=== PATIENT | female | born 1965 | race Caucasian/White ===

== ENCOUNTER → 2020-03-18 10:30 | Outpatient (BNVA) | payer OTHER, SELFPAY | PROVIDERS: PCP Internal Medicine; Visit Provider Anesthesiology | DX: M51.36 Other intervertebral disc degeneration, lumbar region (principal); M51.37 Other intervertebral disc degeneration, lumbosacral region; M47.816 Spondylosis without myelopathy or radiculopathy, lumbar region | CPT/HCPCS: 99204 ==

== ENCOUNTER 2020-05-28 13:00 | Outpatient (RCR) | payer OTHER, SELFPAY ==
--- NOTE | 2020-04-02 14:21 | MHC.PT.EP ---
[facility] [place] Office [place] Office [place] Office [address] Jh Rosenberg [address] [phone] F: [phone] F: [phone] F: [phone] F: [phone] Physical Therapy Plan of Care Date of Evaluation: 04/02/20 Date of Surgery: NA Diagnosis: other intervertebral disc degeneration, lumbaoscaral region, spondylosis without myelopathy or radiculopathy, lumbar region Assessment: 54 y/o female referred to PT with other intervertebral disc deneneration lumbosacral region, spondylosis without myeloathy or radiculopathy. 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 States she had back pain prior to this injury but this specific incident made her back pain worse. Her pain feels the same or getting a little bit worse since her injury and it is across her low back with intermittent tingling L lateral thigh. She has a lot of fear/anxiety regarding her back pain as she has a bulging disc (?sequestration) that led to R foot drop and eventually a laminectomy in 1999. She is scared this will happen again. Of note, she had PT at [place] but did not attend many visits as it increased pain, although the TENS and tape were helpful. She is able to do her ADL's but with pain, sometimes she is unable to shave her legs and don/doffing shoes can be painful. Pain and difficulty with walking, prolonged standing, washing dishes, and lifting. She is currently OOW with workmans comp. Examination shows significantly decreased lumbar AROM, decreased core strength, impaired gait pattern, muscle spasm, and decreased postural awareness. REcommend PT 2x/week for 5 weeks to address impairments, implement HEP, and optimize functional mobility. Frequency and Duration: The patient will be seen 2x/week for 5 weeks Short Term Goals: 3 weeks: 1. Initiate HEP 2. Improve lumbar flexion to 75% with pain < 3/10 Longterm Goals: 5 weeks: 1. I with HEP and self management of sx 2. Pt will be able to ambulate > 45 min with pain < 2/10 3. Pt will be able to don/doff shoes with pain > 2/10 4. Will demonstrate proper lifting mechanics 15# from knees to waist with pain < 3/10 Treatment Plan: Modalities to reduce pain, spasms and effusion. Manual therapy to restore motion and function. Therapeutic exercise to improve strength and flexibility. Neuromuscular re-education for posture and balance. Therapeutic activities to return to functional activities of daily living. Please sign and return to therapist. Thank you for your referral.
== END 2020-06-25 09:54 | disposition other institution (70) ==
LOC: HO.PTWFD 13:00
PROVIDERS: Visit Provider Anesthesiology
DX: M51.37 Other intervertebral disc degeneration, lumbosacral region (principal); M47.816 Spondylosis without myelopathy or radiculopathy, lumbar region
CPT/HCPCS: 97014; 97110; 97140; 97162; 97164; 97530; 97535

== ENCOUNTER 2020-09-07 10:00 | Outpatient (REF) | payer BC, SELFPAY ==
[2020-09-07 13:27] LABS: MANUAL DIFF FLAG NO
[2020-09-07 13:29] LABS: Basophils Absolute Auto 0.1 X10*3/uL (0.0-0.2); Basophils Percent Auto 1.2 % (0-2); Eosinophils Absolute Auto 0.5 X10*3/uL (0.0-0.4); Hematocrit 42.8 % (37-47); Imm Gran Abs Auto 0.04 X10*3/uL (0.00-0.03); Imm Gran Pct Auto 0.6 % (0.0-0.4); Lymphocytes Absolute Auto 2.2 X10*3/uL (1.2-4.9); Lymphocytes Percent Auto 33.5 % (20-40); Mean Corpuscular HGB Conc 32.7 g/dl (31.0-35.0); Mean Corpuscular Volume 94.7 fL (80-98); Mean Platelet Volume 10.1 fL (9.4-12.3); Monocytes Absolute Auto 0.5 X10*3/uL (0.1-1.2); Monocytes Percent Auto 7.3 % (2-11); Neutrophils Absolute Auto 3.2 X10*3/uL (2.0-8.3); Neutrophils Percent Auto 50.4 % (45-73); Platelet Count 247 X10*3/uL (160-400); Red Blood Count 4.52 X10*6/uL (4.20-5.50); Red Cell Distribution Width 12.8 % (11.0-16.0); White Blood Count 6.4 X10*3/uL (4.8-10.8)
[2020-09-07 13:56] LABS: Alanine Aminotransferase 20 U/L (0-31); Alkaline Phosphatase 109 U/L (39-117); Anion Gap 11 (12-20); Aspartate Amino Transferase 16 U/L (5-31); Bilirubin Total 0.5 mg/dL (0.0-1.0); Blood Urea Nitrogen 17 mg/dL (9-16); Calcium 9.1 mg/dL (8.4-10.2); Carbon Dioxide 28 mmol/L (22-29); Chloride 108 mmol/L (96-108); Cholesterol 222 mg/dL; Estimated Glomerular Filt Rate > 60; Glucose Fasting 84 mg/dL (60-99); HDL Cholesterol 60 mg/dL; LDL Cholesterol Calculated 122 mg/dl; Sodium 142 mmol/L (135-145); Total Protein 6.6 g/dL (6.5-8.0); Triglycerides 202 mg/dL
[2020-09-07 14:21] LABS: TSH reflex Free T4 0.96 uIU/mL (0.32-4.0)
[2020-09-08 08:47] LABS: Thyroid Peroxidase Antibodies 51 IU/mL (<9)
== END 2020-09-07 10:01 | disposition home or self-care (01) ==
LOC: HO.WFDLDS 10:00
PROVIDERS: Visit Provider Family Medicine
DX: Z00.00 Encounter for general adult medical examination without abnormal findings (principal); R94.6 Abnormal results of thyroid function studies
CPT/HCPCS: 36415; 80053; 80061; 84443; 85025; 86376

== ENCOUNTER 2020-10-08 11:20 | Outpatient (REF) | payer BC, SELFPAY ==
[2020-10-08 14:03] LABS: MANUAL DIFF FLAG NO
[2020-10-08 14:09] LABS: Basophils Absolute Auto 0.1 X10*3/uL (0.0-0.2); Basophils Percent Auto 0.7 % (0-2); Eosinophils Absolute Auto 0.5 X10*3/uL (0.0-0.4); Eosinophils Percent Auto 6.9 % (0-4); Hematocrit 41.6 % (37-47); Hemoglobin 13.5 g/dl (12.0-16.0); Imm Gran Abs Auto 0.04 X10*3/uL (0.00-0.03); Imm Gran Pct Auto 0.6 % (0.0-0.4); Lymphocytes Absolute Auto 2.4 X10*3/uL (1.2-4.9); Lymphocytes Percent Auto 34.6 % (20-40); Mean Corpuscular HGB Conc 32.5 g/dl (31.0-35.0); Mean Corpuscular Hemoglobin 30.3 pg (27.0-33.0); Mean Corpuscular Volume 93.5 fL (80-98); Mean Platelet Volume 9.9 fL (9.4-12.3); Monocytes Absolute Auto 0.5 X10*3/uL (0.1-1.2); Monocytes Percent Auto 7.4 % (2-11); Neutrophils Absolute Auto 3.4 X10*3/uL (2.0-8.3); Neutrophils Percent Auto 49.8 % (45-73); Platelet Count 245 X10*3/uL (160-400); Red Blood Count 4.45 X10*6/uL (4.20-5.50); Red Cell Distribution Width 13.1 % (11.0-16.0); White Blood Count 6.8 X10*3/uL (4.8-10.8)
[2020-10-08 14:41] LABS: Anion Gap 10 (12-20); Blood Urea Nitrogen 16 mg/dL (9-16); Calcium 9.3 mg/dL (8.4-10.2); Carbon Dioxide 28 mmol/L (22-29); Chloride 106 mmol/L (96-108); Estimated Glomerular Filt Rate > 60; Glucose Random 78 mg/dL (60-115); Potassium 4.3 mmol/L (3.3-5.1); Sodium 140 mmol/L (135-145)
== END 2020-10-08 11:21 | disposition home or self-care (01) ==
LOC: HO.WFDLDS 11:20
PROVIDERS: Visit Provider Family Medicine
DX: Z00.00 Encounter for general adult medical examination without abnormal findings (principal); R53.83 Other fatigue
CPT/HCPCS: 36415; 80048; 85025

== ENCOUNTER 2020-12-09 13:19 | Outpatient (REF) | payer OTHER, SELFPAY ==
[2020-12-09 15:45] LABS: Free T4 (Free Thyroxine) 0.86 ng/dL (0.71-1.85); Thyroid Stimulating Hormone 0.93 uIU/mL (0.32-4.0)
== END 2020-12-09 13:20 | disposition home or self-care (01) ==
LOC: HO.LAB 13:19
PROVIDERS: PCP Family Medicine; Visit Provider Nurse Practitioner Gerontology
DX: E03.8 Other specified hypothyroidism (principal); E06.3 Autoimmune thyroiditis; E66.01 Morbid (severe) obesity due to excess calories; Z68.41 Body mass index [BMI] 40.0-44.9, adult
CPT/HCPCS: 36415; 84439; 84443; 99212

== ENCOUNTER 2021-03-09 09:45 | Outpatient (REF) | payer OTHER, SELFPAY ==
[2021-03-09 11:49] LABS: Alanine Aminotransferase 16 U/L (0-31); Alkaline Phosphatase 107 U/L (39-117); Anion Gap 13 (12-20); Aspartate Amino Transferase 16 U/L (5-31); Bilirubin Total 0.5 mg/dL (0.0-1.0); Blood Urea Nitrogen 18 mg/dL (9-16); Calcium 9.3 mg/dL (8.4-10.2); Carbon Dioxide 24 mmol/L (22-29); Chloride 107 mmol/L (96-108); Cholesterol 246 mg/dL; Estimated Glomerular Filt Rate > 60; Glucose Fasting 93 mg/dL (60-99); HDL Cholesterol 51 mg/dL; LDL Cholesterol Calculated 142 mg/dl; Sodium 140 mmol/L (135-145); Total Protein 6.7 g/dL (6.5-8.0); Triglycerides 269 mg/dL
[2021-03-09 12:05] LABS: TSH reflex Free T4 1.04 uIU/mL (0.32-4.0)
== END 2021-03-09 09:46 | disposition home or self-care (01) ==
LOC: HO.WFDLDS 09:45
PROVIDERS: Visit Provider Family Medicine
DX: Z00.00 Encounter for general adult medical examination without abnormal findings (principal)
CPT/HCPCS: 36415; 80053; 80061; 84443

== ENCOUNTER → 2021-04-14 10:45 | Outpatient (BNVA) | payer OTHER, SELFPAY | PROVIDERS: PCP Family Medicine; Visit Provider Nurse Practitioner Gerontology | DX: E03.8 Other specified hypothyroidism (principal); E06.3 Autoimmune thyroiditis; E66.01 Morbid (severe) obesity due to excess calories; Z68.41 Body mass index [BMI] 40.0-44.9, adult | CPT/HCPCS: 99212 ==

== ENCOUNTER → 2021-05-04 10:56 | Outpatient (BNVA) | payer OTHER, SELFPAY | PROVIDERS: PCP Family Medicine; Referring Provider Family Medicine; Visit Provider Physician Assistant Surgical ==

== ENCOUNTER → 2021-05-10 11:56 | Outpatient (BNVA) | payer OTHER, SELFPAY | PROVIDERS: PCP Family Medicine; Referring Provider Family Medicine; Visit Provider Nurse Practitioner Family | DX: Z12.11 Encounter for screening for malignant neoplasm of colon (principal); K21.9 Gastro-esophageal reflux disease without esophagitis | CPT/HCPCS: 99202 ==

== ENCOUNTER → 2021-05-14 08:20 | Outpatient (BNVA) | payer OTHER, SELFPAY | PROVIDERS: PCP Family Medicine; Visit Provider Surgery ==

== ENCOUNTER 2021-05-18 09:44 | Outpatient (REF) | payer OTHER, SELFPAY ==
--- NOTE | ~2021-05-18 | XR_ITS ---
EXAMINATION: XR CHEST CLINICAL INFORMATION: Morbid obesity due to excess calories. COMPARISON: None TECHNIQUE: 2 views of the chest were obtained. FINDINGS: Normal symmetric lung volumes. No parenchymal consolidation. No pleural effusion. No pneumothorax. Cardiomediastinal silhouette and pulmonary vascularity are within normal limits. No acute osseous abnormalities. XR/XR chest 2V IMPRESSION: Unremarkable examination.
--- NOTE | 2021-05-18 09:48 | ECG_ITS ---
Test Reason : obesity Blood Pressure : / mmHG Vent. Rate : 066 BPM Atrial Rate : 066 BPM P-R Int : 172 ms QRS Dur : 100 ms QT Int : 392 ms P-R-T Axes : 051 029 022 degrees QTc Int : 410 ms Normal sinus rhythm Normal ECG When compared with ECG of 26-APR-2011 08:48, No significant change was found Referred By: Demond Meyer Electronically Signed By:ROSI MALONEY
[2021-05-18 10:03] LABS: MANUAL DIFF FLAG NO
[2021-05-18 10:14] LABS: Basophils Absolute Auto 0.1 X10*3/uL (0.0-0.2); Eosinophils Absolute Auto 0.4 X10*3/uL (0.0-0.4); Hematocrit 42.4 % (37.0-47.0); Imm Gran Abs Auto 0.02 X10*3/uL (0.00-0.03); Imm Gran Pct Auto 0.4 % (0.0-0.4); Lymphocytes Absolute Auto 1.3 X10*3/uL (1.2-4.9); Lymphocytes Percent Auto 27.2 % (20-40); Mean Corpuscular Hemoglobin 30.4 pg (27.0-33.0); Mean Platelet Volume 9.8 fL (9.4-12.3); Monocytes Absolute Auto 0.4 X10*3/uL (0.1-1.2); Monocytes Percent Auto 8.2 % (2-11); Neutrophils Absolute Auto 2.7 x10*3/uL (2.0-8.3); Neutrophils Percent Auto 55.2 % (45-73); Platelet Count 223 X10*3/uL (160-400); Red Blood Count 4.61 X10*6/uL (4.20-5.50); Red Cell Distribution Width 12.9 % (11.0-16.0); White Blood Count 4.9 X10*3/uL (4.8-10.8)
[2021-05-18 11:02] LABS: Alanine Aminotransferase 17 U/L (0-31); Alkaline Phosphatase 87 U/L (39-117); Anion Gap 10 (12-20); Aspartate Amino Transferase 18 U/L (5-31); Bilirubin Total 0.5 mg/dL (0.0-1.0); Blood Urea Nitrogen 20 mg/dL (9-16); C Reactive Protein 0.26 mg/dL (< or = 0.50); Calcium 9.8 mg/dL (8.4-10.2); Carbon Dioxide 28 mmol/L (22-29); Chloride 109 mmol/L (96-108); Cholesterol 179 mg/dL; Estimated Glomerular Filt Rate > 60; Glucose Random 90 mg/dL (60-115); HDL Cholesterol 50 mg/dL; Iron 65 mcg/dL (30-160); LDL Cholesterol Calculated 106 mg/dl; Percent Iron Saturation 22 % (15-50); Sodium 143 mmol/L (135-145); Total Iron Binding Capacity 293 mcg/dL (228-428); Total Protein 6.7 g/dL (6.5-8.0); Triglycerides 117 mg/dL; Unsaturated Iron Binding 228 ug/dL
[2021-05-18 11:19] LABS: Estimated Average Glucose 94 mg/dL; Hemoglobin A1c % 4.9 %
[2021-05-18 11:27] LABS: Ferritin 130 ng/mL (10-250); Insulin 10 uU/mL (2-29); TSH reflex Free T4 0.92 uIU/mL (0.32-4.0); Vitamin D 25-OH Total 34.6 ng/mL (>30)
[2021-05-18 11:29] LABS: Folate > 20.0 ng/mL (> or = 4.0); Vitamin B12 489 pg/mL (200-900)
[2021-05-19 12:33] LABS: H Pylori Breath Test Negative (Negative)
[2021-05-19 13:07] LABS: Calcium (PTHI) 9.5 mg/dL (8.6-10.4); PTHI 35 pg/mL (14-64)
[2021-05-23 11:16] LABS: Vitamin B1 19 nmol/L (8-30)
[2021-05-24 04:56] LABS: Zinc 74 mcg/dL (60-130)
[2021-05-25 18:42] LABS: Vitamin A 50 mcg/dL (38-98)
== END 2021-05-18 09:45 | disposition home or self-care (01) ==
LOC: HO.XRAY 09:44
PROVIDERS: PCP Family Medicine; Visit Provider Surgery
DX: E66.01 Morbid (severe) obesity due to excess calories (principal); E03.8 Other specified hypothyroidism; E06.3 Autoimmune thyroiditis; G47.30 Sleep apnea, unspecified; M54.9 Dorsalgia, unspecified; Z68.41 Body mass index [BMI] 40.0-44.9, adult
CPT/HCPCS: 36415; 71046; 80053; 80061; 82306; 82607; 82728; 82746; 83013; 83036; 83525; 83540; 83970; 84425; 84443; 84590; 84630; 85025; 86140; 93005; 99211

== ENCOUNTER → 2021-06-14 10:42 | Outpatient (BNVA) | payer OTHER, SELFPAY | PROVIDERS: PCP Family Medicine; Referring Provider Family Medicine; Visit Provider Surgery | DX: E66.01 Morbid (severe) obesity due to excess calories (principal); Z68.37 Body mass index [BMI] 37.0-37.9, adult | CPT/HCPCS: 99212 ==

== ENCOUNTER → 2021-06-17 08:05 | Outpatient (BNVA) | payer OTHER, SELFPAY | PROVIDERS: PCP Family Medicine; Visit Provider Dietitian, Registered | DX: E66.9 Obesity, unspecified (principal) | CPT/HCPCS: 97802 ==

== ENCOUNTER 2021-07-05 08:47 | Outpatient (REF) | payer OTHER, SELFPAY ==
--- NOTE | ~2021-07-05 | FL_ITS ---
EXAMINATION: XR FLUOROSCOPY UPPER GI WITH AIR CLINICAL INFORMATION: Moderate to severe obesity due to excess calories. COMPARISON: None TECHNIQUE: Routine upper GI air-contrast study was performed. FINDINGS: Following intravenous administration of thick barium and effervescent granules there is normal propagation of bolus from the oral cavity through the pharynx, esophagus into stomach without any evidence of obstruction, narrowing or stricture. On placing patient supine and prone lying, the course, caliber and peristalsis of the stomach, duodenal bulb and the sweep is normal. The mucosal pattern of the stomach is normal. Mild gastroesophageal reflux seen without hiatal hernia. FLUOROSCOPY TIME: 1.7 minutes DOSE AREA PRODUCT: 21.474 uGy-m2 (microgray-meter squared) FL/FL upper GI w air IMPRESSION: Mild gastroesophageal reflux without hiatal hernia. Otherwise unremarkable upper GI air-contrast study.
--- NOTE | ~2021-07-05 | US_ITS ---
EXAMINATION: US COMPLETE ABDOMEN WITH LIVER ELASTOGRAPHY CLINICAL INFORMATION: Morbid obesity COMPARISON: None. TECHNIQUE: Real-time imaging of the abdominal viscera. Noninvasive ultrasound liver fibrosis assessment is performed using Damion ElastPQ point quantification shear wave elastography (2D-SWE) with a C5-2 MHz transducer. Multiple elastography samples are obtained. FINDINGS: PANCREAS: Normal. The visualized pancreatic head and body are normal in appearance. The remainder of the pancreas is obscured from visualization by the overlying bowel gas. ABDOMINAL AORTA: The proximal, middle, and distal aortic segments are normal in caliber. INFERIOR VENA CAVA: Visualized portions are normal. LIVER: Normal. The liver demonstrates normal size, contour and echogenicity. No focal lesion or intrahepatic biliary duct dilatation. The right lobe measures 15.4 cm in length. The left lobe measures 13 cm in length. Portal flow is hepatopedal Shear wave liver elastography median stiffness is 1.13 m/s (reference: normal median stiffness is 1.3 m/s or less). IQR/median stiffness to assess sampling precision is 0.12 (reference: good quality data set is IQR/median stiffness of 0.15 or less). GALLBLADDER: Gallstones are noted within otherwise unremarkable appearing gallbladder. There is no gallbladder wall thickening or pericholecystic fluid appreciated. Negative sonographic Luke's sign. COMMON BILE DUCT: Normal in caliber measuring 0.3 cm in diameter. RIGHT KIDNEY: The kidney measures 12 cm in maximum dimension. Several punctate calcifications are noted within the right kidney, either tiny nonobstructing calculi or vascular reflections. There is no hydronephrosis of the right kidney. There is a 7 mm simple appearing midpole cyst identified. LEFT KIDNEY: The kidney measures 12.2 cm in maximum dimension. Several punctate calcifications are also noted within the left kidney, either tiny nonobstructing calculi or vascular reflections. There is no hydronephrosis of the left kidney. There is an 8mm echogenic focus within the midpole which is suspected to represent a nonobstructing calculus. SPLEEN: Normal. The spleen measures 9.3 cm in maximum dimension. FREE FLUID: None. US/US abdomen comp w elastography IMPRESSION: 1. Cholelithiasis. No other ultrasound evidence to suggest acute cholecystitis. 2. Suspected 8mm nonobstructing left renal calculus. There are punctate calcifications of both kidneys which either represent tiny nonobstructing stones versus vascular calcifications. There is no hydronephrosis of either kidney identified. 3. Liver elastography: Measurements are consistent with a high probability of normal liver stiffness. REFERENCE: Society of Radiologists in Ultrasound Liver Stiffness Thresholds (2020): LIVER STIFFNESS THRESHOLDS: *Liver Stiffness equal or less than 1.3 m/s: High probability of being normal. *Liver Stiffness less than 1.7 m/s: In the absence of other known clinical signs, rules out compensated advanced chronic liver disease. *Liver Stiffness 1.7-2.1 m/s: Suggestive of compensated advanced chronic liver disease but need further test for confirmation. *Liver Stiffness over 2.1 m/s: Rules in compensated advanced chronic liver disease. *Liver Stiffness over 2.4 m/s: Suggestive of clinically significant portal hypertension. QUALITY OF DATA SET: *IQR/Median value equal or less than 0.15 implies a quality data set. *IQR/Median value over 0.15 implies a poor quality data set. SIGNIFICANT CHANGE FROM PRIOR EXAM: Significant change if liver stiffness measurement is 10% or greater from prior exam. OTHER CONSIDERATIONS: The stage of liver fibrosis may be overestimated in the setting of acute hepatitis, liver inflammation, elevated liver function tests, hepatic vascular congestion, obstructive cholestasis, non-fasting state, and infiltrative diseases such as amyloidosis and lymphoma. In some patients with NAFLD, the liver stiffness thresholds for compensated advanced chronic liver disease may be lower. In causes other than viral hepatitis and NAFLD, liver stiffness thresholds are not well established.
== END 2021-07-05 08:48 | disposition home or self-care (01) ==
LOC: HO.US 08:47
PROVIDERS: PCP Family Medicine; Visit Provider Surgery
DX: Z01.818 Encounter for other preprocedural examination (principal); E66.01 Morbid (severe) obesity due to excess calories; Z68.41 Body mass index [BMI] 40.0-44.9, adult; E03.8 Other specified hypothyroidism; E06.3 Autoimmune thyroiditis; G47.30 Sleep apnea, unspecified; M54.9 Dorsalgia, unspecified
CPT/HCPCS: 74246; 76705; 76981

== ENCOUNTER → 2021-07-08 08:01 | Outpatient (BNVA) | payer OTHER, SELFPAY | PROVIDERS: PCP Family Medicine; Referring Provider Surgery; Visit Provider Dietitian, Registered ==

== ENCOUNTER → 2021-07-14 08:19 | Outpatient (BNVA) | payer OTHER, SELFPAY | PROVIDERS: PCP Family Medicine; Visit Provider Surgery ==

== ENCOUNTER → 2021-07-15 08:10 | Outpatient (BNVA) | payer OTHER, SELFPAY | PROVIDERS: PCP Family Medicine; Visit Provider Dietitian, Registered | DX: E66.09 Other obesity due to excess calories (principal); Z68.36 Body mass index [BMI] 36.0-36.9, adult; Z71.3 Dietary counseling and surveillance | CPT/HCPCS: 97803 ==

== ENCOUNTER → 2021-08-13 08:18 | Outpatient (BNVA) | payer OTHER, SELFPAY | PROVIDERS: PCP Family Medicine; Visit Provider Surgery | DX: Z13.89 Encounter for screening for other disorder (principal) ==

== ENCOUNTER 2021-08-26 06:16 | Inpatient (IN) | payer OTHER, SELFPAY ==
[2021-08-12 09:47] VITALS: BMI 35.7
[2021-08-19 11:12] LABS: MANUAL DIFF FLAG NO
[2021-08-19 11:34] LABS: Basophils Percent Auto 0.9 % (0-2); Eosinophils Absolute Auto 0.2 X10*3/uL (0.0-0.4); Eosinophils Percent Auto 3.9 % (0-4); Hematocrit 43.9 % (37.0-47.0); Hemoglobin 14.4 g/dl (12.0-16.0); Imm Gran Abs Auto 0.02 X10*3/uL (0.00-0.03); Imm Gran Pct Auto 0.4 % (0.0-0.4); Lymphocytes Absolute Auto 1.4 X10*3/uL (1.2-4.9); Lymphocytes Percent Auto 30.7 % (20-40); Mean Corpuscular HGB Conc 32.8 g/dl (31.0-35.0); Mean Corpuscular Hemoglobin 30.3 pg (27.0-33.0); Mean Corpuscular Volume 92.2 fL (80.0-98.0); Mean Platelet Volume 9.7 fL (9.4-12.3); Monocytes Absolute Auto 0.4 X10*3/uL (0.1-1.2); Monocytes Percent Auto 8.7 % (2-11); Neutrophils Absolute Auto 2.6 x10*3/uL (2.0-8.3); Neutrophils Percent Auto 55.4 % (45-73); Platelet Count 195 X10*3/uL (160-400); Red Blood Count 4.76 X10*6/uL (4.20-5.50); White Blood Count 4.6 X10*3/uL (4.8-10.8)
[2021-08-19 11:38] LABS: INTERNATIONAL NORM RATIO 1.1 (0.9-1.1); Prothrombin Time 12.5 SEC (9.9-13.0)
[2021-08-19 11:40] LABS: Estimated Average Glucose 97 mg/dL; Partial Thromboplastin Time 40.6 SEC (24.1-38.0)
[2021-08-19 12:35] LABS: Alanine Aminotransferase 18 U/L (0-31); Alkaline Phosphatase 87 U/L (39-117); Anion Gap 14 (12-20); Aspartate Amino Transferase 15 U/L (5-31); Bilirubin Total 0.6 mg/dL (0.0-1.0); Blood Urea Nitrogen 22 mg/dL (9-16); C Reactive Protein 0.27 mg/dL (< or = 0.50); Calcium 9.7 mg/dL (8.4-10.2); Carbon Dioxide 25 mmol/L (22-29); Chloride 107 mmol/L (96-108); Cholesterol 182 mg/dL; Creatinine Clr Calc Pharmacy 70.3; Estimated Glomerular Filt Rate 56; Glucose Random 96 mg/dL (60-115); HDL Cholesterol 50 mg/dL; LDL Cholesterol Calculated 110 mg/dl; Potassium 4.5 mmol/L (3.3-5.1); Sodium 141 mmol/L (135-145); Total Protein 6.6 g/dL (6.5-8.0); Triglycerides 114 mg/dL
[2021-08-19 12:45] LABS: TSH reflex Free T4 0.95 uIU/mL (0.32-4.0)
[2021-08-19 13:46] LABS: Insulin 22 uU/mL (2-29)
--- NOTE | 2021-08-20 20:30 | MHC.SHP ---
Pre-Procedural Eval Section A Date of Service: 08/20/21 The patient is an INPATIENT: Yes The History & Physical has been completed within 30 days and I have reviewed it.: No Section B Chief Complaint: obesity Relevant Family History (Specify if Yes): No Relevant Social History: None Present Medications: None Medical History: No relevant PMH History of Previous Operations: No relevant previous surgery Allergies: Allergies Allergy/AdvReac Type Severity Reaction Status Date / Time nickel Allergy Severe Rash Verified 08/13/21 16:01 nitrofurantoin Allergy Hives Verified 08/13/21 16:01 [From Macrodantin] Sulfa (Sulfonamide Allergy Hives, Verified 08/13/21 16:01 Antibiotics) Swelling Review of Systems Sugical H&P ROS: Negative: Constitution, Cardiovascular, Respiratory, Neurological, Psychiatric, Hem-Onc, Allergic/Immunologic, Gastrointestinal, Genitourinary, Musculoskeletal, Integumentary, Endocrine and Eyes/Ears/Nose/Throat Exam Surgical H&P Exam: Normal: HEENT, Normal: Heart, Normal: Lungs, Normal: Extremities, Normal: Abdomen, Normal: Skin and Normal: Neurological Plan Diagnosis/Plan: Unchanged I have reviewed the history and physical and performed a pertinent physical examination on my patient. No changes have occurred unless specified.
--- NOTE | 2021-08-25 10:40 | HO.ANESPROP2 ---
Documented by User: Charla Brown NP 08/25/21 11:00 HPI - Anesthesia Eval Consult details Narrative: 56yo F for Gastrectomy Sleeve,EGD,poss diaphragmatic hernia,poss ventral hernia,poss open PMFSH Active Problems Active Problems: All Active Problems (Updated 08/13/21 @ 15:56 by Demond Meyer MD) BMI 35.0-35.9,adult (Acute) Depression with anxiety (Acute) Degenerative disc disease (Acute) Laboratory examination ordered as part of a routine general medical examination (Acute) Abnormal thyroid blood test (Acute) Screening for colon cancer (Acute) Screening for cervical cancer (Acute) Screening for breast cancer (Acute) Fatigue (Acute) Back pain (Acute) Hyperlipidemia (Acute) Morbid obesity with BMI of 40.0-44.9, adult (Acute) Urinary frequency (Acute) Adult general medical exam (Acute) Muscle strain (Acute) BMI 37.0-37.9, adult (Acute) Cervicalgia (Acute) Neuralgia (Acute) History of skin cancer (Acute) BMI 36.0-36.9,adult (Acute) Tachycardia (Acute) Sleep apnea (Acute) Obesity due to excess calories (Acute) Bettye's disease (Acute) Hypothyroidism (Acute) Spondylosis of lumbar spine (Acute) Degeneration, intervertebral disc, lumbosacral (Acute) Disc degeneration, lumbar (Acute) Past Medical History Medical History Anxiety and depression Degeneration, intervertebral disc, lumbosacral Disc degeneration, lumbar Bettye's disease Hypothyroidism Obesity due to excess calories Overactive bladder Sleep apnea Spondylosis of lumbar spine Tachycardia Family History Family History Mother Diabetes Uterine cancer Father Diabetes Sister Breast cancer Sister No problems noted. Brother No problems noted. Daughter No problems noted. Surgical History Surgical History History of bladder surgery History of cystoscopy History of dental surgery History of endometrial ablation History of eyelid surgery History of lumbar laminectomy History of lumpectomy of both breasts Hx of dilation and curettage Hx of tubal ligation Social History Social History Household Members: None Household Members Other:: Has a non relationship roomate Housing: Other Housing Other:: Mobile Home Are you a primary director of managed care to a significant other at home: No Do you presently have visiting nurse or other home services: No Alcohol intake: current Alcohol intake frequency: a few times a month Patient Tobacco Use Status: Former Tobacco user Quit Date: 2006 Tobacco use type: Cigarette Cigarette Packs Per Day: 2.5 Years Smoked: 24 e-Cigarette/Vaping Use: Never Used Second Hand Smoke Exposure: No Use of substances other than those prescribed or required for medical reasons: Yes Substance Use Type: Marijuana Substance Use Type Other:: Med Marijuana, Smokes & Edibles Substance Use Frequency: Daily Have you been hit, kicked, punched, or otherwise hurt by someone within the past year? If so, by whom?: No Are you DNR?: No Advance Directives: No Advance Directives Information Provided: Yes (Mailed w/ Intructions) Advance Directives on File: No Recently lost weight without trying: No How much weight loss: 24-33 pounds Eating poorly because of decreased appetite: No Nutrition screen score: 3 Nutrition Risks: No Nutritional Risk Patient : No Poor oral hygiene: No (2 crowns) Current occupational status: unemployed Cognitive needs: No Hearing needs: No Vision needs: No Meds Allergies Allergy/AdvReac Type Severity Reaction Status Date / Time nickel Allergy Severe Anaphylaxis Verified 08/26/21 06:28 nitrofurantoin Allergy Severe Anaphylaxis Verified 08/26/21 06:28 [From Macrodantin] Sulfa (Sulfonamide Allergy Hives, Verified 08/13/21 16:01 Antibiotics) Swelling Home Medications Medication Instructions Recorded Confirmed Last Taken Type bupropion HCl 100 mg tablet,12 hr 200 mg PO BID 03/18/20 08/13/21 Unknown History sustained-release topiramate 100 mg tablet 100 mg PO BEDTIME 03/18/20 08/13/21 Unknown History diazepam 5 mg tablet 5 mg PO DAILY PRN tab 09/03/20 08/13/21 Unknown History buspirone 15 mg tablet 15 mg PO BID tab 04/14/21 08/13/21 Unknown History duloxetine 30 mg capsule,delayed 60 mg PO DAILY cap 04/14/21 08/13/21 Unknown History release multivitamin 1 tab PO DAILY 05/13/21 08/13/21 Unknown History duloxetine 30 mg capsule,delayed 30 mg PO BEDTIME 08/12/21 08/13/21 Unknown History release Exam Exam Date and Time: August 25, 2021 1040 Height,Weight and Vital Signs: Height 5 ft 5 in Weight 97.522 kg Pertinent Lab Results Pertinent Lab Results: Laboratory Tests 08/19/21 08/19/21 08/19/21 11:10 11:10 11:10 WBC 4.6 L RBC 4.76 Hgb 14.4 Hct 43.9 MCV 92.2 MCH 30.3 MCHC 32.8 RDW 13.0 Plt Count 195 MPV 9.7 Immature Gran % (Auto) 0.4 Neut % (Auto) 55.4 Lymph % (Auto) 30.7 [place] % (Auto) 8.7 Eos % (Auto) 3.9 Baso % (Auto) 0.9 Lymph # (Auto) 1.4 [place] # (Auto) 0.4 Eos # (Auto) 0.2 Baso # (Auto) 0.0 Abs Immat Gran (auto) 0.02 Absolute Neuts (auto) 2.6 Absolute Nucleated RBC 0.000 Nucleated RBC % (auto) 0.0 PT 12.5 INR 1.1 APTT 40.6 H Sodium 141 Potassium 4.5 Chloride 107 Carbon Dioxide 25 Anion Gap 14 BUN 22 H Creatinine 1.02 Estim Creat Clear Calc 70.3 Estimated GFR 56 Random Glucose 96 Estimat Average Glucose Hemoglobin A1c % Insulin Level 22 Calcium 9.7 Total Bilirubin 0.6 AST 15 ALT 18 Alkaline Phosphatase 87 C-Reactive Protein 0.27 Total Protein 6.6 Albumin 4.0 Triglycerides 114 Cholesterol 182 LDL Cholesterol, Calc 110 HDL Cholesterol 50 TSH 0.95 Blood Type Antibody Screen 08/19/21 08/19/21 11:10 11:10 WBC RBC Hgb Hct MCV MCH MCHC RDW Plt Count MPV Immature Gran % (Auto) Neut % (Auto) Lymph % (Auto) [place] % (Auto) Eos % (Auto) Baso % (Auto) Lymph # (Auto) [place] # (Auto) Eos # (Auto) Baso # (Auto) Abs Immat Gran (auto) Absolute Neuts (auto) Absolute Nucleated RBC Nucleated RBC % (auto) PT INR APTT Sodium Potassium Chloride Carbon Dioxide Anion Gap BUN Creatinine Estim Creat Clear Calc Estimated GFR Random Glucose Estimat Average Glucose 97 Hemoglobin A1c % 5.0 Insulin Level Calcium Total Bilirubin AST ALT Alkaline Phosphatase C-Reactive Protein Total Protein Albumin Triglycerides Cholesterol LDL Cholesterol, Calc HDL Cholesterol TSH Blood Type O Positive Antibody Screen NEGATIVE Narrative Narrative: EKG 04/2021 Vent. Rate : 066 BPM ? ? Atrial Rate : 066 BPM ?? P-R Int : 172 ms? QRS Dur : 100 ms ? ? QT Int : 392 ms ? ? ? P-R-T Axes : 051 029 022 degrees ?? QTc Int : 410 ms ? Normal sinus rhythm Normal ECG When compared with ECG of 26-APR-2011 08:48, No significant change was found Assessment and Plan Assessment Anesthesia Assessment: Chart Reviewed Documented by User: Jeremi Lopez MD 08/26/21 10:15 [facility] Past Medical History Medical History Anxiety and depression Degeneration, intervertebral disc, lumbosacral Disc degeneration, lumbar Bettye's disease Hypothyroidism Obesity due to excess calories Overactive bladder Sleep apnea Spondylosis of lumbar spine Tachycardia Family History Family History Mother Diabetes Uterine cancer Father Diabetes Sister Breast cancer Sister No problems noted. Brother No problems noted. Daughter No problems noted. Family history of problems with anesthesia: No Surgical History Surgical History History of bladder surgery History of cystoscopy History of dental surgery History of endometrial ablation History of eyelid surgery History of lumbar laminectomy History of lumpectomy of both breasts Hx of dilation and curettage Hx of tubal ligation History of Problems with Anesthesia: No Social History Social History Household Members: None Household Members Other:: Has a non relationship roomate Housing: Other Housing Other:: Mobile Home Are you a primary director of managed care to a significant other at home: No Do you presently have visiting nurse or other home services: No Alcohol intake: current Alcohol intake frequency: a few times a month Patient Tobacco Use Status: Former Tobacco user Quit Date: 2006 Tobacco use type: Cigarette Cigarette Packs Per Day: 2.5 Years Smoked: 24 e-Cigarette/Vaping Use: Never Used Second Hand Smoke Exposure: No Use of substances other than those prescribed or required for medical reasons: Yes Substance Use Type: Marijuana Substance Use Type Other:: Med Marijuana, Smokes & Edibles Substance Use Frequency: Daily Have you been hit, kicked, punched, or otherwise hurt by someone within the past year? If so, by whom?: No Are you DNR?: No Advance Directives: No Advance Directives Information Provided: Yes (Mailed w/ Intructions) Advance Directives on File: No Recently lost weight without trying: No How much weight loss: 24-33 pounds Eating poorly because of decreased appetite: No Nutrition screen score: 3 Nutrition Risks: No Nutritional Risk Patient : No Poor oral hygiene: No (2 crowns) Current occupational status: unemployed Cognitive needs: No Hearing needs: No Vision needs: No Meds Allergies Allergy/AdvReac Type Severity Reaction Status Date / Time nickel Allergy Severe Anaphylaxis Verified 08/26/21 06:28 nitrofurantoin Allergy Severe Anaphylaxis Verified 08/26/21 06:28 [From Macrodantin] Sulfa (Sulfonamide Allergy Hives, Verified 08/13/21 16:01 Antibiotics) Swelling Home Medications Medication Instructions Recorded Confirmed Last Taken Type bupropion HCl 100 mg tablet,12 hr 200 mg PO BID 03/18/20 08/13/21 Unknown History sustained-release topiramate 100 mg tablet 100 mg PO BEDTIME 03/18/20 08/13/21 Unknown History diazepam 5 mg tablet 5 mg PO DAILY PRN tab 09/03/20 08/13/21 Unknown History buspirone 15 mg tablet 15 mg PO BID tab 04/14/21 08/13/21 Unknown History duloxetine 30 mg capsule,delayed 60 mg PO DAILY cap 04/14/21 08/13/21 Unknown History release multivitamin 1 tab PO DAILY 05/13/21 08/13/21 Unknown History duloxetine 30 mg capsule,delayed 30 mg PO BEDTIME 08/12/21 08/13/21 Unknown History release Exam Airway Mallampati Class: II TM Dist: >3cm Neck ROM: Full Loose/Missing/Broken Teeth: No Assessment and Plan Assessment Anesthesia Assessment: Anesthesia Plan Discussed Final Anesthetic Review Family History of Problems with Anesthesia: No History of Problems with Anesthesia: No NPO: Yes ASA Class: III Final Preanesthetic Review: No Changes in Pt Med Stat, Meds/Allgs Chart Reviewed, Consent Obtained/Reviewed and Anes Risks/Benef Reviewed Patient Risk: Intermediate Procedure Risk: Intermediate Anesthetic Plan Anesthetic Plan: GA Disposition: Standard PACU
[2021-08-25 13:46] LABS: COVID-19 Test Negative (Negative); IDNOW Serial# 16C4AD1C
[2021-08-26] VITALS (14 sets, daily range): BP systolic 101–144; BP diastolic 56–83; PULSE 62–99; RESP 14–20; TEMP 36.1–37.2; O2SAT 96–100
[2021-08-26] MEDS: Lactated Ringers 1,000 ML 999 ML IV (07:00)
[2021-08-26] MEDS: Lactated Ringers 1,000 ML 100 ML IVCONT ×3 (07:01→20:46)
--- NOTE | 2021-08-26 07:10 | P.CONAN_ITS ---
[facility] Active Problems Active Problems: All Active Problems (Updated 08/13/21 @ 15:56 by Demond Meyer MD) BMI 35.0-35.9,adult (Acute) Depression with anxiety (Acute) Degenerative disc disease (Acute) Laboratory examination ordered as part of a routine general medical examination (Acute) Abnormal thyroid blood test (Acute) Screening for colon cancer (Acute) Screening for cervical cancer (Acute) Screening for breast cancer (Acute) Fatigue (Acute) Back pain (Acute) Hyperlipidemia (Acute) Morbid obesity with BMI of 40.0-44.9, adult (Acute) Urinary frequency (Acute) Adult general medical exam (Acute) Muscle strain (Acute) BMI 37.0-37.9, adult (Acute) Cervicalgia (Acute) Neuralgia (Acute) History of skin cancer (Acute) BMI 36.0-36.9,adult (Acute) Tachycardia (Acute) Sleep apnea (Acute) Obesity due to excess calories (Acute) Bettye's disease (Acute) Hypothyroidism (Acute) Spondylosis of lumbar spine (Acute) Degeneration, intervertebral disc, lumbosacral (Acute) Disc degeneration, lumbar (Acute) Past Medical History Medical History Anxiety and depression Degeneration, intervertebral disc, lumbosacral Disc degeneration, lumbar Bettye's disease Hypothyroidism Obesity due to excess calories Overactive bladder Sleep apnea Spondylosis of lumbar spine Tachycardia Family History Family History Mother Diabetes Uterine cancer Father Diabetes Sister Breast cancer Sister No problems noted. Brother No problems noted. Daughter No problems noted. Family history of problems with anesthesia: No Surgical History Surgical History History of bladder surgery History of cystoscopy History of dental surgery History of endometrial ablation History of eyelid surgery History of lumbar laminectomy History of lumpectomy of both breasts Hx of dilation and curettage Hx of tubal ligation History of Problems with Anesthesia: No Social History Social History Household Members: None Household Members Other:: Has a non relationship roomate Housing: Other Housing Other:: Mobile Home Are you a primary intensive care medicine specialist to a significant other at home: No Do you presently have visiting nurse or other home services: No Alcohol intake: current Alcohol intake frequency: a few times a month Patient Tobacco Use Status: Former Tobacco user Quit Date: 2006 Tobacco use type: Cigarette Cigarette Packs Per Day: 2.5 Years Smoked: 24 e-Cigarette/Vaping Use: Never Used Second Hand Smoke Exposure: No Use of substances other than those prescribed or required for medical reasons: Yes Substance Use Type: Marijuana Substance Use Type Other:: Med Marijuana, Smokes & Edibles Substance Use Frequency: Daily Have you been hit, kicked, punched, or otherwise hurt by someone within the past year? If so, by whom?: No Are you DNR?: No Advance Directives: No Advance Directives Information Provided: Yes (Mailed w/ Intructions) Advance Directives on File: No Recently lost weight without trying: No How much weight loss: 24-33 pounds Eating poorly because of decreased appetite: No Nutrition screen score: 3 Nutrition Risks: No Nutritional Risk Patient : No Poor oral hygiene: No (2 crowns) Current occupational status: unemployed Cognitive needs: No Hearing needs: No Vision needs: No Meds Allergies Allergy/AdvReac Type Severity Reaction Status Date / Time nickel Allergy Severe Anaphylaxis Verified 08/26/21 06:28 nitrofurantoin Allergy Severe Anaphylaxis Verified 08/26/21 06:28 [From Macrodantin] Sulfa (Sulfonamide Allergy Hives, Verified 08/13/21 16:01 Antibiotics) Swelling Active Medications: Current Medications Lactated Ringer's (Lr) 1,000 mls @ 100 mls/hr IVCONT .Q10H [facility] Last Admin: 08/26/21 07:01 Dose: 100 mls/hr Documented by: Lactated Ringer's (Lr) 1,000 mls @ 999 mls/hr IV .Q1H1M [facility] Stop: 08/26/21 07:15 Last Admin: 08/26/21 07:00 Dose: 999 mls/hr Documented by: Home Medications Medication Instructions Recorded Confirmed Last Taken Type bupropion HCl 100 mg tablet,12 hr 200 mg PO BID 03/18/20 08/13/21 Unknown History sustained-release topiramate 100 mg tablet 100 mg PO BEDTIME 03/18/20 08/13/21 Unknown History diazepam 5 mg tablet 5 mg PO DAILY PRN tab 09/03/20 08/13/21 Unknown History buspirone 15 mg tablet 15 mg PO BID tab 04/14/21 08/13/21 Unknown History duloxetine 30 mg capsule,delayed 60 mg PO DAILY cap 04/14/21 08/13/21 Unknown History release multivitamin 1 tab PO DAILY 05/13/21 08/13/21 Unknown History duloxetine 30 mg capsule,delayed 30 mg PO BEDTIME 08/12/21 08/13/21 Unknown History release Exam Exam Date and Time: August 26, 2021 0710 Height,Weight and Vital Signs: Height 5 ft 5 in Weight 97.522 kg Last Vital Signs Temp 98.5 F 08/26/21 06:30 Pulse 63 08/26/21 06:30 Resp 18 08/26/21 06:30 BP 121/67 08/26/21 06:30 Pulse Ox 98 08/26/21 06:30 Pertinent Lab Results Pertinent Lab Results: Laboratory Tests 08/19/21 08/19/21 08/19/21 11:10 11:10 11:10 WBC 4.6 L RBC 4.76 Hgb 14.4 Hct 43.9 MCV 92.2 MCH 30.3 MCHC 32.8 RDW 13.0 Plt Count 195 MPV 9.7 Immature Gran % (Auto) 0.4 Neut % (Auto) 55.4 Lymph % (Auto) 30.7 [place] % (Auto) 8.7 Eos % (Auto) 3.9 Baso % (Auto) 0.9 Lymph # (Auto) 1.4 [place] # (Auto) 0.4 Eos # (Auto) 0.2 Baso # (Auto) 0.0 Abs Immat Gran (auto) 0.02 Absolute Neuts (auto) 2.6 Absolute Nucleated RBC 0.000 Nucleated RBC % (auto) 0.0 PT 12.5 INR 1.1 APTT 40.6 H Sodium 141 Potassium 4.5 Chloride 107 Carbon Dioxide 25 Anion Gap 14 BUN 22 H Creatinine 1.02 Estim Creat Clear Calc 70.3 Estimated GFR 56 Random Glucose 96 Estimat Average Glucose Hemoglobin A1c % Insulin Level 22 Calcium 9.7 Total Bilirubin 0.6 AST 15 ALT 18 Alkaline Phosphatase 87 C-Reactive Protein 0.27 Total Protein 6.6 Albumin 4.0 Triglycerides 114 Cholesterol 182 LDL Cholesterol, Calc 110 HDL Cholesterol 50 TSH 0.95 COVID-19 ([facility]) COVID-19 Clin Com Blood Type Antibody Screen 08/19/21 08/19/21 08/25/21 11:10 11:10 13:15 WBC RBC Hgb Hct MCV MCH MCHC RDW Plt Count MPV Immature Gran % (Auto) Neut % (Auto) Lymph % (Auto) [place] % (Auto) Eos % (Auto) Baso % (Auto) Lymph # (Auto) [place] # (Auto) Eos # (Auto) Baso # (Auto) Abs Immat Gran (auto) Absolute Neuts (auto) Absolute Nucleated RBC Nucleated RBC % (auto) PT INR APTT Sodium Potassium Chloride Carbon Dioxide Anion Gap BUN Creatinine Estim Creat Clear Calc Estimated GFR Random Glucose Estimat Average Glucose 97 Hemoglobin A1c % 5.0 Insulin Level Calcium Total Bilirubin AST ALT Alkaline Phosphatase C-Reactive Protein Total Protein Albumin Triglycerides Cholesterol LDL Cholesterol, Calc HDL Cholesterol TSH COVID-19 ([facility]) Negative COVID-19 Clin Com See Note Blood Type O Positive Antibody Screen NEGATIVE Airway Mallampati Class: II TM Dist: >3cm Neck ROM: Full Heart: CTA Lungs: CTA Assessment and Plan Final Anesthetic Review Family History of Problems with Anesthesia: No History of Problems with Anesthesia: No ASA Class: III Final Preanesthetic Review: No Changes in Pt Med Stat, Meds/Allgs Chart Reviewed, Consent Obtained/Reviewed and Anes Risks/Benef Reviewed Patient Risk: Intermediate Procedure Risk: Intermediate Anesthetic Plan Anesthetic Plan: GA Disposition: Standard PACU
[2021-08-26] MEDS: ceFAZolin Sodium/Dextrose,Iso 2 GM/50 ML PIGGYBACK IV ×2 (08:00→14:13)
--- NOTE | 2021-08-26 10:26 | P.BOP_ITS ---
Brief Operative Note Date of Service: 08/26/21 Pre-op diagnosis: Severe obesity with comorbidities (see below) Post-op diagnosis: same Procedure: INITIAL PATIENT BMI ON PRESENTATION AT OUR OFFICE: 40.1 kg/m2 LAST BMI BEFORE SURGERY: 35.2 kg/m2 COMORBIDITIES: sleep apnea (no CPAP), arrhythmia, hypothyroidism, GERD, depression, anxiety, neuroptathy, stress incontinence, GERD, nephrolithiasis ?The patient presented to the Weight Management Program with significant obesity that was negatively impacting the patient's comorbidities as listed above.? The program is a phased program with a special focus on preoperative medical weight management to promote substantial weight loss and prepare the patients for the second phase of the program: bariatric surgery. The patient participated in an intensive weekly lifestyle ?intervention and exercise program during which the patient ?has lost between the initial office visit and the last preoperative visit 26.4lbs, or 10.95% of initial actual body weight. It was deemed appropriate for the patient to now have bariatric surgery. In light of the current Covid-19 pandemic and the well documented strong association of obesity and increased risk of worse outcomes if infected with Covid-19 (REFERENCES: https://pubmed.ncbi.nlm.nih.gov/62745753/ ,? https://pubmed.ncbi.nlm.nih.gov/75920978/ ), any delay in undergoing bariatric surgery may lead to the patient's worsening health condition and increased?risk of more severe Covid-19 disease if infected. In addition a recent?study from [facility] published in [facility] on 05/24/2021 ([email or web address]: [email or web address]) found that, among patients with obesity, substantial weight loss achieved with surgery was associated with improved outcomes of COVID-19 infection. The findings suggest that obesity can be a modifiable risk factor for the severity of COVID-19 infection. In addition, the patient met the BMI-criteria for bariatric surgery based on the BMI on initial presentation. The patient should not be penalized for achieving such weight loss because ?it is not sustainable long-term without surgical intervention and it was achieved in preparation for bariatric surgery ?under my direction and based on my published research ([email or web address]).[email or web address] and? https://www.soard.org/article/[email or web address](01)58631-X/pdf ) ?that a 10% preoperative weight loss improves long-term weight loss after surgery and reduces perioperative complications.? Insurance carriers such as [facility] have endorsed my recommendations ?and have included in their policies criteria to include a 10% preoperative weight loss requirement. PROCEDURE: Esophago-gastroscopy, laparoscopic lysis of adhesions, laparoscopic sleeve gastrectomy and laparoscopic gastropexy INDICATIONS: This is a 56 year-old female who was electively scheduled for laparoscopic, possibly open sleeve gastrectomy. The risks and complications of the procedure were discussed with the patient in advance, particularly the possibility of ; pulmonary embolism; staple line leak; bleeding; GERD; cardiac, pulmonary, or renal complications; as well as long-term problems such as insufficient weight loss, vitamin deficiency, strictures, or ulcers. The patient understood all the risks, and was in agreement to proceed with surgery. DESCRIPTION OF PROCEDURE: After informed consent was obtained from the patient, the patient was given preoperative antibiotics, and was transferred to the operating room. After successful induction of general anesthesia, pneumatic compression devices were placed on both lower extremities. An upper endoscopy was performed next. The oropharynx and esophagus appeared to be within normal limits. There was no diaphragmatic hernia present consistent with the findings of the preoperative upper GI. The stomach was entered. Then after all fluid and air were suctioned and the stomach was fully decompressed, the scope was withdrawn and secured in the mid esophagus. The patient was then prepped and draped in the usual sterile manner, and abdominal access was established at the right upper quadrant with the Jojo technique. A 12 mm blunt port was inserted, and the abdomen was insufflated with CO2 to a pressure of 15 mmHg. Under direct visualization, additional ports were placed, specifically two 5 mm Versi-step ports to the left upper quadrant, and a 5 mm Versi-Step port to the right upper quadrant. 1% lidocaine plain was used to infiltrate all port sites as well as all fascia defects. Following that, the patient was placed in a steep reverse Trendelenburg position. An additional 5 mm port was placed to the right flank for the Mediflex retractor that was used to retract the left lobe of the liver. The gastro-esophageal fat pad was opened with the ultrasonic device (Thunderbeat, Olympus) and the anterior esophagus and hiatus were exposed. The angle of His was opened with the ultrasonic device the fundus of the stomach from any diaphragmatic and splenic attachments. I then opened the gastrocolic ligament between the transverse colon and the greater curvature of the stomach with the ultrasonic device to enter the lesser sac and facilitate the ligation of the short gastric vessels. I started at a mid-point along the greater curvature and using the Thunderbeat, all short gastric vessels were divided all the way to the angle of His until the left eamon was completely dissected at its entirety. I then divided the gastro-colic ligament distally to a distance of about 3-4 cm proximal to the pylorus. There were extensive congenital adhesions between the pancreas and posterior gastric wall. Those were lysed completely with the ultrasonic device. Adhesiolysis took approximately 45 min to complete. The stomach was then divided transversely with one Endo JOJO-45 purple, one JOJO- 45 orange load and four JOJO-60 articulating orange loads using the AEON stapler and loads. Every effort was made that the gastric sleeve had a tubular shape and an even caliber throughout. Once the sleeve resection was completed, the staple line of the gastric sleeve was reinforced with Hemoclips. The resected stomach was retrieved without difficulty from the Jojo port. A gastropexy was then performed in order to prevent postoperative GERD and partial gastric volvulus. Several interrupted 2.0 Surgidac sutures were placed between the sleeve's staple line and the previously divided greater omentum and gastro-colic ligament using the Endo-Stitch device. ?An upper endoscopy was performed. There was no narrowing at the GE junction. The scope was easily advanced all the way to the pylorus which was clearly visualized. There was no narrowing anywhere and the sleeve's caliber was even throughout. The sleeve's staple line was inspected and there was no evidence of ischemia, bleeding or dehiscence. At that point the gastroscope was withdrawn from the patient?s mouth while we were decompressing the bowel and the stomach from any remaining air. I looked into the lesser sac to see how the sleeve was situating and it was situating well. There was no bleeding from the staple line, spleen, or short gastric vessels. The Mediflex retractor was removed, and the undersurface of the liver was inspected and there was no bleeding. The patient was placed in supine position. I closed the fascial defect of the 12 mm port site with a figure of eight #1 Polysorb suture. Then 100 cc 0.25 % Marcaine plain with 10 mg of Dexamethasone were used to infiltrate the fascial closure as well as all skin incisions. At this point, the abdomen was deflated, all ports were removed under direct vision, and no bleeding was noted from any of the port sites. The skin incisions were irrigated with saline and were closed with 4-0 absorbable monofilament sutures. Steri-Strips and OpSites were used to cover all incisions. The patient was extubated and was transferred in stable condition to the recovery room for further care. I was present and performed all lemon parts of the procedure. Mr. Urbina was the first beater. There were no residents to assist with this case. Evan Meyer MD, PhD, FACS Surgeon: Demond Meyer MD Anesthesia: GETA, local and other (TAP block) Was an Street Contractor used for this Procedure?: Yes Street Contractor: Jarad Urbina Estimated blood loss (mL): 10 IV fluids (mL): 2,500 Urine output (mL): 0 (No Cardoso to gravity) Pathology: other (Stomach) Condition: stable Disposition: PACU
--- NOTE | 2021-08-26 10:28 | PM.DS ---
DS: Providers Provider Date of Service: 08/27/21 Date of admission: 08/26/21 06:16 Primary care physician: Jaylen Rizvi MD DS: Summary Hospital Course Hospital Course: ADMITTING DIAGNOSIS: morbid obesity, DDD, hashimotos thyroiditis, PHILIP, spondylosis, anxiety w depression, LBP, urinary frequency ? DISCHARGE DIAGNOSIS: same, s/p laparoscopic sleeve gastrectomy ? PAST SURGICAL HISTORY: bladder sling, breast lumpectomy, tubal ligation, uterine ablation ? PROCEDURE: upper endoscopy, laparoscopic sleeve gastrectomy ? DISCHARGE SUMMARY: ? History of Present Illness: ? The patient is a?56 year-old woman with a BMI of?40.1 kg/m2 and associated co-morbidities as described above. The patient had extensive work-up,lost?26.4 lbs preoperatively and was electively scheduled for laparoscopic, possible open sleeve gastrectomy and gastropexy. Risks and complications of the surgery were discussed with the patient in advance, particularly the possibility of , pulmonary embolism, anastomotic leak, bleeding, bowel injury, GERD, cardiac, renal or pulmonary complications. The patient understood all the risks and was in agreement with the surgical plan. ? Hospital Course: ? The patient underwent an uneventful laparoscopic sleeve gastrectomy with gastropexy on the day of admission. Postoperatively, the patient was transferred to the surgical floor. The patient received IV Acetaminophen and IV dilaudid for pain control. Patient was started on bariatric phase 1 diet POD #0. On postoperative day one, the patient was feeling well without nausea, vomiting, fevers, or tachycardia. The patient had some mild incisional pain and the abdomen was soft. ? On the morning of postoperative day one, the patient was continued on 1 ounce of water or ice every half hour. During the day, the patient did fairly well, having some incisional pain, but able to ambulate adequately and to tolerate liquids well. ? Since the patient is doing well, we decided that the patient was ready to be discharged. The patient was given instructions to follow-up with me next week and to call my office for any fever over 101, persistent abdominal pain, nausea, vomiting, GERD, symptoms of DVT such as calf tenderness, or leg swelling, or pulmonary embolism such as chest pain or shortness of breath. The patient was also instructed to drink 40-60 ounces of liquids per day using the 1-ounce cups. The patient had been given prescriptions for Tylenol for pain, Zofran prn for nausea, and pantoprazole and carafate previously. The patient was encouraged to ambulate and use the incentive spirometer. The patient was allowed to shower, but no baths, and encouraged to stay active at home. All of these instructions were given to the patient personally. All questions were answered and the patient understood all instructions, the instructions were also given to the patient in print. Time Spent with Patient Time attestation: Total time spent providing and/or coordinating discharge services: Discharge coordination time: Less than 30 minutes Quality: Stroke Does the patient have a stroke diagnosis?: No Physical Exam Vital Signs: Vital Signs: Last Vital Signs Temp 97.7 F 08/26/21 10:20 Pulse 90 08/26/21 10:20 Resp 20 08/26/21 10:20 BP 121/67 08/26/21 06:30 Pulse Ox 98 08/26/21 06:30 BMI result Body Mass Index 35.7 DS: Data Data Completed and Pending Pending studies at discharge: Pending at discharge 08/26/21 09:31 Surgical [PTH] Routine Labs on day of discharge: Laboratory Results - last 24 hr 08/25/21 13:15 COVID-19 ([facility]) Negative COVID-19 Clin Com See Note Discharge Plan Discharge Patient Disposition: Home, Self-Care Discharge Diagnosis: s/p laparoscopic sleeve gastrectomy Referrals: Jaylen Rizvi MD [Primary Care Provider] - 1 Week Discharge Medications: Continued levothyroxine 25 mcg tablet 25 mcg PO DAILY Qty: 30 4RF oxybutynin chloride 5 mg tablet 5 mg PO DAILY 30 Days Qty: 30 3RF metoprolol tartrate 25 mg tablet 12.5 mg PO BID 30 Days Qty: 30 4RF duloxetine 30 mg Capsule,Delayed Release(Dr/Ec) 30 mg PO BEDTIME 0RF diazepam 5 mg tablet 5 mg PO DAILY PRN (Reason: Anxiety) 0RF Rx Instructions: 1/2 TAB EVERYDAY NEEDED topiramate 100 mg tablet 100 mg PO BEDTIME 0RF bupropion HCl 100 mg tablet sustained-release 12 hr 200 mg PO BID 0RF buspirone 15 mg tablet 22.5 mg PO BID 0RF duloxetine 30 mg capsule,delayed release(DR/EC) 60 mg PO DAILY 0RF pantoprazole 40 mg tablet,delayed release (DR/EC) 40 mg PO DAILY Qty: 30 2RF sucralfate 100 mg/mL suspension 10 ml PO BID Qty: 400 2RF ondansetron HCl 4 mg tablet 4 mg PO Q12H Qty: 20 0RF Held pregabalin 200 mg capsule 200 mg PO BID 30 Days Qty: 60 2RF Hold Instructions: until discussed with Dr Meyer Discontinued multivitamin Tablet 1 tab PO DAILY 0RF Discharge Orders: Discharge Order (Routine); Ordered 08/27/21 Ordered By: Jarad Urbina Diet: other Activity on Discharge: No heavy lifting Stand Alone Forms: Patient Portal Discharge page Care Plan Goals: weight loss Health Concerns: obesity Plan of Treatment: No tub baths, sex or returning to work until discussed at first post op appointment. No exercise, alcohol, tobacco or illegal drug use. Continue to use incentive spirometer hourly while awake. Walk in home for 5- 10 minutes every 2 hours during the first week. Follow all instructions in the bariatric handbook and call with any questions.Discharge Instructions 1. Please call your doctor or come back to the emergency room should any new symptoms arise. 2. You will receive a courtesy call from [facility] 24-48 hours after discharge. 3. Activity: abstain from alcohol, practice limited stair climbing, no bending, no driving, no exercise, no illicit substances, no lifting, no sex, no tub bath, no work. 4. Diet: continue as discussed with Dr. Meyer. 5. Dressing Change/Wound Care: Your incision is covered by clear bandages and guaze underneath. If the area is tender, you may apply an ice pack for short intervals (no more than 20 minutes on, followed by at least 20 minutes off). Do not apply heat. Do not use creams, lotions, or topical antibiotics unless instructed to do so by your surgeon. These can cause infection or allergic reaction. 6. Call your doctor if: - Your temperature exceeds 101.5 F - You experience excessive pain or swelling - You have an unexpected reaction to medication - You have excessive bleeding - You experience continued vomiting/nausea - Your incision begins to separate - Your incision shows signs of infection such as increased redness, swelling, excessive pain, heat, or drainage (light blood or clear fluid is normal) 7. General instructions: No lifting greater than 5 lbs for the next 4 weeks. No driving within 24 hours of taking narcotic pain medications. If you do not move your bowels in the next 2 days, please take milk of magnesia over the counter. Please follow the post op diet and do not advance your diet until you are seen in the office in about 2 weeks. Please walk around your home every hour or two to prevent blood clots from forming in your legs. You do not need to wake from sleeping to walk. Please sleep in a bed or couch to prevent kinking at the hips and knees. Please take your incentive spirometer (your lung outside industrial sales representative) home with you and use it for the next few days to prevent pneumonias. You may shower, no hot tubs, baths or swimming pools. Please call the office with any questions or concerns such as increasing abdominal pain, fever, chills, shortness of breath, chest pain, leg pain or swelling, or redness or drainage from your incisions. Please stay on stage 3 diet which includes sugar free clear liquids such as ice pops and jello and broth and crystal light. Avoid all carbonation. Please drink 3 protein shakes with at least 25-30 grams of protein daily or 3 of the Celebrate 4:1 shakes which can be purchased in our office. The Celebrate shakes have all of the bariatric vitamins you need if you consume these shakes. If you are drinking other protein shakes, you will need to purchase the Celebrate multivitamins and calcium that we provide in the office (they will provide all the vitamins you need). Please make sure you are consuming at least 40-60 ounces of water in addition to your 3 protein shakes daily. Do not hesitate to contact the office with any questions at . The patient's medical history has been reviewed and they are considered low risk for post op DVT and therefore DVT prophylaxis is not considered necessary. Travel after surgery was reviewed. The patient has not disclosed any travel plans during the first 30 days after surgery and they have been advised that within the first 30 days after surgery any bus, plane, train or car travel over 2 hours in duration is contraindicated due to the possibility of developing blood clots from immobility. Any travel, needs to include periods of ambulation of 10 minutes in duration every 2 hours.? The patient was instructed to discuss any plans for travel during this period with their bariatric surgeon. Assessment: stable s/p laparoscopic sleeve gastrectomy
--- NOTE | 2021-08-26 10:31 | PM.PNGS ---
Subjective Subjective Date of Service: 08/26/21 Interval history: Patient has mild incisional pain, but was able to ambulate and use the incentive spirometer. She is tolerating phase 1 bariatric diet Physical Exam Vital Signs: Vital Signs: Last Vital Signs Temp 97.7 F 08/26/21 10:20 Pulse 83 08/26/21 10:25 Resp 18 08/26/21 10:25 BP 125/68 08/26/21 10:25 Pulse Ox 100 08/26/21 10:25 BMI result Body Mass Index 35.7 GI: Inspection: Yes normal to inspection, Yes incision (Clean, dry and intact) and Yes obesity Extrem: Right lower extremity: normal to inspection (no calf tenderness) Left lower extremity: normal to inspection (no calf tenderness) Objective Data Active Medications Fentanyl (Fentanyl Citrate/Pf 100 Mcg/2 Ml Vial) 25 mcg IVPUSH Q5M PRN; Protocol PRN Reason: Pain, Moderate (Pain Scale 4-6 Hydromorphone HCl (Hydromorphone Hcl 0.5 Mg/0.5 Ml Syringe) 0.25 mg IVPUSH Q5M PRN; Protocol PRN Reason: Pain, Severe (Pain Scale 7-10) Lactated Ringer's (Lr) 1,000 mls @ 100 mls/hr IVCONT .Q10H MENA Last Admin: 08/26/21 07:01 Dose: 100 mls/hr Documented by: DEMETRIUS Promethazine HCl 12.5 mg/ (Sodium Chloride) 50.5 mls @ 202 mls/hr IV ONCE PRN PRN Reason: Nausea and Vomiting Ondansetron HCl (Ondansetron Hcl 4 Mg/2 Ml Vial) 4 mg IVPUSH ONCE PRN PRN Reason: Nausea and Vomiting Ondansetron HCl (Ondansetron Hcl 4 Mg/2 Ml Vial) 4 mg IVPUSH ONCE PRN PRN Reason: Nausea and Vomiting Oxycodone HCl (Oxycodone Hcl Immed Release 5 Mg Tablet) 5 mg PO ONCE PRN PRN Reason: Pain, Severe (Pain Scale 7-10) Labs CBC & Chem 7: 08/19/21 11:10 08/19/21 11:10 Labs: Laboratory Results - last 24 hr 08/25/21 13:15 COVID-19 ([facility]) Negative COVID-19 Clin Com See Note Progress Note: A&P Assessment and plan (1) S/P laparoscopic sleeve gastrectomy: Status: Acute Assessment and Plan: s/p laparoscopic sleeve gastrectomy, lysis of adhesions and gastropexy Doing well Check am labs. If OK, will discharge home? 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 (11) GERD (gastroesophageal reflux disease): Status: Acute (12) Nephrolithiasis: Status: Acute (13) Neuropathy: Status: Acute Fall Risk Details Current Medications: Current Medications Fentanyl (Fentanyl Citrate/Pf 100 Mcg/2 Ml Vial) 25 mcg IVPUSH Q5M PRN; Protocol PRN Reason: Pain, Moderate (Pain Scale 4-6 Hydromorphone HCl (Hydromorphone Hcl 0.5 Mg/0.5 Ml Syringe) 0.25 mg IVPUSH Q5M PRN; Protocol PRN Reason: Pain, Severe (Pain Scale 7-10) Lactated Ringer's (Lr) 1,000 mls @ 100 mls/hr IVCONT .Q10H MENA Last Admin: 08/26/21 07:01 Dose: 100 mls/hr Documented by: Promethazine HCl 12.5 mg/ (Sodium Chloride) 50.5 mls @ 202 mls/hr IV ONCE PRN PRN Reason: Nausea and Vomiting Ondansetron HCl (Ondansetron Hcl 4 Mg/2 Ml Vial) 4 mg IVPUSH ONCE PRN PRN Reason: Nausea and Vomiting Ondansetron HCl (Ondansetron Hcl 4 Mg/2 Ml Vial) 4 mg IVPUSH ONCE PRN PRN Reason: Nausea and Vomiting Oxycodone HCl (Oxycodone Hcl Immed Release 5 Mg Tablet) 5 mg PO ONCE PRN PRN Reason: Pain, Severe (Pain Scale 7-10) Time Spent With Patient Time: Total time spent is greater than 50% in coordination of care (as documented) at patient's floor/unit and/or counseling patient: Quality Stroke Does the patient have a stroke diagnosis?: No VTE Prior VTE?: No VTE Risk Level:: Surgical - moderate VTE Device Contraindication: N/A - Device Ordered VTE Drug Contraindication: Treatment Not Indicated
[2021-08-26] MEDS: Famotidine/PF 20 MG/2 ML VIAL IVPUSH ×2 (10:46→20:48)
[2021-08-26 10:57] LABS: Hematocrit 39.3 % (37.0-47.0); Hemoglobin 12.9 g/dl (12.0-16.0)
[2021-08-26 11:16] LABS: Anion Gap 11 (12-20); Blood Urea Nitrogen 13 mg/dL (9-16); Calcium 8.9 mg/dL (8.4-10.2); Carbon Dioxide 23 mmol/L (22-29); Chloride 109 mmol/L (96-108); Creatinine Clr Calc Pharmacy 81.4; Estimated Glomerular Filt Rate > 60; Glucose Random 143 mg/dL (60-115); Potassium 3.9 mmol/L (3.3-5.1); Sodium 139 mmol/L (135-145)
[2021-08-26] MEDS: ondansetron HCL 4 MG/2 ML VIAL IVPUSH (20:48)
[2021-08-26] MEDS: busPIRone HCl 5 MG TABLET 15 MG PO (20:50)
[2021-08-26] MEDS: Topiramate 100 MG TABLET PO (20:50)
[2021-08-26] MEDS: Metoprolol Tartrate 12.5 MG HALFTAB PO (20:51)
[2021-08-27 03:26] VITALS: BP 134/62; PULSE 82; RESP 18; TEMP 37; O2SAT 99
[2021-08-27] MEDS: ondansetron HCL 4 MG/2 ML VIAL IVPUSH (05:41)
[2021-08-27 06:07] LABS: MANUAL DIFF FLAG NO
[2021-08-27 06:11] LABS: Basophils Percent Auto 0.1 % (0-2); Hematocrit 36.5 % (37.0-47.0); Hemoglobin 12.1 g/dl (12.0-16.0); Imm Gran Abs Auto 0.02 X10*3/uL (0.00-0.03); Imm Gran Pct Auto 0.2 % (0.0-0.4); Lymphocytes Absolute Auto 1.3 X10*3/uL (1.2-4.9); Lymphocytes Percent Auto 16.5 % (20-40); Mean Corpuscular HGB Conc 33.2 g/dl (31.0-35.0); Mean Corpuscular Hemoglobin 30.3 pg (27.0-33.0); Mean Corpuscular Volume 91.5 fL (80.0-98.0); Monocytes Absolute Auto 0.7 X10*3/uL (0.1-1.2); Monocytes Percent Auto 9.1 % (2-11); Neutrophils Absolute Auto 5.9 x10*3/uL (2.0-8.3); Neutrophils Percent Auto 74.1 % (45-73); Platelet Count 163 X10*3/uL (160-400); Red Blood Count 3.99 X10*6/uL (4.20-5.50); Red Cell Distribution Width 13.2 % (11.0-16.0)
[2021-08-27 06:33] LABS: Anion Gap 8 (12-20); Blood Urea Nitrogen 10 mg/dL (9-16); Calcium 9.1 mg/dL (8.4-10.2); Carbon Dioxide 25 mmol/L (22-29); Chloride 113 mmol/L (96-108); Creatinine Clr Calc Pharmacy 101.2; Estimated Glomerular Filt Rate > 60; Glucose Random 87 mg/dL (60-115); Potassium 4.1 mmol/L (3.3-5.1); Sodium 142 mmol/L (135-145)
[2021-08-27 07:17] VITALS: BP 126/59; PULSE 70; RESP 17; TEMP 37.1; O2SAT 100
[2021-08-27] MEDS: Lactated Ringers 1,000 ML 100 ML IVCONT (08:01)
[2021-08-27] MEDS: 0.9 % Sodium Chloride Flush 3 ML SYRINGE IVFLUSH (08:05)
--- NOTE | 2021-08-27 08:57 | MHC.CM.PN ---
NURSE CASE MANAGEEMENT ELECTRONCI MEDICAL RECORD REVIEWED LAONG WITH CASE DISCUSSED WITH STAFF NURSE MWT WITH PATIENT WAS VERY VAGUE WITH QUESTIONS CONFIRMED NOT A VET , HAS HCP AT HOME , REQUESTED COPYTO BE BROUGHT IN, PCP DR CLARITA BELLAMY, COVI VACINATED X3, INDEPENDENT IN ADLS AND MOBILITY , HOME WITH NO VNA NO DME SERVCIES , HAS MENTAL HEALTH COUNSELING WITH DR JACKSON , SHE WILL HAVE HER DAUGHTER PICK HER UP AT DISCHARGE AND STAY WITH HER FOR AWHILE DISCHARGE PLAN S/P GASTEIC SURGERY TO BE D/C HOME TODAY NO SERVICES SEFL\LF RESUMPTION OF HER MENTAL HEALTH COUNSELING TRANSPORT DAUGHTER PCP DR CLARITA BELLAMY
--- NOTE | 2021-08-27 10:11 | HO.POSTANES ---
Post Anesthesia Evaluation Post Anesthesia Evaluation Vital Signs: Vital Signs Temp Pulse Resp BP Pulse Ox 08/27/21 07:17 98.7 F 70 17 126/59 L 100 08/27/21 03:26 98.6 F 82 18 134/62 99 08/26/21 23:44 97.7 F 99 17 144/66 H 99 Anesthesia: General Endotracheal-GETA Mental Status: Awake Pain Control: Satisfactory Nausea/Vomiting: None Hydration: Adequate Anesthesia-Related Issues: No Anes. Related Issues
== END 2021-08-27 11:06 | disposition home or self-care (01) | DRG 403 ==
LOC: HO.SSSA 10:28 → HO.S3 11:15
PROVIDERS: Physician Assistant Surgical; Admitting Provider Surgery; PCP Family Medicine; Visit Provider Surgery
PROC: 0DB64Z3 Excision of Stomach, Percutaneous Endoscopic Approach, Vertical (ICD-10-PCS; CPT 43845; principal; 2021-08-26 07:30)
DX: E66.01 Morbid (severe) obesity due to excess calories (principal); E06.3 Autoimmune thyroiditis; F32.A Depression, unspecified; F41.9 Anxiety disorder, unspecified; N39.3 Stress incontinence (female) (male); G62.9 Polyneuropathy, unspecified; K66.0 Peritoneal adhesions (postprocedural) (postinfection); K21.9 Gastro-esophageal reflux disease without esophagitis; M47.816 Spondylosis without myelopathy or radiculopathy, lumbar region; Z68.35 Body mass index [BMI] 35.0-35.9, adult; Z20.822 Contact with and (suspected) exposure to COVID-19; Z87.442 Personal history of urinary calculi; Z87.891 Personal history of nicotine dependence; Z88.2 Allergy status to sulfonamides; Z79.890 Hormone replacement therapy; Z79.899 Other long term (current) drug therapy
CPT/HCPCS: 36415; 80048; 80053; 80061; 83036; 83525; 84443; 85014; 85018; 85025; 85610; 85730; 86140; 86850; 86900; 86901; 87635; 88307; 88342; A4649; J0131; J0690; J1100; J1170; J2250; J2370; J2405; J2550; J3010

== ENCOUNTER → 2021-08-31 14:22 | Outpatient (BNVA) | payer OTHER, SELFPAY | PROVIDERS: PCP Family Medicine; Referring Provider Family Medicine; Visit Provider Surgery | DX: E66.01 Morbid (severe) obesity due to excess calories (principal); Z98.84 Bariatric surgery status; Z68.33 Body mass index [BMI] 33.0-33.9, adult | CPT/HCPCS: 99212 ==

== ENCOUNTER 2021-09-16 13:06 | Outpatient (REF) | payer OTHER, SELFPAY ==
[2021-09-16 18:25] LABS: Appearance Urine CLEAR; Color Urine DK YELLOW; Glucose Urine UA 100 MG/DL (NEG); Leukocyte Esterase Urine NEG (NEG); Nitrite Urine NEG (NEG); PH 6.5 (5.0-8.0); Urine Blood NEG (NEG); Urine Ketones NEG (NEG); Urine Protein TRACE MG/DL (NEG-TRACE)
== END 2021-09-16 13:07 | disposition home or self-care (01) ==
LOC: HO.LAB 13:06
PROVIDERS: Visit Provider Family Medicine
DX: Z00.00 Encounter for general adult medical examination without abnormal findings (principal); R30.0 Dysuria
CPT/HCPCS: 81003; 87086

== ENCOUNTER → 2021-09-21 08:22 | Outpatient (BNVA) | payer OTHER, SELFPAY | PROVIDERS: PCP Family Medicine; Referring Provider Family Medicine; Visit Provider Dietitian, Registered | DX: E66.9 Obesity, unspecified (principal); Z68.32 Body mass index [BMI] 32.0-32.9, adult | CPT/HCPCS: 97803 ==

== ENCOUNTER → 2021-10-07 12:56 | Outpatient (BNVA) | payer OTHER, SELFPAY | PROVIDERS: PCP Family Medicine; Referring Provider Surgery; Visit Provider Dietitian, Registered | DX: E66.9 Obesity, unspecified (principal); Z68.32 Body mass index [BMI] 32.0-32.9, adult | CPT/HCPCS: 97803 ==

== ENCOUNTER → 2021-10-28 13:48 | Outpatient (BNVA) | payer OTHER, SELFPAY | PROVIDERS: PCP Family Medicine; Referring Provider Surgery; Visit Provider Dietitian, Registered | DX: E66.9 Obesity, unspecified (principal); Z68.32 Body mass index [BMI] 32.0-32.9, adult | CPT/HCPCS: 97803 ==

== ENCOUNTER → 2021-11-25 12:50 | Outpatient (BNVA) | payer OTHER, SELFPAY | PROVIDERS: PCP Family Medicine; Referring Provider Surgery; Visit Provider Dietitian, Registered | DX: E66.3 Overweight (principal); Z68.30 Body mass index [BMI] 30.0-30.9, adult | CPT/HCPCS: 97803 ==

== ENCOUNTER → 2021-12-08 17:00 | Outpatient (BNVA) | payer OTHER, SELFPAY | PROVIDERS: PCP Family Medicine; Visit Provider Counselor Mental Health ==

== ENCOUNTER → 2021-12-24 12:45 | Outpatient (BNVA) | payer OTHER, SELFPAY | PROVIDERS: PCP Family Medicine; Referring Provider Surgery; Visit Provider Dietitian, Registered | DX: E66.3 Overweight (principal); Z68.29 Body mass index [BMI] 29.0-29.9, adult | CPT/HCPCS: 97803 ==

== ENCOUNTER → 2022-01-26 12:47 | Outpatient (BNVA) | payer OTHER, SELFPAY | PROVIDERS: PCP Family Medicine; Visit Provider Dietitian, Registered | DX: E66.9 Obesity, unspecified (principal); Z68.29 Body mass index [BMI] 29.0-29.9, adult | CPT/HCPCS: 97803 ==

== ENCOUNTER 2022-02-04 10:42 | Outpatient (REF) | payer MEDICARE, MEDICAID, SELFPAY ==
[2022-02-04 10:52] LABS: MANUAL DIFF FLAG NO
[2022-02-04 11:45] LABS: Basophils Absolute Auto 0.1 X10*3/uL (0.0-0.2); Eosinophils Absolute Auto 0.3 X10*3/uL (0.0-0.4); Eosinophils Percent Auto 5.4 % (0-4); Hematocrit 41.8 % (37.0-47.0); Hemoglobin 13.8 g/dl (12.0-16.0); Imm Gran Abs Auto 0.01 X10*3/uL (0.00-0.03); Imm Gran Pct Auto 0.2 % (0.0-0.4); Lymphocytes Absolute Auto 1.9 X10*3/uL (1.2-4.9); Lymphocytes Percent Auto 38.6 % (20-40); Mean Corpuscular Hemoglobin 30.4 pg (27.0-33.0); Mean Corpuscular Volume 92.1 fL (80.0-98.0); Mean Platelet Volume 10.2 fL (9.4-12.3); Monocytes Absolute Auto 0.4 X10*3/uL (0.1-1.2); Monocytes Percent Auto 8.8 % (2-11); Neutrophils Absolute Auto 2.3 x10*3/uL (2.0-8.3); Platelet Count 207 X10*3/uL (160-400); Red Blood Count 4.54 X10*6/uL (4.20-5.50); Red Cell Distribution Width 12.3 % (11.0-16.0)
[2022-02-04 11:58] LABS: Estimated Average Glucose 91 mg/dL; Hemoglobin A1c % 4.8 %
[2022-02-04 12:20] LABS: Alanine Aminotransferase 10 U/L (0-31); Albumin Level 3.9 g/dL (3.5-5.0); Alkaline Phosphatase 102 U/L (39-117); Anion Gap 14 (12-20); Aspartate Amino Transferase 13 U/L (5-31); Bilirubin Total 0.6 mg/dL (0.0-1.0); Blood Urea Nitrogen 26 mg/dL (9-16); C Reactive Protein 0.12 mg/dL (< or = 0.50); Calcium 9.2 mg/dL (8.4-10.2); Carbon Dioxide 25 mmol/L (22-29); Chloride 108 mmol/L (96-108); Cholesterol 213 mg/dL; Estimated Glomerular Filt Rate > 60; Glucose Random 79 mg/dL (60-115); HDL Cholesterol 51 mg/dL; Iron 94 mcg/dL (30-160); LDL Cholesterol Calculated 133 mg/dl; Percent Iron Saturation 39 % (15-50); Potassium 3.7 mmol/L (3.3-5.1); Sodium 143 mmol/L (135-145); Total Iron Binding Capacity 241 mcg/dL (228-428); Total Protein 6.6 g/dL (6.5-8.0); Triglycerides 145 mg/dL; Unsaturated Iron Binding 147 ug/dL
[2022-02-04 12:22] LABS: Ferritin 216 ng/mL (10-250); Insulin 8 uU/mL (2-29); TSH reflex Free T4 0.81 uIU/mL (0.32-4.0); Vitamin D 25-OH Total 56.5 ng/mL (>30)
[2022-02-04 12:53] LABS: Folate > 20.0 ng/mL (> or = 4.0); Vitamin B12 629 pg/mL (200-900)
[2022-02-06 13:56] LABS: Calcium (PTHI) 9.5 mg/dL (8.6-10.4); PTHI 31 pg/mL (16-77)
[2022-02-08 02:46] LABS: Zinc 118 mcg/dL (60-130)
[2022-02-09 19:26] LABS: Vitamin A 52 mcg/dL (38-98)
[2022-02-11 06:32] LABS: Vitamin B1 26 nmol/L (8-30)
== END 2022-02-04 10:43 | disposition home or self-care (01) ==
LOC: HO.LAB 10:42
PROVIDERS: PCP Family Medicine; Visit Provider Physician Assistant Surgical
DX: K91.2 Postsurgical malabsorption, not elsewhere classified (principal); Z98.84 Bariatric surgery status
CPT/HCPCS: 36415; 80053; 80061; 82306; 82607; 82728; 82746; 83036; 83525; 83540; 83970; 84425; 84443; 84590; 84630; 85025; 86140

== ENCOUNTER → 2022-02-10 13:10 | Outpatient (BNVA) | payer MEDICARE, MEDICAID, OTHER, SELFPAY | PROVIDERS: PCP Family Medicine; Referring Provider Dietitian, Registered; Visit Provider Physician Assistant Surgical | DX: E66.3 Overweight (principal); Z98.84 Bariatric surgery status; Z68.29 Body mass index [BMI] 29.0-29.9, adult | CPT/HCPCS: 99212 ==

== ENCOUNTER → 2022-02-24 13:14 | Outpatient (BNVA) | payer OTHER, SELFPAY | PROVIDERS: PCP Family Medicine; Visit Provider Dietitian, Registered | DX: E66.3 Overweight (principal); Z68.29 Body mass index [BMI] 29.0-29.9, adult | CPT/HCPCS: 97803 ==

== ENCOUNTER 2022-03-14 19:35 | Emergency (ER) | payer MEDICARE, MEDICAID, OTHER, SELFPAY ==
--- NOTE | ~2022-03-14 | XR_ITS ---
EXAMINATION: XR HUMERUS, LEFT CLINICAL INFORMATION: Pain with movement COMPARISON: None TECHNIQUE: AP and lateral views of the left humerus. FINDINGS: No fracture or malalignment. No osseous lesion. Mild subchondral sclerosis and small osteophytes at the acromioclavicular joint. Visualized portion of the left lung is grossly clear. XR/XR humerus LT IMPRESSION: 1. No acute osseous injury. 2. Mild acromioclavicular arthropathy.
--- NOTE | ~2022-03-14 | US_ITS ---
EXAMINATION: US VENOUS WITH DOPPLER UPPER EXTREMITY, left upper extremity CLINICAL INFORMATION: Left biceps pain COMPARISON: None TECHNIQUE: Ultrasound of the upper extremity is performed using compression sonography and color and pulse Doppler flow with assessment of augmentation of flow. There is also imaging and Doppler assessment of the jugular and subclavian veins. Spectral analysis with color-flow imaging is performed. FINDINGS: Respiratory variation, normal compression, and augmented flow are noted throughout the upper extremity including the axillary, brachial, cubital, and radial and ulnar veins. There is normal flow in the internal jugular and subclavian veins. There is no visible deep or superficial thrombophlebitis. If the patient's symptoms progress, a followup ultrasound in 5 -7 days might be of value to exclude proximal propagation from a nonvisualized distal arm vein. US/US venous duplex UE LT IMPRESSION: No DVT demonstrated in the left upper extremity
[2022-03-14 19:54] VITALS: BP 128/68; PULSE 88; RESP 17; TEMP 36.8; O2SAT 99; BMI 29.1
--- NOTE | 2022-03-14 20:41 | PC.NURSE ---
Patient requesting xray
--- OUTSIDE RECORDS SUMMARY | 2022-03-14 21:55 | XMS_ITS | Continuity of Care Document ---
:1965 Author Organization [address], [address] [place] [address]- Care Team Providers Name Role Phone Naeem Deshpande MD Primary Care Physician Encounter [facility] [place] Date(s): 12/13/19 - 01/12/[address], [address] [place] [address]- [facility] Allergies, Adverse Reactions, Alerts Substance Reaction Severity Status sulfamethoxazole Active Macrodantin Active Medications buPROPion 200 mg/12 hours (SR) oral tablet, extended release 1 tablet = 200 mg, By Mouth, 2 times a day, 0 Refills, Maintenance, 04/24/18 8:03:15 EST Start Date: 04/24/18 Status: OrderedbusPIRone 15 mg oral tablet 1 tablet = 15 mg, By Mouth, 2 times a day, 0 Refills, Maintenance, 04/24/18 8:02:58 EST Start Date: 04/24/18 Status: Orderedlevothyroxine 0.025 mg oral tablet 1 tablet = 25 mcg, By Mouth, Daily, 0 Refills, Maintenance, 04/24/18 8:02:34 EST Start Date: 04/24/18 Status: Orderedmetoprolol 25 mg oral tablet 12.5 mg, 0.5, tablet, By Mouth, 2 times a day, # 180 tablet, Refills 0, Maintenance, 11/13/19 20:33:00 EDT Start Date: 11/13/19 Status: OrderedMulti Vitamin+ 0 Refills, Maintenance, 04/24/18 8:03:21 EST Start Date: 04/24/18 Status: OrderedOxybutynin 0 Refills, Maintenance, 04/24/18 8:02:13 EST Start Date: 04/24/18 Status: OrderedPARoxetine 40 mg oral tablet 40 mg, 1, tablet, By Mouth, Daily, # 30 tablet, Refills 0, Maintenance, 04/24/18 8:02:04 EST Start Date: 04/24/18 Status: Orderedpregabalin 150 mg oral capsule 1 capsule = 150 mg, By Mouth, 2 times a day, # 180 capsule, 0 Refills, Maintenance, 11/13/19 20:33:00 EDT, Capsule Start Date: 11/13/19 Status: OrderedTopiramate By Mouth, 0 Refills, Maintenance, 04/24/18 8:02:41 EST Start Date: 04/24/18 Status: OrderedValium 10 mg oral tablet 10 mg, 1, tablet, By Mouth, 3 times a day, PRN, Refills 0, Maintenance, as needed for anxiety, 04/24/18 8:03:44 EST Start Date: 04/24/18 Status: Ordered Social History Social History Type Response Smoking Status Former smoker, quit more hitesh n 30 days ago entered on: 11/13/19 Sex
--- OUTSIDE RECORDS SUMMARY | 2022-03-14 21:55 | XMS_ITS | Continuity of Care Document ---
:1965 Author Organization [address], [address] [place] [address]- Care Team Providers Name Role Phone Charlee SCOTT, Naeem Primary Care Physician Encounter [facility] [place] Date(s): 09/12/19 - 11/30/[address], [address] [place] [address]- [facility] Attending Physician: Wesley Arizmendi MD Referring Physician: Kaela Deshpande MD Allergies, Adverse Reactions, Alerts Substance Reaction Severity [...]
--- OUTSIDE RECORDS SUMMARY | 2022-03-14 21:55 | XMS_ITS | Continuity of Care Document ---
:1965 Author Organization [address], [address] [place] [address]- Care Team Providers Name Role Phone Naeem Deshpande MD Primary Care Physician Encounter [facility] [place] Date(s): 12/12/19 - 01/17/[address], [address] [place] [address]- [facility] Attending Physician: Nieves Loera DO Referring Physician: Naeem Deshpande MD Allergies, Adverse Reactions, Alerts Substance [...]
--- OUTSIDE RECORDS SUMMARY | 2022-03-14 21:55 | XMS_ITS | Continuity of Care Document ---
:1965 Author Organization [address], [address] [place] [address]- Care Team Providers Name Role Phone Naeem Deshpande MD Primary Care Physician Encounter [facility] [place] Date(s): 10/31/19 - 12/19/[address], [address] [place] [address]- [facility] Attending Physician: Wesley Arizmendi MD Referring Physician: Naeem Deshpande MD Allergies, Adverse [...]
--- OUTSIDE RECORDS SUMMARY | 2022-03-14 21:55 | XMS_ITS | Continuity of Care Document ---
:1965 Author Organization [address], [address] [place] [address]- Care Team Providers Name Role Phone Naeem Deshpande MD Primary Care Physician [place] [facility] [id number] Date(s): 12/18/19 - 01/17/[address], [address] [place] [address]- [facility] Attending Physician: Jane Wolf Admitting Physician: AdmtrJane Referring Physician: Admtr, ArMiguelangel Allergies, Adverse Reactions, Alerts Substance Reaction Severity [...]
--- NOTE | 2022-03-14 23:02 | ECG_ITS ---
Test Reason : LEFT ARM PAIN Blood Pressure : / mmHG Vent. Rate : 060 BPM Atrial Rate : 060 BPM P-R Int : 174 ms QRS Dur : 096 ms QT Int : 412 ms P-R-T Axes : 050 047 060 degrees QTc Int : 412 ms Normal sinus rhythm Normal ECG When compared with ECG of 18-MAY-2021 09:51, No significant changes seen Referred By: Cody Lawler Electronically Signed By:KATELYN STEWART MD
[2022-03-15] VITALS: BP 116/68; PULSE 61; RESP 16; TEMP 37.2; O2SAT 97
--- NOTE | 2022-03-15 00:30 | ED.EXTPRO ---
HPI - Extremity Problem General Chief complaint: Extremity Injury, Upper <EDISON Cuadra Last Filed: 03/15/22 01:01> Stated complaint: left arm pain <EDISON Cuadra Last Filed: 03/15/22 01:01> Time Seen by Provider: 03/14/22 22:52 <EDISON Cuadra Last Filed: 03/15/22 01:01> Source: patient <EDISON Cuadra Last Filed: 03/15/22 01:01> Mode of arrival: ambulatory <EDISON Cuadra Last Filed: 03/15/22 01:01> Limitations: no limitations <EDISON Cuadra Last Filed: 03/15/22 01:01> History of Present Illness HPI Narrative: 56 yold female presents to the ED for left bicep/arm pain for the past two months. Patient states no fever, chills, redness, swelling, or recent trauma. patient states no chest pain or shorntess of breath. patient afraid she might have blood clot in arm due to thinking she felt lump on bicep. <EDISON Cuadra Last Filed: 03/15/22 01:01> Related Data Home medications: Home Medications Medication Instructions Recorded Confirmed topiramate 100 mg tablet 100 mg PO BEDTIME 03/18/20 02/10/22 buspirone 15 mg tablet 22.5 mg PO BID 04/14/21 02/10/22 bupropion HCl 300 mg 24 hr tablet, 300 mg PO DAILY 11/15/21 02/10/22 extended release multivitamin 1 tab PO DAILY 02/10/22 02/10/22 Previous Rx's Medication Instructions Recorded levothyroxine 25 mcg tablet 25 mcg PO DAILY #30 tabs 11/23/21 oxybutynin chloride 5 mg tablet 5 mg PO DAILY 30 days #90 tabs 11/25/21 diclofenac sodium 1 % topical gel 2 g topical TID 30 days #200 grams 01/21/22 pregabalin 200 mg capsule 200 mg PO BID 30 days #60 caps 02/02/22 duloxetine 60 mg capsule,delayed 120 mg PO DAILY #60 caps 02/27/22 release <EDISON Cuadra Last Filed: 03/15/22 01:01> Allergies/Adverse reactions: Allergies Allergy/AdvReac Type Severity Reaction Status Date / Time nickel Allergy Severe Anaphylaxis Verified 03/14/22 19:54 nitrofurantoin Allergy Severe Anaphylaxis Verified 03/14/22 19:54 [From Macrodantin] Sulfa (Sulfonamide Allergy Hives, Verified 03/14/22 19:54 Antibiotics) Swelling <EDISON Cuadra - Last Filed: 03/15/22 01:01> Review of Systems Review of Systems: left bicep/arm pain for two months <EDISON Cuadra - Last Filed: 03/15/22 01:01> Yes all other systems are reviewed and are negative <EDISON Cuadra - Last Filed: 03/15/22 01:01> PMFSH Past Medical History Medical History: Medical History (Updated 03/15/22 @ 00:57 by EDISON Cuadra) Anxiety and depression Degeneration, intervertebral disc, lumbosacral Disc degeneration, lumbar GERD (gastroesophageal reflux disease) Bettye's disease Hypothyroidism Nephrolithiasis Neuropathy Obesity due to excess calories Overactive bladder Sleep apnea Spondylosis of lumbar spine Tachycardia <EDISON Cuadra - Last Filed: 03/15/22 01:01> Surgical History: Surgical History History of bladder surgery History of cystoscopy History of dental surgery History of endometrial ablation History of eyelid surgery History of lumbar laminectomy History of lumpectomy of both breasts Hx of dilation and curettage Hx of tubal ligation S/P laparoscopic sleeve gastrectomy <EDISON Cuadra - Last Filed: 03/15/22 01:01> Family History Family History: Family History Mother Diabetes Uterine cancer Father Diabetes Sister Breast cancer Sister No problems noted. Brother No problems noted. Daughter No problems noted. <EDISON Cuadra - Last Filed: 03/15/22 01:01> Social History Social History: Social History Household Members: None Household Members Other:: Has a non relationship roomate Housing: Other Housing Other:: Mobile Home Are you a primary career counselor to a significant other at home: No Do you presently have visiting nurse or other home services: No Alcohol intake: current Alcohol intake frequency: a few times a month Patient Tobacco Use Status: Former Tobacco user Quit Date: 2006 Tobacco use type: Cigarette Cigarette Packs Per Day: 2.5 Years Smoked: 24 e-Cigarette/Vaping Use: Never Used Second Hand Smoke Exposure: No Substance Use Type: Marijuana Advance Directives: Yes Advance Directives on File: Yes Advance Directives Date on File: 08/26/21 service: No Current occupational status: unemployed Current occupational exposures/hazards: No Cognitive needs: No Hearing needs: No Vision needs: No <EDISON Cuadra Last Filed: 03/15/22 01:01> Physical Exam Vital Signs: Vital Signs: Last Vital Signs Temp 98.9 F 03/15/22 00:00 Pulse 61 03/15/22 00:00 Resp 16 03/15/22 00:00 BP 116/68 03/15/22 00:00 Pulse Ox 97 03/15/22 00:00 O2 Del Method 03/15/22 00:00 BMI result Body Mass Index 29.1 <EDISON Cuadra Last Filed: 03/15/22 01:01> Vital Signs: Last Vital Signs Temp 98.9 F 03/15/22 00:00 Pulse 61 03/15/22 00:00 Resp 16 03/15/22 00:00 BP 116/68 03/15/22 00:00 Pulse Ox 97 03/15/22 00:00 O2 Del Method 03/15/22 00:00 BMI result Body Mass Index 29.1 <EDISON Sullivan Last Filed: 03/15/22 01:29> Const: General: cooperative, healthy appearing, comfortable, no acute distress, well developed, alert, awake and Physically active <EDISON Cuadra Last Filed: 03/15/22 01:01> Orientation/consciousness: oriented to time and patient oriented x3 <EDISON Cuadra Last Filed: 03/15/22 01:01> HEENT: Head: Yes normal to inspection, Yes No palpable skull fracture present, Yes normocephalic, Yes atraumatic and No abrasion <EDISON Cuadra Last Filed: 03/15/22 01:01> Eyes: General: appearance normal, both eyes and all related structures <EDISON Cuadra Last Filed: 03/15/22 01:01> Neck: Neck: Yes normal visual inspection, Yes full ROM, Yes no lymphadenopathy, Yes no meningeal signs, Yes trachea midline, Yes supple, No anterior neck swelling and No tender <EDISON Cuadra Last Filed: 03/15/22 01:01> Chest: Chest palpation & inspection: normal inspection of the chest and normal palpation of entire chest wall <EDISON Cuadra Katherine Last Filed: 03/15/22 01:01> Resp: Effort & Inspection: normal respiratory effort and able to speak in complete sentences <EDISON Cuadra Last Filed: 03/15/22 01:01> Auscultation: clear to auscultation bilaterally <EDISON Cuadra Filed: 03/15/22 01:01> Cardio: Jugular venous distension: no JVD <EDISON Cuadra Last Filed: 03/15/22 01:01> Heart sounds: S1 normal heart sound present and S2 normal heart sound present <EDISON Cuadra Last Filed: 03/15/22 01:01> GI: Inspection: Yes normal to inspection and No abdominal wall ecchymosis <EDISON Cuadra Katherine Last Filed: 03/15/22 01:01> Palpation (GI): Soft to palpation, not firm, nontender, no guarding and not rigid <EDISON Cuadra Katherine Last Filed: 03/15/22 01:01> : General: No CVA tenderness and Yes no CVA tenderness <EDISON Cuadra Katherine Last Filed: 03/15/22 01:01> Back/Spine/Pelvis: Back: no CVA tenderness, No CVA tenderness and No back tenderness <EDISON Cuadra Katherine Last Filed: 03/15/22 01:01> Skin: General skin exam: no rashes or lesions noted and elasticity normal <EDISON Cuadra Katherine Filed: 03/15/22 01:01> Neuro: General: oriented to time, patient oriented x3, gait normal, no meningeal signs and CN's II-XI intact bilaterally <EDISON Cuadra Katherine Last Filed: 03/15/22 01:01> Cranial nerves: Yes CN's II-XII intact bilaterally <EDISON Cuadra Last Filed: 03/15/22 01:01> Extrem: General: Yes normal to inspection and Yes full ROM <EDISON Cuadra Last Filed: 03/15/22 01:01> Shoulder/upper arm images: 1. Positive for tenderness on palpation. Negative erythema swelling edema, deformity, ecchymosis, crepitus. Motor/Neuro/Vascular exam of extremity intact. <EDISON Cuadra Last Filed: 03/15/22 01:01> Psych: Appearance: grossly normal, well kempt and not disheveled <EDISON Cuadra Last Filed: 03/15/22 01:01> Course Course Course Narrative: X-ray already ordered shows acromoclaviucular arthritis. Will order EKG labs make sure there is heart issues. Send for ultrasound extremity <EDISNO Cuadra Last Filed: 03/15/22 01:01> Reevaluation(s) Reevaluation #1: EKG negative STEMI. Labs pending. Venous duplex pending. Sign out to EDISON Johnson <EDISON Cuadra Last Filed: 03/15/22 01:01> Time: 00:54 <EDISON Cuadra Last Filed: 03/15/22 01:01> Reevaluation #2: CBC within normal limits. Chemistry with no acute electrolyte abnormalities requiring intervention, troponin negative, EKG nonischemic unlikely ACS. Ultrasound of upper extremity left side with no DVT. At this time patient will be discharged home advised to follow-up with PCP and return with new or worsening symptoms. <EDISON Sullivan - Last Filed: 03/15/22 01:29> Time: 01:28 <EDISON Sullivan Last Filed: 03/15/22 01:29> MDM - Extremity (Nontraumatic) MDM Narrative Medical decision making narrative: Left arm pain <EDISON Cuadra Last Filed: 03/15/22 01:01> Lab Data Result diagrams: : 03/15/22 00:52 03/15/22 00:52 <EDISON Cuadra Last Filed: 10/18/22 01:01> Labs: Lab Results 03/15/22 03/15/22 03/15/22 Range/Units 00:52 00:52 00:52 WBC 5.7 (4.8-10.8) X10*3/uL RBC 4.35 (4.20-5.50) X10*6/uL Hgb 13.2 (12.0-16.0) g/dl Hct 39.1 (37.0-47.0) % MCV 89.9 (80.0-98.0) fL MCH 30.3 (27.0-33.0) pg MCHC 33.8 (31.0-35.0) g/dl RDW 12.7 (11.0-16.0) % Plt Count 212 (160-400) X10*3/uL MPV 9.4 (9.4-12.3) fL Immature Gran % (Auto) 0.2 (0.0-0.4) % Neut % (Auto) 41.8 L (45-73) % Lymph % (Auto) 45.8 H (20-40) % Trigg % (Auto) 7.5 (2-11) % Eos % (Auto) 4.0 (0-4) % Baso % (Auto) 0.7 (0-2) % Lymph # (Auto) 2.6 (1.2-4.9) X10*3/uL Trigg # (Auto) 0.4 (0.1-1.2) X10*3/uL Eos # (Auto) 0.2 (0.0-0.4) X10*3/uL Baso # (Auto) 0.0 (0.0-0.2) X10*3/uL Abs Immat Gran (auto) 0.01 (0.00-0.03) X10*3/uL Absolute Neuts (auto) 2.4 (2.0-8.3) x10*3/uL Absolute Nucleated RBC 0.000 (0.0-0.012) X10*3/uL Nucleated RBC % (auto) 0.0 (0.0-0.2) /100WBC PT (10.0-13.1) SEC INR (0.9-1.1) APTT (26.0-36.4) SEC Sodium 142 (135-145) mmol/L Potassium 3.6 (3.3-5.1) mmol/L Chloride 107 (96-108) mmol/L Carbon Dioxide 26 (22-29) mmol/L Anion Gap 13 (12-20) BUN 21 H (9-16) mg/dL Creatinine 0.82 (0.5-1.4) mg/dL Estim Creat Clear Calc 77.8 Estimated GFR > 60 Random Glucose 89 (60-115) mg/dL Calcium 8.9 (8.4-10.2) mg/dL Total Bilirubin 0.5 (0.0-1.0) mg/dL AST 13 (5-31) U/L ALT 8 (0-31) U/L Alkaline Phosphatase 92 (39-117) U/L Troponin I High Sens < 3.5 (<3.5-17.0) ng/L Total Protein 6.2 L (6.5-8.0) g/dL Albumin 3.9 (3.5-5.0) g/dL 03/15/22 Range/Units 00:52 WBC (4.8-10.8) X10*3/uL RBC (4.20-5.50) X10*6/uL Hgb (12.0-16.0) g/dl Hct (37.0-47.0) % MCV (80.0-98.0) fL MCH (27.0-33.0) pg MCHC (31.0-35.0) g/dl RDW (11.0-16.0) % Plt Count (160-400) X10*3/uL MPV (9.4-12.3) fL Immature Gran % (Auto) (0.0-0.4) % Neut % (Auto) (45-73) % Lymph % (Auto) (20-40) % Trigg % (Auto) (2-11) % Eos % (Auto) (0-4) % Baso % (Auto) (0-2) % Lymph # (Auto) (1.2-4.9) X10*3/uL Trigg # (Auto) (0.1-1.2) X10*3/uL Eos # (Auto) (0.0-0.4) X10*3/uL Baso # (Auto) (0.0-0.2) X10*3/uL Abs Immat Gran (auto) (0.00-0.03) X10*3/uL Absolute Neuts (auto) (2.0-8.3) x10*3/uL Absolute Nucleated RBC (0.0-0.012) X10*3/uL Nucleated RBC % (auto) (0.0-0.2) /100WBC PT 11.7 (10.0-13.1) SEC INR 1.0 (0.9-1.1) APTT 37.5 H (26.0-36.4) SEC Sodium (135-145) mmol/L Potassium (3.3-5.1) mmol/L Chloride (96-108) mmol/L Carbon Dioxide (22-29) mmol/L Anion Gap (12-20) BUN (9-16) mg/dL Creatinine (0.5-1.4) mg/dL Estim Creat Clear Calc Estimated GFR Random Glucose (60-115) mg/dL Calcium (8.4-10.2) mg/dL Total Bilirubin (0.0-1.0) mg/dL AST (5-31) U/L ALT (0-31) U/L Alkaline Phosphatase (39-117) U/L Troponin I High Sens (<3.5-17.0) ng/L Total Protein (6.5-8.0) g/dL Albumin (3.5-5.0) g/dL <EDISON Cuadra - Last Filed: 03/15/22 01:01> Lab Results 03/15/22 03/15/22 03/15/22 Range/Units 00:52 00:52 00:52 WBC 5.7 (4.8-10.8) X10*3/uL RBC 4.35 (4.20-5.50) X10*6/uL Hgb 13.2 (12.0-16.0) g/dl Hct 39.1 (37.0-47.0) % MCV 89.9 (80.0-98.0) fL MCH 30.3 (27.0-33.0) pg MCHC 33.8 (31.0-35.0) g/dl RDW 12.7 (11.0-16.0) % Plt Count 212 (160-400) X10*3/uL MPV 9.4 (9.4-12.3) fL Immature Gran % (Auto) 0.2 (0.0-0.4) % Neut % (Auto) 41.8 L (45-73) % Lymph % (Auto) 45.8 H (20-40) % Trigg % (Auto) 7.5 (2-11) % Eos % (Auto) 4.0 (0-4) % Baso % (Auto) 0.7 (0-2) % Lymph # (Auto) 2.6 (1.2-4.9) X10*3/uL Trigg # (Auto) 0.4 (0.1-1.2) X10*3/uL Eos # (Auto) 0.2 (0.0-0.4) X10*3/uL Baso # (Auto) 0.0 (0.0-0.2) X10*3/uL Abs Immat Gran (auto) 0.01 (0.00-0.03) X10*3/uL Absolute Neuts (auto) 2.4 (2.0-8.3) x10*3/uL Absolute Nucleated RBC 0.000 (0.0-0.012) X10*3/uL Nucleated RBC % (auto) 0.0 (0.0-0.2) /100WBC PT (10.0-13.1) SEC INR (0.9-1.1) APTT (26.0-36.4) SEC Sodium 142 (135-145) mmol/L Potassium 3.6 (3.3-5.1) mmol/L Chloride 107 (96-108) mmol/L Carbon Dioxide 26 (22-29) mmol/L Anion Gap 13 (12-20) BUN 21 H (9-16) mg/dL Creatinine 0.82 (0.5-1.4) mg/dL Estim Creat Clear Calc 77.8 Estimated GFR > 60 Random Glucose 89 (60-115) mg/dL Calcium 8.9 (8.4-10.2) mg/dL Total Bilirubin 0.5 (0.0-1.0) mg/dL AST 13 (5-31) U/L ALT 8 (0-31) U/L Alkaline Phosphatase 92 (39-117) U/L Troponin I High Sens < 3.5 (<3.5-17.0) ng/L Total Protein 6.2 L (6.5-8.0) g/dL Albumin 3.9 (3.5-5.0) g/dL 03/15/22 Range/Units 00:52 WBC (4.8-10.8) X10*3/uL RBC (4.20-5.50) X10*6/uL Hgb (12.0-16.0) g/dl Hct (37.0-47.0) % MCV (80.0-98.0) fL MCH (27.0-33.0) pg MCHC (31.0-35.0) g/dl RDW (11.0-16.0) % Plt Count (160-400) X10*3/uL MPV (9.4-12.3) fL Immature Gran % (Auto) (0.0-0.4) % Neut % (Auto) (45-73) % Lymph % (Auto) (20-40) % Trigg % (Auto) (2-11) % Eos % (Auto) (0-4) % Baso % (Auto) (0-2) % Lymph # (Auto) (1.2-4.9) X10*3/uL Trigg # (Auto) (0.1-1.2) X10*3/uL Eos # (Auto) (0.0-0.4) X10*3/uL Baso # (Auto) (0.0-0.2) X10*3/uL Abs Immat Gran (auto) (0.00-0.03) X10*3/uL Absolute Neuts (auto) (2.0-8.3) x10*3/uL Absolute Nucleated RBC (0.0-0.012) X10*3/uL Nucleated RBC % (auto) (0.0-0.2) /100WBC PT 11.7 (10.0-13.1) SEC INR 1.0 (0.9-1.1) APTT 37.5 H (26.0-36.4) SEC Sodium (135-145) mmol/L Potassium (3.3-5.1) mmol/L Chloride (96-108) mmol/L Carbon Dioxide (22-29) mmol/L Anion Gap (12-20) BUN (9-16) mg/dL Creatinine (0.5-1.4) mg/dL Estim Creat Clear Calc Estimated GFR Random Glucose (60-115) mg/dL Calcium (8.4-10.2) mg/dL Total Bilirubin (0.0-1.0) mg/dL AST (5-31) U/L ALT (0-31) U/L Alkaline Phosphatase (39-117) U/L Troponin I High Sens (<3.5-17.0) ng/L Total Protein (6.5-8.0) g/dL Albumin (3.5-5.0) g/dL <EDISON Sullivan - Last Filed: 03/15/22 01:29> ECG Data Interpretation: Normal sinus rhythm. Ventricular rate 60. Peer interval 174. QRS 96. QTC 412. Negative STEMI <EDISON Cuadra Last Filed: 03/15/22 01:01> Discharge Plan Discharge Clinical Impression: Arm pain <EDISON Cuadra Last Filed: 03/15/22 01:01> Patient Disposition: Still a Patient <EDISON Cuadra Last Filed: 03/15/22 01:01> Instructions: Arm Pain (ED) <EDISON Cuadra Last Filed: 03/15/22 01:01> Additional Instructions: Take your medications as prescribed. If you were prescribed antibiotics today, it is important that you take your medication to their entirety, do not skip any doses, do not finish them early. Follow-up with your primary care provider this week. Return to the emergency department with new or worsening symptoms. Such as fevers, chills, chest pain, shortness of breath, nausea, vomiting, dizziness, headache, vision changes, lethargy In case of emergency call 911 You can take ibuprofen every 6 hours, Tylenol every 4 as needed for pain or discomfort unless otherwise contraindicated. <EDISON Cuadra Last Filed: 03/15/22 01:01> Prescriptions: No Action levothyroxine 25 mcg tablet 25 mcg PO DAILY Qty: 30 4RF oxybutynin chloride 5 mg tablet 5 mg PO DAILY 30 Days Qty: 90 3RF pregabalin 200 mg capsule 200 mg PO BID 30 Days Qty: 60 2RF Hold Instructions: until discussed with Dr Meyer duloxetine 60 mg capsule,delayed release(DR/EC) 120 mg PO DAILY Qty: 60 2RF bupropion HCl 300 mg tablet extended release 24 hr 300 mg PO DAILY diclofenac sodium 1 % gel 2 g topical TID 30 Days Qty: 200 2RF Rx Instructions: apply to single elbow, wrist or hand; for hand includes palm/fingers/back of hand topiramate 100 mg tablet 100 mg PO BEDTIME buspirone 15 mg tablet 22.5 mg PO BID multivitamin Tablet 1 tab PO DAILY <EDISON Cuadra - Last Filed: 03/15/22 01:01> Referrals: Jaylen Rizvi MD [Primary Care Provider] - 2 days <EDISON Cuadra - Last Filed: 03/15/22 01:01> Stand Alone Forms: Work/School Release <EDISON Cuadra - Last Filed: 03/15/22 01:01>
[2022-03-15 00:58] LABS: MANUAL DIFF FLAG NO
[2022-03-15 00:59] LABS: Basophils Percent Auto 0.7 % (0-2); Eosinophils Absolute Auto 0.2 X10*3/uL (0.0-0.4); Hematocrit 39.1 % (37.0-47.0); Hemoglobin 13.2 g/dl (12.0-16.0); Imm Gran Abs Auto 0.01 X10*3/uL (0.00-0.03); Imm Gran Pct Auto 0.2 % (0.0-0.4); Lymphocytes Absolute Auto 2.6 X10*3/uL (1.2-4.9); Lymphocytes Percent Auto 45.8 % (20-40); Mean Corpuscular HGB Conc 33.8 g/dl (31.0-35.0); Mean Corpuscular Hemoglobin 30.3 pg (27.0-33.0); Mean Corpuscular Volume 89.9 fL (80.0-98.0); Mean Platelet Volume 9.4 fL (9.4-12.3); Monocytes Absolute Auto 0.4 X10*3/uL (0.1-1.2); Monocytes Percent Auto 7.5 % (2-11); Neutrophils Absolute Auto 2.4 x10*3/uL (2.0-8.3); Neutrophils Percent Auto 41.8 % (45-73); Platelet Count 212 X10*3/uL (160-400); Red Blood Count 4.35 X10*6/uL (4.20-5.50); Red Cell Distribution Width 12.7 % (11.0-16.0); White Blood Count 5.7 X10*3/uL (4.8-10.8)
[2022-03-15 01:06] LABS: Prothrombin Time 11.7 SEC (10.0-13.1)
[2022-03-15 01:08] LABS: Partial Thromboplastin Time 37.5 SEC (26.0-36.4)
[2022-03-15 01:18] LABS: Alanine Aminotransferase 8 U/L (0-31); Albumin Level 3.9 g/dL (3.5-5.0); Alkaline Phosphatase 92 U/L (39-117); Anion Gap 13 (12-20); Aspartate Amino Transferase 13 U/L (5-31); Bilirubin Total 0.5 mg/dL (0.0-1.0); Blood Urea Nitrogen 21 mg/dL (9-16); Calcium 8.9 mg/dL (8.4-10.2); Carbon Dioxide 26 mmol/L (22-29); Chloride 107 mmol/L (96-108); Creatinine Clr Calc Pharmacy 77.8; Estimated Glomerular Filt Rate > 60; Glucose Random 89 mg/dL (60-115); Potassium 3.6 mmol/L (3.3-5.1); Sodium 142 mmol/L (135-145); Total Protein 6.2 g/dL (6.5-8.0); Troponin-I High Sensitivity < 3.5 ng/L (<3.5-17.0)
--- NOTE | 2022-03-15 01:38 | PC.NURSE ---
Discharge intructions provided to pt. Pt verbalizes understanding.
== END 2022-03-15 01:41 | disposition still patient (30) ==
PROVIDERS: Physician Assistant; Emergency Provider Internal Medicine; PCP Family Medicine
DX: M79.602 Pain in left arm (principal); E78.5 Hyperlipidemia, unspecified; F12.90 Cannabis use, unspecified, uncomplicated; Z79.899 Other long term (current) drug therapy; Z87.891 Personal history of nicotine dependence; Z98.84 Bariatric surgery status
CPT/HCPCS: 36415; 73060; 80053; 84484; 85025; 85610; 85730; 93005; 93971; 99284

== ENCOUNTER → 2022-03-28 13:21 | Outpatient (BNVA) | payer OTHER, SELFPAY | PROVIDERS: PCP Family Medicine; Visit Provider Dietitian, Registered | DX: E66.3 Overweight (principal) | CPT/HCPCS: 97803 ==

== ENCOUNTER → 2022-04-20 08:53 | Outpatient (BNVA) | payer MEDICARE, MEDICAID, SELFPAY | PROVIDERS: PCP Family Medicine; Visit Provider Surgery | DX: K80.20 Calculus of gallbladder without cholecystitis without obstruction (principal); Z98.84 Bariatric surgery status | CPT/HCPCS: Q3014 ==

== ENCOUNTER → 2022-04-29 12:07 | Outpatient (BNVA) | payer MEDICARE, MEDICAID, SELFPAY | PROVIDERS: PCP Family Medicine; Visit Provider Psychiatry & Neurology Psychiatry | DX: F33.41 Major depressive disorder, recurrent, in partial remission (principal); F41.1 Generalized anxiety disorder; Z79.899 Other long term (current) drug therapy | CPT/HCPCS: 99212 ==

== ENCOUNTER 2022-05-03 11:55 | Day surgery (SDC) | payer MEDICARE, MEDICAID, SELFPAY ==
[2022-04-27 14:25] VITALS: BMI 29.1
[2022-04-29 10:52] LABS: MANUAL DIFF FLAG NO
[2022-04-29 11:49] LABS: Basophils Percent Auto 0.8 % (0-2); Eosinophils Absolute Auto 0.2 X10*3/uL (0.0-0.4); Eosinophils Percent Auto 3.8 % (0-4); Hematocrit 41.4 % (37.0-47.0); Hemoglobin 13.6 g/dl (12.0-16.0); Imm Gran Abs Auto 0.02 X10*3/uL (0.00-0.03); Imm Gran Pct Auto 0.4 % (0.0-0.4); Lymphocytes Absolute Auto 1.8 X10*3/uL (1.2-4.9); Mean Corpuscular HGB Conc 32.9 g/dl (31.0-35.0); Mean Corpuscular Hemoglobin 30.5 pg (27.0-33.0); Mean Corpuscular Volume 92.8 fL (80.0-98.0); Mean Platelet Volume 9.6 fL (9.4-12.3); Monocytes Absolute Auto 0.3 X10*3/uL (0.1-1.2); Monocytes Percent Auto 6.6 % (2-11); Neutrophils Absolute Auto 2.6 x10*3/uL (2.0-8.3); Neutrophils Percent Auto 51.4 % (45-73); Platelet Count 250 X10*3/uL (160-400); Red Blood Count 4.46 X10*6/uL (4.20-5.50); Red Cell Distribution Width 12.7 % (11.0-16.0)
[2022-04-29 12:01] LABS: Prothrombin Time 11.1 SEC (10.0-13.1)
[2022-04-29 12:04] LABS: Partial Thromboplastin Time 34.7 SEC (26.0-36.4)
[2022-04-29 12:50] LABS: Estimated Average Glucose 91 mg/dL; Hemoglobin A1C 150.9544 umol/L; Hemoglobin A1c % 4.8 %
[2022-04-29 13:08] LABS: Vitamin B12 643 pg/mL (200-900)
[2022-04-29 13:27] LABS: COVID-19 Test Positive (Negative); IDNOW Serial# BCCEAD1C
[2022-04-29 14:25] LABS: Alanine Aminotransferase 9 U/L (0-31); Albumin Level 3.8 g/dL (3.5-5.0); Alkaline Phosphatase 98 U/L (39-117); Anion Gap 9 (12-20); Aspartate Amino Transferase 12 U/L (5-31); Bilirubin Total 0.5 mg/dL (0.0-1.0); Blood Urea Nitrogen 18 mg/dL (9-16); C Reactive Protein 0.18 mg/dL (< or = 0.50); Calcium 9.4 mg/dL (8.4-10.2); Carbon Dioxide 30 mmol/L (22-29); Chloride 104 mmol/L (96-108); Cholesterol 210 mg/dL; Estimated Glomerular Filt Rate > 60; Ferritin 174 ng/mL (10-250); Glucose Random 78 mg/dL (60-115); HDL Cholesterol 61 mg/dL; Iron 85 mcg/dL (30-160); LDL Cholesterol Calculated 125 mg/dl; Percent Iron Saturation 40 % (15-50); Potassium 4.1 mmol/L (3.3-5.1); Sodium 139 mmol/L (135-145); TSH reflex Free T4 0.87 uIU/mL (0.32-4.0); Total Iron Binding Capacity 214 mcg/dL (228-428); Total Protein 6.2 g/dL (6.5-8.0); Triglycerides 122 mg/dL; Unsaturated Iron Binding 129 ug/dL
--- NOTE | 2022-04-29 23:32 | MHC.SHP ---
Pre-Procedural Eval Section A Date of Service: 04/29/22 The patient is an INPATIENT: No The History & Physical has been completed within 30 days and I have reviewed it.: Yes Section B Chief Complaint: Calculus of gallbladder with acute cholecystitis Relevant Family History (Specify if Yes): No Relevant Social History: None Present Medications: None Medical History: No relevant PMH History of Previous Operations: Relevant previous surgery/procedure and date(s) (lap sleeve gastrectomy) Allergies: Allergies Allergy/AdvReac Type Severity Reaction Status Date / Time nickel Allergy Severe Anaphylaxis Verified 04/19/22 23:46 nitrofurantoin Allergy Severe Anaphylaxis Verified 04/19/22 23:46 [From Macrodantin] Sulfa (Sulfonamide Allergy Hives, Verified 04/19/22 23:46 Antibiotics) Swelling Review of Systems Sugical H&P ROS: Negative: Constitution, Cardiovascular, Respiratory, Neurological, Psychiatric, Hem-Onc, Allergic/Immunologic, Gastrointestinal, Genitourinary, Musculoskeletal, Integumentary, Endocrine and Eyes/Ears/Nose/Throat Exam Surgical H&P Exam: Normal: HEENT, Normal: Heart, Normal: Lungs, Normal: Extremities, Normal: Abdomen, Normal: Skin and Normal: Neurological Plan Diagnosis/Plan: Unchanged I have reviewed the history and physical and performed a pertinent physical examination on my patient. No changes have occurred unless specified.
[2022-05-01 15:39] LABS: Calcium (PTHI) 9.5 mg/dL (8.6-10.4); PTHI 31 pg/mL (16-77)
--- NOTE | 2022-05-02 10:44 | HO.ANESPROP2 ---
Documented by User: Charla Brown NP 05/02/22 10:45 HPI - Anesthesia Eval Consult details Narrative: 56yo F for Cholecystectomy Laparoscopic s/p gastric sleeve 07/2021 with GA-ETT 7 PMFSH Active Problems Active Problems: All Active Problems (Updated 04/29/22 @ 13:40 by Luz Maria Azul RN) Depression with anxiety (Acute) Degenerative disc disease (Acute) Laboratory examination ordered as part of a routine general medical examination (Acute) Abnormal thyroid blood test (Acute) Screening for colon cancer (Acute) Screening for cervical cancer (Acute) Screening for breast cancer (Acute) Fatigue (Acute) Back pain (Acute) Hyperlipidemia (Acute) Morbid obesity with BMI of 40.0-44.9, adult (Acute) Urinary frequency (Acute) Adult general medical exam (Acute) Muscle strain (Acute) BMI 37.0-37.9, adult (Acute) Cervicalgia (Acute) Neuralgia (Acute) History of skin cancer (Acute) BMI 36.0-36.9,adult (Acute) BMI 35.0-35.9,adult (Acute) BMI 33.0-33.9,adult (Acute) Dysuria (Acute) Abscess (Acute) Low back pain (Acute) Orthostatic hypotension (Acute) Fibromyalgia (Acute) Overweight (Acute) Left arm pain (Acute) Postgastrectomy malabsorption (Acute) Cholelithiasis (Acute) S/P laparoscopic sleeve gastrectomy (Acute) Neuropathy (Acute) Nephrolithiasis (Acute) GERD (gastroesophageal reflux disease) (Acute) Tachycardia (Acute) Sleep apnea (Acute) Obesity due to excess calories (Acute) Bettye's disease (Acute) Hypothyroidism (Acute) Spondylosis of lumbar spine (Acute) Degeneration, intervertebral disc, lumbosacral (Acute) Disc degeneration, lumbar (Acute) Past Medical History Medical History (Updated 04/29/22 @ 13:40 by Luz Maria Azul RN) Anxiety and depression Cholelithiasis COVID Degeneration, intervertebral disc, lumbosacral Disc degeneration, lumbar GERD (gastroesophageal reflux disease) Bettye's disease Hypothyroidism Nephrolithiasis Neuropathy Obesity due to excess calories Overactive bladder Sleep apnea Spondylosis of lumbar spine Tachycardia Family History Family History Mother Diabetes Uterine cancer Father Diabetes Sister Breast cancer Sister No problems noted. Brother No problems noted. Daughter No problems noted. Family history of problems with anesthesia: No Surgical History Surgical History History of bladder surgery History of cystoscopy History of dental surgery History of endometrial ablation History of eyelid surgery History of lumbar laminectomy History of lumpectomy of both breasts Hx of dilation and curettage Hx of tubal ligation S/P laparoscopic sleeve gastrectomy History of Problems with Anesthesia: No Social History Social History Household Members: None Household Members Other:: Has a non relationship roomate Housing: Other Housing Other:: Mobile Home Are you a primary spiritual care coordinator to a significant other at home: No Do you presently have visiting nurse or other home services: No Alcohol intake: current Alcohol intake frequency: holidays/special occasions only Patient Tobacco Use Status: Former Tobacco user Quit Date: 2006 Tobacco use type: Cigarette Cigarette Packs Per Day: 2.5 Years Smoked: 24 e-Cigarette/Vaping Use: Never Used Second Hand Smoke Exposure: No Substance Use Type: Marijuana Advance Directives Date on File: 08/26/21 service: No Current occupational status: unemployed Current occupational exposures/hazards: No Cognitive needs: No Hearing needs: No Vision needs: No Meds Allergies Allergy/AdvReac Type Severity Reaction Status Date / Time nickel Allergy Severe Anaphylaxis Verified 05/03/22 12:23 nitrofurantoin Allergy Severe Anaphylaxis Verified 05/03/22 12:23 [From Macrodantin] Sulfa (Sulfonamide Allergy Hives, Verified 05/03/22 12:23 Antibiotics) Swelling Home Medications Medication Instructions Recorded Confirmed Last Taken Type topiramate 100 mg tablet 100 mg PO BEDTIME 03/18/20 05/03/22 Unknown History multivitamin 1 tab PO DAILY 02/10/22 05/03/22 Unknown History bupropion HCl 150 mg 24 hr tablet, 150 mg PO QAM 04/29/22 05/03/22 05/03/22 10:00 History extended release (Wellbutrin XL) buspirone 15 mg tablet 15 mg PO DAILY 04/29/22 05/03/22 Unknown History Exam Exam Date and Time: May 02, 2022 1044 Height,Weight and Vital Signs: Height 5 ft 5 in Weight 79.379 kg Pertinent Lab Results Pertinent Lab Results: Laboratory Tests 04/29/22 04/29/22 04/29/22 10:45 10:51 10:51 WBC 5.0 RBC 4.46 Hgb 13.6 Hct 41.4 MCV 92.8 MCH 30.5 MCHC 32.9 RDW 12.7 Plt Count 250 MPV 9.6 Immature Gran % (Auto) 0.4 Neut % (Auto) 51.4 Lymph % (Auto) 37.0 Berks % (Auto) 6.6 Eos % (Auto) 3.8 Baso % (Auto) 0.8 Lymph # (Auto) 1.8 [place]ks # (Auto) 0.3 Eos # (Auto) 0.2 Baso # (Auto) 0.0 Abs Immat Gran (auto) 0.02 Absolute Neuts (auto) 2.6 Absolute Nucleated RBC 0.000 Nucleated RBC % (auto) 0.0 PT 11.1 INR 1.0 APTT 34.7 Sodium Potassium Chloride Carbon Dioxide Anion Gap BUN Creatinine Estim Creat Clear Calc Estimated GFR Random Glucose Estimat Average Glucose Hemoglobin A1c % Calcium Iron TIBC % Saturation Unsat Iron Binding Ferritin Total Bilirubin AST ALT Alkaline Phosphatase C-Reactive Protein Total Protein Albumin Triglycerides Cholesterol LDL Cholesterol, Calc HDL Cholesterol Vitamin B12 25-OH Vitamin D Total TSH PTH Intact Calcium (PTH Intact) COVID-19 ([facility]) COVID-19 Clin Com Blood Type O Positive Antibody Screen NEGATIVE 04/29/22 04/29/22 04/29/22 10:51 10:51 10:51 WBC RBC Hgb Hct MCV MCH MCHC RDW Plt Count MPV Immature Gran % (Auto) Neut % (Auto) Lymph % (Auto) Berks % (Auto) Eos % (Auto) Baso % (Auto) Lymph # (Auto) [place] # (Auto) Eos # (Auto) Baso # (Auto) Abs Immat Gran (auto) Absolute Neuts (auto) Absolute Nucleated RBC Nucleated RBC % (auto) PT INR APTT Sodium 139 Potassium 4.1 Chloride 104 Carbon Dioxide 30 H Anion Gap 9 L BUN 18 H Creatinine 0.84 Estim Creat Clear Calc 76.0 Estimated GFR > 60 Random Glucose 78 Estimat Average Glucose 91 Hemoglobin A1c % 4.8 Calcium 9.4 Iron 85 TIBC 214 L % Saturation 40 Unsat Iron Binding 129 Ferritin 174 Total Bilirubin 0.5 AST 12 ALT 9 Alkaline Phosphatase 98 C-Reactive Protein 0.18 Total Protein 6.2 L Albumin 3.8 Triglycerides 122 Cholesterol 210 LDL Cholesterol, Calc 125 HDL Cholesterol 61 Vitamin B12 643 25-OH Vitamin D Total 47.0 TSH 0.87 PTH Intact Calcium (PTH Intact) COVID-19 ([facility]) COVID-19 Clin Com Blood Type Antibody Screen 04/29/22 04/29/22 10:51 13:00 WBC RBC Hgb Hct MCV MCH MCHC RDW Plt Count MPV Immature Gran % (Auto) Neut % (Auto) Lymph % (Auto) [place] % (Auto) Eos % (Auto) Baso % (Auto) Lymph # (Auto) [place] # (Auto) Eos # (Auto) Baso # (Auto) Abs Immat Gran (auto) Absolute Neuts (auto) Absolute Nucleated RBC Nucleated RBC % (auto) PT INR APTT Sodium Potassium Chloride Carbon Dioxide Anion Gap BUN Creatinine Estim Creat Clear Calc Estimated GFR Random Glucose Estimat Average Glucose Hemoglobin A1c % Calcium Iron TIBC % Saturation Unsat Iron Binding Ferritin Total Bilirubin AST ALT Alkaline Phosphatase C-Reactive Protein Total Protein Albumin Triglycerides Cholesterol LDL Cholesterol, Calc HDL Cholesterol Vitamin B12 25-OH Vitamin D Total TSH PTH Intact 31 Calcium (PTH Intact) 9.5 COVID-19 ([facility]) Positive A COVID-19 Clin Com See Note Blood Type Antibody Screen Narrative Narrative: EKG 04/2021 Vent. Rate : 066 BPM ? ? Atrial Rate : 066 BPM ?? P-R Int : 172 ms? QRS Dur : 100 ms ? ? QT Int : 392 ms ? ? ? P-R-T Axes : 051 029 022 degrees ?? QTc Int : 410 ms ? Normal sinus rhythm Normal ECG When compared with ECG of 26-APR-2011 08:48, No significant change was found Assessment and Plan Assessment Anesthesia Assessment: Chart Reviewed Final Anesthetic Review Family History of Problems with Anesthesia: No History of Problems with Anesthesia: No Documented by User: Bryant Jerome MD 05/03/22 19:42 [facility] Past Medical History Medical History (Updated 04/29/22 @ 13:40 by Luz Maria Azul RN) Anxiety and depression Cholelithiasis COVID Degeneration, intervertebral disc, lumbosacral Disc degeneration, lumbar GERD (gastroesophageal reflux disease) Bettye's disease Hypothyroidism Nephrolithiasis Neuropathy Obesity due to excess calories Overactive bladder Sleep apnea Spondylosis of lumbar spine Tachycardia Family History Family History Mother Diabetes Uterine cancer Father Diabetes Sister Breast cancer Sister No problems noted. Brother No problems noted. Daughter No problems noted. Surgical History Surgical History History of bladder surgery History of cystoscopy History of dental surgery History of endometrial ablation History of eyelid surgery History of lumbar laminectomy History of lumpectomy of both breasts Hx of dilation and curettage Hx of tubal ligation S/P laparoscopic sleeve gastrectomy Social History Social History (Reviewed 02/10/22 @ 13:28 by Park Beasley [facility]) Household Members: None Household Members Other:: Has a non relationship roomate Housing: Other Housing Other:: Mobile Home Are you a primary spiritual care coordinator to a significant other at home: No Do you presently have visiting nurse or other home services: No Alcohol intake: current Alcohol intake frequency: holidays/special occasions only Patient Tobacco Use Status: Former Tobacco user Quit Date: 2006 Tobacco use type: Cigarette Cigarette Packs Per Day: 2.5 Years Smoked: 24 e-Cigarette/Vaping Use: Never Used Second Hand Smoke Exposure: No Substance Use Type: Marijuana Advance Directives Date on File: 08/26/21 service: No Current occupational status: unemployed Current occupational exposures/hazards: No Cognitive needs: No Hearing needs: No Vision needs: No Meds Allergies Allergy/AdvReac Type Severity Reaction Status Date / Time nickel Allergy Severe Anaphylaxis Verified 05/03/22 12:23 nitrofurantoin Allergy Severe Anaphylaxis Verified 05/03/22 12:23 [From Macrodantin] Sulfa (Sulfonamide Allergy Hives, Verified 05/03/22 12:23 Antibiotics) Swelling Home Medications Medication Instructions Recorded Confirmed Last Taken Type topiramate 100 mg tablet 100 mg PO BEDTIME 03/18/20 05/03/22 Unknown History multivitamin 1 tab PO DAILY 02/10/22 05/03/22 Unknown History bupropion HCl 150 mg 24 hr tablet, 150 mg PO QAM 04/29/22 05/03/22 05/03/22 10:00 History extended release (Wellbutrin XL) buspirone 15 mg tablet 15 mg PO DAILY 04/29/22 05/03/22 Unknown History Exam Airway Mallampati Class: IV TM Dist: >3cm Neck ROM: Full Loose/Missing/Broken Teeth: Yes (Crowns ) Heart: S1,S2 Lungs: b/l breath sounds Assessment and Plan Assessment Anesthesia Assessment: Anesthesia Plan Discussed Final Anesthetic Review NPO: Yes ASA Class: III Final Preanesthetic Review: Meds/Allgs Chart Reviewed, Consent Obtained/Reviewed and Anes Risks/Benef Reviewed Patient Risk: Intermediate Procedure Risk: Intermediate Anesthetic Plan Anesthetic Plan: GA Disposition: Standard PACU
[2022-05-02 12:43] LABS: COVID-19 Test Negative (Negative); IDNOW Serial# 16C4AD1C
[2022-05-03] VITALS (7 sets, daily range): BP systolic 105–132; BP diastolic 58–84; PULSE 68–87; RESP 16–18; TEMP 36.7; O2SAT 98–100; BMI 28.9
[2022-05-03] MEDS: Lactated Ringers 1,000 ML 100 ML IVCONT (13:05)
--- NOTE | 2022-05-03 14:28 | P.BOP_ITS ---
Brief Operative Note Date of Service: 05/03/22 Pre-op diagnosis: Cholelithiasis Post-op diagnosis: same Procedure: PROCEDURE DATE: 05/03/2022 PREOPERATIVE DIAGNOSIS: Cholelithiasis POSTOPERATIVE DIAGNOSIS: Same as above. PROCEDURE: Laparoscopic cholecystectomy Surgeon: Evan Meyer M.D.. Ph.D. Branch Operation Evaluation Manager: Miriam Guadalupe PA-C Anesthesia: General endotracheal anesthesia Estimated blood loss: Minimal FINDINGS AND PROCEDURE: OPERATIVE INDICATIONS: The patient is a 56 year old female known to me who underwent a laparoscopic sleeve gastrectomy. The patient had remarkable weight loss so far and had a completely uneventful recovery. The patient has cholelithiasis based on the ultrasound report. Based on this information I recommended laparoscopic cholecystectomy, upper endoscopy to evaluate the patient's symptoms. Risks and complications of the surgery were discussed with the patient in advance particularly the possibility of conversion to an open surgery, bleeding, infection, obstruction, deep vein thrombosis or pulmonary embolism, bile leak or major bile duct injury that may require surgical intervention. The patient understood the risks and was in agreement with the pl an. PROCEDURE: After informed consent was obtained by the patient, the patient was transferred to the Operating Room and was placed in the supine position. The patient was given preoperative antibiotics and after successful induction of general anesthesia, pneumatic compression devices were placed. The patient was then prepped and draped in the usual sterile manner and abdominal access was established with the Jojo technique. The abdomen was insufflated with C02 to a pressure of 15 mmHg. A 5 mm Versi-step port was placed, slightly to the right and superior from the umbilicus. The 5 mm camera was introduced. We inspected the area where port had been placed and there was no injury. The patient was then placed initially in a steep reverse Trendelenburg position and three additional ports were placed, specifically a 12 mm Versi-step port just to the right of the midline below the xiphoid process and two 5 mm Versi-step ports at the right upper quadrant and right flank. At that point the gallbladder was retracted cephalad and laterally. The peritoneal attachments of the gallbladder at the triangle of Calot posteriorly and anteriorly were taken down. The cystic duct and artery were both seen. They were completely dissected free, skeletonized all the way to the infundibulum of the gallbladder . In a similar fashion we also cleaned the liver bed just behind the cystic artery to make sure there was no additional structures in this area. Once we confirmed that both structures were entering into the gallbladder and there were no other structures in the area, they were both clipped with two clips proximally, one distally and were cut in-between. We then using the electrocautery we slowly took down the gallbladder from the liver bed. Small areas of bleeding from the liver parenchyma were controlled with the cautery. After the gallbladder was completely detached from the liver bed, it was placed in an EndoCatch bag and was removed without difficulty from the xiphoid port. We then inspected the clips at the cystic duct and artery and were both in place. There was no active bleeding from the liver bed. We thoroughly irrigated the right upper quadrant and we removed all fluid until clear. At that point the patient was placed in supine position, we deflated the abdomen and we removed all ports under direct vision and no bleeding was noted from any of the port sites. The fascia of the 12 mm port was closed using a #1 Polysorb suture. 30cc of Ropivacaine plain were used to infiltrate the fascial closure as well as all skin incisions. A total of 5ml of Zynrelef was applied in the Jojo wound. The wounds were irrigated with saline mixed with antibiotic solution and then the skin was closed with 4-0 Monocryl subcuticular sutures antibiotic-coated. Steri-strips and OpSites were used to cover all incisions. The patient extubated and was transferred in stable condition to the Recovery Room for further care. I was present and performed all steps of the procedure. Ms. Guadalupe was the document control assistant. Evan Meyer M.D., Ph.D., F.A.C.S. Surgeon: Demond Meyer MD Anesthesia: GETA, local and other (TAP block and 5ml Zynrelef) Was an Branch Operation Evaluation Manager used for this Procedure?: No Branch Operation Evaluation Manager: Miriam Guadalupe Estimated blood loss (mL): 10 IV fluids (mL): 1,500 Urine output (mL): 0 (No Cardoso to record) Pathology: other (Gallbladder) Condition: stable Disposition: PACU
[2022-05-04 09:33] LABS: Vitamin A 55 mcg/dL (38-98)
[2022-05-04 17:58] LABS: Zinc 76 mcg/dL (60-130)
[2022-05-06 16:39] LABS: Vitamin B1 49 nmol/L (8-30)
== END 2022-05-03 17:17 | disposition home or self-care (01) ==
PROVIDERS: Physician Assistant Surgical; PCP Family Medicine; Visit Provider Surgery
PROC: 0FT44ZZ Resection of Gallbladder, Percutaneous Endoscopic Approach (ICD-10-PCS; CPT 47562; principal; 2022-05-03 13:40)
DX: K80.12 Calculus of gallbladder with acute and chronic cholecystitis without obstruction (principal); K91.2 Postsurgical malabsorption, not elsewhere classified; E66.09 Other obesity due to excess calories; Z68.29 Body mass index [BMI] 29.0-29.9, adult; K21.9 Gastro-esophageal reflux disease without esophagitis; E06.3 Autoimmune thyroiditis; G62.9 Polyneuropathy, unspecified; Z79.899 Other long term (current) drug therapy; Z90.3 Acquired absence of stomach [part of]; Z98.84 Bariatric surgery status; Z20.822 Contact with and (suspected) exposure to COVID-19; Z88.2 Allergy status to sulfonamides; Z88.8 Allergy status to other drugs, medicaments and biological substances
CPT/HCPCS: 47562; 36415; 80053; 80061; 82306; 82607; 82728; 83036; 83540; 83970; 84425; 84443; 84590; 84630; 85025; 85610; 85730; 86140; 86850; 86900; 86901; 87635; 88304; C9088; J0131; J0690; J1100; J2250; J2405; J2795; J3010

== ENCOUNTER → 2022-05-10 12:45 | Outpatient (BNVA) | payer MEDICARE, MEDICAID, SELFPAY | PROVIDERS: PCP Family Medicine; Visit Provider Physician Assistant Surgical | DX: Z98.84 Bariatric surgery status (principal); Z90.49 Acquired absence of other specified parts of digestive tract | CPT/HCPCS: 99212 ==

== ENCOUNTER 2022-06-07 12:38 | Outpatient (REF) | payer MEDICARE, MEDICAID, SELFPAY ==
[2022-06-07 16:33] LABS: CDiff Gene PCR NEGATIVE (Negative)
== END 2022-06-07 12:39 | disposition home or self-care (01) ==
LOC: HO.LAB 12:38
PROVIDERS: PCP Family Medicine; Visit Provider Physician Assistant Surgical
DX: R19.7 Diarrhea, unspecified (principal)
CPT/HCPCS: 36415; 87493

== ENCOUNTER → 2022-06-09 11:10 | Outpatient (BNVA) | payer MEDICARE, MEDICAID, SELFPAY | PROVIDERS: PCP Family Medicine; Visit Provider Dietitian, Registered | DX: E66.9 Obesity, unspecified (principal); Z68.28 Body mass index [BMI] 28.0-28.9, adult | CPT/HCPCS: 97803 ==

== ENCOUNTER 2022-06-14 09:18 | Outpatient (REF) | payer MEDICARE, MEDICAID, SELFPAY ==
[2022-06-14 11:45] LABS: MANUAL DIFF FLAG NO
[2022-06-14 11:57] LABS: Basophils Percent Auto 0.8 % (0-2); Eosinophils Absolute Auto 0.2 X10*3/uL (0.0-0.4); Eosinophils Percent Auto 4.7 % (0-4); Hematocrit 41.1 % (37.0-47.0); Hemoglobin 13.5 g/dl (12.0-16.0); Imm Gran Abs Auto 0.02 X10*3/uL (0.00-0.03); Imm Gran Pct Auto 0.4 % (0.0-0.4); Lymphocytes Absolute Auto 1.9 X10*3/uL (1.2-4.9); Lymphocytes Percent Auto 37.9 % (20-40); Mean Corpuscular HGB Conc 32.8 g/dl (31.0-35.0); Mean Corpuscular Volume 91.3 fL (80.0-98.0); Monocytes Absolute Auto 0.3 X10*3/uL (0.1-1.2); Monocytes Percent Auto 6.5 % (2-11); Neutrophils Absolute Auto 2.5 x10*3/uL (2.0-8.3); Neutrophils Percent Auto 49.7 % (45-73); Platelet Count 242 X10*3/uL (160-400); Red Cell Distribution Width 12.9 % (11.0-16.0); White Blood Count 4.9 X10*3/uL (4.8-10.8)
[2022-06-14 12:07] LABS: Appearance Urine Clear; Color Urine Yellow; Glucose Urine UA Negative (Negative); Leukocyte Esterase Urine Trace (Negative); Nitrite Urine Negative (Negative); PH 6.5 (5.0-9.0); Specific Gravity - Urine 1.015 (1.005-1.025); UMIC TRIGGER UA YES; Urine Blood Negative (Negative); Urine Ketones Negative (Negative); Urine Protein Negative (Neg-Trace)
[2022-06-14 12:34] LABS: Bacteria Urine None Seen (None Seen); Calcium Oxalate Crystals Urine Present; Hyaline Casts Urine 0-2 /LPF (0-2); RBC Urine 0-2 /HPF (0-2); Squamous Epithelial Cell Urine 0-2 /HPF (0-2); WBC Urine 0-5 /HPF (0-5)
[2022-06-14 12:43] LABS: Alanine Aminotransferase 11 U/L (0-31); Albumin Level 3.8 g/dL (3.5-5.0); Alkaline Phosphatase 92 U/L (39-117); Anion Gap 10 (12-20); Aspartate Amino Transferase 16 U/L (5-31); Bilirubin Total 0.6 mg/dL (0.0-1.0); Blood Urea Nitrogen 17 mg/dL (9-16); Calcium 9.3 mg/dL (8.4-10.2); Carbon Dioxide 28 mmol/L (22-29); Chloride 109 mmol/L (96-108); Cholesterol 194 mg/dL; Estimated Glomerular Filt Rate > 60; Glucose Fasting 80 mg/dL (60-99); HDL Cholesterol 68 mg/dL; LDL Cholesterol Calculated 107 mg/dl; Sodium 143 mmol/L (135-145); Total Protein 6.2 g/dL (6.5-8.0); Triglycerides 95 mg/dL
[2022-06-14 13:08] LABS: TSH reflex Free T4 0.88 uIU/mL (0.32-4.0)
== END 2022-06-14 09:19 | disposition home or self-care (01) ==
LOC: HO.WFDLDS 09:18
PROVIDERS: Visit Provider Family Medicine
DX: Z00.00 Encounter for general adult medical examination without abnormal findings (principal)
CPT/HCPCS: 36415; 80053; 80061; 81001; 81003; 84443; 85025

== ENCOUNTER → 2022-07-07 10:50 | Outpatient (BNVA) | payer MEDICARE, MEDICAID, SELFPAY | PROVIDERS: PCP Family Medicine; Visit Provider Psychiatry & Neurology Psychiatry | DX: F41.1 Generalized anxiety disorder (principal); F41.0 Panic disorder [episodic paroxysmal anxiety]; F33.41 Major depressive disorder, recurrent, in partial remission; Z90.3 Acquired absence of stomach [part of] | CPT/HCPCS: 99212 ==

== ENCOUNTER → 2022-08-26 13:47 | Outpatient (BNVA) | payer MEDICARE, MEDICAID, SELFPAY | PROVIDERS: PCP Family Medicine; Referring Provider Family Medicine; Visit Provider Physician Assistant Surgical | DX: E66.3 Overweight (principal); M79.7 Fibromyalgia; Z68.29 Body mass index [BMI] 29.0-29.9, adult; Z90.49 Acquired absence of other specified parts of digestive tract; Z90.3 Acquired absence of stomach [part of]; Z98.84 Bariatric surgery status | CPT/HCPCS: 99212 ==

== ENCOUNTER → 2022-09-20 12:24 | Outpatient (BNVA) | payer MEDICARE, MEDICAID, SELFPAY | PROVIDERS: PCP Family Medicine; Visit Provider Physician Assistant | DX: R19.7 Diarrhea, unspecified (principal); G47.30 Sleep apnea, unspecified; Z98.84 Bariatric surgery status | CPT/HCPCS: 99202 ==

== ENCOUNTER 2022-09-21 11:17 | Outpatient (REF) | payer MEDICARE, MEDICAID, SELFPAY ==
[2022-09-21 14:29] LABS: Alanine Aminotransferase 9 U/L (0-31); Albumin Level 3.8 g/dL (3.5-5.0); Alkaline Phosphatase 96 U/L (39-117); Anion Gap 11 (12-20); Aspartate Amino Transferase 14 U/L (5-31); Bilirubin Total 0.8 mg/dL (0.0-1.0); Blood Urea Nitrogen 18 mg/dL (9-16); C Reactive Protein < 0.10 mg/dL (< or = 0.50); Carbon Dioxide 25 mmol/L (22-29); Chloride 109 mmol/L (96-108); Estimated Glomerular Filt Rate > 60; Glucose Random 80 mg/dL (60-115); Sodium 141 mmol/L (135-145); Total Protein 6.1 g/dL (6.5-8.0)
[2022-09-21 14:59] LABS: Erythrocyte Sedimentation Rate 5 MM/HR (0-20)
[2022-09-27 21:28] LABS: Transglutaminase IgA <1.0 U/mL
[2022-09-28 14:09] LABS: Endomysial IgA Antibody Negative (Negative)
== END 2022-09-21 11:18 | disposition home or self-care (01) ==
LOC: HO.WFDLDS 11:17
PROVIDERS: Visit Provider Physician Assistant
DX: K58.9 Irritable bowel syndrome, unspecified (principal)
CPT/HCPCS: 36415; 80053; 85652; 86140; 86231; 86364

== ENCOUNTER 2022-09-22 12:35 | Outpatient (REF) | payer MEDICARE, MEDICAID, SELFPAY ==
[2022-09-22 15:00] LABS: CDiff Gene PCR NEGATIVE (Negative)
[2022-09-22 16:40] LABS: Adenovirus F 40/41 Not Detected (Not Detect.); Astrovirus Not Detected (Not Detect.); Campylobacter Not Detected (Not Detect.); Cryptosporidium Not Detected (Not Detect.); Cyclospora cayetanensis Not Detected (Not Detect.); E. coli EAEC Not Detected (Not Detect.); E. coli EPEC Not Detected (Not Detect.); E. coli ETEC Not Detected (Not Detect.); E. coli STEC Not Detected (Not Detect.); Entamoeba histolytica Not Detected (Not Detect.); Giardia lamblia Not Detected (Not Detect.); Norovirus GI/GII Not Detected (Not Detect.); Plesiomonas shigelloides Not Detected (Not Detect.); Rotavirus A Not Detected (Not Detect.); Salmonella Not Detected (Not Detect.); Sapovirus Not Detected (Not Detect.); Shigella sp./EIEC Not Detected (Not Detect.); Vibrio Not Detected (Not Detect.); Vibrio Cholerae Not Detected (Not Detect.); Yersinia enterocolitica Not Detected (Not Detect.)
== END 2022-09-22 12:36 | disposition home or self-care (01) ==
LOC: HO.WFDLNP 12:35
PROVIDERS: Visit Provider Physician Assistant
DX: R19.7 Diarrhea, unspecified (principal)
CPT/HCPCS: 87493; 87507

== ENCOUNTER → 2022-10-10 11:37 | Outpatient (BNVA) | payer MEDICARE, MEDICAID, SELFPAY | PROVIDERS: PCP Family Medicine; Visit Provider Dietitian, Registered | DX: E66.3 Overweight (principal); Z68.29 Body mass index [BMI] 29.0-29.9, adult | CPT/HCPCS: 97803 ==

== ENCOUNTER → 2022-10-12 10:57 | Outpatient (BNVA) | payer MEDICARE, MEDICAID, SELFPAY | PROVIDERS: PCP Family Medicine; Visit Provider Psychiatry & Neurology Psychiatry | DX: F41.1 Generalized anxiety disorder (principal); F41.0 Panic disorder [episodic paroxysmal anxiety]; F33.41 Major depressive disorder, recurrent, in partial remission; R00.2 Palpitations | CPT/HCPCS: 90833; 99212 ==

== ENCOUNTER → 2022-11-15 14:18 | Outpatient (BNVA) | payer MEDICARE, MEDICAID, SELFPAY | PROVIDERS: PCP Family Medicine; Referring Provider Family Medicine; Visit Provider Internal Medicine | DX: R00.2 Palpitations (principal) | CPT/HCPCS: 99202 ==

== ENCOUNTER 2022-12-07 10:37 | Outpatient (AMB) | payer MEDICARE, MEDICAID, SELFPAY ==
[2022-12-07 10:47] VITALS: BP 124/70; PULSE 67; O2SAT 97; BMI 29.7
--- NOTE | 2022-12-07 10:47 | A.OFFPC_ITS ---
Vital Signs 12/07/22 10:47 Height 5 ft 5 in Weight 178 lb 8 oz BMI 29.7 BP 124/70 Blood Pressure Location Lt brachial Position Sitting Pulse 67 Pulse Source Pulse Oximeter Pulse Oximetry (%) 97 Intake Visit Reasons: f/u chronic conditions Intake Note: Patient is here for follow up on chronic conditions. Patient is here with pain on right side kidney area. Allergies nickel Allergy (Severe, Verified 12/07/22 10:48) Anaphylaxis nitrofurantoin [From Macrodantin] Allergy (Severe, Verified 12/07/22 10:48) Anaphylaxis clindamycin Allergy (Mild, Verified 12/07/22 10:48) Diarrhea Sulfa (Sulfonamide Antibiotics) Allergy (Verified 12/07/22 10:48) Hives, Swelling Medication List - Last Reconciled 12/07/22 by Jaylen Rizvi MD bisacodyl (Dulcolax (bisacodyl)) 10 mg (2 x 5 mg) PO ONCE 1 day bupropion HCl (Wellbutrin XL) 150 mg PO QAM diazepam 2.5 - 5 mg (0.5 - 1 x 5 mg) PO DAILY PRN duloxetine 120 mg (2 x 60 mg) PO DAILY levothyroxine 25 mcg PO DAILY 90 days metoprolol succinate ER 12.5 mg (1/2 x 25 mg) PO DAILY multivitamin 1 tab PO DAILY oxybutynin chloride 5 mg PO DAILY 30 days polyethylene glycol 3350 (Miralax) 238 grams PO ONCE 1 day pregabalin 200 mg PO BID 30 days topiramate 100 mg PO BEDTIME Tobacco use date assessed: 12/07/22 Dental Screening Dental Screen Date: 12/07/22 Did you have a dental visit in the last 12 months?: Yes Did you have a dental problem in the last 6 months where you did not have access to dental care?: No Was dental information given to patient?: No HPI f/u chronic conditions HPI Details 57 y/o female presents to f/u chronic conditions. Pt reports R flank pain. She states she does not have a gallbladder. Pain is intermittent and is not associated with bowel movements. She notes urinary frequency and states that sometimes she feels strange when she urinates. Pt reports she has been taking metoprolol once a day for her palpitations. She notes it helps her most of the day but feels like at the end of the day it does not feel as effective. 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 Brother No problems noted. Daughter No problems noted. Social History Household Members: None Household Members Other:: Has a non relationship roomate Housing: Other Housing Other:: Mobile Home Are you a primary customer care specialist to a significant other at home: No Do you presently have visiting nurse or other home services: No Alcohol intake: current Alcohol intake frequency: a few times a month Patient Tobacco Use Status: Former Tobacco user Quit Date: 2006 Tobacco use type: Cigarette Cigarette Packs Per Day: 2.5 Years Smoked: 24 e-Cigarette/Vaping Use: Never Used Second Hand Smoke Exposure: No Substance Use Type: Marijuana Advance Directives Date on File: 08/26/21 service: No Current occupational status: disabled Current occupational exposures/hazards: No Cognitive needs: No Hearing needs: No Vision needs: No Questionnaire PHQ-9 Over the last 2 weeks, how often have you been bothered by any of the following problems? 1. Little interest or pleasure in doing things: several days 2. Feeling down, depressed, or hopeless: several days 3. Trouble falling or staying asleep, or sleeping too much: not at all 4. Feeling tired or having little energy: more than half the days 5. Poor appetite or overeating: not at all 6. Feeling bad about yourself - or that you are a failure or have let yourself or your family down: not at all 7. Trouble concentrating on things, such as reading the newspaper or watching television: not at all 8. Moving or speaking so slowly that other people could have noticed. Or the opposite - being so fidgety or restless that you have been moving around a lot more than usual: not at all 9. Thoughts that you would be better off or of hurting yourself in some way: not at all Total score: 4 Source: Developed by Drs. Roslaino Huang, Johanna Tyler, José Ambriz and colleagues, with an educational yolis from [employer]. Thrive Questionnaire Date Thrive assessed: 06/22/22 VINEET-7 AMB Questionnaire VINEET-7 Date VINEET - 7 assessed: 06/22/22 Source: Developed by Drs. Rosalino Huang, Johanna Tyler, José Ambriz and colleagues, with an educational yolis from [employer]. Review of Systems Const Denies chills, Denies fatigue, Denies fever(s), Denies headache(s) and Denies weakness ENT Denies dizziness and Denies headache(s) Card Denies chest pain, Denies lightheadedness, Denies dyspnea and Denies other (Palpitations) Resp Denies cough, Denies dyspnea, Denies wheezing and Denies other ( shortness of breath) GI Details: R flank pain Musc Denies numbness and Denies tingling Neuro Denies dizziness, Denies headache(s), Denies numbness, Denies tingling, Denies paresthesias and Denies weakness Psych Denies anxiety and Denies depression Endo Denies fatigue Aller/Immun Denies wheezing Physical exam (Primary Care) Vital Signs: Last Vital Signs Pulse 67 12/07/22 10:47 BP 124/70 12/07/22 10:47 Pulse Ox 97 12/07/22 10:47 BMI result Body Mass Index 29.7 Tobacco/Smoking Status: Tobacco use Status Tobacco use date assessed 12/07/22 12/07/22 10:53 Patient Tobacco Use Status Former Tobacco user 12/07/22 10:53 Tobacco use type Cigarette 12/07/22 10:53 e-Cigarette/Vaping Use Never Used 12/07/22 10:53 PHQ-9: PHQ-9 Score PHQ-9: Total score 4 12/07/22 11:31 Thrive Assessment: Date of Thrive Assessment Date Thrive assessed 06/22/22 12/07/22 10:53 Const General: no acute distress and well developed Nutritional Appearance: well nourished Orientation/consciousness: patient oriented x3 HENMT Head: Yes normocephalic and Yes atraumatic Eyes General: appearance normal, both eyes and all related structures Pupils: Equal, round and reactive pupils present EOM: EOMs intact bilaterally Resp Effort & Inspection: normal respiratory effort Auscultation: clear to auscultation bilaterally Cardio Rate: regular rate Rhythm: regular rhythm Heart sounds: S1 normal heart sound present, S2 normal heart sound present, no gallops, no murmurs and no rubs Neuro General: patient oriented x3 and gait normal Cranial nerves: Yes Equal, round and reactive pupils present Psych Affect: normal affect Assessment and Plan Assessment & Plan (1) Right flank pain: Code(s): R10.9 - Unspecified abdominal pain Plan: No dysuria but patient does say that it feels somewhat like a prior UTI Seems low likelihood but urine dip checked and shows: (2) Palpitations: Code(s): R00.2 - Palpitations Plan: Cardiology has ordered I a Holter monitor test and echocardiogram which she has scheduled and upcoming (3) Depression with anxiety: Code(s): F41.8 - Other specified anxiety disorders Plan: Followed by Dr. Crowe Taking her medications as prescribed (4) Morbid obesity with BMI of 40.0-44.9, adult: Code(s): E66.01 - Morbid (severe) obesity due to excess calories; Z68.41 - Body mass index [BMI] 40.0-44.9, adult Plan: Had lost weight after her bariatric procedure but has leveled out at around 174 lb She continues to follow-up with the oil speculator from the weight management program (5) Hypotension: Code(s): I95.9 - Hypotension, unspecified Plan: Patient had been rather hypotensive at her 09/09/22 walk-in visit with [facility] Had advised she hold metoprolol. She has since seen the supervisor joiners. She is taking metoprolol 25 mg once daily and her blood pressure today is 124/70; fine She can continue this medication as it is helpful for her palpitations. Hydrate well Coding Level of Care Code Est Pt Level 4 (69296) Diagnoses Right flank pain R10.9 Palpitations R00.2 Depression with anxiety F41.8 Morbid obesity with BMI of 40.0-44.9, adult E66.01; Z68.41 Hypotension I95.9
== END 2022-12-07 11:47 | disposition home or self-care (01) ==
PROVIDERS: PCP Family Medicine; Visit Provider Family Medicine
DX: R10.9 Unspecified abdominal pain (principal); F41.8 Other specified anxiety disorders; E66.01 Morbid (severe) obesity due to excess calories; Z68.41 Body mass index [BMI] 40.0-44.9, adult; R00.2 Palpitations; I95.9 Hypotension, unspecified
CPT/HCPCS: 99214

== ENCOUNTER 2022-12-09 06:47 | Day surgery (SDC) | payer MEDICARE, MEDICAID, SELFPAY ==
[2022-12-07 13:58] VITALS: BMI 29.6
[2022-12-09 07:26] VITALS: BP 112/52; PULSE 57; RESP 16; TEMP 36.9; O2SAT 100
[2022-12-09] MEDS: Lactated Ringers 1,000 ML 100 ML IVCONT (07:40)
--- NOTE | 2022-12-09 07:53 | HO.ANESPROP2 ---
[facility] Active Problems Active Problems: All Active Problems (Updated 12/07/22 @ 11:16 by Deangelo Escoto) Depression with anxiety (Acute) Degenerative disc disease (Acute) Laboratory examination ordered as part of a routine general medical examination (Acute) Abnormal thyroid blood test (Acute) Screening for colon cancer (Acute) Screening for cervical cancer (Acute) Screening for breast cancer (Acute) Fatigue (Acute) Back pain (Acute) Hyperlipidemia (Acute) Morbid obesity with BMI of 40.0-44.9, adult (Acute) Urinary frequency (Acute) Adult general medical exam (Acute) Muscle strain (Acute) BMI 37.0-37.9, adult (Acute) Cervicalgia (Acute) Neuralgia (Acute) History of skin cancer (Acute) BMI 36.0-36.9,adult (Acute) BMI 35.0-35.9,adult (Acute) BMI 33.0-33.9,adult (Acute) Dysuria (Acute) Abscess (Acute) Low back pain (Acute) Orthostatic hypotension (Acute) Fibromyalgia (Acute) Overweight (Acute) Left arm pain (Acute) Postgastrectomy malabsorption (Acute) Status post laparoscopic cholecystectomy (Acute) Major depressive disorder, recurrent episode, in partial remission with seasonal pattern (Acute) Diarrhea (Acute) Palpitations (Acute) Right flank pain (Acute) Panic disorder [episodic paroxysmal anxiety] (Acute) Generalized anxiety disorder (Acute) Cholelithiasis (Acute) S/P laparoscopic sleeve gastrectomy (Acute) Neuropathy (Acute) Nephrolithiasis (Acute) GERD (gastroesophageal reflux disease) (Acute) Tachycardia (Acute) Sleep apnea (Acute) Obesity due to excess calories (Acute) Bettye's disease (Acute) Hypothyroidism (Acute) Spondylosis of lumbar spine (Acute) Degeneration, intervertebral disc, lumbosacral (Acute) Disc degeneration, lumbar (Acute) Past Medical History Medical History Anxiety and depression Cholelithiasis COVID Degeneration, intervertebral disc, lumbosacral Disc degeneration, lumbar Generalized anxiety disorder GERD (gastroesophageal reflux disease) Bettye's disease Hypothyroidism Nephrolithiasis Neuropathy Obesity due to excess calories Overactive bladder 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 Panic disorder [episodic paroxysmal anxiety] Sleep apnea Spondylosis of lumbar spine Tachycardia Family History Family History Mother Diabetes Uterine cancer Father Diabetes Sister Breast cancer Sister No problems noted. Brother No problems noted. Daughter No problems noted. Family history of problems with anesthesia: No Surgical History Surgical History History of bladder surgery History of cystoscopy History of dental surgery History of endometrial ablation History of eyelid surgery History of lumbar laminectomy History of lumpectomy of both breasts Hx of cholecystectomy Hx of dilation and curettage Hx of tubal ligation S/P laparoscopic sleeve gastrectomy History of Problems with Anesthesia: No Social History Social History Household Members: None Household Members Other:: Has a non relationship roomate Housing: Other Housing Other:: Mobile Home Are you a primary transitional care liaison to a significant other at home: No Do you presently have visiting nurse or other home services: No Alcohol intake: current Alcohol intake frequency: a few times a month Patient Tobacco Use Status: Former Tobacco user Quit Date: 2006 Tobacco use type: Cigarette Cigarette Packs Per Day: 2.5 Cigarettes Per Day: 50.0 Years Smoked: 24 e-Cigarette/Vaping Use: Never Used Second Hand Smoke Exposure: No Use of substances other than those prescribed or required for medical reasons: Yes Substance Use Type: Marijuana Substance Use Frequency: Daily Are you DNR?: No Advance Directives: Yes Advance Directives Information Provided: Yes Advance Directives on File: Yes Advance Directives Date on File: 08/26/21 service: No Current occupational status: disabled Current occupational exposures/hazards: No Cognitive needs: No Hearing needs: No Vision needs: No Meds Allergies Allergy/AdvReac Type Severity Reaction Status Date / Time nickel Allergy Severe Anaphylaxis Verified 12/09/22 07:18 nitrofurantoin Allergy Severe Anaphylaxis Verified 12/09/22 07:18 [From Macrodantin] Sulfa (Sulfonamide Allergy Severe Hives, Verified 12/09/22 07:18 Antibiotics) Swelling clindamycin Allergy Mild Diarrhea Verified 12/09/22 07:18 Active Medications: Current Medications Lactated Ringer's (Lr) 1,000 mls @ 100 mls/hr IVCONT .Q10H MENA Last Admin: 12/09/22 07:40 Dose: 100 mls/hr Home Medications Medication Instructions Recorded Confirmed Last Taken Type multivitamin 1 tab PO DAILY 02/10/22 12/07/22 Unknown History Exam Exam Date and Time: December 09, 2022 0753 Height,Weight and Vital Signs: Height 5 ft 5 in Weight 80.739 kg Last Vital Signs Temp 98.4 F 12/09/22 07:26 Pulse 57 12/09/22 07:26 Resp 16 12/09/22 07:26 BP 112/52 L 12/09/22 07:26 Pulse Ox 100 12/09/22 07:26 O2 Del Method Room Air 12/09/22 07:26 Airway Mallampati Class: II TM Dist: >3cm Neck ROM: Full Loose/Missing/Broken Teeth: No Heart: RRR Lungs: CTA Assessment and Plan Assessment Anesthesia Assessment: Anesthesia Plan Discussed Final Anesthetic Review Family History of Problems with Anesthesia: No History of Problems with Anesthesia: No NPO: Yes ASA Class: II Final Preanesthetic Review: Meds/Allgs Chart Reviewed, Consent Obtained/Reviewed and Anes Risks/Benef Reviewed Patient Risk: Low Procedure Risk: Intermediate Anesthetic Plan Anesthetic Plan: MAC: Disposition: Standard PACU
--- NOTE | 2022-12-09 08:12 | P.HPSUR_ITS ---
Pre-Procedural Eval Section A Date of Service: 12/09/22 Section B Chief Complaint: Bariatric surgery status,diarrhea,gerd Relevant Family History (Specify if Yes): No Relevant Social History: None Present Medications: see Short Stay Collaborative assessment Medical History: Significant History (Anxiety and depression Cholelithiasis COVID Degeneration, intervertebral disc, lumbosacral Disc degeneration, lumbar Generalized anxiety disorder GERD (gastroesophageal reflux disease) Bettye's disease Hypothyroidism Nephrolithiasis Neuropathy Obesity due to excess calories Overactive bladder Garcia) History of Previous Operations: Relevant previous surgery/procedure and date(s) (History of bladder surgery History of cystoscopy History of dental surgery History of endometrial ablation History of eyelid surgery History of lumbar laminectomy History of lumpectomy of both breasts Hx of cholecystectomy Hx of dilation and curettage Hx of tubal ligation S/P laparoscopic sleeve gas) Allergies: Allergies Allergy/AdvReac Type Severity Reaction Status Date / Time nickel Allergy Severe Anaphylaxis Verified 12/09/22 07:18 nitrofurantoin Allergy Severe Anaphylaxis Verified 12/09/22 07:18 [From Macrodantin] Sulfa (Sulfonamide Allergy Severe Hives, Verified 12/09/22 07:18 Antibiotics) Swelling clindamycin Allergy Mild Diarrhea Verified 12/09/22 07:18 Review of Systems Sugical H&P ROS: Negative: Constitution, Cardiovascular, Respiratory, Neurolog ical, Psychiatric, Hem-Onc, Allergic/Immunologic, Gastrointestinal, Genitourinary, Musculoskeletal, Integumentary, Endocrine and Eyes/Ears/Nose/Throat Exam Surgical H&P Exam: Normal: HEENT, Normal: Heart, Normal: Lungs, Normal: Extremities, Normal: Abdomen, Normal: Skin and Normal: Neurological Plan Diagnosis/Plan: Unchanged I have reviewed the history and physical and performed a pertinent physical examination on my patient. No changes have occurred unless specified. Time Spent With Patient Time: Total time managing care of this patient today ____ minutes.
--- NOTE | 2022-12-09 08:34 | P.OP_ITS ---
Operative Note Operative Note Date of Service: 12/09/22 Narrative: Operative Information Procedure Description: EGD, Colonoscopy Indication: diarrhea, Anesthesia: MAC FLEXIBLE TRANSORAL UPPER GASTROINTESTINAL ENDOSCOPY AND COLONOSCOPY PROCEDURE NOTE UPPER ENDOSCOPY Consent: Indications for the procedure and potential complications of bleeding, perforation, reaction to medications and missed diagnosis were discussed with the patient and informed consent was obtained. Instrument: Olympus GIF H 190 J mid size upper endoscope Monitoring: Vital signs and clinical assessment, continuous EKG monitoring, Pulse oximetry, Carbon Dioxide monitoring and blood pressure monitoring were done throughout the procedure. Procedure: The patient was placed in the left lateral decubitis position and pre-procedure medications were administered and a bite block was placed. The endoscope was inserted into the mouth and advanced under direct vision to the third part of duodenum. A careful inspection was made as the upper endoscope was withdrawn including a retroflexed examination of the proximal stomach; Findings and interventions are described below. Findings: Larynx:normal Esophagus: GE junction at 40 cm, diaphragm hiatus at 40 cm, some erythema at GEJ, bx taken from GEJ and distla esophagus. Stomach: PAtchy erythema. Biopsies were obtained. Grade 2 flap valve on retroflexed examination of the cardia. Surgical changes from sleeve gastrectomy noted, bile acid reflux also noted Duodenum: Normal bulb and descending duodenum, bx taken Intervention: Biopsies as noted above COLONOSCOPY Instrument: Olympus variable stiffness pediatric scope 190L Colonoscopy Monitoring: Vital signs and clinical assessment, continuous EKG monitoring, Pulse oximetry, Carbon Dioxide monitoring and blood pressure monitoring were done throughout the procedure. Colon withdrawal time was 13 minutes. Procedure: The patient was placed in the left lateral decubitis position and pre-procedure medications were administered. After a digital rectal examination of the ano-rectum, the video colonoscope was inserted into the rectum and advanced through the colon to the cecum/TI. The colonoscope was slowly withdrawn in a retrograde panoramic fashion and the colon mucosa was carefully examined including a retroflexed view of the rectum. Findings and interventions are described below. Procedure Difficulty: easy Findings: Terminal Ileum-normal, bx taken Random colon bx taken with cold forceps Cecum:normal Ascending Colon: x 3 sessile polyps 10-11 mm removed with cold snare Transverse Colon - x 1 sessile polyp 10-12 mm removed with cold snare Descending Colon:normal Sigmoid Colon: normal Rectum: Retroflexion with small internal hemorrhoids, grade I Anorectum - normal Colon preparation: [place] Bowel Preparation Scale Right colon; 2 Transverse colon: 2 Left colon; 2 (0 = Unprepared colon segment with mucosa not seen due to solid stool that cannot be cleared. 1 = Portion of mucosa of the colon segment seen, but other areas of the colon segment not well seen due to staining, residual stool and/or opaque liquid. 2 = Minor amount of residual staining, small fragments of stool and/or opaque liquid, but mucosa of colon segment seen well. 3 = Entire mucosa of colon segment seen well with no residual staining, small fragments of stool or opaque liquid) Impression and Post Procedure Diagnosis: Endoscopy Findings: bile acid reflux gastritis esophagitis Colonoscopy Findings: polyps internal hemorrhoids Plan: Await Pathology results Repeat Colonoscopy in 3 years due to adenomatous polyps or earlier if clinically indicated High fiber diet leaflet avoid straining at stool, epsom salts and sitz bath, anusol supps or cream if bx neg can consider trial of cholestyramine or welchol Above findings were reviewed with the patient and relevant handouts were provided if indicated.
[2022-12-09 09:06] VITALS: BP 101/41; PULSE 62; RESP 15; TEMP 36.3; O2SAT 100
[2022-12-09 09:22] VITALS: BP 107/60; PULSE 46; RESP 18; TEMP 36.2; O2SAT 97
== END 2022-12-09 09:45 | disposition home or self-care (01) ==
PROVIDERS: PCP Family Medicine; Visit Provider Internal Medicine Gastroenterology
PROC: (CPT 45380; principal; 2022-12-09 08:30)
DX: D12.3 Benign neoplasm of transverse colon (principal); D12.2 Benign neoplasm of ascending colon; K21.00 Gastro-esophageal reflux disease with esophagitis, without bleeding; K29.70 Gastritis, unspecified, without bleeding; K64.8 Other hemorrhoids; K52.9 Noninfective gastroenteritis and colitis, unspecified; Z98.84 Bariatric surgery status; Z90.49 Acquired absence of other specified parts of digestive tract; Z79.899 Other long term (current) drug therapy; Z87.891 Personal history of nicotine dependence
CPT/HCPCS: 45380; 45385; 43239; 88305; 88341; 88342; J2250

== ENCOUNTER → 2022-12-09 06:47 | Outpatient (BNV) | payer MEDICARE, MEDICAID, SELFPAY | PROVIDERS: PCP Family Medicine; Visit Provider Internal Medicine Gastroenterology | DX: R19.7 Diarrhea, unspecified (principal); R11.14 Bilious vomiting; K29.70 Gastritis, unspecified, without bleeding; K20.90 Esophagitis, unspecified without bleeding; D12.2 Benign neoplasm of ascending colon; D12.3 Benign neoplasm of transverse colon; K64.0 First degree hemorrhoids | CPT/HCPCS: 43239; 45380; 45385 ==

== ENCOUNTER → 2022-12-12 12:36 | Outpatient (REF) | payer MEDICARE, MEDICAID, SELFPAY ==
--- NOTE | 2022-12-12 12:41 | CA_ITS ---
Transthoracic Echocardiogram Patient (Last, First, Middle): Jacqueline Mandel E Gender: Female Date of : 1965 Age: 57 Procedure Date: 12/12/2022 Procedure Type: Transthoracic Echocardiogram Location: OP Height: 165.1 cm Weight: 79.83 kg BSA: 1.87 m2 Heart Rate: 53 bpm BP: 110 / 70 mmHg Motor Vehicle Clerk: GOLDIE Tran MD: Stephen Jensen MD Material Hauler: Elmer Nation MD Symptoms: R00.2 - Palpitations Study Quality: Fair ECG Rhythm: Bradycardia Conclusions: - 1. Normal LV systolic function with normal diastolic filling pattern 2. Normal cardiac valvular Dopplers 3. Normal RV systolic pressure 4. Mildly dilated ascending aorta at 3.8 cm 5. No gross pericardial effusion Findings Left Ventricle Normal left ventricular size, thickness, and systolic function. The visually estimated ejection fraction is between 55-60%. Spectral Doppler is indicative of a normal filling pattern. Right Ventricle Normal right ventricular cavity size and systolic function. Atria Both atria are normal in size. There is no evidence of interatrial shunt. Aortic Valve Normal aortic valve structure and function. There is no aortic valve stenosis. There is no aortic valve regurgitation. Mitral Valve Normal mitral valve structure and function. There is trace mitral valve regurgitation. There is no mitral valve stenosis. Pulmonic Valve The pulmonic valve is likely normal. Tricuspid Valve Normal tricuspid valve structure. There is trace tricuspid valve regurgitation. The right ventricular systolic pressure is normal. The right ventricular systolic pressure is 15 mmHg. Normal right atrial pressure. There is no evidence of pulmonary hypertension. Great Vessels The pulmonary artery was not well visualized. There is mild dilatation of the ascending aorta measuring 3.80 cm. Venous The inferior vena cava is normal in size and collapses greater than 50% with inspiration. Pericardium/Pleural There is no evidence of pericardial effusion. Prior Study Comparison No prior study available for comparison. Measurements 2D Linear Measurements IVSd: 1.06 0.6-0.9/0.6-1.0 cm LVIDd: 4.66 3.9-5.3/4.2-5.9 cm LVIDd Index: 2.49 2.4-3.2/2.2-3.1 cm/m2 LVIDs: 2.95 2.0-3.6 cm LVPWd: 0.70 0.7-1.1 cm LA Diam: 3.10 2.7-3.8/3.0-4.0 cm LAIDs Index: 1.66 1.5-2.3 cm/m2 LV Mass: 170.08 67-162/88-224 g LV Mass Index: 90.95 43-95/49-115 g/m2 LVOT Diam: 1.80 3.0+(-)1.3 cm 2D Systolic Function EF 4C: 53.30 >55% EF 2C: 61.90 >55% EF BiP: 56.70 >55% Mitral Valve MV Pk E: 0.81 MV PK A: 0.57 MV Decel Time: 217.00 E/A: 1.40 E'Lateral: 12.20 E'Medial: 8.38 E/E' Med: 9.70 E/E' Lat: 6.60 PHT: 64.00 MVA PHT: 3.44 Decel Kershaw: 3.73 Aortic Valve AoV Pk Moses: 1.24 AoV Mn Moses: 0.82 AoV VTI: 0.27 AoV Pk Grad: 6.00 Aov Mn Grad: 3.00 NEVA Cont.VTI: 2.41 LVOT LVOT Pk Moses: 1.27 LVOT Mn Moses: 0.74 LVOT VTI: 0.26 LVOT Pk Grad: 6.00 LVOT Mn Grad: 3.00 LVOT Diam: 1.80 LVOT Area: 2.54 Diastolic Function MV Pk E: 0.81 MV Pk A: 0.57 E/A: 1.40 E'Medial: 8.38 E/E' Med: 9.70 E' Laterial: 12.20 E/E' Lat: 6.60 Right Ventricle TAPSE (mm): 23.50 TVS' Moses: 11.90 Tricuspid Valve TR Pk Moses: 1.70 TR Pk Grad: 12.00 RA Press: 3.00 RVSP: 15.00 Great Vessels Aorta Sinus of Valsalva: 3.80 2.0-3.5 cm Ao Asc: 3.80 2.1-3.4 cm Pulmonary Valve PV Pk Moses: 0.79 Peak PV Grad: 3.00 Updated in Other Vendor System with Status of Final Elmer Nation MD electronically signed on 12/13/2022 10:41:02 AM with status of Final
--- NOTE | 2022-12-12 12:41 | HM_ITS ---
* Total monitoring time 7 days. * Underlying rhythm is sinus. Average ventricular rate 75/Min. Range 45 to 159/min. * Sinus tachycardia noted, but otherwise unremarkable. * Rare supraventricular and ventricular ectopy with minimal burden. * No significant pauses or AV blocks. * Patient markers associated with sinus rhythm. MTDD
== END ==
LOC: HO.CARD 12:36
PROVIDERS: PCP Family Medicine; Visit Provider Internal Medicine
DX: R00.2 Palpitations (principal)
CPT/HCPCS: 93242; 93306

== ENCOUNTER → 2022-12-12 12:41 | Outpatient (BNV) | payer MEDICARE, MEDICAID, SELFPAY | PROVIDERS: PCP Family Medicine; Visit Provider Internal Medicine Cardiovascular Disease | DX: R00.0 Tachycardia, unspecified (principal) | CPT/HCPCS: 93244; 93306 ==

== ENCOUNTER → 2022-12-20 11:53 | Outpatient (BNVA) | payer MEDICARE, MEDICAID, SELFPAY | PROVIDERS: PCP Family Medicine; Visit Provider Physician Assistant | DX: R19.7 Diarrhea, unspecified (principal); K21.9 Gastro-esophageal reflux disease without esophagitis; K64.8 Other hemorrhoids; D36.9 Benign neoplasm, unspecified site; Z90.3 Acquired absence of stomach [part of] | CPT/HCPCS: 99212 ==

== ENCOUNTER → 2022-12-20 11:53 | Outpatient (AMB) | payer MEDICARE, MEDICAID, SELFPAY ==
--- NOTE | 2022-12-20 11:55 | MHC.OFFVIS ---
Intake Vital Signs 12/20/22 11:58 Height 5 ft 5 in Weight 176 lb BMI 29.3 BP 104/60 Blood Pressure Location Lt brachial Position Sitting Pulse 64 Intake Visit Reasons: s/P COLON- Edward Intake Note: Patient follow up for Colonoscopy and lab results. Patient denies any GI issues. Requirements Analyst Required: No Accompanied by: Self / Same As Patient Allergies nickel Allergy (Severe, Verified 12/20/22 11:54) Anaphylaxis nitrofurantoin [From Macrodantin] Allergy (Severe, Verified 12/20/22 11:54) Anaphylaxis Sulfa (Sulfonamide Antibiotics) Allergy (Severe, Verified 12/20/22 11:54) Hives, Swelling clindamycin Allergy (Mild, Verified 12/20/22 11:54) Diarrhea Medication List - Last Reconciled 12/20/22 by Lela Decker PA-C bupropion HCl (Wellbutrin XL) 150 mg PO QAM diazepam 2.5 - 5 mg (0.5 - 1 x 5 mg) PO DAILY PRN duloxetine 120 mg (2 x 60 mg) PO DAILY levothyroxine 25 mcg PO DAILY 90 days metoprolol succinate ER 12.5 mg (1/2 x 25 mg) PO DAILY multivitamin 1 tab PO DAILY oxybutynin chloride 5 mg PO DAILY 30 days pregabalin 200 mg PO BID 30 days topiramate 100 mg PO BEDTIME HPI HPI Comments History of Present Illness Details A 57 y/o F f/u after EGD and colonoscopy- tolerated well- However- intermittent epigastric discomfort- doesnt feel she has acid reflux/ heartburn Bowels are loose-2-4 times a day Reviewed procedure report and pathology- No rectal bleed, fever or chills PFSH Medical History (Updated 12/20/22 @ 13:17 by Lela Decker PA-C) Anxiety and depression Cholelithiasis COVID Degeneration, intervertebral disc, lumbosacral Disc degeneration, lumbar Generalized anxiety disorder GERD (gastroesophageal reflux disease) Bettye's disease Hypothyroidism Nephrolithiasis Neuropathy Obesity due to excess calories Overactive bladder 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 Panic disorder [episodic paroxysmal anxiety] Sleep apnea Spondylosis of lumbar spine Tachycardia Surgical History History of bladder surgery History of cystoscopy History of dental surgery History of endometrial ablation History of esophagogastroduodenoscopy (EGD) History of eyelid surgery History of lumbar laminectomy History of lumpectomy of both breasts Hx of cholecystectomy Hx of colonoscopy Hx of dilation and curettage Hx of tubal ligation S/P laparoscopic sleeve gastrectomy Family History Mother Diabetes Uterine cancer Father Diabetes Sister Breast cancer Sister No problems noted. Brother No problems noted. Daughter No problems noted. Social History Household Members: None Household Members Other:: Has a non relationship roomate Housing: Other Housing Other:: Mobile Home Are you a primary child care centre director to a significant other at home: No Do you presently have visiting nurse or other home services: No Alcohol intake: current Alcohol intake frequency: a few times a month Patient Tobacco Use Status: Former Tobacco user Quit Date: 2006 Tobacco use type: Cigarette Cigarette Packs Per Day: 2.5 Cigarettes Per Day: 50.0 Years Smoked: 24 e-Cigarette/Vaping Use: Never Used Second Hand Smoke Exposure: No Substance Use Type: Marijuana Advance Directives Date on File: 08/26/21 service: No Current occupational status: disabled Current occupational exposures/hazards: No Cognitive needs: No Hearing needs: No Vision needs: No Review of Systems Const All systems reviewed & are unremarkable except as noted in HPI and below Card Denies chest pain and Denies dyspnea Resp Denies dyspnea Physical Exam Vital Signs: Last Vital Signs Pulse 64 12/20/22 11:58 BP 104/60 12/20/22 11:58 BMI result Body Mass Index 29.3 Const General: cooperative, healthy appearing, comfortable and no acute distress Orientation/consciousness: patient oriented x3 Limitations: no limitations Eyes Sclerae: sclerae normal Resp Effort & Inspection: normal respiratory effort and able to speak in complete sentences Skin General skin exam: no rashes or lesions noted Neuro General: patient oriented x3 Extrem General: Yes full ROM Psych Appearance: grossly normal and well kempt Mental Status: mental status grossly normal Speech and movement: Normal speech and movement present Attitude: cooperative Thought content: Normal thought content present Results Reviewed Results Reviewed: mpression and Post Procedure Diagnosis: Endoscopy Findings: bile acid reflux gastritis esophagitis Colonoscopy Findings: polyps internal hemorrhoids Plan: Await Pathology results Repeat Colonoscopy in 3 years due to adenomatous polyps or earlier if clinically indicated High fiber diet leaflet avoid straining at stool, epsom salts and sitz bath, anusol supps or cream if bx neg can consider trial of cholestyramine or welchol Above findings were reviewed with the patient and relevant handouts were provided if indicated. Name:Jacqueline Dumont Age/Sex: 57/F Attending: Janelle Edward MD : 1965 Submitted by: Janelle Edward MD Copies to: Jaylen Rizvi MD MR #: [id number] ? Status: DEP SDC Collected: 12/09/22 Location: [facility] Received: 12/09/22 Diagnosis A.? Duodenum, biopsy:? Duodenal mucosa within normal limits. B.? Stomach, biopsy:? Reactive gastropathy with background mild chronic inactive inflammation; no Helicobacter organisms seen. C.? EG junction, biopsy: - Cardiofundic-type mucosa with mild chronic inactive inflammation; no intestinal metaplasia seen. - Squamous mucosa within normal limits. D.? Esophagus, distal, biopsy: - Cardiac-type mucosa with moderate chronic inactive inflammation and multilayered epithelium; no fully-developed intestinal metaplasia seen. - Active esophagitis (few neutrophils and eosinophils). E.? Colon, transverse, polypectomy:? Fragments of tubular adenoma; negative for high-grade dysplasia or carcinoma. F. ? Terminal ileum, biopsy:? Terminal ileal mucosa within normal limits. G.? Colon, random, biopsy:? Colonic mucosa within normal limits. H.? Colon, ascending, polypectomies:? Fragments of tubular adenomata; negative for high-grade dysplasia or carcinoma. CD117 Immunohistochemistry (# cells per high powered field): A.? Duodenum (53) B.? Stomach (28) C.? EG junction (26) D.? Distal esophagus (25) E.? Transverse colon polyp (24) F.? Terminal ileum (34) G.? Ascending colon (34) H.? Ascending colon polyp (37) GI tract involvement by systemic mastocytosis is characterized by aggregates of atypical appearing mast cells, which are often oval or spindle-shaped - features not seen in the current specimens.? In reactive processes, mast cells are not atypical appearing and occur singly.? In one study (Aleksander et al. PMID [id number]), the number of mast cells per high-powered field in IBS patients with diarrhea was elevated compared to asymptomatic patients (30 per high-powered field for IBS; 26 per high-powered field for asymptomatic patients in colon biopsies; statistically significant).? Mast cell density in other areas of the GI tract is not well characterized.? There are myriad other causes of elevated mast cells in GI mucosa, including allergies, celiac disease, malignancies, infections and drugs, among other etiologies (Aneudy, etal. PMID [id number]).? Correlation with the patient's clinical presentation and other laboratory studies is necessary. Clinical History Pre-Op Dx:? S/P bariatric surgery, diarrhea, GERD Post-Op Dx: Gastritis, esophagitis, bile acid reflux, colon polyps, internal hemorrhoids Microscopic Description A-H.? Microscopic sections reviewed.? Immunostain for H. pylori is non-reactive (B). Material Received A. Duodenum? bx's B. Stomach bx's C. EG junction bx's D. Distal esophagus bx's E. Transverse colon polyp F. TI bx's G. Ascending colon bx's H. Ascending colon polyps Test for mast cells on all specimens Gross Description Assessment & Plan Assessment & Plan (1) Diarrhea: Comment: Discussed Imodium somewhat reluctant She does have it at home and will give us further thoughts Code(s): R19.7 - Diarrhea, unspecified Plan: Welchol bid (2) GERD (gastroesophageal reflux disease): Comment: reviewed path- Code(s): K21.9 - Gastro-esophageal reflux disease without esophagitis Plan: pantoprazole 20 mg QD (3) Internal hemorrhoids: Code(s): K64.8 - Other hemorrhoids Plan: HFD avoid straining (4) Tubular adenoma: Code(s): D36.9 - Benign neoplasm, unspecified site Plan: Repeat colonoscopy 3 years Medications: New colesevelam (WelChol) 1,250 mg (2 x 625 mg) PO BID 60 tabs 1RF pantoprazole 20 mg PO QAM 30 tabs 6RF Patient Instructions: Trial pantoprazole 20 mg Repeat Colonoscopy in 3 years due to adenomatous polyps High fiber diet avoid straining at stool, epsom salts and sitz bath, anusol supps or cream trial of welchol Call with questions or concerns F/U 3 months- sooner if need Coding Level of Care Code Est Pt Level 3 (80825) Diagnoses Diarrhea R19.7 GERD (gastroesophageal reflux disease) K21.9 Internal hemorrhoids K64.8 Tubular adenoma D36.9 Time Spent (min) 30
[2022-12-20 11:58] VITALS: BP 104/60; PULSE 64; BMI 29.3
== END ==
PROVIDERS: PCP Family Medicine; Visit Provider Physician Assistant
DX: R19.7 Diarrhea, unspecified (principal); K21.9 Gastro-esophageal reflux disease without esophagitis; K64.8 Other hemorrhoids; D36.9 Benign neoplasm, unspecified site
CPT/HCPCS: 99213

== ENCOUNTER 2022-12-21 12:25 | Outpatient (AMB) | payer MEDICARE, MEDICAID, SELFPAY ==
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
== END 2022-12-21 13:27 | disposition home or self-care (01) ==
LOC: HO.HOP 12:25
PROVIDERS: PCP Family Medicine; Visit Provider Psychiatry & Neurology Psychiatry
DX: F41.8 Other specified anxiety disorders (principal); R53.83 Other fatigue; F33.41 Major depressive disorder, recurrent, in partial remission; F41.0 Panic disorder [episodic paroxysmal anxiety]; R00.2 Palpitations; Z98.84 Bariatric surgery status; E06.3 Autoimmune thyroiditis
CPT/HCPCS: 90833; 99213

== ENCOUNTER → 2022-12-21 12:25 | Outpatient (BNVA) | payer MEDICARE, MEDICAID, SELFPAY | PROVIDERS: PCP Family Medicine; Visit Provider Psychiatry & Neurology Psychiatry | DX: F41.8 Other specified anxiety disorders (principal); F33.41 Major depressive disorder, recurrent, in partial remission; F41.0 Panic disorder [episodic paroxysmal anxiety]; R53.83 Other fatigue; R00.2 Palpitations; E06.3 Autoimmune thyroiditis; Z98.84 Bariatric surgery status | CPT/HCPCS: 90833; 99212 ==

== ENCOUNTER 2023-01-09 11:11 | Outpatient (AMB) | payer MEDICARE, MEDICAID, SELFPAY ==
--- NOTE | 2023-01-09 11:07 | MHC.AMNUTRGE ---
Intake VS Expanded 01/09/23 11:08 Height 5 ft 5 in Weight 174 lb BMI 29.0 Intake Visit Reasons: VIDEO PO LSG 11/24/21 Allergies nickel Allergy (Severe, Verified 12/20/22 11:54) Anaphylaxis nitrofurantoin [From Macrodantin] Allergy (Severe, Verified 12/20/22 11:54) Anaphylaxis Sulfa (Sulfonamide Antibiotics) Allergy (Severe, Verified 12/20/22 11:54) Hives, Swelling clindamycin Allergy (Mild, Verified 12/20/22 11:54) Diarrhea HPI Nutrition Presentation Details LSG 08/26/[address] Meyer Preop weight weight 08/31/21 202# weight 9wks 193# Weight at 4 MO 179# Weigth at 5 MO 177# weight at 6 MO PO 176# Current weight 174# Reason for consult elevated BMI Diet Assmnt Details Im not a good person states seh is really struggling wtih depression Pt states she overeats all meals. Last diet recall: Breakfast- 1 egg 1 bar per day , either pure protein, zone perfect bar, KIND bars, [place] bars lunch: salad , frozen meal protein- ground beef 80% breaded chicken tenders, pasta a lot lately I don't eat as many vegetables as I should . Reports alcohol intake- wine 1-2 glasses several nights of the week Pt switched to a regular MVI, stopped the celebrate. did'tlike the taste. Pt does not want to resume bariatric MVI. Advised pt to take her bariatric vitamins Dietary counseling reduction Diagnosis Nutrition problem #1 overweight/obesity As related to (etiology) #1 excess energy intake and physical inactivity As evidenced by (sign/symptom) #1 high BMI Monitoring/Goals Nutrition problem monitoring total energy intake, level of knowledge/skill, total PRO intake, total CHO intake, weight and oral fluids Outcome progress verbalized understanding Learning/Education Readiness to learn fair Stages of change contemplation Educational materials provided Yes Most Recent Diabetes Results: No Data to Display PFSH Medical History (Updated 12/20/22 @ 13:17 by Lela Decker PA-C) Anxiety and depression Cholelithiasis COVID Degeneration, intervertebral disc, lumbosacral Disc degeneration, lumbar Generalized anxiety disorder GERD (gastroesophageal reflux disease) Bettye's disease Hypothyroidism Nephrolithiasis Neuropathy Obesity due to excess calories Overactive bladder 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 Panic disorder [episodic paroxysmal anxiety] Sleep apnea Spondylosis of lumbar spine Tachycardia Surgical History History of bladder surgery History of cystoscopy History of dental surgery History of endometrial ablation History of esophagogastroduodenoscopy (EGD) History of eyelid surgery History of lumbar laminectomy History of lumpectomy of both breasts Hx of cholecystectomy Hx of colonoscopy Hx of dilation and curettage Hx of tubal ligation S/P laparoscopic sleeve gastrectomy Family History Mother Diabetes Uterine cancer Father Diabetes Sister Breast cancer Sister No problems noted. Brother No problems noted. Daughter No problems noted. Social History Household Members: None Household Members Other:: Has a non relationship roomate Housing: Other Housing Other:: Mobile Home Are you a primary assistant child care teacher to a significant other at home: No Do you presently have visiting nurse or other home services: No Alcohol intake: current Alcohol intake frequency: a few times a month Patient Tobacco Use Status: Former Tobacco user Quit Date: 2006 Tobacco use type: Cigarette Cigarette Packs Per Day: 2.5 Cigarettes Per Day: 50.0 Years Smoked: 24 e-Cigarette/Vaping Use: Never Used Second Hand Smoke Exposure: No Substance Use Type: Marijuana Advance Directives Date on File: 08/26/21 service: No Current occupational status: disabled Current occupational exposures/hazards: No Cognitive needs: No Hearing needs: No Vision needs: No Assessment & Plan Assessment & Plan (1) Overweight (BMI 25.0-29.9): Code(s): E66.3 - Overweight Patient Instructions: diarrhea possibly related to food choices and overeating. She is vague about what she eats so difficult to determine. she will resume her bariatric vitamins and begin a calcium. Pt declines appt with therapist again. communicate as needed with office and f/u in 3months Telehealth Telehealth Location of provider rendering services: practice address Location of patient: address on file Patient Identification confirmed using: Name, : Yes Telehealth method: video Patient verbally consented to treatment: Yes Patient verbally consented to billing insurance company: Yes Patient informed of any privacy concerns related to visit: Yes Minutes spent on Phone/Video with Pt.: 30 Coding Level of Care Code Nutr Indiv Subseq (84242) Diagnoses Overweight (BMI 25.0-29.9) E66.3 Time Spent (min) 30
[2023-01-09 11:08] VITALS: BMI 29.0
== END 2023-01-09 13:04 | disposition home or self-care (01) ==
LOC: HO.HBS 11:11
PROVIDERS: PCP Family Medicine; Visit Provider Dietitian, Registered
DX: E66.3 Overweight (principal)

== ENCOUNTER → 2023-01-09 11:11 | Outpatient (BNVA) | payer MEDICARE, MEDICAID, SELFPAY | PROVIDERS: PCP Family Medicine; Visit Provider Dietitian, Registered | DX: E66.3 Overweight (principal); F41.8 Other specified anxiety disorders; Z68.29 Body mass index [BMI] 29.0-29.9, adult; Z90.49 Acquired absence of other specified parts of digestive tract; Z90.3 Acquired absence of stomach [part of]; Z71.3 Dietary counseling and surveillance | CPT/HCPCS: 97803 ==

== ENCOUNTER 2023-01-17 14:42 | Outpatient (AMB) | payer MEDICARE, MEDICAID, SELFPAY ==
[2023-01-17 14:44] VITALS: BP 102/80; PULSE 69; BMI 29.3
--- NOTE | 2023-01-17 14:44 | A.OFFVIS_ITS ---
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 Medical Device Required: No Allergies nickel Allergy (Severe, Verified 01/17/23 14:49) Anaphylaxis nitrofurantoin [From Macrodantin] Allergy (Severe, Verified 01/17/23 14:49) Anaphylaxis Sulfa (Sulfonamide Antibiotics) Allergy (Severe, Verified 01/17/23 14:49) Hives, Swelling clindamycin Allergy (Mild, Verified 01/17/23 14:49) Diarrhea Medication List - Last Reconciled 01/17/23 by Jacqueline Pablo, TRANSPORTATION [employer]UTIONS MANAGER-C bupropion HCl (Wellbutrin XL) 150 mg PO QAM diazepam 2.5 - 5 mg (0.5 - 1 x 5 mg) PO DAILY PRN duloxetine 120 mg (2 x 60 mg) PO DAILY levothyroxine 25 mcg PO DAILY 90 days metoprolol succinate ER 12.5 mg (1/2 x 25 mg) PO DAILY multivitamin 1 tab PO DAILY oxybutynin chloride 5 mg PO DAILY 30 days pantoprazole 20 mg PO QAM pregabalin 200 mg PO BID 30 days topiramate 100 mg PO BEDTIME HPI 2 mth f/up testing HPI Details Jacqueline is a 57-year-old female with past medical history of hyperlipidemia, mild obesity, heart palpitations, sinus tachycardia who recently underwent a Holter monitor and echocardiogram. She started on metoprolol last visit and now presents for follow-up. Today she reports she has been feeling much better on the low-dose metoprolol. She is no longer feeling her heart palpitations which consisted of a rapid regular beat. She has no chest discomfort, shortness of breath, presyncope, syncope, falls. No PND, orthopnea or edema. She reports light activities throughout the day and reports that she is on disability. She is currently pleased with the use of metoprolol. In the past she had tried it and it made her lightheaded. [facility] Medical History Anxiety and depression Cholelithiasis COVID Degeneration, intervertebral disc, lumbosacral Disc degeneration, lumbar Generalized anxiety disorder GERD (gastroesophageal reflux disease) Bettye's disease Hypothyroidism Nephrolithiasis Neuropathy Obesity due to excess calories Overactive bladder 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 Panic disorder [episodic paroxysmal anxiety] Sleep apnea Spondylosis of lumbar spine Tachycardia Surgical History History of bladder surgery History of cystoscopy History of dental surgery History of endometrial ablation History of esophagogastroduodenoscopy (EGD) History of eyelid surgery History of lumbar laminectomy History of lumpectomy of both breasts Hx of cholecystectomy Hx of colonoscopy Hx of dilation and curettage Hx of tubal ligation S/P laparoscopic sleeve gastrectomy Family History Mother Diabetes Uterine cancer Father Diabetes Sister Breast cancer Sister No problems noted. Brother No problems noted. Daughter No problems noted. Social History Household Members: None Household Members Other:: Has a non relationship roomate Housing: Other Housing Other:: Mobile Home Are you a primary child care center assistant director to a significant other at home: No Do you presently have visiting nurse or other home services: No Alcohol intake: current Alcohol intake frequency: a few times a month Patient Tobacco Use Status: Former Tobacco user Quit Date: 2006 Tobacco use type: Cigarette Cigarette Packs Per Day: 2.5 Cigarettes Per Day: 50.0 Years Smoked: 24 e-Cigarette/Vaping Use: Never Used Second Hand Smoke Exposure: No Substance Use Type: Marijuana Advance Directives Date on File: 08/26/21 service: No Current occupational status: disabled Current occupational exposures/hazards: No Cognitive needs: No Hearing needs: No Vision needs: No Review of Systems Const Details: Palpitations improved All systems reviewed & are unremarkable except as noted in HPI and below ENT Denies dizziness Card Denies chest pain, Denies chest pain at rest, Denies chest pain with activity, Denies rapid heart rate, Denies pedal edema, Denies edema, Denies leg edema, Denies lightheadedness, Denies palpitations, Denies dyspnea, Denies dyspnea on exertion and Denies orthopnea Resp Denies cough, Denies dyspnea and Denies dyspnea on exertion GI Denies hematochezia and Denies change in stool character Musc Denies abnormal gait, Reports limited range of motion, Reports muscle cramps, Denies muscle weakness, Denies numbness, Denies radiating pain into limb, Denies stiffness and Denies tingling Neuro Denies abnormal gait, Denies dizziness, Denies numbness and Denies tingling Endo Denies palpitations Physical Exam Vital Signs: Last Vital Signs Pulse 69 01/17/23 14:44 BP 102/80 01/17/23 14:44 BMI result Body Mass Index 29.3 Const General: cooperative, healthy appearing, comfortable and no acute distress Orientation/consciousness: patient oriented x3 Neck Neck: Yes normal visual inspection Resp Effort & Inspection: normal respiratory effort Auscultation: clear to auscultation bilaterally, no crackles, no rales, no rhonchi and no wheezes Cardio Jugular venous distension: no JVD Rate: regular rate Rhythm: regular rhythm Heart sounds: S1 normal heart sound present, S2 normal heart sound present, no murmurs and no rubs Neuro General: patient oriented x3 Extrem General: Yes normal to inspection Psych Appearance: grossly normal Mental Status: mental status grossly normal Speech and movement: Normal speech and movement present Assessment & Plan Assessment & Plan (1) Palpitations: Code(s): R00.2 - Palpitations Plan: Reported heart palpitations consistent of strong rapid beat. EKG done last visit showed sinus rhythm, heart rate 68. Seven day Holter monitor done starting 12/12/2022 showed sinus rhythm with average heart rate 75, heart rate range 45 to 159, rare ectopy, her symptoms correlated with sinus rhythm. An echocardiogram was done 12/12/2022 showing EF 55-60%, no valve abnormalities, ascending aorta 3.8 cm. Labs done on 06/14/2022 showed TSH 0.88, no anemia. On last visit she was started on low-dose metoprolol XL 12.5 mg daily to help with palpitations. Today she reports much improvement in her symptoms since the use of metoprolol. She is currently very pleased with how she is doing. Reviewed benefits of good hydration, physical activity tolerated, avoidance of caffeinated beverages. Cardiology follow-up in 1 year, sooner if needed (2) Sinus tachycardia: Code(s): R00.0 - Tachycardia, unspecified Plan: Symptomatic sinus tachycardia as above Coding Level of Care Code Est Pt Level 3 (74222) Diagnoses Palpitations R00.2 Sinus tachycardia R00.0 Time Spent (min) 24 Comment Chart review, documentation, interview, assess
== END 2023-01-17 15:20 | disposition home or self-care (01) ==
PROVIDERS: PCP Family Medicine; Referring Provider Family Medicine; Visit Provider Nurse Practitioner Family
DX: R00.2 Palpitations (principal); R00.0 Tachycardia, unspecified
CPT/HCPCS: 99213

== ENCOUNTER → 2023-01-17 14:42 | Outpatient (BNVA) | payer MEDICARE, MEDICAID, SELFPAY | PROVIDERS: PCP Family Medicine; Referring Provider Family Medicine; Visit Provider Nurse Practitioner Family | DX: R00.2 Palpitations (principal); R00.0 Tachycardia, unspecified; Z79.899 Other long term (current) drug therapy | CPT/HCPCS: 99212 ==

== ENCOUNTER 2023-02-22 14:26 | Outpatient (AMB) | payer MEDICARE, MEDICAID, SELFPAY ==
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
== END 2023-02-22 14:29 | disposition home or self-care (01) ==
LOC: HO.HOP 14:26
PROVIDERS: PCP Family Medicine; Visit Provider Psychiatry & Neurology Psychiatry
DX: F41.8 Other specified anxiety disorders (principal); F41.1 Generalized anxiety disorder; F41.0 Panic disorder [episodic paroxysmal anxiety]
CPT/HCPCS: 90833; 99213

== ENCOUNTER → 2023-02-22 14:26 | Outpatient (BNVA) | payer MEDICARE, MEDICAID, SELFPAY | PROVIDERS: PCP Family Medicine; Visit Provider Psychiatry & Neurology Psychiatry | DX: F41.0 Panic disorder [episodic paroxysmal anxiety] (principal); F41.1 Generalized anxiety disorder; F41.8 Other specified anxiety disorders; E06.3 Autoimmune thyroiditis; Z90.3 Acquired absence of stomach [part of] | CPT/HCPCS: 90833; 99212 ==

== ENCOUNTER 2023-03-31 11:58 | Outpatient (REF) | payer MEDICARE, MEDICAID, SELFPAY ==
[2023-03-31 15:15] LABS: Appearance Urine Cloudy; Color Urine Yellow; Glucose Urine UA Negative (Negative); Leukocyte Esterase Urine Large (3+) (Negative); Nitrite Urine Negative (Negative); Specific Gravity - Urine <= 1.005 (1.005-1.025); UMIC TRIGGER UA YES; Urine Blood Moderate (2+) (Negative); Urine Ketones Negative (Negative); Urine Protein Negative (Neg-Trace)
[2023-03-31 16:34] LABS: Bacteria Urine None Seen (None Seen); Hyaline Casts Urine 0-2 /LPF (0-2); RBC Urine 0-2 /HPF (0-2); Squamous Epithelial Cell Urine 0-2 /HPF (0-2); WBC Urine >50 /HPF (0-5)
== END 2023-03-31 11:59 | disposition home or self-care (01) ==
LOC: HO.WFDLDS 11:58
PROVIDERS: Visit Provider Family Medicine
DX: R30.0 Dysuria (principal)
CPT/HCPCS: 81001; 81003; 87086

== ENCOUNTER 2023-03-31 12:05 | Outpatient (AMB) | payer MEDICARE, MEDICAID, SELFPAY ==
[2023-03-31 12:10] VITALS: BP 108/66; PULSE 71; RESP 13; TEMP 36.3; O2SAT 99; BMI 29.6
--- NOTE | 2023-03-31 12:10 | MHC.PC.OV ---
Vital Signs 03/31/23 12:10 Height 5 ft 5 in Weight 178 lb BMI 29.6 BP 108/66 Blood Pressure Location Rt brachial Position Sitting Respiration 13 Pulse 71 Pulse Source Pulse Oximeter Temp 97.3 F Temp Source Temporal Artery Scan Pulse Oximetry (%) 99 Oxygen Delivery Method Room Air Intake Visit Reasons: ? uti Intake Note: Patient states that in the past couple months shes been kind of losing control of her bladder. Patient states that when she stands up a small pool of urine comes out and other times its like she is unable to hold it. 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: No Accompanied by: Self / Same As Patient Allergies nickel Allergy (Severe, Verified 03/31/23 12:14) Anaphylaxis nitrofurantoin [From Macrodantin] Allergy (Severe, Verified 03/31/23 12:14) Anaphylaxis Sulfa (Sulfonamide Antibiotics) Allergy (Severe, Verified 03/31/23 12:14) Hives, Swelling clindamycin Allergy (Mild, Verified 03/31/23 12:14) Diarrhea Tobacco use date assessed: 12/07/22 Dental Screening Dental Screen Date: 03/31/23 Did you have a dental visit in the last 12 months?: No Did you have a dental problem in the last 6 months where you did not have access to dental care?: No Was dental information given to patient?: Patient has dentist HPI ? uti HPI Details Pt presents today with ? UTI. Patient states that in the past couple months she has been losing control of her bladder. Patient states that when she stands up a small pool of urine comes out and other times its like she is unable to hold it. [facility] Medical History Anxiety and depression Cholelithiasis COVID Degeneration, intervertebral disc, lumbosacral Disc degeneration, lumbar Generalized anxiety disorder GERD (gastroesophageal reflux disease) Bettye's disease Hypothyroidism Nephrolithiasis Neuropathy Obesity due to excess calories Overactive bladder 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 Panic disorder [episodic paroxysmal anxiety] Sleep apnea Spondylosis of lumbar spine Tachycardia Surgical History History of bladder surgery History of cystoscopy History of dental surgery History of endometrial ablation History of esophagogastroduodenoscopy (EGD) History of eyelid surgery History of lumbar laminectomy History of lumpectomy of both breasts Hx of cholecystectomy Hx of colonoscopy Hx of dilation and curettage Hx of tubal ligation S/P laparoscopic sleeve gastrectomy Family History Mother Diabetes Uterine cancer Father Diabetes Sister Breast cancer Sister No problems noted. Brother No problems noted. Daughter No problems noted. Social History Household Members: None Household Members Other:: Has a non relationship roomate Housing: Other Housing Other:: Mobile Home Are you a primary director career to a significant other at home: No Do you presently have visiting nurse or other home services: No Alcohol intake: current Alcohol intake frequency: a few times a month Patient Tobacco Use Status: Former Tobacco user Quit Date: 2006 Tobacco use type: Cigarette Cigarette Packs Per Day: 2.5 Cigarettes Per Day: 50.0 Years Smoked: 24 e-Cigarette/Vaping Use: Never Used Second Hand Smoke Exposure: No Substance Use Type: Marijuana Advance Directives Date on File: 08/26/21 service: No Current occupational status: disabled Current occupational exposures/hazards: No Cognitive needs: No Hearing needs: No Vision needs: No Questionnaire Thrive Questionnaire Date Thrive assessed: 06/22/22 VINEET-7 AMB Questionnaire VINEET-7 Date VINEET - 7 assessed: 06/22/22 Source: Developed by Drs. Rosalino Huang, Johanna Tyler, José Ambriz and colleagues, with an educational yolis from [employer]. Review of Systems Const Denies chills, Denies fatigue, Denies fever(s), Denies headache(s) and Denies weakness ENT Denies dizziness and Denies headache(s) Card Denies dyspnea Resp Denies cough, Denies dyspnea, Denies wheezing and Denies other (shortness of breath) Musc Denies numbness and Denies tingling Neuro Denies dizziness, Denies headache(s), Denies numbness, Denies tingling and Denies weakness Psych Denies anxiety and Denies depression Endo Denies fatigue Aller/Immun Denies wheezing Physical exam (Primary Care) Vital Signs: Last Vital Signs Temp 97.3 F 03/31/23 12:10 Pulse 71 03/31/23 12:10 Resp 13 03/31/23 12:10 BP 108/66 03/31/23 12:10 Pulse Ox 99 03/31/23 12:10 Oxygen Delivery Method Room Air 03/31/23 12:10 BMI result Body Mass Index 29.6 Tobacco/Smoking Status: Tobacco use Status Tobacco use date assessed 12/07/22 03/31/23 12:13 Patient Tobacco Use Status Former Tobacco user 03/31/23 12:13 Tobacco use type Cigarette 03/31/23 12:13 e-Cigarette/Vaping Use Never Used 03/31/23 12:13 Thrive Assessment: Date of Thrive Assessment Date Thrive assessed 06/22/22 03/31/23 12:13 Const General: well developed; No acute distress Nutritional Appearance: well nourished Orientation/consciousness: patient oriented x3 HENMT Head: Yes normocephalic and Yes atraumatic Eyes General: appearance normal, both eyes and all related structures Pupils: Equal, round and reactive pupils present EOM: EOMs intact bilaterally Resp Effort & Inspection: normal respiratory effort Neuro General: patient oriented x3 and gait normal Cranial nerves: Yes Equal, round and reactive pupils present Psych Affect: normal affect Assessment and Plan Assessment & Plan (1) Dysuria: Code(s): R30.0 - Dysuria Plan: Dysuria?and?urine?dip?suspicious?for?UTI Start?cephalexin.??Patient?is?allergic?to?Bactrim?and?Macrobid Hydrate?well Will?send?for?urinalysis?and?culture Medications: New cephalexin 500 mg PO Q12H 5 days 10 caps 0RF Refilled levothyroxine 25 mcg PO DAILY 90 days 90 tabs 2RF E03.8 - Other specified hypothyroidism, E06.3 - Autoimmune thyroiditis Coding Level of Care Code Est Pt Level 3 (72923) Diagnoses Dysuria R30.0
== END 2023-03-31 12:41 | disposition home or self-care (01) ==
PROVIDERS: PCP Family Medicine; Visit Provider Family Medicine
DX: Z13.9 Encounter for screening, unspecified (principal); R30.0 Dysuria
CPT/HCPCS: 81002; 99213

== ENCOUNTER 2023-03-31 12:06 | Outpatient (REF) | payer MEDICARE, MEDICAID, SELFPAY | END 2023-03-31 12:07 | disposition home or self-care (01) | LOC: HO.LAB 12:06 | PROVIDERS: Visit Provider Family Medicine | DX: Z13.89 Encounter for screening for other disorder (principal) ==

== ENCOUNTER 2023-04-18 11:46 | Outpatient (REF) | payer MEDICARE, MEDICAID, SELFPAY ==
[2023-04-18 14:12] LABS: Free T4 (Free Thyroxine) 0.93 ng/dL (0.71-1.85); TSH reflex Free T4 1.05 uIU/mL (0.32-4.0)
[2023-04-19 21:53] LABS: Thyroid Peroxidase Antibodies 9 IU/mL (<9)
== END 2023-04-18 11:47 | disposition home or self-care (01) ==
LOC: HO.LAB 11:46
PROVIDERS: PCP Family Medicine; Visit Provider Psychiatry & Neurology Psychiatry
DX: F41.1 Generalized anxiety disorder (principal); F41.0 Panic disorder [episodic paroxysmal anxiety]; F33.41 Major depressive disorder, recurrent, in partial remission; E03.9 Hypothyroidism, unspecified
CPT/HCPCS: 36415; 84439; 84443; 86376

== ENCOUNTER 2023-05-03 15:43 | Outpatient (AMB) | payer MEDICARE, MEDICAID, SELFPAY ==
--- NOTE | 2023-05-03 15:37 | MHC.AMNUTRGE ---
Intake VS Expanded 05/04/23 09:44 Height 5 ft 5.5 in Weight 180 lb BMI 29.5 Intake Visit Reasons: VIDEO PO LSG 11/24/21 Allergies nickel Allergy (Severe, Verified 03/31/23 12:14) Anaphylaxis nitrofurantoin [From Macrodantin] Allergy (Severe, Verified 03/31/23 12:14) Anaphylaxis Sulfa (Sulfonamide Antibiotics) Allergy (Severe, Verified 03/31/23 12:14) Hives, Swelling clindamycin Allergy (Mild, Verified 03/31/23 12:14) Diarrhea HPI Nutrition Presentation Details LSG 08/26/[address] Meyer Preop weight weight 08/31/21 202# weight 9wks 193# Weight at 4 MO 179# [place] at 5 MO 177# weight at 6 MO PO 176# Current weight: 180 Reason for consult elevated BMI Diet Assmnt Details Currently participating in IOP due to worsening depression. pt states, I need you . would like frequent appointment , feels nutrition appts are really helpful. she reports right now, her weight gain and eating habits are contributing to her worsening depresssion . Her intake varies. has increased her alcohol consumption. needs convenient foods , ideas were discussed today Dietary counseling reduction Diagnosis Nutrition problem #1 overweight/obesity As related to (etiology) #1 excess energy intake and physical inactivity As evidenced by (sign/symptom) #1 high BMI Monitoring/Goals Nutrition problem monitoring total energy intake, level of knowledge/skill, total PRO intake, total CHO intake, weight and oral fluids Outcome progress verbalized understanding Learning/Education Readiness to learn fair Stages of change contemplation Educational materials provided Yes Most Recent Diabetes Results: No Data to Display COUNT INCLUDES [facility] Medical History (Updated 04/27/23 @ 21:13 by Joy Montenegro MD) Osteoarthritis Fibromyalgia Hypothyroid Panic disorder [episodic paroxysmal anxiety] 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 Generalized anxiety disorder COVID Cholelithiasis Neuropathy Nephrolithiasis GERD (gastroesophageal reflux disease) Anxiety and depression Overactive bladder Tachycardia Sleep apnea Obesity due to excess calories Bettye's disease Hypothyroidism Spondylosis of lumbar spine Degeneration, intervertebral disc, lumbosacral Disc degeneration, lumbar Surgical History Hx of colonoscopy History of esophagogastroduodenoscopy (EGD) Hx of cholecystectomy S/P laparoscopic sleeve gastrectomy History of eyelid surgery History of lumbar laminectomy History of cystoscopy History of endometrial ablation History of dental surgery Hx of dilation and curettage Hx of tubal ligation History of lumpectomy of both breasts History of bladder surgery Family History Mother Diabetes Uterine cancer Father Diabetes Sister Breast cancer Sister No problems noted. Brother No problems noted. Daughter No problems noted. Social History Household Members: Other Household Members Other:: 2 dogs and one cat Housing: Other Housing Other:: Mobile Home Are you a primary director of healthcare systems to a significant other at home: No Do you presently have visiting nurse or other home services: No Alcohol intake: current Alcohol intake frequency: a few times a month Comment: Legs weak at times Patient Tobacco Use Status: Former Tobacco user Quit Date: 2006 Tobacco use type: Cigarette Cigarette Packs Per Day: 2.5 Cigarettes Per Day: 50.0 Years Smoked: 24 e-Cigarette/Vaping Use: Never Used Second Hand Smoke Exposure: No Substance Use Type: Marijuana Advance Directives Date on File: 08/26/21 service: No Current occupational status: disabled Current occupational exposures/hazards: No Cognitive needs: No Hearing needs: No Vision needs: No Assessment & Plan Assessment & Plan (1) Overweight: Code(s): E66.3 - Overweight Plan nutrition f/u in 2 weeks for increased support . will also discuss with mental health clinicians in [facility] about establishing care with pt for ongoing therapy Patient Instructions: we discussed trying to focus on what she can add to her diet to improve her nutrition. Telehealth Telehealth Location of provider rendering services: practice address Location of patient: address on file Patient Identification confirmed using: Name, : Yes Telehealth method: video Patient verbally consented to treatment: Yes Patient verbally consented to billing insurance company: Yes Patient informed of any privacy concerns related to visit: Yes Minutes spent on Phone/Video with Pt.: 30 Coding Level of Care Code Nutr Indiv Subseq (20490) Diagnoses Overweight E66.3 Time Spent (min) 30
[2023-05-04 09:44] VITALS: BMI 29.5
== END 2023-05-04 09:41 | disposition home or self-care (01) ==
LOC: HO.HBS 15:43
PROVIDERS: PCP Family Medicine; Visit Provider Dietitian, Registered
DX: E66.3 Overweight (principal)

== ENCOUNTER → 2023-05-03 15:43 | Outpatient (BNVA) | payer MEDICARE, MEDICAID, SELFPAY | PROVIDERS: PCP Family Medicine; Visit Provider Dietitian, Registered | DX: E66.3 Overweight (principal); Z68.29 Body mass index [BMI] 29.0-29.9, adult | CPT/HCPCS: 97803 ==

== ENCOUNTER → 2023-05-05 12:00 | Outpatient (BNV) | payer MEDICARE, MEDICAID, SELFPAY | PROVIDERS: Visit Provider Psychiatry & Neurology Psychiatry | DX: F33.9 Major depressive disorder, recurrent, unspecified (principal); F34.1 Dysthymic disorder | CPT/HCPCS: 90792; 99213 ==

== ENCOUNTER 2023-05-11 12:00 | Outpatient (RCR) | payer MEDICARE, OTHER, SELFPAY ==
[2023-04-27 12:03] VITALS: BP 99/74; PULSE 67; TEMP 36.8
[2023-04-27 12:06] VITALS: BMI 29.7
--- NOTE | 2023-04-27 18:45 | HO.PHP ---
The client's case was reviewed and opened in treatment team.
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
--- NOTE | 2023-05-05 13:57 | HO.PHP ---
PHP staff member faxed the referral over to [facility] for OP services. PHP staff member is awaiting a returned call around appointment times.
--- NOTE | 2023-05-05 20:07 | HO.PHPPROGNO ---
Subjective Subjective Date of Service: 05/05/23 Reason For Visit: depression,anxiety Interim History: Patient seen for follow-up today. No acute issues or concerns. Reports being annoyed today, finds the constant breaks in between groups to be disruptive and longer than necessary. Otherwise the groups themselves are helpful. She reports her depression is probably a little better . Denies any SI. Denies any issues with anxiety. She reports continuing with her medication, and is tolerating her medication. She spoke with fire control system installer and has an upcoming appointment on the which she is pleased about. She discusses how she feels better when my body feels better . She also reflects on her depression, she has noticed that her mood state is very vulnerable to stressors and the environment. It doesnt take much to get me into a mood . She also mentions visiting with boyfriend who had a heart attack and spent 6 days in the hospital. Medication Compliance: Yes Side effects from medications: No Attending Groups: Yes Mental Status Exam Mental Status Exam Narrative: Alert, oriented, in no acute distress. Casually dressed. Hygiene and grooming good. No tics, tremors, psychoagitation or neurovegetative retardation. Eye contact good. Mood dysthymic. Affect constricted. Speech normal, without pressure or latency. Thought content linear, coherent without FOI/LADARIUS. Thought content relevant to stressors, rumination, pessimistism, but future-oriented. No SI or HI on inquiry. No paranoia or delusional content elicited. No perceptual disturbance noted. Cognition grossly intact. Sensorium clear. Insight fair, judgment good. Diagnostics Vital Signs (24Hr): BMI result Body Mass Index 29.7 Assessment & Plan Assessment & Plan (1) Recurrent major depressive disorder with atypical features: Status: Acute Code(s): F33.9 - Major depressive disorder, recurrent, unspecified (2) Dysthymia (or depressive neurosis): Status: Acute Code(s): F34.1 - Dysthymic disorder Plan Contiue with medications. No changes have been made per patient preference. Reportedly benefitting from groups, is focused on nutrition/eating habits Continue to monitor Patient educated on: diagnosis and medication risk/benefits Informed Consent: understands Reason for contiued partial hosp. stay Substantial Risk for: inability to function, rapid decompensation and med/psych decompensation Certification I certify that partial hospital treatment is medically necessary due to the symptoms and problems resulting from the patient's mental illness and the failure to treat the patient at the partial hospital level of care would likely result in the patient requiring inpatient psychiatric care which could not be prevented at a less intensive level of care. Total time managing care of this patient today __30__ minutes. Discharge Plan Discharge Attending provider: Joy Montenegro Medications: Continued oxybutynin chloride 5 mg tablet 5 mg PO DAILY 30 Days Qty: 90 1RF pregabalin 200 mg capsule 200 mg PO BID 30 Days Qty: 60 2RF Hold Instructions: until discussed with Dr Meyer levothyroxine 25 mcg tablet 25 mcg PO DAILY 90 Days Qty: 90 2RF multivitamin Tablet 1 tab PO DAILY diazepam 5 mg tablet 2.5 - 5 mg PO DAILY PRN (Reason: sleep) Qty: 14 1RF metoprolol succinate 25 mg tablet extended release 24 hr 12.5 mg PO DAILY Qty: 90 3RF pantoprazole 20 mg tablet,delayed release (DR/EC) 20 mg PO QAM Qty: 30 6RF duloxetine 60 mg capsule,delayed release(DR/EC) 120 mg PO DAILY Qty: 180 1RF topiramate 100 mg tablet 100 mg PO BEDTIME Qty: 90 1RF Rx Instructions: if day time confusion try and lower to half tab bupropion HCl [Wellbutrin XL] 300 mg tablet extended release 24 hr 300 mg PO QAM Qty: 30 1RF Stand Alone Forms: Patient Portal Discharge page
--- NOTE | 2023-05-08 15:39 | HO.PHP ---
PHP staff member received a VM from [place] through [facility] with Jacqueline's intake appointment which is scheduled on May 16, 2023 at 10 AM through the [facility].
--- NOTE | 2023-05-11 18:14 | P.PNPSP_ITS ---
Subjective Subjective Date of Service: 05/11/23 Reason For Visit: depression,anxiety Interim History: Patient was seen for follow-up today. She anticipates being discharged at the end of the day. Patient reports mood is stable. No issues with hopelessness or SI. No issues with anxiety. She has found it helpful coming to the program, especially being part of discussions, listening to other people's stories, their struggles, tragedies, seeing people who are now at a point where she was at years ago. She gained a lot of perspective but also expresses gratitude and appreciation for how far she has come. Sense of resiliency. An intake appointment was set up to meet with Meghna Eduardo at [facility] on 05/16 for therapy and feels more optimistic about that being helpful. She has not engaged in therapy for many years. Medication Compliance: Yes Side effects from medications: No Attending Groups: Yes Review of Systems Acute medical concerns: No Mental Status Exam Mental Status Exam Narrative: Alert, oriented, in no acute distress. Casually dressed. Hygiene and grooming good. No tics, tremors, psychoagitation or neurovegetative retardation. Eye contact good. Mood alright , dysthymic. Affect subdued. Speech normal, without pressure or latency. Thought content linear, coherent without FOI/LADARIUS. Thought content relevant to stressors, less rumination future-oriented. No SI or HI on inquiry. No paranoia or delusional content elicited. No perceptual disturbance noted. Cognition grossly intact. Sensorium clear. Insight fair, judgment good. Diagnostics Vital Signs (24Hr): BMI result Body Mass Index 29.7 Assessment & Plan Assessment & Plan (1) Recurrent major depressive disorder with atypical features: Status: Acute Code(s): F33.9 - Major depressive disorder, recurrent, unspecified (2) Dysthymia (or depressive neurosis): Status: Acute Code(s): F34.1 - Dysthymic disorder Plan Discharge from [facility] continue with medications will defer further medication management to oupatient provider follow up with psychiatrist Dr Crowe on 05/19 intake with Meghna Eduardo at [facility] on 05/16 Patient educated on: diagnosis and medication risk/benefits Informed Consent: understands Reason for contiued partial hosp. stay Substantial Risk for: stable for discharge Certification I certify that partial hospital treatment is medically necessary due to the symptoms and problems resulting from the patient's mental illness and the failure to treat the patient at the partial hospital level of care would likely result in the patient requiring inpatient psychiatric care which could not be prevented at a less intensive level of care. Total time managing care of this patient today _30___ minutes. Discharge Plan Discharge Attending provider: Joy Montenegro Additional Instructions: Jacqueline was referred to [facility] for OP therapy, in which her intake appointment is on May 16, 2023 at 10 AM with Meghna Eduardo. Jacqueline has a med provider, Dr. Jonathon Crowe, in which her next scheduled appointment is May 19, 2023 at 12 PM. Medications: Continued levothyroxine 25 mcg tablet 25 mcg PO DAILY 90 Days Qty: 90 2RF multivitamin Tablet 1 tab PO DAILY diazepam 5 mg tablet 2.5 - 5 mg PO DAILY PRN (Reason: sleep) Qty: 14 1RF metoprolol succinate 25 mg tablet extended release 24 hr 12.5 mg PO DAILY Qty: 90 3RF pantoprazole 20 mg tablet,delayed release (DR/EC) 20 mg PO QAM Qty: 30 6RF No Action oxybutynin chloride 5 mg tablet 5 mg PO DAILY 30 Days Qty: 90 1RF pregabalin 200 mg capsule 200 mg PO BID 30 Days Qty: 60 2RF Hold Instructions: until discussed with Dr Meyer topiramate 100 mg tablet 100 mg PO BEDTIME Qty: 90 1RF Rx Instructions: if day time confusion try and lower to half tab duloxetine 60 mg capsule,delayed release(DR/EC) 120 mg PO DAILY Qty: 180 1RF bupropion HCl [Wellbutrin XL] 300 mg tablet extended release 24 hr 300 mg PO QAM Qty: 30 1RF Stand Alone Forms: Patient Portal Discharge page Patient Education: Depression (DC)
== END 2023-05-11 23:59 | disposition home or self-care (01) ==
LOC: HO.PHPA 12:00
PROVIDERS: Visit Provider Psychiatry & Neurology Psychiatry
DX: F33.9 Major depressive disorder, recurrent, unspecified (principal); F34.1 Dysthymic disorder; Z79.899 Other long term (current) drug therapy
CPT/HCPCS: 90791; 90853

== ENCOUNTER 2023-05-17 15:44 | Outpatient (AMB) | payer MEDICARE, MEDICAID, SELFPAY ==
--- NOTE | 2023-05-17 15:30 | MHC.AMNUTRGE ---
Intake Intake Visit Reasons: VIDEO PO LSG 11/24/21 Allergies nickel Allergy (Severe, Verified 03/31/23 12:14) Anaphylaxis nitrofurantoin [From Macrodantin] Allergy (Severe, Verified 03/31/23 12:14) Anaphylaxis Sulfa (Sulfonamide Antibiotics) Allergy (Severe, Verified 03/31/23 12:14) Hives, Swelling clindamycin Allergy (Mild, Verified 03/31/23 12:14) Diarrhea HPI Nutrition Presentation Details LSG 08/26/[address] Meyer Preop weight weight 08/31/21 202# weight 9wks 193# Weight at 4 MO 179# Weigth at 5 MO 177# weight at 6 MO PO 176# Current weight: 178.6 Reason for consult elevated BMI Diet Assmnt Details 'Our last appointment helped me so much. I got so much out of our appointment. you got me back to feeling better pt states, I need you . would like frequent appointment , feels nutrition appts are really helpful. she reports right now, her weight gain and eating habits are contributing to her worsening depresssion . Her intake varies. needs convenient options which were provided at last appt. continued to discuss viewing healthy eating as a form of self care Dietary counseling reduction Diagnosis Nutrition problem #1 overweight/obesity As related to (etiology) #1 excess energy intake and physical inactivity As evidenced by (sign/symptom) #1 high BMI Monitoring/Goals Nutrition problem monitoring total energy intake, level of knowledge/skill, total PRO intake, total CHO intake, weight and oral fluids Outcome progress verbalized understanding Learning/Education Readiness to learn fair Stages of change contemplation Educational materials provided Yes Most Recent Diabetes Results: No Data to Display [facility] Medical History (Updated 04/27/23 @ 21:13 by Joy Montenegro MD) Osteoarthritis Fibromyalgia Hypothyroid Panic disorder [episodic paroxysmal anxiety] 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 Generalized anxiety disorder COVID Cholelithiasis Neuropathy Nephrolithiasis GERD (gastroesophageal reflux disease) Anxiety and depression Overactive bladder Tachycardia Sleep apnea Obesity due to excess calories Bettye's disease Hypothyroidism Spondylosis of lumbar spine Degeneration, intervertebral disc, lumbosacral Disc degeneration, lumbar Surgical History Hx of colonoscopy History of esophagogastroduodenoscopy (EGD) Hx of cholecystectomy S/P laparoscopic sleeve gastrectomy History of eyelid surgery History of lumbar laminectomy History of cystoscopy History of endometrial ablation History of dental surgery Hx of dilation and curettage Hx of tubal ligation History of lumpectomy of both breasts History of bladder surgery Family History Mother Diabetes Uterine cancer Father Diabetes Sister Breast cancer Sister No problems noted. Brother No problems noted. Daughter No problems noted. Social History Household Members: Other Household Members Other:: 2 dogs and one cat Housing: Other Housing Other:: Mobile Home Are you a primary career based intervention coordinator to a significant other at home: No Do you presently have visiting nurse or other home services: No Alcohol intake: current Alcohol intake frequency: a few times a month Comment: Legs weak at times Patient Tobacco Use Status: Former Tobacco user Quit Date: 2006 Tobacco use type: Cigarette Cigarette Packs Per Day: 2.5 Cigarettes Per Day: 50.0 Years Smoked: 24 e-Cigarette/Vaping Use: Never Used Second Hand Smoke Exposure: No Substance Use Type: Marijuana Advance Directives Date on File: 08/26/21 service: No Current occupational status: disabled Current occupational exposures/hazards: No Cognitive needs: No Hearing needs: No Vision needs: No Assessment & Plan Assessment & Plan (1) History of sleeve gastrectomy: Code(s): Z90.3 - Acquired absence of stomach [part of] Plan we talked about setting boundaries for herself and recognizing various types of hunger. began to work on acceptance of current weight. Nutrition follow-up in 1 month Telehealth Telehealth Location of provider rendering services: practice address Location of patient: address on file Patient Identification confirmed using: Name, : Yes Telehealth method: video Patient verbally consented to treatment: Yes Patient verbally consented to billing insurance company: Yes Patient informed of any privacy concerns related to visit: Yes Minutes spent on Phone/Video with Pt.: 30 Coding Level of Care Code Nutr Indiv Subseq (44644) Diagnoses History of sleeve gastrectomy Z90.3 Time Spent (min) 30
== END 2023-05-18 10:28 | disposition home or self-care (01) ==
LOC: HO.HBS 15:44
PROVIDERS: PCP Family Medicine; Visit Provider Dietitian, Registered
DX: Z90.3 Acquired absence of stomach [part of] (principal)

== ENCOUNTER → 2023-05-17 15:44 | Outpatient (BNVA) | payer MEDICARE, MEDICAID, SELFPAY | PROVIDERS: PCP Family Medicine; Visit Provider Dietitian, Registered | DX: Z90.3 Acquired absence of stomach [part of] (principal) | CPT/HCPCS: 97803 ==

== ENCOUNTER 2023-05-19 12:15 | Outpatient (AMB) | payer MEDICARE, MEDICAID, SELFPAY ==
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
== END 2023-05-19 12:58 | disposition home or self-care (01) ==
LOC: HO.HOP 12:15
PROVIDERS: PCP Family Medicine; Visit Provider Psychiatry & Neurology Psychiatry
DX: F34.1 Dysthymic disorder (principal); F41.1 Generalized anxiety disorder; F41.0 Panic disorder [episodic paroxysmal anxiety]
CPT/HCPCS: 90833; 99213

== ENCOUNTER → 2023-05-19 12:15 | Outpatient (BNVA) | payer MEDICARE, MEDICAID, SELFPAY | PROVIDERS: PCP Family Medicine; Visit Provider Psychiatry & Neurology Psychiatry | DX: F34.1 Dysthymic disorder (principal); F41.1 Generalized anxiety disorder; F41.0 Panic disorder [episodic paroxysmal anxiety] | CPT/HCPCS: 90833; 99212 ==

== ENCOUNTER 2023-06-07 10:36 | Outpatient (AMB) | payer MEDICARE, MEDICAID, SELFPAY ==
[2023-06-07 10:44] VITALS: BP 118/62; PULSE 67; O2SAT 99; BMI 29.3
--- NOTE | 2023-06-07 10:44 | MHC.PC.OV ---
Vital Signs 06/07/23 10:44 Height 5 ft 5.5 in Weight 179 lb BMI 29.3 BP 118/62 Blood Pressure Location Lt brachial Position Sitting Pulse 67 Pulse Source Pulse Oximeter Pulse Oximetry (%) 99 Oxygen Delivery Method Room Air Intake Visit Reasons: f/u chronic conditions Intake Note: Patient is here to follow up on chronic condttions. Allergies nickel Allergy (Severe, Verified 06/07/23 10:46) Anaphylaxis nitrofurantoin [From Macrodantin] Allergy (Severe, Verified 06/07/23 10:46) Anaphylaxis Sulfa (Sulfonamide Antibiotics) Allergy (Severe, Verified 06/07/23 10:46) Hives, Swelling clindamycin Allergy (Mild, Verified 06/07/23 10:46) Diarrhea Tobacco use date assessed: 06/07/23 HPI f/u chronic conditions HPI Details 57 y/o female presents to f/u chronic conditions. Pt notes she has never gotten the referral from urology for dysuria [facility] Medical History (Updated 04/27/23 @ 21:13 by Joy Montenegro MD) Osteoarthritis Fibromyalgia Hypothyroid Panic disorder [episodic paroxysmal anxiety] 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 Generalized anxiety disorder COVID Cholelithiasis Neuropathy Nephrolithiasis GERD (gastroesophageal reflux disease) Anxiety and depression Overactive bladder Tachycardia Sleep apnea Obesity due to excess calories Bettye's disease Hypothyroidism Spondylosis of lumbar spine Degeneration, intervertebral disc, lumbosacral Disc degeneration, lumbar Surgical History Hx of colonoscopy History of esophagogastroduodenoscopy (EGD) Hx of cholecystectomy S/P laparoscopic sleeve gastrectomy History of eyelid surgery History of lumbar laminectomy History of cystoscopy History of endometrial ablation History of dental surgery Hx of dilation and curettage Hx of tubal ligation History of lumpectomy of both breasts History of bladder surgery Family History Mother Diabetes Uterine cancer Father Diabetes Sister Breast cancer Sister No problems noted. Brother No problems noted. Daughter No problems noted. Social History Household Members: Other Household Members Other:: 2 dogs and one cat Housing: Other Housing Other:: Mobile Home Are you a primary manager intensive care unit to a significant other at home: No Do you presently have visiting nurse or other home services: No Alcohol intake: current Alcohol intake frequency: a few times a month Comment: Legs weak at times Patient Tobacco Use Status: Former Tobacco user Quit Date: 2006 Tobacco use type: Cigarette Cigarette Packs Per Day: 2.5 Cigarettes Per Day: 50.0 Years Smoked: 24 Packs Per Year: 60 Packs per year/per ci.00 e-Cigarette/Vaping Use: Never Used Second Hand Smoke Exposure: No Substance Use Type: Marijuana Advance Directives Date on File: 08/26/21 service: No Current occupational status: disabled Current occupational exposures/hazards: No Cognitive needs: No Hearing needs: No Vision needs: No Questionnaire Thrive Questionnaire Date Thrive assessed: 06/22/22 VINEET-7 AMB Questionnaire VINEET-7 Date VINEET - 7 assessed: 06/22/22 Source: Developed by Drs. Rosalino Huang, Johanna Tyler, José Ambriz and colleagues, with an educational yolis from [employer]. Physical exam (Primary Care) Vital Signs: Last Vital Signs Pulse 67 06/07/23 10:44 BP 118/62 06/07/23 10:44 Pulse Ox 99 06/07/23 10:44 Oxygen Delivery Method Room Air 06/07/23 10:44 BMI result Body Mass Index 29.3 Tobacco/Smoking Status: Tobacco use Status Tobacco use date assessed 06/07/23 06/07/23 10:47 Patient Tobacco Use Status Former Tobacco user 06/07/23 10:44 Tobacco use type Cigarette 06/07/23 10:44 e-Cigarette/Vaping Use Never Used 06/07/23 10:44 Thrive Assessment: Date of Thrive Assessment Date Thrive assessed 06/22/22 06/07/23 10:44 Assessment and Plan Assessment & Plan (1) Major depressive disorder, recurrent episode, in partial remission with anxious distress: Code(s): F33.41 - Major depressive disorder, recurrent, in partial remission Plan: Encouraged?follow-up?with?her?psych?med?provider (2) Dysuria: Code(s): R30.0 - Dysuria Plan: Dysuria?and?urinary?frequency. Referred?to?Urology (3) Urinary frequency: Code(s): R35.0 - Frequency of micturition Plan: As?above Orders: Orders Complete Blood Count Auto Diff Today Z00.00 - Encounter for general adult medical examination without abnormal findings Lipid Panel Today Z00.00 - Encounter for general adult medical examination without abnormal findings Microalbumin, Random (w Creat) Today I10 - Essential (primary) hypertension UA and rflx microscopic Today Z00.00 - Encounter for general adult medical examination without abnormal findings Vitamin B12 and Folate Today E53.8 - Deficiency of other specified B group vitamins Comprehensive [place]. Panel Fast Today Z00.00 - Encounter for general adult medical examination without abnormal findings Triiodothyronine T3 Total Today E03.9 - Hypothyroidism, unspecified Thyroid Stimulating Hormone Today E03.9 - Hypothyroidism, unspecified Free T4 (Free Thyroxine) Today E03.9 - Hypothyroidism, unspecified Vitamin D 25-OH Total Today E55.9 - Vitamin D deficiency, unspecified Referrals Urology Referral R32 - Unspecified urinary incontinence, R35.0 - Frequency of micturition Coding Level of Care Code Est Pt Level 3 (56033) Diagnoses Major depressive disorder, recurrent episode, in partial remission with anxious distress F33.41 Dysuria R30.0 Urinary frequency R35.0
== END 2023-06-07 11:50 | disposition home or self-care (01) ==
PROVIDERS: PCP Family Medicine; Visit Provider Family Medicine
DX: F33.41 Major depressive disorder, recurrent, in partial remission (principal); R30.0 Dysuria; R35.0 Frequency of micturition
CPT/HCPCS: 99213

== ENCOUNTER 2023-06-14 13:00 | Outpatient (AMB) | payer MEDICARE, MEDICAID, SELFPAY ==
--- NOTE | 2023-06-14 12:59 | A.OFFVIS_ITS ---
Intake Intake Visit Reasons: VIDEO PO LSG 11/24/21 Allergies nickel Allergy (Severe, Verified 06/07/23 10:46) Anaphylaxis nitrofurantoin [From Macrodantin] Allergy (Severe, Verified 06/07/23 10:46) Anaphylaxis Sulfa (Sulfonamide Antibiotics) Allergy (Severe, Verified 06/07/23 10:46) Hives, Swelling clindamycin Allergy (Mild, Verified 06/07/23 10:46) Diarrhea HPI Nutrition Presentation Details LSG 08/26/[address] Meyer Preop weight weight 08/31/21 202# weight 9wks 193# Weight at 4 MO 179# Weigth at 5 MO 177# weight at 6 MO PO 176# Current weight at 10 MO PO 178.6 Diet Assmnt Details has been sick with the flu. hasnt paid attention to what shes been eating. one day didn't eat anything. other days using food as comfort. did an intake at [facility] for therapist but reports hse hasn't heard back. Didn't like the PHP group - pt states Its not helpful hearing about how other people struggle with suicidal thoughts She does not plan to return . she is seeking services more oriented in food based relationships 'Our last appointment helped me so much. I got so much out of our appointment. you got me back to feeling better ?pt states, I need you . would like frequent appointment , feels nutrition appts are really helpful. she reports right now, her weight gain and eating habits are contributing to her worsening depresssion . Her intake varies. needs convenient options which were provided at last appt. continued to discuss viewing healthy eating as a form of self care? Diagnosis Nutrition problem #1 overweight/obesity As related to (etiology) #1 excess energy intake and physical inactivity As evidenced by (sign/symptom) #1 high BMI Monitoring/Goals Nutrition problem monitoring total energy intake, level of knowledge/skill, total PRO intake, total CHO intake, weight and oral fluids Outcome progress verbalized understanding Learning/Education Readiness to learn good Stages of change contemplation Educational materials provided Yes Most Recent Diabetes Results: No Data to Display [facility] Medical History (Updated 04/27/23 @ 21:13 by Joy Montenegro MD) Osteoarthritis Fibromyalgia Hypothyroid Panic disorder [episodic paroxysmal anxiety] 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 Generalized anxiety disorder COVID Cholelithiasis Neuropathy Nephrolithiasis GERD (gastroesophageal reflux disease) Anxiety and depression Overactive bladder Tachycardia Sleep apnea Obesity due to excess calories Bettye's disease Hypothyroidism Spondylosis of lumbar spine Degeneration, intervertebral disc, lumbosacral Disc degeneration, lumbar Surgical History Hx of colonoscopy History of esophagogastroduodenoscopy (EGD) Hx of cholecystectomy S/P laparoscopic sleeve gastrectomy History of eyelid surgery History of lumbar laminectomy History of cystoscopy History of endometrial ablation History of dental surgery Hx of dilation and curettage Hx of tubal ligation History of lumpectomy of both breasts History of bladder surgery Family History Mother Diabetes Uterine cancer Father Diabetes Sister Breast cancer Sister No problems noted. Brother No problems noted. Daughter No problems noted. Social History Household Members: Other Household Members Other:: 2 dogs and one cat Housing: Other Housing Other:: Mobile Home Are you a primary healthcare business analyst to a significant other at home: No Do you presently have visiting nurse or other home services: No Alcohol intake: current Alcohol intake frequency: a few times a month Comment: Legs weak at times Patient Tobacco Use Status: Former Tobacco user Quit Date: 2006 Tobacco use type: Cigarette Cigarette Packs Per Day: 2.5 Cigarettes Per Day: 50.0 Years Smoked: 24 e-Cigarette/Vaping Use: Never Used Second Hand Smoke Exposure: No Substance Use Type: Marijuana Advance Directives Date on File: 08/26/21 service: No Current occupational status: disabled Current occupational exposures/hazards: No Cognitive needs: No Hearing needs: No Vision needs: No Assessment & Plan Assessment & Plan (1) Overweight (BMI 25.0-29.9): Code(s): E66.3 - Overweight Plan nutrition f/u 07/13 1pm Patient Instructions: we talked about how to seek comfort from other thing non-food related. maintain hydration. Her last goal is to take a shower as a form of self care. We talked about how self care often impacts food choices for the better as well. She is interested in [facility] groups and needs a PA for routine annual appt Telehealth Telehealth Location of provider rendering services: practice address Location of patient: address on file Patient Identification confirmed using: Name, : Yes Telehealth method: video Patient verbally consented to treatment: Yes Patient verbally consented to billing insurance company: Yes Patient informed of any privacy concerns related to visit: Yes Minutes spent on Phone/Video with Pt.: 30 Coding Level of Care Code Nutr Indiv Subseq (42040) Diagnoses Overweight (BMI 25.0-29.9) E66.3 Time Spent (min) 30
== END 2023-06-14 15:36 | disposition home or self-care (01) ==
LOC: HO.HBS 15:32
PROVIDERS: PCP Family Medicine; Visit Provider Dietitian, Registered
DX: E66.3 Overweight (principal)

== ENCOUNTER → 2023-06-14 13:00 | Outpatient (BNVA) | payer MEDICARE, MEDICAID, SELFPAY | PROVIDERS: PCP Family Medicine; Visit Provider Dietitian, Registered | DX: E66.3 Overweight (principal); Z98.84 Bariatric surgery status; Z71.3 Dietary counseling and surveillance | CPT/HCPCS: 97803 ==

== ENCOUNTER 2023-06-15 16:20 | Emergency (ER) | payer MEDICARE, MEDICAID, SELFPAY ==
[2023-06-15 16:54] VITALS: BP 155/55; PULSE 66; RESP 16; TEMP 36.4; O2SAT 100; BMI 29.6
--- NOTE | 2023-06-15 16:56 | ED.GENADULT ---
HPI - General Adult General Chief complaint: Eye Problems Stated complaint: sharp pain in R eye Time Seen by Provider: 06/15/23 22:34 History of Present Illness HPI narrative: The patient is a 57-year-old woman who has not felt well for a couple of weeks. She has been having intermittent pains in her right eye together with a number of other symptoms. Couple of weeks ago she was also having a lot of facial discomfort that she thought might be sinusitis. She has also been having intermittent headaches. Last week she went to an urgent care center and tested positive for the flu. Her sense of facial discomfort has improved but she continues to have episodes of sharp stabbing pains in her right eye that are very brief but can be very frequent. She is sometimes photophobic. She sometimes has headaches. At the time that I was interviewing the patient she was not having any particular headache or photophobia or eye pains but while I was examining her she seemed to have at least 1 episode of instantaneous right eye discomfort. She has not had any eye redness. She does not feel that her vision is any different. She has not had any discharge. The patient says that 2 years ago when she emerged from anesthesia from gastric sleeve surgery she had troubles with her eyes and she feels that she has been having troubles with her eyes ever since then. Related Data Home Medications Medication Instructions Recorded Confirmed multivitamin 1 tab PO DAILY 02/10/22 04/28/23 Previous Rx's Medication Instructions Recorded diazepam 5 mg tablet 2.5 - 5 mg (0.5 - 1 x 5 mg) PO 10/12/22 DAILY PRN sleep #14 tabs metoprolol succinate 25 mg 12.5 mg (1/2 x 25 mg) PO DAILY #90 11/15/22 tablet,extended release 24 hr tabs pantoprazole 20 mg tablet,delayed 20 mg PO QAM #30 tabs 12/20/22 release levothyroxine 25 mcg tablet 25 mcg PO DAILY 90 days #90 tabs 03/31/23 bupropion HCl 300 mg 24 hr tablet, 300 mg PO QAM #30 tabs 05/19/23 extended release (Wellbutrin XL) duloxetine 60 mg capsule,delayed 120 mg (2 x 60 mg) PO DAILY #180 05/19/23 release caps oxybutynin chloride 5 mg tablet 5 mg PO DAILY 30 days #90 tabs 05/19/23 pregabalin 200 mg capsule 200 mg PO BID 30 days #60 caps 05/19/23 topiramate 100 mg tablet 100 mg PO BEDTIME #90 tabs 05/19/23 Allergies Allergy/AdvReac Type Severity Reaction Status Date / Time nickel Allergy Severe Anaphylaxis Verified 06/15/23 16:54 nitrofurantoin Allergy Severe Anaphylaxis Verified 06/15/23 16:54 [From Macrodantin] Sulfa (Sulfonamide Allergy Severe Hives, Verified 06/15/23 16:54 Antibiotics) Swelling clindamycin Allergy Mild Diarrhea Verified 06/15/23 16:54 Review of Systems Review of Systems: Yes all other systems are reviewed and are negative PMFSH Past Medical History Onset Date is defined in the Problem List Problems that require an onset date and time if occurred within 24 hrs of arrival to the ED Aortic Dissection and Rupture; Neurologic impairment; Cardiopulmonary Arrest; Endotracheal Intubation; Insertion or Replacement of Mechanical Circulatory Assist Device Medical History (Updated 06/15/23 @ 22:59 by Jorge Mancera MD) Osteoarthritis Fibromyalgia Hypothyroid Panic disorder [episodic paroxysmal anxiety] 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 Generalized anxiety disorder COVID Cholelithiasis Neuropathy Nephrolithiasis GERD (gastroesophageal reflux disease) Anxiety and depression Overactive bladder Tachycardia Sleep apnea Obesity due to excess calories Bettye's disease Hypothyroidism Spondylosis of lumbar spine Degeneration, intervertebral disc, lumbosacral Disc degeneration, lumbar Surgical History Hx of colonoscopy History of esophagogastroduodenoscopy (EGD) Hx of cholecystectomy S/P laparoscopic sleeve gastrectomy History of eyelid surgery History of lumbar laminectomy History of cystoscopy History of endometrial ablation History of dental surgery Hx of dilation and curettage Hx of tubal ligation History of lumpectomy of both breasts History of bladder surgery Family History Family History Mother Diabetes Uterine cancer Father Diabetes Sister Breast cancer Sister No problems noted. Brother No problems noted. Daughter No problems noted. Social History Social History Household Members: Other Household Members Other:: 2 dogs and one cat Housing: Other Housing Other:: Mobile Home Are you a primary livestock caretaker to a significant other at home: No Do you presently have visiting nurse or other home services: No Alcohol intake: current Alcohol intake frequency: a few times a month Comment: Legs weak at times Patient Tobacco Use Status: Former Tobacco user Quit Date: 2006 Tobacco use type: Cigarette Cigarette Packs Per Day: 2.5 Cigarettes Per Day: 50.0 Years Smoked: 24 e-Cigarette/Vaping Use: Never Used Second Hand Smoke Exposure: No Substance Use Type: Marijuana Advance Directives: Yes Advance Directives on File: Yes Advance Directives Date on File: 08/26/21 service: No Current occupational status: disabled Current occupational exposures/hazards: No Cognitive needs: No Hearing needs: No Vision needs: No Physical Exam ED Vital Signs: Vital Signs - 24 hr 06/15/23 16:54 06/15/23 19:54 Temperature 97.5 F 98.1 F Pulse Rate 66 74 Respiratory Rate 16 16 Blood Pressure 155/55 H 126/70 Pulse Oximetry 100 98 Oxygen Delivery Method Room Air BMI result Body Mass Index 29.6 Const Other: The patient is awake, alert, pleasant, cooperative. She does not appear in any distress or seem acutely ill. HENMT Other: The face is symmetrical. Mucous membranes are moist. Tympanic membranes are normal bilaterally. The appearance of the face is unremarkable and quite normal. Eyes Other: Pupils are round, equal, reactive to light. Extraocular movements are intact. Conjunctiva is normal. No injection. No proptosis. Funduscopic exam is normal. Visual proctor are normal to confrontation. Visual acuity of the right eye is 20/20 with glasses on. Neck Other: No cervical adenopathy Resp Effort & Inspection: normal respiratory effort Auscultation: clear to auscultation bilaterally Cardio Rate: regular rate Rhythm: regular rhythm Heart sounds: S1 normal heart sound present and S2 normal heart sound present Skin Other: Skin is dry and unremarkable Neuro Other: The patient is awake and alert, mental status is normal. The patient is appropriately oriented with normal cognition. Pupils are round, equal, and reactive to light, extraocular movements are intact, visual proctor are intact to confrontation, visual acuity in the eye is 2020. Cranial nerves are otherwise completely normal. The patient is moving all 4 extremities normally with normal strength and coordination patient seems completely neurologically intact. Extrem Other: Extremities are normal. No peripheral edema. Course Course Course Narrative: RME- 57 year old female presents for evaluatoin of right eye pain and right sided headache for the last month or so. Denies blurry vision. Plan for labs including ESR. Will need ophthalmologic exam Medical Decision Making Medical Decision Making [facility] Narrative: The patient is a 57-year-old woman who presents to the emergency room for pains she has been experiencing in her right eye for over a week. She describes, brief, instantaneous intermittent pains that occur multiple times throughout the day. She has been experiencing these pains with greater frequency over the last couple of weeks. She tested positive for influenza last week and I think this likely accounts for her lymphocytosis on her CBC. Otherwise the patient looks extremely well. Her eye exam is also quite reassuring. Her vision is good. There is no there exam is normal. Her funduscopic exam is normal. Extraocular movements are normal. She has not had flashes or floaters. Her history and physical are not suggesting a retinal problem or any kind of aneurysmal problem. I do not think this is a presentation of glaucoma. Given the extremely reassuring nature of the patient's physical exam I think the patient can be discharged with instructions to follow-up with an director of public safety for her regular doctor. Lab Data 06/15/23 17:04 06/15/23 17:04 Labs: Lab Results 06/15/23 Range/Units 17:04 WBC 3.1 L (4.8-10.8) X10*3/uL RBC 4.25 (4.20-5.50) X10*6/uL Hgb 13.3 (12.0-16.0) g/dl Hct 39.4 (37.0-47.0) % MCV 92.7 (80.0-98.0) fL MCH 31.3 (27.0-33.0) pg MCHC 33.8 (31.0-35.0) g/dl RDW 12.5 (11.0-16.0) % Plt Count 126 L D (160-400) X10*3/uL MPV 10.0 (9.4-12.3) fL Immature Gran % (Auto) 0.0 (0.0-0.4) % Neut % (Auto) 26.3 L (45-73) % Lymph % (Auto) 58.7 H (20-40) % [place] % (Auto) 10.9 (2-11) % Eos % (Auto) 3.8 (0-4) % Baso % (Auto) 0.3 (0-2) % Lymph # (Auto) 1.8 (1.2-4.9) X10*3/uL [place] # (Auto) 0.3 (0.1-1.2) X10*3/uL Eos # (Auto) 0.1 (0.0-0.4) X10*3/uL Baso # (Auto) 0.0 (0.0-0.2) X10*3/uL Abs Immat Gran (auto) 0.00 (0.00-0.03) X10*3/uL Absolute Neuts (auto) 0.8 L (2.0-8.3) x10*3/uL Absolute Nucleated RBC 0.000 (0.0-0.012) X10*3/uL Nucleated RBC % (auto) 0.0 (0.0-0.2) /100WBC Smear Tech's Comments VERIFIED ESR 16 (0-20) MM/HR Sodium 143 (135-145) mmol/L Potassium 3.6 (3.3-5.1) mmol/L Chloride 112 H (96-108) mmol/L Carbon Dioxide 26 (22-29) mmol/L Anion Gap 9 L (12-20) BUN 13 (9-16) mg/dL Creatinine 0.79 (0.5-1.4) mg/dL Estim Creat Clear Calc 80.4 Estimated GFR > 60 Random Glucose 97 (60-115) mg/dL Calcium 8.9 (8.4-10.2) mg/dL Discharge Plan Discharge Clinical Impression: Pain of right eye Patient Disposition: Home, Self-Care Instructions: Eye Pain (ED) Additional Instructions: At the moment I find the examination of your eye is reassuring from the point of view of acutely dangerous process. Nevertheless I think it would be good for you to see an eye doctor for a more comprehensive evaluation. The meantime continue to use ibuprofen and acetaminophen as needed for pain. If you have any trouble seeing the director of public safety please call your regular doctors office for assistance with follow-up. Return to the emergency room if significantly worse. Prescriptions: No Action oxybutynin chloride 5 mg tablet 5 mg PO DAILY 30 Days Qty: 90 1RF pregabalin 200 mg capsule 200 mg PO BID 30 Days Qty: 60 2RF Hold Instructions: until discussed with Dr Meyer levothyroxine 25 mcg tablet 25 mcg PO DAILY 90 Days Qty: 90 2RF multivitamin Tablet 1 tab PO DAILY diazepam 5 mg tablet 2.5 - 5 mg PO DAILY PRN (Reason: sleep) Qty: 14 1RF metoprolol succinate 25 mg tablet extended release 24 hr 12.5 mg PO DAILY Qty: 90 3RF pantoprazole 20 mg tablet,delayed release (DR/EC) 20 mg PO QAM Qty: 30 6RF topiramate 100 mg tablet 100 mg PO BEDTIME Qty: 90 1RF Rx Instructions: if day time confusion try and lower to half tab duloxetine 60 mg capsule,delayed release(DR/EC) 120 mg PO DAILY Qty: 180 1RF bupropion HCl [Wellbutrin XL] 300 mg tablet extended release 24 hr 300 mg PO QAM Qty: 30 1RF Referrals: Jaylen Rizvi MD [Primary Care Provider] - (Right eye pain) Mark Francisco [Physician] - (Right eye pain) Interventions: ED Discharge Assessment Last Done: 06/15/23 23:25 Discharge Date/Time: 06/15/23 23:26
[2023-06-15 17:10] LABS: Basophils Percent Auto 0.3 % (0-2); Eosinophils Absolute Auto 0.1 X10*3/uL (0.0-0.4); Eosinophils Percent Auto 3.8 % (0-4); Hematocrit 39.4 % (37.0-47.0); Hemoglobin 13.3 g/dl (12.0-16.0); Lymphocytes Absolute Auto 1.8 X10*3/uL (1.2-4.9); Lymphocytes Percent Auto 58.7 % (20-40); MANUAL DIFF FLAG SCAN; Mean Corpuscular HGB Conc 33.8 g/dl (31.0-35.0); Mean Corpuscular Hemoglobin 31.3 pg (27.0-33.0); Mean Corpuscular Volume 92.7 fL (80.0-98.0); Monocytes Absolute Auto 0.3 X10*3/uL (0.1-1.2); Monocytes Percent Auto 10.9 % (2-11); Neutrophils Absolute Auto 0.8 x10*3/uL (2.0-8.3); Neutrophils Percent Auto 26.3 % (45-73); Platelet Count 126 X10*3/uL (160-400); Red Blood Count 4.25 X10*6/uL (4.20-5.50); Red Cell Distribution Width 12.5 % (11.0-16.0); SCAN SMEAR FLAG 1; White Blood Count 3.1 X10*3/uL (4.8-10.8)
[2023-06-15 17:23] LABS: Anion Gap 9 (12-20); Blood Urea Nitrogen 13 mg/dL (9-16); Calcium 8.9 mg/dL (8.4-10.2); Carbon Dioxide 26 mmol/L (22-29); Chloride 112 mmol/L (96-108); Creatinine Clr Calc Pharmacy 80.4; Estimated Glomerular Filt Rate > 60; Glucose Random 97 mg/dL (60-115); Potassium 3.6 mmol/L (3.3-5.1); Sodium 143 mmol/L (135-145)
[2023-06-15 18:00] LABS: Erythrocyte Sedimentation Rate 16 MM/HR (0-20)
[2023-06-15 18:45] LABS: SLIDE REVIEW VERIFIED
[2023-06-15 19:54] VITALS: BP 126/70; PULSE 74; RESP 16; TEMP 36.7; O2SAT 98
== END 2023-06-15 23:26 | disposition home or self-care (01) ==
PROVIDERS: Physician Assistant; Emergency Provider Emergency Medicine; PCP Family Medicine
DX: H57.11 Ocular pain, right eye (principal); Z79.899 Other long term (current) drug therapy
CPT/HCPCS: 36415; 80048; 85025; 85652; 99282; 99283

== ENCOUNTER → 2023-07-05 17:00 | Outpatient (BNVA) | payer MEDICARE, MEDICAID, SELFPAY | PROVIDERS: PCP Family Medicine; Visit Provider Counselor Mental Health ==

== ENCOUNTER 2023-07-12 17:00 | Outpatient (AMB) | payer MEDICARE, MEDICAID, SELFPAY ==
--- NOTE | 2023-07-15 10:46 | A.OFFWM_ITS ---
Intake Intake Visit Reasons: Group Therapy Allergies nickel Allergy (Severe, Verified 06/15/23 16:54) Anaphylaxis nitrofurantoin [From Macrodantin] Allergy (Severe, Verified 06/15/23 16:54) Anaphylaxis Sulfa (Sulfonamide Antibiotics) Allergy (Severe, Verified 06/15/23 16:54) Hives, Swelling clindamycin Allergy (Mild, Verified 06/15/23 16:54) Diarrhea [facility] Medical History (Updated 06/16/23 @ 00:02 by Roberta Pitts) Osteoarthritis Fibromyalgia Hypothyroid Panic disorder [episodic paroxysmal anxiety] 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 Generalized anxiety disorder COVID Cholelithiasis Neuropathy Nephrolithiasis GERD (gastroesophageal reflux disease) Anxiety and depression Overactive bladder Tachycardia Sleep apnea Obesity due to excess calories Bettye's disease Hypothyroidism Spondylosis of lumbar spine Degeneration, intervertebral disc, lumbosacral Disc degeneration, lumbar Surgical History Hx of colonoscopy History of esophagogastroduodenoscopy (EGD) Hx of cholecystectomy S/P laparoscopic sleeve gastrectomy History of eyelid surgery History of lumbar laminectomy History of cystoscopy History of endometrial ablation History of dental surgery Hx of dilation and curettage Hx of tubal ligation History of lumpectomy of both breasts History of bladder surgery Family History Mother Diabetes Uterine cancer Father Diabetes Sister Breast cancer Sister No problems noted. Brother No problems noted. Daughter No problems noted. Social History Household Members: Other Household Members Other:: 2 dogs and one cat Housing: Other Housing Other:: Mobile Home Are you a primary health care analyst to a significant other at home: No Do you presently have visiting nurse or other home services: No Alcohol intake: current Alcohol intake frequency: a few times a month Comment: Legs weak at times Patient Tobacco Use Status: Former Tobacco user Quit Date: 2006 Tobacco use type: Cigarette Cigarette Packs Per Day: 2.5 Cigarettes Per Day: 50.0 Years Smoked: 24 e-Cigarette/Vaping Use: Never Used Second Hand Smoke Exposure: No Substance Use Type: Marijuana Advance Directives Date on File: 08/26/21 service: No Current occupational status: disabled Current occupational exposures/hazards: No Cognitive needs: No Hearing needs: No Vision needs: No Behavioral Health Assessment Weight Management Therapy Therapy Notes Details Pt is two years post op weight loss surgery. Struggles with depression and low motivation. Group therapy on mindset; fixed versus growth mindset. Patient participated and was able to identify some areas of need in order to improve growth mindset. She shared her struggles and successes as well as supported others. Assessment & Plan Assessment & Plan (1) Recurrent major depressive disorder with atypical features: Code(s): F33.9 - Major depressive disorder, recurrent, unspecified Plan Jacqueline is two years post weight loss surgery. She struggles with depression, emotional eating, low motivation, and some isolation. She recently started attending group therapy for additional therapeutic support. Coding Level of Care Code Grp Psych (33620) Diagnoses Recurrent major depressive disorder with atypical features F33.9 Time Spent (min) 60
== END 2023-07-15 10:46 | disposition home or self-care (01) ==
LOC: HO.HBST 07-13 08:21
PROVIDERS: PCP Family Medicine; Visit Provider Counselor Mental Health
DX: F33.9 Major depressive disorder, recurrent, unspecified (principal)

== ENCOUNTER → 2023-07-12 17:00 | Outpatient (BNVA) | payer MEDICARE, MEDICAID, SELFPAY | PROVIDERS: PCP Family Medicine; Visit Provider Counselor Mental Health | DX: F33.9 Major depressive disorder, recurrent, unspecified (principal) | CPT/HCPCS: 90853 ==

== ENCOUNTER 2023-07-13 13:22 | Outpatient (AMB) | payer MEDICARE, MEDICAID, SELFPAY ==
--- NOTE | 2023-07-13 13:03 | A.OFFVIS_ITS ---
Intake Intake Visit Reasons: VIDEO PO LSG 11/24/21 Allergies nickel Allergy (Severe, Verified 06/15/23 16:54) Anaphylaxis nitrofurantoin [From Macrodantin] Allergy (Severe, Verified 06/15/23 16:54) Anaphylaxis Sulfa (Sulfonamide Antibiotics) Allergy (Severe, Verified 06/15/23 16:54) Hives, Swelling clindamycin Allergy (Mild, Verified 06/15/23 16:54) Diarrhea HPI Nutrition Presentation Details LSG 08/26/[address] Meyer Preop weight weight 08/31/21 202# weight 9wks 193# Weight at 4 MO 179# Weigth at 5 MO 177# weight at 6 MO PO 176# Current weight at 11 MO PO 178# Diet Assmnt Details Pt feels that she uis doing better. Breakfast: shake - Fairlife chocolate milk or , atkins shakes 15g protien shakes snack: bar, roast beef or turkey, boiled egg lunch: shake dinner: varies , yesterday made steak, 1 glass of wine , is trying to cut back Struggles with severe depression. going to [employer] group which she finds very helpful. also has a therpiast now 'Our last appointment helped me so much. I got so much out of our appointment. you got me back to feeling better ?pt states, I need you . would like frequent appointment , feels nutrition appts are really helpful. she reports her weight gain and eating habits are contributing to her worsening depression . Her intake varies. needs convenient options which were provided at last appt. continued to discuss viewing healthy eating as a form of self care? Diagnosis Nutrition problem #1 overweight/obesity As related to (etiology) #1 excess energy intake and physical inactivity As evidenced by (sign/symptom) #1 high BMI Monitoring/Goals Nutrition problem monitoring total energy intake, level of knowledge/skill, total PRO intake, total CHO intake, weight and oral fluids Outcome progress progressing Learning/Education Readiness to learn good Stages of change action Most Recent Diabetes Results: Creatinine 0.79 mg/dL (0.5-1.4) 06/15/23 Blood Urea Nitrogen 13 mg/dL (9-16) 06/15/23 Sodium 143 mmol/L (135-145) 06/15/23 Potassium 3.6 mmol/L (3.3-5.1) 06/15/23 Chloride 112 mmol/L (96-108) H 06/15/23 Carbon Dioxide 26 mmol/L (22-29) 06/15/23 Calcium 8.9 mg/dL (8.4-10.2) 06/15/23 [facility] Medical History (Updated 06/16/23 @ 00:02 by Roberta Pitts) Osteoarthritis Fibromyalgia Hypothyroid Panic disorder [episodic paroxysmal anxiety] 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 Generalized anxiety disorder COVID Cholelithiasis Neuropathy Nephrolithiasis GERD (gastroesophageal reflux disease) Anxiety and depression Overactive bladder Tachycardia Sleep apnea Obesity due to excess calories Bettye's disease Hypothyroidism Spondylosis of lumbar spine Degeneration, intervertebral disc, lumbosacral Disc degeneration, lumbar Surgical History Hx of colonoscopy History of esophagogastroduodenoscopy (EGD) Hx of cholecystectomy S/P laparoscopic sleeve gastrectomy History of eyelid surgery History of lumbar laminectomy History of cystoscopy History of endometrial ablation History of dental surgery Hx of dilation and curettage Hx of tubal ligation History of lumpectomy of both breasts History of bladder surgery Family History Mother Diabetes Uterine cancer Father Diabetes Sister Breast cancer Sister No problems noted. Brother No problems noted. Daughter No problems noted. Social History Household Members: Other Household Members Other:: 2 dogs and one cat Housing: Other Housing Other:: Mobile Home Are you a primary childcare director to a significant other at home: No Do you presently have visiting nurse or other home services: No Alcohol intake: current Alcohol intake frequency: a few times a month Comment: Legs weak at times Patient Tobacco Use Status: Former Tobacco user Quit Date: 2006 Tobacco use type: Cigarette Cigarette Packs Per Day: 2.5 Cigarettes Per Day: 50.0 Years Smoked: 24 e-Cigarette/Vaping Use: Never Used Second Hand Smoke Exposure: No Substance Use Type: Marijuana Advance Directives Date on File: 08/26/21 service: No Current occupational status: disabled Current occupational exposures/hazards: No Cognitive needs: No Hearing needs: No Vision needs: No Assessment & Plan Assessment & Plan (1) Overweight (BMI 25.0-29.9): Code(s): E66.3 - Overweight Plan: Encouraged continuing to maintain structured meals, high in protein. continue to seek support for emotional eating. f/u in a month Telehealth Telehealth Location of provider rendering services: practice address Location of patient: address on file Patient Identification confirmed using: Name, : Yes Telehealth method: video Patient verbally consented to treatment: Yes Patient verbally consented to billing insurance company: Yes Patient informed of any privacy concerns related to visit: Yes Minutes spent on Phone/Video with Pt.: 30 Coding Level of Care Code Nutr Indiv Subseq ([id number]) Diagnoses Overweight (BMI 25.0-29.9) E66.3 Time Spent (min) 30
== END 2023-07-13 13:46 | disposition home or self-care (01) ==
LOC: HO.HBS 13:22
PROVIDERS: PCP Family Medicine; Visit Provider Dietitian, Registered
DX: E66.3 Overweight (principal)

== ENCOUNTER → 2023-07-13 13:22 | Outpatient (BNVA) | payer MEDICARE, MEDICAID, SELFPAY | PROVIDERS: PCP Family Medicine; Visit Provider Dietitian, Registered | DX: E66.3 Overweight (principal) | CPT/HCPCS: 97803 ==

== ENCOUNTER → 2023-07-28 11:49 | Outpatient (BNVA) | payer MEDICARE, MEDICAID, SELFPAY | PROVIDERS: PCP Family Medicine; Visit Provider Psychiatry & Neurology Psychiatry | DX: F33.41 Major depressive disorder, recurrent, in partial remission (principal) | CPT/HCPCS: 99212 ==

== ENCOUNTER → 2023-07-28 11:49 | Outpatient (AMB) | payer MEDICARE, MEDICAID, SELFPAY ==
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
== END ==
PROVIDERS: PCP Family Medicine; Visit Provider Psychiatry & Neurology Psychiatry
DX: F33.41 Major depressive disorder, recurrent, in partial remission (principal)
CPT/HCPCS: 90833; 99213

== ENCOUNTER 2023-07-31 12:47 | Outpatient (AMB) | payer MEDICARE, MEDICAID, SELFPAY ==
--- NOTE | 2023-07-31 12:58 | MHC.OFFVIS ---
Intake Intake Visit Reasons: Urinary Frequency Intake Note: New Patient presents for initial visit for Urinary Frequency Urology Medications: Oxybutinin Blood Thinner: Allergies to antibiotics: Nitrofurantoin, Sulfa, Clyndamycin PVR:0ml Patient stated she often has severe leaks and also she has to move to one side and push hard when she is trying to pee, she feels air bubbles as well when urinating. 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 Accompanied by: daugther Allergies nickel Allergy (Severe, Verified 07/31/23 20:31) Anaphylaxis nitrofurantoin [From Macrodantin] Allergy (Severe, Verified 07/31/23 20:31) Anaphylaxis Sulfa (Sulfonamide Antibiotics) Allergy (Severe, Verified 07/31/23 20:31) Hives, Swelling clindamycin Allergy (Mild, Verified 07/31/23 20:31) Diarrhea Medication List - Last Reconciled 07/31/23 by RIN Gillespie-BC bupropion HCl (Wellbutrin XL) 300 mg PO QAM diazepam 2.5 - 5 mg (0.5 - 1 x 5 mg) PO DAILY PRN duloxetine 120 mg (2 x 60 mg) PO DAILY estradiol 0.01%(0.1mg/gram) pea-sized to urethra daily; times one month then 3 times per week there after 30 days levothyroxine 25 mcg PO DAILY 90 days metoprolol succinate ER 12.5 mg (1/2 x 25 mg) PO DAILY mirabegron ER (Myrbetriq) 25 mg PO DAILY 30 days multivitamin 1 tab PO DAILY pantoprazole 20 mg PO QAM pregabalin 200 mg PO BID 30 days topiramate 100 mg PO BEDTIME HPI HPI Comments History of Present Illness Details Jaydon is a very pleasant 57-year-old female patient of Dr. Rizvi who was accompanied by her daughter at today's office visit. She has a past medical history of neuropathy, nephrolithiasis, GERD, anxiety, depression, overactive bladder, Bettye's disease, and lumbar disc degeneration. She presents to the office today as a new patient for urinary leakage. In discussion with the patient today she reports at the age of [age] years old having a dilation of her urethra as well as having a [place] [address] Oconnor. She reports having been on oxybutynin over the last 10-15 years with dosages ranging between 5-10 mg daily and feels this has been helpful for her urinary frequency and urgency however has been experiencing worsening urinary leakage upon standing. She reports utilizing 1-3 pads per day. She describes having an air like bubble sensation at times when urinating. She also reports urinary hesitancy. She otherwise denies hematuria, nocturia, dysuria, foul-smelling urine, flank pain, fever, and or chills. In office urinalysis results reviewed with the patient today. PVR 0 mL. Discussed at length potential causes for urinary leakage as well as urinary hesitancy. Discussed obtaining retroperitoneal ultrasound for further assessment evaluation. On exam today mild erythema and atrophy noted to urethral opening. She otherwise offers no other issues or concerns at this time. [facility] Medical History Osteoarthritis Fibromyalgia Hypothyroid Panic disorder [episodic paroxysmal anxiety] 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 Generalized anxiety disorder COVID Cholelithiasis Neuropathy Nephrolithiasis GERD (gastroesophageal reflux disease) Anxiety and depression Overactive bladder Tachycardia Sleep apnea Obesity due to excess calories Bettye's disease Hypothyroidism Spondylosis of lumbar spine Degeneration, intervertebral disc, lumbosacral Disc degeneration, lumbar Surgical History Hx of colonoscopy History of esophagogastroduodenoscopy (EGD) Hx of cholecystectomy S/P laparoscopic sleeve gastrectomy History of eyelid surgery History of lumbar laminectomy History of cystoscopy History of endometrial ablation History of dental surgery Hx of dilation and curettage Hx of tubal ligation History of lumpectomy of both breasts History of bladder surgery Family History Mother Diabetes Uterine cancer Father Diabetes Sister Breast cancer Sister No problems noted. Brother No problems noted. Daughter No problems noted. Social History Household Members: Other Household Members Other:: 2 dogs and one cat Housing: Other Housing Other:: Mobile Home Are you a primary skin care consultant to a significant other at home: No Do you presently have visiting nurse or other home services: No Alcohol intake: current Alcohol intake frequency: a few times a month Comment: Legs weak at times Patient Tobacco Use Status: Former Tobacco user Quit Date: 2006 Tobacco use type: Cigarette Cigarette Packs Per Day: 2.5 Cigarettes Per Day: 50.0 Years Smoked: 24 e-Cigarette/Vaping Use: Never Used Second Hand Smoke Exposure: No Substance Use Type: Marijuana Advance Directives Date on File: 08/26/21 service: No Current occupational status: disabled Current occupational exposures/hazards: No Cognitive needs: No Hearing needs: No Vision needs: No Review of Systems Const Reports no additional complaints Eyes Reports no additional complaints ENT Reports no additional complaints Card Reports as per HPI Resp Reports as per HPI GI Reports as per HPI Reports as per HPI Musc Reports as per HPI Neuro Reports no additional complaints Psych Reports as per HPI Endo Reports as per HPI Physical Exam Const General: cooperative, healthy appearing, comfortable, no acute distress, well developed, alert and awake Orientation/consciousness: patient oriented x3 Limitations: no limitations HEENT Head: Yes normal to inspection, Yes normocephalic and Yes atraumatic Ears: hearing grossly normal bilaterally Eyes General: appearance normal, both eyes and all related structures Neck Neck: Yes normal visual inspection and Yes trachea midline Chest Chest palpation & inspection: normal inspection of the chest Resp Effort & Inspection: normal respiratory effort and able to speak in complete sentences Cardio Rate: regular rate GI Inspection: Yes normal to inspection General: Yes no CVA tenderness External Female Exam: normal external appearance and normal appearance of the urethra (Mild erythema and atrophy; as per HPI) Speculum Exam - Vagina: normal appearance of the vagina Back/Spine/Pelvis Back: no CVA tenderness Skin General skin exam: no rashes or lesions noted Neuro General: patient oriented x3 Extrem General: Yes normal to inspection Psych Appearance: grossly normal and well kempt Mental Status: mental status grossly normal Speech and movement: Normal speech and movement present and Clear speech present Affect: normal affect Attitude: cooperative Thought process: Normal thought process present Thought content: Normal thought content present Insight: Fair insight present (Psych) Judgement: Fair judgement present (Psych) Office Procedures Post Void Residual Post Residual Void Post Void Residual (PVR): 0 [id number] Void Residual by ultrasound Results AMB Urinalysis, Automated UA Leukoctes 0 Nadine/uL Last Edit by Sonam Ross CMA on 07/31/23 13:20 UA Nitrite Negative Last Edit by Sonam Ross CMA on 07/31/23 13:20 UA Urobilinogen 0.2 mg/dL Last Edit [facility] on 07/31/23 13:20 UA Protein 0 mg/dL Last Edit [facility], [facility] on 07/31/23 13:20 UA pH 6.0 Last Edit [facility], [facility] on 07/31/23 13:20 UA Blood 0 Tim/uL Last Edit [facility], [facility] on 07/31/23 13:20 UA Specific [place] 1.010 Last Edit [facility], [facility] on 07/31/23 13:20 UA Ketone Negative Last Edit [facility], [facility] on 07/31/23 13:20 UA Bilirubin 0 mg/dL Last Edit [facility], [facility] on 07/31/23 13:20 UA Glucose 0 mg/dL Last Edit [facility], [facility] on 07/31/23 13:20 Results Reviewed Results Reviewed: Laboratory Last Values Urine pH (Auto) 6.0 07/31/23 13:18 Specific [place] (Auto) 1.010 07/31/23 13:18 Urine Protein (Auto) 0 mg/dL 07/31/23 13:18 Glucose (UA)(Auto) 0 mg/dL 07/31/23 13:18 Urine Ketones (Auto) Negative 07/31/23 13:18 Urine Blood (Auto) 0 Tim/uL 07/31/23 13:18 Urine Nitrite (Auto) Negative 07/31/23 13:18 Urine Bilirubin (Auto) 0 mg/dL 07/31/23 13:18 Urine Urobilinogen (Auto) 0.2 mg/dL 07/31/23 13:18 Leukocyte Esterase (Auto) 0 Nadine/uL 07/31/23 13:18 Assessment & Plan Assessment & Plan (1) History of urinary hesitancy: Code(s): Z87.898 - Personal history of other specified conditions (2) Urinary leakage: Code(s): R32 - Unspecified urinary incontinence Plan In office urinalysis results reviewed with the patient today; as noted above. PVR 0 mL. Will obtain retroperitoneal ultrasound for further assessment evaluation. Discussed at length urodynamics for further assessment evaluation; will add to urodynamics list Stop oxybutynin. Start Myrbetriq as discussed and prescribed. Start Estrace cream as discussed and prescribed. Medical release form signed will attempt to obtain previous urology records for continuity of care as well as further assessment evaluation. Discussed at length potential causes of urinary leakage as well as urinary hesitancy patient is experiencing. Discussed bladder triggers/irritants. Discussed, educated, and stressed the importance of drinking plenty of water daily. Follow-up in 6-8 weeks with imaging to be completed prior and PVR at next office visit; or sooner with any issues, concerns, and or questions. Orders: Orders AMB Urinalysis Automated Today R33.9 - Retention of urine, unspecified AMB Post Void Residual by ultrasound Today R33.9 - Retention of urine, unspecified US retroperitoneal comp Today R32 - Unspecified urinary incontinence, Z87.898 - Personal history of other specified conditions Medications: New mirabegron ER (Myrbetriq) 25 mg PO DAILY 30 days 30 tabs 3RF N30.10 - Interstitial cystitis (chronic) without hematuria, N32.81 - Overactive bladder, R35.1 - Nocturia, R39.15 - Urgency of urination estradiol 0.01%(0.1mg/gram) pea-sized to urethra daily; times one month then 3 times per week there after 30 days 42.5 grams 2RF N30.20 - Other chronic cystitis without hematuria, N39.0 - Urinary tract infection, site not specified, N95.2 - Postmenopausal atrophic vaginitis Discontinued oxybutynin chloride Discontinued Reason: Doctor's Order 5 mg PO DAILY 30 days 90 tabs 1RF Patient Instructions: The patient had an opportunity to ask questions regarding the treatment plan. All questions were answered. Physical exam, labs, and imaging were discussed and reviewed in detail. As well as risks, benefits, and discussion of treatment choices. No major barriers to understanding were identified. The patient expressed understanding and agreement with the above treatment plan. The patient was made aware they should contact our office by phone for worsening of their current condition, the appearance of new symptoms, or with any questions or concerns. Compliance is encouraged with any medications and follow up testing that is ordered. It is a privilege to be allowed the opportunity to participate in? your urological care.? Again, if you have any questions or concerns If you have any questions or concerns please do not hesitate to contact me. The office is [phone]. This note is constructed using voice recognition software. While every effort has been made to ensure accuracy telecasting engineer errors may have been included. Yours sincerely, RIN Gillespie-DAHIANA Coding Level of Care Code New Pt Level 4 (87498) Diagnoses History of urinary hesitancy Z87.898 Urinary leakage R32 CPT Codes Post Residual Void - PVR CPT Code: 12561-Ivqk Void Residual by ultrasound ([id number])
== END 2023-07-31 13:49 | disposition home or self-care (01) ==
PROVIDERS: PCP Family Medicine; Visit Provider Nurse Practitioner Family
DX: Z87.898 Personal history of other specified conditions (principal); R32 Unspecified urinary incontinence
CPT/HCPCS: 99204; 99214

== ENCOUNTER → 2023-07-31 12:47 | Outpatient (BNVA) | payer MEDICARE, MEDICAID, SELFPAY | PROVIDERS: PCP Family Medicine; Visit Provider Nurse Practitioner Family | DX: R32 Unspecified urinary incontinence (principal); Z87.898 Personal history of other specified conditions | CPT/HCPCS: 51798; 81003; 99202 ==

== ENCOUNTER 2023-08-15 12:41 | Outpatient (AMB) | payer MEDICARE, MEDICAID, SELFPAY ==
--- NOTE | 2023-08-15 12:52 | A.OFFVIS_ITS ---
Intake VS Expanded 08/15/23 13:01 BP 113/52 L Blood Pressure Location Rt brachial Blood Pressure Position Sitting Pulse 71 Pulse Source Pulse Oximeter Temp 96.6 F L Temperature Source Tympanic Pulse Oximetry 100 Oxygen Delivery Method Room Air Height 5 ft 5 in Weight 178 lb 12.8 oz BMI 29.8 Body Fat % 37.6 Body Fat Mass 67.2 Fat Free Mass 111.6 Visceral Fat Rating 9.0 Body Water % 44.1 Body Water Mass 79.0 Muscle Mass/Score 105.8 Basal Metabolic Rate/Score 1,518 Intake Visit Reasons: PO LSG 11/24/21 Allergies nickel Allergy (Severe, Verified 07/31/23 20:31) Anaphylaxis nitrofurantoin [From Macrodantin] Allergy (Severe, Verified 07/31/23 20:31) Anaphylaxis Sulfa (Sulfonamide Antibiotics) Allergy (Severe, Verified 07/31/23 20:31) Hives, Swelling clindamycin Allergy (Mild, Verified 07/31/23 20:31) Diarrhea Medication List - Last Reconciled 08/15/23 by EDISON Clancy bupropion HCl (Wellbutrin XL) 300 mg PO QAM diazepam 2.5 - 5 mg (0.5 - 1 x 5 mg) PO DAILY PRN duloxetine 120 mg (2 x 60 mg) PO DAILY estradiol 0.01%(0.1mg/gram) pea-sized to urethra daily; times one month then 3 times per week there after 30 days famotidine (Zantac-360 (famotidine)) 20 mg PO BEDTIME levothyroxine 25 mcg PO DAILY 90 days metoprolol succinate ER 12.5 mg (1/2 x 25 mg) PO DAILY multivitamin 1 tab PO DAILY pregabalin 200 mg PO BID 30 days topiramate 100 mg PO BEDTIME HPI HPI Comments History of Present Illness Details This?is a?57?yo female who is s/p LSG 11/24/2021. Presents for 21 month post op visit. Weight today unchanged from last visit 1 month ago.? No complaints of nausea, emesis, abdominal pain or reflux, or constipation. Has a therapist where she talks about anything and everything . Has been seeing him for only a short time but finds him helpful. Present meal plan includes: Breakfast: shake - Fairlife chocolate milk or Atkins shakes 15g protein shakes snack: bar, roast beef or turkey, boiled egg lunch: shake dinner: varies- includes reports her shakes have been less consistent recently but thinks she gets close to enough protein recognizes a lot of her eating is emotional takes MVI Exercise routine includes: starting walking dogs more now that weather is better [facility] Medical History Osteoarthritis Fibromyalgia Hypothyroid Panic disorder [episodic paroxysmal anxiety] 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 Generalized anxiety disorder COVID Cholelithiasis Neuropathy Nephrolithiasis GERD (gastroesophageal reflux disease) Anxiety and depression Overactive bladder Tachycardia Sleep apnea Obesity due to excess calories Bettye's disease Hypothyroidism Spondylosis of lumbar spine Degeneration, intervertebral disc, lumbosacral Disc degeneration, lumbar Surgical History Hx of colonoscopy History of esophagogastroduodenoscopy (EGD) Hx of cholecystectomy S/P laparoscopic sleeve gastrectomy History of eyelid surgery History of lumbar laminectomy History of cystoscopy History of endometrial ablation History of dental surgery Hx of dilation and curettage Hx of tubal ligation History of lumpectomy of both breasts History of bladder surgery Family History Mother Diabetes Uterine cancer Father Diabetes Sister Breast cancer Sister No problems noted. Brother No problems noted. Daughter No problems noted. Social History Household Members: Other Household Members Other:: 2 dogs and one cat Housing: Other Housing Other:: Mobile Home Are you a primary day care teacher to a significant other at home: No Do you presently have visiting nurse or other home services: No Alcohol intake: current Alcohol intake frequency: a few times a month Comment: Legs weak at times Patient Tobacco Use Status: Former Tobacco user Quit Date: 2006 Tobacco use type: Cigarette Cigarette Packs Per Day: 2.5 Cigarettes Per Day: 50.0 Years Smoked: 24 e-Cigarette/Vaping Use: Never Used Second Hand Smoke Exposure: No Substance Use Type: Marijuana Advance Directives Date on File: 08/26/21 service: No Current occupational status: disabled Current occupational exposures/hazards: No Cognitive needs: No Hearing needs: No Vision needs: No Physical Exam Vital Signs: Last Vital Signs Temp 96.6 F L 08/15/23 13:01 Pulse 71 08/15/23 13:01 BP 113/52 L 08/15/23 13:01 Pulse Ox 100 08/15/23 13:01 Oxygen Delivery Method Room Air 08/15/23 13:01 BMI result Body Mass Index 29.8 Assessment & Plan Assessment & Plan (1) Overweight: Code(s): E66.3 - Overweight (2) S/P laparoscopic sleeve gastrectomy: Comment: 08/26/21 Code(s): Z98.84 - Bariatric surgery status Plan Pt recognizes she eats erratically, needs a goal of 70-75g/day so we discussed that even if she is not eating exactly the same things every day, needs to meet protein goal. Discussed the importance of exercise. Pt has ultimate goal of 170lbs. Reminded pt to have labs done. RTC 3 months. Patient is overweight and is not considered stable at this time. I spent a total of 30 minutes reviewing/updating records, examining the patient and counseling t he patient on weight management as detailed above. Coding Level of Care Code Est Pt Level 4 (19843) Diagnoses Overweight E66.3 S/P laparoscopic sleeve gastrectomy Z98.84
[2023-08-15 13:01] VITALS: BP 113/52; PULSE 71; TEMP 35.9; O2SAT 100; BMI 29.8
== END 2023-08-15 13:23 | disposition home or self-care (01) ==
PROVIDERS: PCP Family Medicine; Visit Provider Physician Assistant Surgical
DX: E66.3 Overweight (principal); Z68.29 Body mass index [BMI] 29.0-29.9, adult; Z90.3 Acquired absence of stomach [part of]; Z98.84 Bariatric surgery status
CPT/HCPCS: 99214

== ENCOUNTER 2023-08-15 12:41 | Outpatient (REF) | payer MEDICARE, MEDICAID, SELFPAY ==
[2023-08-15 14:41] LABS: Appearance Urine Clear; Color Urine Yellow; Glucose Urine UA Negative (Negative); Leukocyte Esterase Urine Trace (Negative); Nitrite Urine Negative (Negative); PH 6.5 (5.0-9.0); UMIC TRIGGER UA YES; Urine Blood Negative (Negative); Urine Ketones Negative (Negative); Urine Protein Negative (Neg-Trace)
[2023-08-15 14:43] LABS: Bacteria Urine None Seen (None Seen); Hyaline Casts Urine 0-2 /LPF (0-2); RBC Urine 0-2 /HPF (0-2); Squamous Epithelial Cell Urine 0-2 /HPF (0-2); WBC Urine 0-5 /HPF (0-5)
== END 2023-08-15 12:42 | disposition home or self-care (01) ==
LOC: HO.LAB 12:41
PROVIDERS: Absent Provider Urology; PCP Family Medicine; Visit Provider Physician Assistant Surgical
DX: R35.0 Frequency of micturition (principal); R30.0 Dysuria; R32 Unspecified urinary incontinence; Z87.898 Personal history of other specified conditions
CPT/HCPCS: 81001; 87086; 99212

== ENCOUNTER 2023-08-22 08:29 | Outpatient (REF) | payer MEDICARE, MEDICAID, SELFPAY ==
[2023-08-22 12:07] LABS: MANUAL DIFF FLAG NO
[2023-08-22 12:13] LABS: Appearance Urine Cloudy; Color Urine Yellow; Glucose Urine UA Negative (Negative); Leukocyte Esterase Urine Trace (Negative); Nitrite Urine Negative (Negative); PH 6.5 (5.0-9.0); Specific Gravity - Urine 1.015 (1.005-1.025); UMIC TRIGGER UA YES; Urine Blood Negative (Negative); Urine Ketones Negative (Negative); Urine Protein Negative (Neg-Trace)
[2023-08-22 12:15] LABS: Basophils Absolute Auto 0.1 X10*3/uL (0.0-0.2); Basophils Percent Auto 1.2 % (0-2); Eosinophils Absolute Auto 0.3 X10*3/uL (0.0-0.4); Eosinophils Percent Auto 5.2 % (0-4); Hematocrit 41.3 % (37.0-47.0); Hemoglobin 13.6 g/dl (12.0-16.0); Imm Gran Abs Auto 0.01 X10*3/uL (0.00-0.03); Imm Gran Pct Auto 0.2 % (0.0-0.4); Lymphocytes Absolute Auto 1.6 X10*3/uL (1.2-4.9); Lymphocytes Percent Auto 31.5 % (20-40); Mean Corpuscular HGB Conc 32.9 g/dl (31.0-35.0); Mean Corpuscular Hemoglobin 30.8 pg (27.0-33.0); Mean Corpuscular Volume 93.4 fL (80.0-98.0); Mean Platelet Volume 10.4 fL (9.4-12.3); Monocytes Absolute Auto 0.4 X10*3/uL (0.1-1.2); Monocytes Percent Auto 7.9 % (2-11); Neutrophils Absolute Auto 2.8 x10*3/uL (2.0-8.3); Platelet Count 212 X10*3/uL (160-400); Red Blood Count 4.42 X10*6/uL (4.20-5.50); Red Cell Distribution Width 13.2 % (11.0-16.0); White Blood Count 5.2 X10*3/uL (4.8-10.8)
[2023-08-22 12:22] LABS: Bacteria Urine 1+ (None Seen); Hyaline Casts Urine 0-2 /LPF (0-2); RBC Urine 0-2 /HPF (0-2)
[2023-08-22 12:24] LABS: Estimated Average Glucose 88 mg/dL; Hemoglobin A1c % 4.7 % (<6.0)
[2023-08-22 12:43] LABS: Creatinine Urine 127.21 mg/dL; Microalbum/Creatinine Ratio Ur 8.6 ug/mg cr (<30)
[2023-08-22 13:00] LABS: Alanine Aminotransferase 13 U/L (0-31); Albumin Level 3.8 g/dL (3.5-5.0); Alkaline Phosphatase 96 U/L (39-117); Anion Gap 12 (12-20); Aspartate Amino Transferase 16 U/L (5-31); Bilirubin Total 0.5 mg/dL (0.0-1.0); Blood Urea Nitrogen 17 mg/dL (9-16); C Reactive Protein < 0.10 mg/dL (< or = 0.50); Calcium 8.9 mg/dL (8.4-10.2); Carbon Dioxide 26 mmol/L (22-29); Chloride 110 mmol/L (96-108); Cholesterol 208 mg/dL (<200); Estimated Glomerular Filt Rate > 60; Glucose Fasting 77 mg/dL (60-99); Glucose Random 76 mg/dL (60-115); HDL Cholesterol 72 mg/dL (>40); Iron 101 mcg/dL (30-160); LDL Cholesterol Calculated 112 mg/dL (<100); Percent Iron Saturation 42 % (15-50); Potassium 3.6 mmol/L (3.3-5.1); Sodium 144 mmol/L (135-145); Total Iron Binding Capacity 242 mcg/dL (228-428); Total Protein 6.5 g/dL (6.5-8.0); Triglycerides 123 mg/dL (<150); Unsaturated Iron Binding 141 ug/dL
[2023-08-22 13:02] LABS: Vitamin B12 504 pg/mL (200-900)
[2023-08-22 13:07] LABS: Free T4 (Free Thyroxine) 0.81 ng/dL (0.71-1.85)
[2023-08-22 13:17] LABS: Ferritin 119 ng/mL (10-250); Insulin 5 uU/mL (2-29); TSH reflex Free T4 0.99 uIU/mL (0.32-4.0); Thyroid Stimulating Hormone 0.99 uIU/mL (0.32-4.0); Vitamin D 25-OH Total 32.8 ng/mL (>30)
[2023-08-23 20:18] LABS: Triiodothyronine T3 Total 80 ng/dL (76-181)
== END 2023-08-22 08:30 | disposition home or self-care (01) ==
LOC: HO.WFDLDS 08:29
PROVIDERS: Referring Provider Family Medicine; Visit Provider Physician Assistant Surgical
DX: Z00.00 Encounter for general adult medical examination without abnormal findings (principal); E03.9 Hypothyroidism, unspecified; I10 Essential (primary) hypertension; K91.2 Postsurgical malabsorption, not elsewhere classified; E55.9 Vitamin D deficiency, unspecified; E66.01 Morbid (severe) obesity due to excess calories; Z71.3 Dietary counseling and surveillance; Z90.3 Acquired absence of stomach [part of]; Z98.84 Bariatric surgery status
CPT/HCPCS: 36415; 80053; 80061; 81001; 81003; 82043; 82306; 82570; 82607; 82728; 82746; 83036; 83525; 83540; 84439; 84443; 84480; 85025; 86140; 97803

== ENCOUNTER 2023-08-22 14:04 | Outpatient (AMB) | payer MEDICARE, MEDICAID, SELFPAY ==
--- NOTE | 2023-08-22 15:15 | MHC.AMNUTRGE ---
Intake Intake Visit Reasons: VIDEO PO LSG 11/24/21 Allergies nickel Allergy (Severe, Verified 07/31/23 20:31) Anaphylaxis nitrofurantoin [From Macrodantin] Allergy (Severe, Verified 07/31/23 20:31) Anaphylaxis Sulfa (Sulfonamide Antibiotics) Allergy (Severe, Verified 07/31/23 20:31) Hives, Swelling clindamycin Allergy (Mild, Verified 07/31/23 20:31) Diarrhea HPI Nutrition Presentation Details LSG 08/26/[address] Meyer Preop weight weight 08/31/21 202# weight 9wks 193# weight at 6 MO PO 176# weigt at 1 YR PO 175# Current weight at 2 year PO PO 182# Diet Assmnt Details Pt feels that she uis doing better. Breakfast: shake - Fairlife chocolate milk or , atkins shakes 15g protien shakes snack: bar, roast beef or turkey, boiled egg lunch: shake dinner: varies , yesterday made steak cut out drinking wine Struggles with severe depression. also has a therpiast now btu she feels its not a good fit. 'Our last appointment helped me so much. I got so much out of our appointment. you got me back to feeling better ?pt states, I need you . would like frequent appointment , feels nutrition appts are really helpful. she reports her weight gain and eating habits are contributing to her worsening depression . Her intake varies. needs convenient options which were provided at last appt. continued to discuss viewing healthy eating as a form of self care? Diagnosis Nutrition problem #1 overweight/obesity As related to (etiology) #1 excess energy intake and physical inactivity As evidenced by (sign/symptom) #1 high BMI Monitoring/Goals Nutrition problem monitoring total energy intake, level of knowledge/skill, total PRO intake, total CHO intake, weight and oral fluids Outcome progress progressing Learning/Education Readiness to learn good Stages of change action Most Recent Diabetes Results: Microalb/Creat Ratio 8.6 ug/mg cr (<30) 08/22/23 Cholesterol 208 mg/dL (<200) H 08/22/23 HDL Cholesterol 72 mg/dL (>40) 08/22/23 Triglycerides 123 mg/dL (<150) 08/22/23 Creatinine 0.83 mg/dL (0.5-1.4) 08/22/23 Blood Urea Nitrogen 17 mg/dL (9-16) H 08/22/23 Sodium 144 mmol/L (135-145) 08/22/23 Potassium 3.6 mmol/L (3.3-5.1) 08/22/23 Chloride 110 mmol/L (96-108) H 08/22/23 Carbon Dioxide 26 mmol/L (22-29) 08/22/23 Calcium 8.9 mg/dL (8.4-10.2) 08/22/23 AST 16 U/L (5-31) 08/22/23 ALT 13 U/L (0-31) 08/22/23 Total Protein 6.5 g/dL (6.5-8.0) 08/22/23 Albumin 3.8 g/dL (3.5-5.0) 08/22/23 [facility] Medical History Osteoarthritis Fibromyalgia Hypothyroid Panic disorder [episodic paroxysmal anxiety] 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 Generalized anxiety disorder COVID Cholelithiasis Neuropathy Nephrolithiasis GERD (gastroesophageal reflux disease) Anxiety and depression Overactive bladder Tachycardia Sleep apnea Obesity due to excess calories Bettye's disease Hypothyroidism Spondylosis of lumbar spine Degeneration, intervertebral disc, lumbosacral Disc degeneration, lumbar Surgical History Hx of colonoscopy History of esophagogastroduodenoscopy (EGD) Hx of cholecystectomy S/P laparoscopic sleeve gastrectomy History of eyelid surgery History of lumbar laminectomy History of cystoscopy History of endometrial ablation History of dental surgery Hx of dilation and curettage Hx of tubal ligation History of lumpectomy of both breasts History of bladder surgery Family History Mother Diabetes Uterine cancer Father Diabetes Sister Breast cancer Sister No problems noted. Brother No problems noted. Daughter No problems noted. Social History Household Members: Other Household Members Other:: 2 dogs and one cat Housing: Other Housing Other:: Mobile Home Are you a primary director of critical care to a significant other at home: No Do you presently have visiting nurse or other home services: No Alcohol intake: current Alcohol intake frequency: a few times a month Comment: Legs weak at times Patient Tobacco Use Status: Former Tobacco user Quit Date: 2006 Tobacco use type: Cigarette Cigarette Packs Per Day: 2.5 Cigarettes Per Day: 50.0 Years Smoked: 24 e-Cigarette/Vaping Use: Never Used Second Hand Smoke Exposure: No Substance Use Type: Marijuana Advance Directives Date on File: 08/26/21 service: No Current occupational status: disabled Current occupational exposures/hazards: No Cognitive needs: No Hearing needs: No Vision needs: No Assessment & Plan Assessment & Plan (1) History of sleeve gastrectomy: Code(s): Z90.3 - Acquired absence of stomach [part of] Plan Pt will communicate with office and seek support as needed Telehealth Telehealth Location of provider rendering services: practice address Location of patient: address on file Patient Identification confirmed using: Name, : Yes Telehealth method: video Patient verbally consented to treatment: Yes Patient verbally consented to billing insurance company: Yes Patient informed of any privacy concerns related to visit: Yes Minutes spent on Phone/Video with Pt.: 30 Coding Level of Care Code Nutr Indiv Subseq ([id number]) Diagnoses History of sleeve gastrectomy Z90.3 Time Spent (min) 30
== END 2023-08-22 14:06 | disposition home or self-care (01) ==
LOC: HO.HBS 14:04
PROVIDERS: PCP Family Medicine; Visit Provider Dietitian, Registered
DX: Z90.3 Acquired absence of stomach [part of] (principal)

== ENCOUNTER 2023-08-25 10:29 | Outpatient (AMB) | payer MEDICARE, MEDICAID, SELFPAY ==
--- NOTE | 2023-08-25 10:30 | A.OFFVIS_ITS ---
Intake Visit Reasons: Urodyanmics Intake Note: Patient presents today for a URODYNAMIC Procedure: Urology Medications: Oxybutinin Allergies to antibiotics: Nitrofurantoin, Sulfa, Clyndamycine Blood Thinner: None Crew Leader/Control Room Operator Required: No Accompanied by: Self / Same As Patient Allergies nickel Allergy (Severe, Verified 08/30/23 12:05) Anaphylaxis nitrofurantoin [From Macrodantin] Allergy (Severe, Verified 08/30/23 12:05) Anaphylaxis Sulfa (Sulfonamide Antibiotics) Allergy (Severe, Verified 08/30/23 12:05) Hives, Swelling clindamycin Allergy (Mild, Verified 08/30/23 12:05) Diarrhea Medication List - Last Reconciled 08/25/23 by Mc Hung MD bupropion HCl (Wellbutrin XL) 300 mg PO QAM diazepam 2.5 - 5 mg (0.5 - 1 x 5 mg) PO DAILY PRN duloxetine 120 mg (2 x 60 mg) PO DAILY estradiol 0.01%(0.1mg/gram) pea-sized to urethra daily; times one month then 3 times per week there after 30 days famotidine (Zantac-360 (famotidine)) 20 mg PO BEDTIME fesoterodine ER (Toviaz) 8 mg PO DAILY levothyroxine 25 mcg PO DAILY 90 days metoprolol succinate ER 12.5 mg (1/2 x 25 mg) PO DAILY multivitamin 1 tab PO DAILY pregabalin 200 mg PO BID 30 days topiramate 100 mg PO BEDTIME HPI Comments Details: 08/25/23--Jacqueline is here for urodynamics. CMG parameters detailed below. Interpretation: During the filling phase there was normal sensation, sensory urgency was noted, Findings consistent with detrusor overactivity. EMG- Appropriate changes in the waveforms were noted through out the study. There was a decrease in the EMG activity during the voiding c/w normal function of the pelvic floor. Plan: Toviaz 8 mg daily 07/31/23--Jacqueline is a very pleasant 57-year-old female She has a past medical history of neuropathy, nephrolithiasis, GERD, anxiety, depression, overactive bladder, Bettye's disease, and lumbar disc degeneration. She presents to the office today as a new patient for urinary leakage. In discussion with the patient today she reports at the age of [age] years old having a dilation of her urethra as well as having a [place] sl[place] [address] Oconnor. She reports having been on oxybutynin over the last 10-15 years with dosages ranging between 5-10 mg daily and feels this has been helpful for her urinary frequency and urgency however has been experiencing worsening urinary leakage upon standing. She reports utilizing 1-3 pads per day. [facility] Medical History Osteoarthritis Fibromyalgia Hypothyroid Panic disorder [episodic paroxysmal anxiety] 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 Generalized anxiety disorder COVID Cholelithiasis Neuropathy Nephrolithiasis GERD (gastroesophageal reflux disease) Anxiety and depression Overactive bladder Tachycardia Sleep apnea Obesity due to excess calories Bettye's disease Hypothyroidism Spondylosis of lumbar spine Degeneration, intervertebral disc, lumbosacral Disc degeneration, lumbar Surgical History Hx of colonoscopy History of esophagogastroduodenoscopy (EGD) Hx of cholecystectomy S/P laparoscopic sleeve gastrectomy History of eyelid surgery History of lumbar laminectomy History of cystoscopy History of endometrial ablation History of dental surgery Hx of dilation and curettage Hx of tubal ligation History of lumpectomy of both breasts History of bladder surgery Family History Mother Diabetes Uterine cancer Father Diabetes Sister Breast cancer Sister No problems noted. Brother No problems noted. Daughter No problems noted. Social History Household Members: Other Household Members Other:: 2 dogs and one cat Housing: Other Housing Other:: Mobile Home Are you a primary home care giver to a significant other at home: No Do you presently have visiting nurse or other home services: No Alcohol intake: current Alcohol intake frequency: a few times a month Comment: Legs weak at times Patient Tobacco Use Status: Former Tobacco user Quit Date: 2006 Tobacco use type: Cigarette Cigarette Packs Per Day: 2.5 Cigarettes Per Day: 50.0 Years Smoked: 24 e-Cigarette/Vaping Use: Never Used Second Hand Smoke Exposure: No Substance Use Type: Marijuana Advance Directives Date on File: 08/26/21 service: No Current occupational status: disabled Current occupational exposures/hazards: No Cognitive needs: No Hearing needs: No Vision needs: No Office Procedures Urodynamic Studies Consent Discussed risk and benefit or proposed procedure with the patient. Information consent for procedure given to the patient. Discussed technical aspects, risks, benefits and alternatives in full. Addressed all of the patient's questions and concerns regarding the procedure. The patient demonstrated knowledge and understanding. They wish to proceed with this procedure. Preparation The patient was prepped in the usual manner. A gas mask assembler was present and in the room. Genitalia was prepped with betadine solution in a sterile manner. Procedure Complex Uroflow Complex uroflow performed by: Mc Hung Maximum urinary flow rate (mL/second): 19 Voiding time (seconds): 42 Voided volume (mL): 46 Residual urine (mL): 0 Cystometrogram Vaginal/rectal catheter type: rectal First sensation at (mL): 23 mL First desire at (mL): 242 mL Strong desire to void occured at (mL):314 mL Strong desire detrussor pressure (cm H2O): 29 Maximum fill (mL): 317 mL Voided Volume (mL): 300 mL Voided with max detrussor pressure of (cm H2O): 9.3 Maximum flow rate (mL/second): 22 mL/s Prep: The patient was prepped in the usual manner. A gas mask assembler was present and in the room. Genitalia was prepped with betadine solution in a sterile manner. 68510-Zswzqxqrvbivft w/ SAVINGS COUNSELOR 73218-Beelilg-Efjwrdxzfesn First 90022-Fgqb/Urinary Muscle Study 33534-Wfjuq-Qpnrsubzu Pressure Test Procedure code (CPT) selection complete Office Meds naproxen 500 mg tablet Performing Provider: Mc Hung MD [facility] Administered by: Eric Lemus LPN on 08/25/23 11:50 Dose Route Admin Location Dispensed Lot Number Expiration Date NDC General Labor 500 mg PO 1 tab ciprofloxacin HCl 500 mg tablet Performing Provider: Mc Hung MD [place] [facility] Administered by: Eric Lemus LPN on 08/25/23 11:50 Dose Route Admin Location Dispensed Lot Number Expiration Date NDC General Labor 500 mg PO 1 tab Assessment & Plan Assessment & Plan (1) Detrusor overactivity: Code(s): N32.81 - Overactive bladder Category: Medical Plan Toviaz 8mg daily Orders: Orders AMB Urodynamics Studies 08/25/23 R32 - Unspecified urinary incontinence, Z87.898 - Personal history of other specified conditions, R35.0 - Frequency of micturition Medications: New fesoterodine ER (Toviaz) 8 mg PO DAILY 30 tabs 1RF Patient Instructions: The patient had an opportunity to ask questions regarding treatment plan. The patient expressed understanding and agreement with the above treatment plan. The patient is aware they should contact our office by phone for worsening of their current condition or the appearance of new symptoms. Compliance is encouraged with any medications and followup testing that is ordered. It is a privilege to be allowed the opportunity to participate in the urologic care of your patient. If you have any questions or concerns regarding treatment for the above conditions please do not hesitate to contact me. The office tele phone contact is [phone]. This note is constructed in part using voice recognition software. While every effort has been made to ensure accuracy segment assembler errors may have been included. Yours sincerely, Mc Hung MD Coding Level of Care Code Procedure Only Diagnoses Detrusor overactivity N32.81 CPT Codes Urodynamic Studies - CPT: 09749-Yqdvdwchrtvesq w/ SAVINGS COUNSELOR ([id number]) Urodynamic Studies - CPT: 65895-Gxpjqaf-Lyqhkbkcfeer First ([id number]) Urodynamic Studies - CPT: 12797-Ibjr/Urinary Muscle Study ([id number]) Urodynamic Studies - CPT: 02240-Zupgc-Ykjvbchuq Pressure Test ([id number])
== END 2023-08-25 12:26 | disposition home or self-care (01) ==
PROVIDERS: PCP Family Medicine; Visit Provider Urology
DX: R32 Unspecified urinary incontinence (principal); R35.0 Frequency of micturition; Z87.898 Personal history of other specified conditions
CPT/HCPCS: 51728; 51741; 51784; 51797

== ENCOUNTER → 2023-08-25 10:29 | Outpatient (BNVA) | payer MEDICARE, MEDICAID, SELFPAY | PROVIDERS: PCP Family Medicine; Visit Provider Urology | DX: R32 Unspecified urinary incontinence (principal); R35.0 Frequency of micturition; Z87.898 Personal history of other specified conditions | CPT/HCPCS: 51728; 51741; 51784; 51797 ==

== ENCOUNTER 2023-08-30 11:53 | Outpatient (AMB) | payer MEDICARE, MEDICAID, SELFPAY ==
[2023-08-30 12:03] VITALS: BP 120/66; PULSE 69; O2SAT 100; BMI 30.5
--- NOTE | 2023-08-30 12:03 | MHC.PC.OV ---
Vital Signs 08/30/23 12:03 Height 5 ft 5 in Weight 183 lb 6 oz BMI 30.5 BP 120/66 Blood Pressure Location Lt brachial Position Sitting Pulse 69 Pulse Source Pulse Oximeter Pulse Oximetry (%) 100 Oxygen Delivery Method Room Air Intake Visit Reasons: CPE Intake Note: Patient is here for her physical today, and to follow up on labs. Allergies nickel Allergy (Severe, Verified 08/30/23 12:05) Anaphylaxis nitrofurantoin [From Macrodantin] Allergy (Severe, Verified 08/30/23 12:05) Anaphylaxis Sulfa (Sulfonamide Antibiotics) Allergy (Severe, Verified 08/30/23 12:05) Hives, Swelling clindamycin Allergy (Mild, Verified 08/30/23 12:05) Diarrhea Medication List - Last Reconciled 08/30/23 by Jaylen Rizvi MD bupropion HCl (Wellbutrin XL) 300 mg PO QAM diazepam 2.5 - 5 mg (0.5 - 1 x 5 mg) PO DAILY PRN duloxetine 120 mg (2 x 60 mg) PO DAILY estradiol 0.01%(0.1mg/gram) pea-sized to urethra daily; times one month then 3 times per week there after 30 days famotidine (Zantac-360 (famotidine)) 20 mg PO BEDTIME fesoterodine ER (Toviaz) 8 mg PO DAILY levothyroxine 25 mcg PO DAILY 90 days metoprolol succinate ER 12.5 mg (1/2 x 25 mg) PO DAILY multivitamin 1 tab PO DAILY pregabalin 200 mg PO BID 30 days topiramate 100 mg PO BEDTIME Tobacco use date assessed: 08/30/23 Dental Screening Dental Screen Date: 08/30/23 Did you have a dental visit in the last 12 months?: Yes Did you have a dental problem in the last 6 months where you did not have access to dental care?: No Was dental information given to patient?: Patient has dentist HPI CPE HPI Details 58 y/o female presents for an extended exam with f/u labs and health maintenance. Labs were drawn 08/22/23. Reviewed labs with pt. Triglycerides 123. TC 208. LDL 112. HDL 72. Pt reports some GERD. Pt reports some back pain. PFSH Medical History Osteoarthritis Fibromyalgia Hypothyroid Panic disorder [episodic paroxysmal anxiety] 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 Generalized anxiety disorder COVID Cholelithiasis Neuropathy Nephrolithiasis GERD (gastroesophageal reflux disease) Anxiety and depression Overactive bladder Tachycardia Sleep apnea Obesity due to excess calories Bettye's disease Hypothyroidism Spondylosis of lumbar spine Degeneration, intervertebral disc, lumbosacral Disc degeneration, lumbar Surgical History Hx of colonoscopy History of esophagogastroduodenoscopy (EGD) Hx of cholecystectomy S/P laparoscopic sleeve gastrectomy History of eyelid surgery History of lumbar laminectomy History of cystoscopy History of endometrial ablation History of dental surgery Hx of dilation and curettage Hx of tubal ligation History of lumpectomy of both breasts History of bladder surgery Family History Mother Diabetes Uterine cancer Father Diabetes Sister Breast cancer Sister No problems noted. Brother No problems noted. Daughter No problems noted. Social History Household Members: Other Household Members Other:: 2 dogs and one cat Housing: Other Housing Other:: Mobile Home Are you a primary child care aide to a significant other at home: No Do you presently have visiting nurse or other home services: No Alcohol intake: current Alcohol intake frequency: a few times a month Comment: Legs weak at times Patient Tobacco Use Status: Former Tobacco user Quit Date: 2006 Tobacco use type: Cigarette Cigarette Packs Per Day: 2.5 Cigarettes Per Day: 50.0 Years Smoked: 24 e-Cigarette/Vaping Use: Never Used Second Hand Smoke Exposure: No Substance Use Type: Marijuana Advance Directives Date on File: 08/26/21 service: No Current occupational status: disabled Current occupational exposures/hazards: No Cognitive needs: No Hearing needs: No Vision needs: No Questionnaire PHQ-9 Over the last 2 weeks, how often have you been bothered by any of the following problems? 1. Little interest or pleasure in doing things: several days 2. Feeling down, depressed, or hopeless: several days 3. Trouble falling or staying asleep, or sleeping too much: several days 4. Feeling tired or having little energy: nearly every day 5. Poor appetite or overeating: more than half the days 6. Feeling bad about yourself - or that you are a failure or have let yourself or your family down: several days 7. Trouble concentrating on things, such as reading the newspaper or watching television: several days 8. Moving or speaking so slowly that other people could have noticed. Or the opposite - being so fidgety or restless that you have been moving around a lot more than usual: more than half the days 9. Thoughts that you would be better off or of hurting yourself in some way: not at all Total score: 12 Depression Screening Interpretation: Positive Depression Screening Done: Yes 54451 - PHQ-9 Billing: Yes Source: Developed by Drs. Rosalino Huang, Johanna Tyler, José Ambriz and colleagues, with an educational yolis from [employer]. Thrive Questionnaire Date Thrive assessed: 08/30/23 I am a: Patient What is your living situation today?: I have a steady place to live Within the past 12 months, did the food you bought not last and you didn't have the money to get more?: Never true Within the past 12 months, did you worry whether your food would run out before you got money to buy more?: Never true Do you have trouble paying for medicines?: No Do you have trouble getting transportation to medical appointments?: No Do you have trouble paying your heating and electricity bill?: No Do you have trouble taking care of your child, family member or friend?: No Do you have trouble with day-to-day activities such as bathing, preparing meals, shopping, managing finances, etc.?: No Are you currently unemployed and looking for a job?: No Are you interested in more education?: No THRIVE Score: 0 AUDIT C Alcohol Use Questionnaire (AUDIT-C) 1. How often do you have a drink containing alcohol?: 2-3 times a week 2. How many drinks containing alcohol do you have on a typical day when you are drinking?: 1 or 2 3. How often do you have six or more drinks on one occasion?: Never Total Score: 3 VINEET-7 AMB Questionnaire VINEET-7 Date VINEET - 7 assessed: 08/30/23 Feeling nervous, anxious, or on edge: 0 = Not at all Not being able to stop or control worryin = Not at all Worrying too much about different things: 0 = Not at all Trouble relaxin = Not at all Being so restless that it is hard to sit still: 0 = Not at all Becoming easily annoyed or irritable: 1 = Several days Feeling afraid as if something awful might happen: 0 = Not at all Total VINEET-7 score (0-4 normal; 5-9 mild; 10-14 moderate; 15-21 severe): 1 Source: Developed by Drs. Rosalino Huang, Johanna Tyler, José Ambriz and colleagues, with an educational yolis from [employer]. VINEET-7 Assessment Billing VINEET-7 Assessment Tool: VINEET-7 Assessment 67705 Review of Systems Const Denies chills, Denies fatigue, Denies fever(s), Denies headache(s) and Denies weakness Eyes Denies change in vision ENT Denies dizziness, Denies headache(s), Denies hearing loss, Denies nasal congestion, Denies sinus pain, Denies sinus pressure and Denies sore throat Card Denies chest pain, Denies lightheadedness, Denies dyspnea and Denies other (palpitations) Resp Denies cough, Denies dyspnea and Denies wheezing GI Denies abdominal pain, Denies melena, Denies hematochezia, Denies change in bowel habits, Denies dyspepsia and Denies nausea Denies hematuria and Denies dysuria Musc Denies abnormal gait, Denies myalgias, Denies arthralgias, Denies numbness and Denies tingling Skin/Breast Denies rash, Denies unusual bruising and Denies wounds Neuro Denies abnormal gait, Denies dizziness, Denies headache(s), Denies memory loss, Denies numbness, Denies Sensory deficit (Neuro), Denies tingling and Denies weakness Psych Denies anxiety, Denies depression and Denies memory loss Endo Denies cold intolerance, Denies fatigue, Denies heat intolerance, Denies polydipsia and Denies polyuria Mario/Lymph Denies easy bleeding and Denies easy bruising Aller/Immun Denies wheezing Physical exam (Primary Care) Vital Signs: Last Vital Signs Pulse 69 08/30/23 12:03 BP 120/66 08/30/23 12:03 Pulse Ox 100 08/30/23 12:03 Oxygen Delivery Method Room Air 08/30/23 12:03 BMI result Body Mass Index 30.5 Tobacco/Smoking Status: Tobacco use Status Tobacco use date assessed 08/30/23 08/30/23 12:14 Patient Tobacco Use Status Former Tobacco user 08/30/23 12:04 Tobacco use type Cigarette 08/30/23 12:04 e-Cigarette/Vaping Use Never Used 08/30/23 12:04 PHQ-9: PHQ-9 Score PHQ-9: Total score 12 08/30/23 12:18 Depression Screening Interpretation: Positive Thrive Assessment: Date of Thrive Assessment Date Thrive assessed 08/30/23 08/30/23 12:14 Const General: no acute distress, well developed, alert and awake Nutritional Appearance: well nourished Orientation/consciousness: patient oriented x3 HENMT Head: Yes normocephalic and Yes atraumatic Ears: hearing grossly normal bilaterally and TM's normal bilaterally General nose exam: Normal external nose present and Normal nares present Mouth: Normal oral and palatal mucosa present and moist mucous membranes Teeth and gingiva: dentition normal Throat: Yes posterior oropharynx normal Eyes General: appearance normal, both eyes and all related structures Pupils: Equal, round and reactive pupils present and Pupil accommodation reflex normal EOM: EOMs intact bilaterally Neck Neck: Yes normal visual inspection, Yes no lymphadenopathy and Yes trachea midline Thyroid: Thyroid normal Carotids: no bruits Lymphatic: no lymphadenopathy noted Chest Chest palpation & inspection: normal inspection of the chest Resp Effort & Inspection: normal respiratory effort Auscultation: clear to auscultation bilaterally Cardio Rate: regular rate Rhythm: regular rhythm Heart sounds: S1 normal heart sound present, S2 normal heart sound present, no gallops, no murmurs and no rubs Bruits: no abdominal aortic bruits and no carotid bruits GI Palpation (GI): No Abdominal aortic bruit present, Soft to palpation, nontender, No hepatosplenomegaly present and No Rebound tenderness present Auscultation: normal bowel sounds General: Yes no CVA tenderness Back/Spine/Pelvis Back: no CVA tenderness Cervical Spine: cervical ROM normal and No Cervical spine tenderness Thoracic/Lumbar Spine: thoraco-lumbar ROM normal, No pain with thoraco-lumbar ROM, No thoracic spinal tenderness and No lumbar spinal tenderness Skin Lesions: no lesions Rashes: no rashes Trauma: no lacerations or abrasions Wounds: no wounds Nails: normal Neuro General: patient oriented x3 Cranial nerves: Yes Equal, round and reactive pupils present Cognition (Neuro): normal cognition Gait exam (Neuro): Normal gait present Motor exam (neuro): 5/5 motor strength present throughout Sensory Exam: No Sensory deficit (Neuro) Deep tendon reflexes (DTR's): Right patellar reflex intensity grade: 2+ and Left patellar reflex intensity grade: 2+ Extrem General: Yes normal to inspection and No edema Psych Appearance: grossly normal Affect: normal affect Attitude: cooperative Thought process: Normal thought process present Assessment and Plan Assessment & Plan (1) Depression with anxiety: Code(s): F41.8 - Other specified anxiety disorders Plan: Anxiety?and?depression?with?chronic?fibromyalgia?pain She?is?on?duloxetine?and?bupropion?as?well?as?topical?medications. 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 Qualified Code(s): E03.8 - Other specified hypothyroidism; E06.3 - Autoimmune thyroiditis Plan: Thyroid hormone labs are wnl Continue?levothyroxine?as?prescribed (4) Hyperlipidemia: Code(s): E78.5 - Hyperlipidemia, unspecified Plan: Yet?her?HDL?ratios?are?good.??No?medications?needed (5) Screening for breast cancer: Code(s): Z12.39 - Encounter for other screening for malignant neoplasm of breast Plan: Mammogram?shows?no?evidence?of?malignancy Continue?annual?screening-she?is?managed?by?her?optical brightener maker helper,?DrPreet?Anastasia (6) Screening for cervical cancer: Code(s): Z12.4 - Encounter for screening for malignant neoplasm of cervix Plan: Managed?by?her?optical brightener maker helper Up-to-date (7) Screening for colon cancer: Code(s): Z12.11 - Encounter for screening for malignant neoplasm of colon Plan: Followed?by?Howie (8) Back pain: Code(s): M54.9 - Dorsalgia, unspecified Plan: Ongoing?back?pain?and?fibromyalgia Continue?pregabalin Encouraged?exercise Use?ice/heat?and?topicals (9) Adult general medical exam: Code(s): Z00.00 - Encounter for general adult medical examination without abnormal findings Plan: 58-year-old?female?presents?for?an?extended?exam Encouraged?healthy?diet?with?active?lifestyle?and?exercise?as?tolerated Medications: New famotidine 20 mg PO DAILY 30 days 30 tabs 2RF Refilled fesoterodine ER (Toviaz) 8 mg PO DAILY 30 tabs 1RF Coding Level of Care Code Est Pt Level 4 (65223) Diagnoses Depression with anxiety F41.8 Fibromyalgia M79.7 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
== END 2023-08-30 12:43 | disposition home or self-care (01) ==
PROVIDERS: PCP Family Medicine; Visit Provider Family Medicine
DX: Z00.00 Encounter for general adult medical examination without abnormal findings (principal); F41.8 Other specified anxiety disorders; M79.7 Fibromyalgia; E03.8 Other specified hypothyroidism; E06.3 Autoimmune thyroiditis; E78.5 Hyperlipidemia, unspecified; Z12.39 Encounter for other screening for malignant neoplasm of breast; Z12.11 Encounter for screening for malignant neoplasm of colon; M54.9 Dorsalgia, unspecified
CPT/HCPCS: 99396

== ENCOUNTER 2023-10-18 12:36 | Outpatient (REF) | payer MEDICARE, MEDICAID, SELFPAY ==
--- NOTE | ~2023-10-18 | US_ITS ---
EXAMINATION: US RETROPERITONEAL COMPLETE (RENAL) CLINICAL INFORMATION: Unspecified urinary incontinence. COMPARISON: Ultrasound abdomen complete 07/05/2021. TECHNIQUE: Real-time imaging of the kidneys and bladder. FINDINGS: RIGHT KIDNEY: 12.0 x 4.2 x 5.7 cm (SAG x AP x TRV). The kidney is normal in size, contour, and echogenicity. Renal cortical thickness is normal. To stones measuring 4 mm and 4 x 7 mm in the lower pole. No focal parenchymal lesions or hydronephrosis. LEFT KIDNEY: 11.2 x 5.1 x 5.1 cm (SAG x AP x TRV). The kidney is normal in size, contour, and echogenicity. Renal cortical thickness is normal. Small stone measuring 3 mm in the midpole No focal parenchymal lesions or hydronephrosis. BLADDER: Patient unable to fill bladder. Partially distended. Bilateral ureteral jets are demonstrated. Prevoid bladder volume is 114 mL. Postvoid bladder volume was not obtained. US/US retroperitoneal comp IMPRESSION: Bilateral nonobstructing renal stones. Patient unable to fill bladder and bladder not optimally evaluated.
== END 2023-10-18 12:37 | disposition home or self-care (01) ==
LOC: HO.US 12:36
PROVIDERS: PCP Family Medicine; Visit Provider Nurse Practitioner Family
DX: R32 Unspecified urinary incontinence (principal); Z87.898 Personal history of other specified conditions
CPT/HCPCS: 76770

== ENCOUNTER 2023-10-26 11:57 | Outpatient (AMB) | payer MEDICARE, MEDICAID, SELFPAY ==
--- NOTE | 2023-10-26 12:01 | A.OFFVIS_ITS ---
Intake Visit Reasons: 7w follow up Intake Note: Patient presents for follow up visit for Urinary Frequency Urology Medications: Oxybutinin Blood Thinner: None Allergies to antibiotics: Nitrofurantoin, Sulfa, Clyndamycin PVR:0ml Assistant Loan Processor Required: No Accompanied by: Self / Same As Patient Allergies nickel Allergy (Severe, Verified 10/26/23 12:21) Anaphylaxis nitrofurantoin [From Macrodantin] Allergy (Severe, Verified 10/26/23 12:21) Anaphylaxis Sulfa (Sulfonamide Antibiotics) Allergy (Severe, Verified 10/26/23 12:21) Hives, Swelling clindamycin Allergy (Mild, Verified 10/26/23 12:21) Diarrhea fesoterodine [From Toviaz] Allergy (Unknown, Verified 10/26/23 12:32) Flushing Medication List - Last Reconciled 10/26/23 by RIN Gillespie-DAHIANA bupropion HCl XL (Wellbutrin XL) 300 mg PO QAM diazepam 2.5 - 5 mg (0.5 - 1 x 5 mg) PO DAILY PRN duloxetine 120 mg (2 x 60 mg) PO DAILY estradiol 0.01%(0.1mg/gram) pea-sized to urethra daily; times one month then 3 times per week there after 30 days famotidine 20 mg PO DAILY 30 days famotidine (Zantac-360 (famotidine)) 20 mg PO BEDTIME levothyroxine 25 mcg PO DAILY 90 days metoprolol succinate ER 12.5 mg (1/2 x 25 mg) PO DAILY multivitamin 1 tab PO DAILY pregabalin 200 mg PO BID 30 days topiramate 100 mg PO BEDTIME vibegron (Gemtesa) 75 mg PO DAILY 30 days HPI Comments Details: Jacqueline is a 58-year-old female patient of Dr. Rizvi.. She has a past medical history of neuropathy, nephrolithiasis, GERD, anxiety, depression, overactive bladder, Bettye's disease, and lumbar disc degeneration. She presents to the office today for follow-up of her urinary leakage. Of note, during last office visit approximately 2 months ago patient underwent in office urodynamics with Dr. Eliazar Bourne that noted Interpretation: During the filling phase there was normal sensation, sensory urgency was noted, Findings consistent with detrusor overactivity. EMG- Appropriate changes in the waveforms were noted through out the study. There was a decrease in the EMG activity during the voiding c/w normal function of the pelvic floor. Plan: Toviaz 8 mg daily In discussion with the patient today she reports having trialed Toviaz for less than a week as she was experiencing facial flushing with question of facial edema. She reports following up with her PCP at which time her oxybutynin was increase to 10 mg daily. She reports she continues with episodes of urinary frequency, urinary urgency, and urinary leakage. She has a history at the age of [age] years old having a dilation of her urethra as well as having [place] [address] Oconnor. She reports utilizing 1-3 pads per day. She describes having an air like bubble sensation at times when urinating. She also reports urinary hesitancy. She otherwise denies hematuria, nocturia, dysuria, foul-smelling urine, flank pain, fever, and or chills. In office urinalysis results reviewed with the patient today. PVR 0 mL. Discussed at length potential causes for lower urinary tract symptoms patient is experiencing. Recent retroperitoneal ultrasound results reviewed with the patient today. Bilateral kidneys with no lesions and or hydronephrosis noted. Bilateral non obstructing renal calculi noted. Right side with two 4 mm nonobstructing stones in the lower pole. Left kidney with 3 mm nonobstructing mid pole stone. Patient unable to fill bladder completely. Bladder is partially distended. Bilateral ureteral jets are demonstrated. She otherwise offers no other issues or concerns at this time. [facility] Medical History Osteoarthritis Fibromyalgia Hypothyroid Panic disorder [episodic paroxysmal anxiety] 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 Generalized anxiety disorder COVID Cholelithiasis Neuropathy Nephrolithiasis GERD (gastroesophageal reflux disease) Anxiety and depression Overactive bladder Tachycardia Sleep apnea Obesity due to excess calories Bettye's disease Hypothyroidism Spondylosis of lumbar spine Degeneration, intervertebral disc, lumbosacral Disc degeneration, lumbar Surgical History Hx of colonoscopy History of esophagogastroduodenoscopy (EGD) Hx of cholecystectomy S/P laparoscopic sleeve gastrectomy History of eyelid surgery History of lumbar laminectomy History of cystoscopy History of endometrial ablation History of dental surgery Hx of dilation and curettage Hx of tubal ligation History of lumpectomy of both breasts History of bladder surgery Family History Mother Diabetes Uterine cancer Father Diabetes Sister Breast cancer Sister No problems noted. Brother No problems noted. Daughter No problems noted. Social History Household Members: Other Household Members Other:: 2 dogs and one cat Housing: Other Housing Other:: Mobile Home Are you a primary healthcare applications analyst to a significant other at home: No Do you presently have visiting nurse or other home services: No Alcohol intake: current Alcohol intake frequency: a few times a month Comment: Legs weak at times Patient Tobacco Use Status: Former Tobacco user Tobacco use type: Cigarette Cigarette Packs Per Day: 2.5 Cigarettes Per Day: 50.0 Years Smoked: 24 e-Cigarette/Vaping Use: Never Used Second Hand Smoke Exposure: No Substance Use Type: Marijuana Advance Directives Date on File: 08/26/21 service: No Current occupational status: disabled Current occupational exposures/hazards: No Cognitive needs: No Hearing needs: No Vision needs: No Review of Systems Const Reports no additional complaints Eyes Reports no additional complaints ENT Reports no additional complaints Card Reports as per HPI Resp Reports as per HPI GI Reports as per HPI Reports as per HPI Musc Reports as per HPI Neuro Reports no additional complaints Psych Reports as per HPI Endo Reports as per HPI Physical Exam Const General: cooperative, healthy appearing, comfortable, no acute distress, well developed, alert and awake Orientation/consciousness: patient oriented x3 Limitations: no limitations HEENT Head: Yes normal to inspection, Yes normocephalic and Yes atraumatic Ears: hearing grossly normal bilaterally Eyes General: appearance normal, both eyes and all related structures Neck Neck: Yes normal visual inspection and Yes trachea midline Chest Chest palpation & inspection: normal inspection of the chest Resp Effort & Inspection: normal respiratory effort and able to speak in complete sentences Cardio Rate: regular rate GI Inspection: Yes normal to inspection General: Yes no CVA tenderness External Female Exam: normal external appearance and normal appearance of the urethra (Mild erythema and atrophy; as per HPI) Speculum Exam - Vagina: normal appearance of the vagina Back/Spine/Pelvis Back: no CVA tenderness Skin General skin exam: no rashes or lesions noted Neuro General: patient oriented x3 Extrem General: Yes normal to inspection Psych Appearance: grossly normal and well kempt Mental Status: mental status grossly normal Speech and movement: Normal speech and movement present and Clear speech present Affect: normal affect Attitude: cooperative Thought process: Normal thought process present Thought content: Normal thought content present Insight: Fair insight present (Psych) Judgement: Fair judgement present (Psych) Office Procedures Post Void Residual Post Residual Void Post Void Residual (PVR): 0 [id number] Void Residual by ultrasound Results AMB Urinalysis, Automated UA Leukoctes 0 Nadine/uL Last Edit by Aupix on 10/26/23 12:23 UA Nitrite Negative Last Edit by Aupix on 10/26/23 12:23 UA Urobilinogen 0.2 mg/dL Last Edit by Aupix on 10/26/23 12:23 UA Protein 0 mg/dL Last Edit by Aupix on 10/26/23 12:23 UA pH 7.5 Last Edit by Aupix on 10/26/23 12:23 UA Blood 0 Tim/uL Last Edit by Aupix on 10/26/23 12:23 UA Specific [place] 1.010 Last Edit by Aupix on 10/26/23 12:23 UA Ketone Negative Last Edit by Aupix on 10/26/23 12:23 UA Bilirubin 0 mg/dL Last Edit by Aupix on 10/26/23 12:23 UA Glucose 0 mg/dL Last Edit by Aupix on 10/26/23 12:23 Results Reviewed Results Reviewed: Laboratory Last Values Urine pH (Auto) 7.5 10/26/23 12:22 Specific [place] (Auto) 1.010 10/26/23 12:22 Urine Protein (Auto) 0 mg/dL 10/26/23 12:22 Glucose (UA)(Auto) 0 mg/dL 10/26/23 12:22 Urine Ketones (Auto) Negative 10/26/23 12:22 Urine Blood (Auto) 0 Tim/uL 10/26/23 12:22 Urine Nitrite (Auto) Negative 10/26/23 12:22 Urine Bilirubin (Auto) 0 mg/dL 10/26/23 12:22 Urine Urobilinogen (Auto) 0.2 mg/dL 10/26/23 12:22 Leukocyte Esterase (Auto) 0 Nadine/uL 10/26/23 12:22 Date of Service: 10/18/23 EXAMINATION: US RETROPERITONEAL COMPLETE (RENAL) FINDINGS: RIGHT KIDNEY: 12.0 x 4.2 x 5.7 cm (SAG x AP x TRV). The kidney is normal in size, contour, and echogenicity. Renal cortical thickness is normal. To stones measuring 4 mm and 4 x 7 mm in the lower pole. No focal parenchymal lesions or hydronephrosis. LEFT KIDNEY: 11.2 x 5.1 x 5.1 cm (SAG x AP x TRV). The kidney is normal in size, contour, and echogenicity. Renal cortical thickness is normal. Small stone measuring 3 mm in the midpole No focal parenchymal lesions or hydronephrosis. BLADDER: Patient unable to fill bladder. Partially distended. Bilateral ureteral jets are demonstrated. Prevoid bladder volume is 114 mL. Postvoid bladder volume was not obtained. IMPRESSION: Bilateral nonobstructing renal stones. Patient unable to fill bladder and bladder not optimally evaluated. Assessment & Plan Assessment & Plan (1) History of urinary hesitancy: Code(s): Z87.898 - Personal history of other specified conditions Category: Medical (2) Urinary leakage: Code(s): R32 - Unspecified urinary incontinence Category: Medical (3) Nephrolithiasis: Code(s): N20.0 - Calculus of kidney Category: Medical Plan In office urinalysis results reviewed with the patient today; as noted above. PVR 0 mL. Recent retroperitoneal ultrasound results reviewed with the patient today; as noted above. Stop oxybutynin Attempted to start tolterodine however this is not covered by insurance; insurance recommending trial of VESIcare or Gemtesa. Will trial Gemtesa 75mg daily. Continue Estrace cream as discussed and prescribed Start Estrace cream as discussed and prescribed. Information provided regarding pelvic floor exercises. Will continue with surveillance monitoring of nephrolithiasis. Discussed at length potential causes of urinary leakage as well as urinary hesitancy patient is experiencing. Discussed bladder triggers/irritants. Discussed, educated, and stressed the importance of drinking plenty of water daily. Follow-up in 1-3 months with PVR; or sooner with any issues, concerns, and or questions. Orders: Orders AMB Urinalysis Automated 10/26/23 Z13.9 - Encounter for screening, unspecified AMB Post Void Residual by ultrasound 10/26/23 Z87.898 - Personal history of other specified conditions Medications: New tolterodine ER 2 mg PO DAILY 30 days 30 caps 2RF R39.15 - Urgency of urination Discontinued oxybutynin chloride ER Discontinued Reason: Doctor's Order 10 mg PO DAILY 90 days 90 tabs 2RF Patient Instructions: The patient had an opportunity to ask questions regarding the treatment plan. All questions were answered. Physical exam, labs, and imaging were discussed and reviewed in detail. As well as risks, benefits, and discussion of treatment choices. No major barriers to understanding were identified. The patient expressed understanding and agreement with the above treatment plan. The patient was made aware they should contact our office by phone for worsening of their current condition, the appearance of new symptoms, or with any questions or concerns. Compliance is encouraged with any medications and follow up testing that is ordered. It is a privilege to be allowed the opportunity to participate in? your urological care.? Again, if you have any questions or concerns If you have any questions or concerns please do not hesitate to contact me. The office is [phone]. This note is constructed using voice recognition software. While every effort has been made to ensure accuracy pizza driver errors may have been included. Yours sincerely, MALISSA Gillespie Coding Level of Care Code Est Pt Level 4 (65090) Diagnoses History of urinary hesitancy Z87.898 Urinary leakage R32 Nephrolithiasis N20.0 CPT Codes Post Residual Void - PVR CPT Code: 33804-[id number] Void Residual by ultrasound ([id number])
== END 2023-10-26 12:33 | disposition home or self-care (01) ==
PROVIDERS: PCP Family Medicine; Visit Provider Nurse Practitioner Family
DX: Z87.898 Personal history of other specified conditions (principal); R32 Unspecified urinary incontinence; N20.0 Calculus of kidney
CPT/HCPCS: 99214

== ENCOUNTER → 2023-10-26 11:57 | Outpatient (BNVA) | payer MEDICARE, MEDICAID, SELFPAY | PROVIDERS: PCP Family Medicine; Visit Provider Nurse Practitioner Family | DX: R32 Unspecified urinary incontinence (principal); N20.0 Calculus of kidney; N32.81 Overactive bladder; Z87.898 Personal history of other specified conditions | CPT/HCPCS: 51798; 81003; 99212 ==

== ENCOUNTER 2023-12-06 11:22 | Outpatient (AMB) | payer MEDICARE, MEDICAID, SELFPAY ==
--- NOTE | 2023-12-06 11:25 | MHC.PC.OV ---
Vital Signs 12/06/23 11:26 Height 5 ft 5 in Weight 181 lb 4 oz BMI 30.2 BP 118/70 Blood Pressure Location Rt brachial Position Sitting Respiration 14 Pulse 71 Pulse Source Pulse Oximeter Temp 97.7 F Temp Source Temporal Artery Scan Pulse Oximetry (%) 98 Oxygen Delivery Method Room Air Intake Visit Reasons: f/u chronic conditions Wide Area Network Administrator Required: No Accompanied by: Self / Same As Patient Allergies nickel Allergy (Severe, Verified 12/06/23 11:31) Anaphylaxis nitrofurantoin [From Macrodantin] Allergy (Severe, Verified 12/06/23 11:31) Anaphylaxis Sulfa (Sulfonamide Antibiotics) Allergy (Severe, Verified 12/06/23 11:31) Hives, Swelling clindamycin Allergy (Mild, Verified 12/06/23 11:31) Diarrhea fesoterodine [From Toviaz] Allergy (Unknown, Verified 12/06/23 11:31) Flushing Medication List - Last Reconciled 12/06/23 by Jaylen Rizvi MD bupropion HCl XL (Wellbutrin XL) 300 mg PO QAM diazepam 2.5 - 5 mg (0.5 - 1 x 5 mg) PO DAILY PRN duloxetine 120 mg (2 x 60 mg) PO DAILY estradiol 0.01%(0.1mg/gram) pea-sized to urethra daily; times one month then 3 times per week there after 30 days famotidine 20 mg PO DAILY 30 days famotidine (Zantac-360 (famotidine)) 20 mg PO BEDTIME levothyroxine 25 mcg PO DAILY 90 days metoprolol succinate ER 12.5 mg (1/2 x 25 mg) PO DAILY multivitamin 1 tab PO DAILY pregabalin 200 mg PO BID 30 days topiramate 100 mg PO BEDTIME vibegron (Gemtesa) 75 mg PO DAILY 30 days Tobacco use date assessed: 08/30/23 Dental Screening Dental Screen Date: 08/30/23 HPI f/u chronic conditions HPI Details 58 y/o female presents to f/u chronic conditions. Following up on depression and fibromyalgia. She is prescribed pregabalin, duloxetine for fibromyalgia. Pt reports worsened mood today. She reports she has stopped seeing her therapist as she feels there isn't much to talk about. She continues seeing her psychiatrist. [facility] Medical History Osteoarthritis Fibromyalgia Hypothyroid Panic disorder [episodic paroxysmal anxiety] 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 Generalized anxiety disorder COVID Cholelithiasis Neuropathy Nephrolithiasis GERD (gastroesophageal reflux disease) Anxiety and depression Overactive bladder Tachycardia Sleep apnea Obesity due to excess calories Bettye's disease Hypothyroidism Spondylosis of lumbar spine Degeneration, intervertebral disc, lumbosacral Disc degeneration, lumbar Surgical History Hx of colonoscopy History of esophagogastroduodenoscopy (EGD) Hx of cholecystectomy S/P laparoscopic sleeve gastrectomy History of eyelid surgery History of lumbar laminectomy History of cystoscopy History of endometrial ablation History of dental surgery Hx of dilation and curettage Hx of tubal ligation History of lumpectomy of both breasts History of bladder surgery Family History Mother Diabetes Uterine cancer Father Diabetes Sister Breast cancer Sister No problems noted. Brother No problems noted. Daughter No problems noted. Social History (Reviewed 08/30/23 @ 12:06 by Tammy Sawyer [facility]) Household Members: Other Household Members Other:: 2 dogs and one cat Housing: Other Housing Other:: Mobile Home Are you a primary memory care program resident to a significant other at home: No Do you presently have visiting nurse or other home services: No Alcohol intake: current Alcohol intake frequency: a few times a month Comment: Legs weak at times Patient Tobacco Use Status: Former Tobacco user Tobacco use type: Cigarette Cigarette Packs Per Day: 2.5 Cigarettes Per Day: 50.0 Years Smoked: 24 Packs Per Year: 60 Packs per year/per ci.00 e-Cigarette/Vaping Use: Never Used Second Hand Smoke Exposure: No Substance Use Type: Marijuana Advance Directives Date on File: 08/26/21 service: No Current occupational status: disabled Current occupational exposures/hazards: No Cognitive needs: No Hearing needs: No Vision needs: No Questionnaire Thrive Questionnaire Date Thrive assessed: 08/30/23 VINEET-7 AMB Questionnaire VINEET-7 Date VINEET - 7 assessed: 08/30/23 Source: Developed by Drs. Rosalino Huang, Johanna Tyler, José Ambriz and colleagues, with an educational yolis from [employer]. Review of Systems Const Denies chills, Denies fatigue, Denies fever(s), Denies headache(s) and Denies weakness ENT Denies dizziness and Denies headache(s) Card Denies dyspnea Resp Denies cough, Denies dyspnea, Denies wheezing and Denies other (shortness of breath) Musc Denies numbness and Denies tingling Neuro Denies dizziness, Denies headache(s), Denies numbness, Denies tingling and Denies weakness Psych Reports anxiety and Reports depression Endo Denies fatigue Aller/Immun Denies wheezing Physical exam (Primary Care) Vital Signs: Last Vital Signs Temp 97.7 F 12/06/23 11:26 Pulse 71 12/06/23 11:26 Resp 14 12/06/23 11:26 BP 118/70 12/06/23 11:26 Pulse Ox 98 12/06/23 11:26 Oxygen Delivery Method Room Air 12/06/23 11:26 BMI result Body Mass Index 30.2 Tobacco/Smoking Status: Tobacco use Status Tobacco use date assessed 08/30/23 12/06/23 11:26 Patient Tobacco Use Status Former Tobacco user 12/06/23 11:26 Tobacco use type Cigarette 12/06/23 11:26 e-Cigarette/Vaping Use Never Used 12/06/23 11:26 Thrive Assessment: Date of Thrive Assessment Date Thrive assessed 08/30/23 12/06/23 11:26 Const General: well developed; No acute distress Nutritional Appearance: well nourished Orientation/consciousness: patient oriented x3 [facility] Head: Yes normocephalic and Yes atraumatic Eyes General: appearance normal, both eyes and all related structures Pupils: Equal, round and reactive pupils present EOM: EOMs intact bilaterally Resp Effort & Inspection: normal respiratory effort Neuro General: patient oriented x3 and gait normal Cranial nerves: Yes Equal, round and reactive pupils present Psych Affect: normal affect Assessment and Plan Assessment & Plan (1) Depression with anxiety: Code(s): F41.8 - Other specified anxiety disorders Plan: Patient?is?frustrated?with?interactions?with?her?neighbors. Advised?she?discuss?with?her?therapist?but?she?no?longer?sees?her?therapist. Advised?she?discuss?with?her?psychiatrist,??Sebastien?and?she?agrees?to?do?so?if?she?is?not?feeling?better?by?tomorrow. Today?she?plans?to?use?her?Valium?and?relax. Also?advise?she?back?in?touch?with?her?therapist (2) Fibromyalgia: Code(s): M79.7 - Fibromyalgia Plan: Continues?duloxetine?and?pregabalin. Has?not?been?exercising?as?much?and?I?recommended?that?she?increase?her?exercise?starting?tomorrow Patient?agrees (3) Obesity (BMI 30.0-34.9): Code(s): E66.9 - Obesity, unspecified Plan: Had?gained?some?weight?but?now?has?lost?a?few?lb. Encouraged?ongoing?weight?loss?and?exercise Coding Level of Care Code Est Pt Level 3 (17345) Diagnoses Depression with anxiety F41.8 Fibromyalgia M79.7 Obesity (BMI 30.0-34.9) E66.9
[2023-12-06 11:26] VITALS: BP 118/70; PULSE 71; RESP 14; TEMP 36.5; O2SAT 98; BMI 30.2
== END 2023-12-06 11:59 | disposition home or self-care (01) ==
PROVIDERS: PCP Family Medicine; Visit Provider Family Medicine
DX: F41.8 Other specified anxiety disorders (principal); M79.7 Fibromyalgia; E66.9 Obesity, unspecified; Z68.30 Body mass index [BMI] 30.0-30.9, adult
CPT/HCPCS: 99213

== ENCOUNTER 2023-12-26 11:04 | Outpatient (REF) | payer MEDICARE, MEDICAID, SELFPAY ==
[2023-12-26 12:20] LABS: MANUAL DIFF FLAG NO
[2023-12-26 12:50] LABS: Appearance Urine Clear; Color Urine Yellow; Glucose Urine UA Negative (Negative); Leukocyte Esterase Urine Negative (Negative); Nitrite Urine Negative (Negative); Specific Gravity - Urine <= 1.005 (1.005-1.025); Urine Blood Negative (Negative); Urine Ketones Negative (Negative); Urine Protein Negative (Neg-Trace)
[2023-12-26 12:53] LABS: Basophils Absolute Auto 0.1 X10*3/uL (0.0-0.2); Basophils Percent Auto 1.1 % (0-2); Eosinophils Absolute Auto 0.4 X10*3/uL (0.0-0.4); Eosinophils Percent Auto 7.3 % (0-4); Hematocrit 43.1 % (37.0-47.0); Hemoglobin 14.3 g/dl (12.0-16.0); Imm Gran Abs Auto 0.01 X10*3/uL (0.00-0.03); Imm Gran Pct Auto 0.2 % (0.0-0.4); Lymphocytes Absolute Auto 1.6 X10*3/uL (1.2-4.9); Mean Corpuscular HGB Conc 33.2 g/dl (31.0-35.0); Mean Corpuscular Hemoglobin 31.2 pg (27.0-33.0); Mean Corpuscular Volume 94.1 fL (80.0-98.0); Monocytes Absolute Auto 0.4 X10*3/uL (0.1-1.2); Neutrophils Absolute Auto 2.7 x10*3/uL (2.0-8.3); Neutrophils Percent Auto 52.4 % (45-73); Platelet Count 232 X10*3/uL (160-400); Red Blood Count 4.58 X10*6/uL (4.20-5.50); Red Cell Distribution Width 12.9 % (11.0-16.0); White Blood Count 5.2 X10*3/uL (4.8-10.8)
[2023-12-26 12:54] LABS: Basophils Absolute Auto 0.1 X10*3/uL (0.0-0.2); Basophils Percent Auto 1.4 % (0-2); Eosinophils Absolute Auto 0.4 X10*3/uL (0.0-0.4); Eosinophils Percent Auto 7.4 % (0-4); Hemoglobin 14.2 g/dl (12.0-16.0); Imm Gran Abs Auto 0.01 X10*3/uL (0.00-0.03); Imm Gran Pct Auto 0.2 % (0.0-0.4); Lymphocytes Absolute Auto 1.6 X10*3/uL (1.2-4.9); Lymphocytes Percent Auto 31.1 % (20-40); Mean Corpuscular Hemoglobin 30.9 pg (27.0-33.0); Mean Corpuscular Volume 93.7 fL (80.0-98.0); Mean Platelet Volume 9.8 fL (9.4-12.3); Monocytes Absolute Auto 0.4 X10*3/uL (0.1-1.2); Monocytes Percent Auto 8.3 % (2-11); Neutrophils Absolute Auto 2.7 x10*3/uL (2.0-8.3); Neutrophils Percent Auto 51.6 % (45-73); Platelet Count 233 X10*3/uL (160-400); Red Blood Count 4.59 X10*6/uL (4.20-5.50); Red Cell Distribution Width 12.9 % (11.0-16.0); White Blood Count 5.2 X10*3/uL (4.8-10.8)
[2023-12-26 13:18] LABS: Alanine Aminotransferase 12 U/L (0-31); Albumin Level 4.2 g/dL (3.5-5.0); Alkaline Phosphatase 101 U/L (39-117); Anion Gap 8 (12-20); Aspartate Amino Transferase 17 U/L (5-31); Bilirubin Total 0.5 mg/dL (0.0-1.0); Blood Urea Nitrogen 14 mg/dL (9-16); Calcium 9.3 mg/dL (8.4-10.2); Carbon Dioxide 28 mmol/L (22-29); Chloride 108 mmol/L (96-108); Estimated Glomerular Filt Rate > 60; Glucose Random 79 mg/dL (60-115); Potassium 3.6 mmol/L (3.3-5.1); Sodium 140 mmol/L (135-145)
[2023-12-26 13:24] LABS: Parathyroid Hormone Intact 55.3 pg/mL (8.7-77.1)
[2023-12-26 13:38] LABS: Vitamin D 25-OH Total 46.9 ng/mL (>30)
[2023-12-26 13:51] LABS: Folate 13.7 ng/mL (> or = 4.0); Vitamin B12 787 pg/mL (200-900)
[2023-12-29 02:23] LABS: Zinc 84 mcg/dL (60-130)
[2024-01-01 21:07] LABS: Vitamin A 63 mcg/dL (38-98)
[2024-01-04 13:49] LABS: Vitamin B1 37 nmol/L (8-30)
== END 2023-12-26 11:05 | disposition home or self-care (01) ==
LOC: HO.LAB 11:04
PROVIDERS: Physician Assistant Surgical; PCP Family Medicine; Visit Provider Psychiatry & Neurology Psychiatry
DX: Z00.00 Encounter for general adult medical examination without abnormal findings (principal); E53.8 Deficiency of other specified B group vitamins; E55.9 Vitamin D deficiency, unspecified; K91.2 Postsurgical malabsorption, not elsewhere classified; F33.9 Major depressive disorder, recurrent, unspecified; F41.1 Generalized anxiety disorder; F41.0 Panic disorder [episodic paroxysmal anxiety]; R41.0 Disorientation, unspecified; R10.9 Unspecified abdominal pain; Z90.3 Acquired absence of stomach [part of]
CPT/HCPCS: 36415; 80053; 81003; 82306; 82607; 82746; 83970; 84425; 84590; 84630; 85025; 99212

== ENCOUNTER 2023-12-26 11:04 | Outpatient (AMB) | payer MEDICARE, MEDICAID, SELFPAY ==
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
== END 2023-12-26 13:47 | disposition home or self-care (01) ==
LOC: HO.HOP 11:04
PROVIDERS: PCP Family Medicine; Visit Provider Psychiatry & Neurology Psychiatry
DX: F33.9 Major depressive disorder, recurrent, unspecified (principal); F41.1 Generalized anxiety disorder; F41.0 Panic disorder [episodic paroxysmal anxiety]; R41.0 Disorientation, unspecified
CPT/HCPCS: 90833; 99213

== ENCOUNTER 2023-12-27 11:35 | Outpatient (AMB) | payer MEDICARE, MEDICAID, SELFPAY ==
--- NOTE | 2023-12-27 11:41 | A.OFFVIS_ITS ---
Intake Visit Reasons: 2m/PVR Intake Note: Patient presents for 2m follow up visit for Urinary Frequency Urology Medications:estradiol,gemtesa Blood Thinner: None Allergies to antibiotics: Nitrofurantoin, Sulfa, Clyndamycin PVR:0ml's today's PVR:0ML'S Information Delivery Analyst Required: No Accompanied by: Self / Same As Patient Allergies nickel Allergy (Severe, Verified 12/27/23 13:07) Anaphylaxis nitrofurantoin [From Macrodantin] Allergy (Severe, Verified 12/27/23 13:07) Anaphylaxis Sulfa (Sulfonamide Antibiotics) Allergy (Severe, Verified 12/27/23 13:07) Hives, Swelling clindamycin Allergy (Mild, Verified 12/27/23 13:07) Diarrhea fesoterodine [From Toviaz] Allergy (Unknown, Verified 12/27/23 13:07) [place]ushing Medication List - Last Reconciled 12/27/23 by Che Quinteros [employer] SCREEN CUTTER- bupropion HCl SR 150 mg PO DAILY diazepam 2.5 - 5 mg (0.5 - 1 x 5 mg) PO DAILY PRN duloxetine 120 mg (2 x 60 mg) PO DAILY famotidine 20 mg PO DAILY 30 days levothyroxine 25 mcg PO DAILY 90 days metoprolol succinate ER 12.5 mg (1/2 x 25 mg) PO DAILY multivitamin 1 tab PO DAILY pregabalin 150 mg PO BID 30 days topiramate 100 mg PO BEDTIME vibegron (Gemtesa) 75 mg PO DAILY 30 days HPI Comments Details: Jacqueline is a pleasant 58-year-old female patient of Dr. Rizvi. She has a past medical history of neuropathy, nephrolithiasis, GERD, anxiety, depression, overactive bladder, Bettye's disease, and lumbar disc degeneration. She presents to the office today for follow-up of her urinary leakage. Of note, patient has undergone in office urodynamics that noted Interpretation: During the filling phase there was normal sensation, sensory urgency was noted, Findings consistent with detrusor overactivity. EMG- Appropriate changes in the waveforms were noted through out the study. There was a decrease in the EMG activity during the voiding c/w normal function of the pelvic floor. In discussion with the patient today she reports feeling Gemtesa 75mg daily has been more helpful in her lower urinary tract symptoms than previous urological medications such as Toviaz, oxybutynin, tolterodine and Myrbetriq. She reports she does continue with episodes of urinary frequency, urinary urgency, and urinary leakage however she feels they are manageable and less frequent than she had been previously experiencing. She has a history at the age of [age] years old having a dilation of her urethra as well as having a [place] [address] Oconnor. She reports utilizing 1-2 pads per day. She otherwise denies hematuria, nocturia, dysuria, foul-smelling urine, flank pain, fever, and or chills. In office urinalysis results reviewed with the patient today. PVR 0 mL. Discussed at length potential causes for lower urinary tract symptoms patient is experiencing. Previous workup has included Recent retroperitoneal ultrasound results reviewed with the patient today. Bilateral kidneys with no lesions and or hydronephrosis noted. Bilateral nonobstructing renal calculi noted. Right side with two 4 mm nonobstructing stones in the lower pole. Left kidney with 3 mm nonobstructing mid pole stone. Patient unable to fill bladder completely. Bladder is partially distended. Bilateral ureteral jets are demonstrated. She otherwise offers no other issues or concerns at this time. [facility] Medical History Osteoarthritis Fibromyalgia Hypothyroid Panic disorder [episodic paroxysmal anxiety] 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 Generalized anxiety disorder COVID Cholelithiasis Neuropathy Nephrolithiasis GERD (gastroesophageal reflux disease) Anxiety and depression Overactive bladder Tachycardia Sleep apnea Obesity due to excess calories Bettye's disease Hypothyroidism Spondylosis of lumbar spine Degeneration, intervertebral disc, lumbosacral Disc degeneration, lumbar Surgical History Hx of colonoscopy History of esophagogastroduodenoscopy (EGD) Hx of cholecystectomy S/P laparoscopic sleeve gastrectomy History of eyelid surgery History of lumbar laminectomy History of cystoscopy History of endometrial ablation History of dental surgery Hx of dilation and curettage Hx of tubal ligation History of lumpectomy of both breasts History of bladder surgery Family History Mother Diabetes Uterine cancer Father Diabetes Sister Breast cancer Sister No problems noted. Brother No problems noted. Daughter No problems noted. Social History Household Members: Other Household Members Other:: 2 dogs and one cat Housing: Other Housing Other:: Mobile Home Are you a primary field care advocate to a significant other at home: No Do you presently have visiting nurse or other home services: No Alcohol intake: current Alcohol intake frequency: a few times a month Comment: Legs weak at times Patient Tobacco Use Status: Former Tobacco user Tobacco use type: Cigarette Cigarette Packs Per Day: 2.5 Cigarettes Per Day: 50.0 Years Smoked: 24 e-Cigarette/Vaping Use: Never Used Second Hand Smoke Exposure: No Substance Use Type: Marijuana Advance Directives Date on File: 08/26/21 service: No Current occupational status: disabled Current occupational exposures/hazards: No Cognitive needs: No Hearing needs: No Vision needs: No Review of Systems Const Reports no additional complaints Eyes Reports no additional complaints ENT Reports no additional complaints Card Reports as per HPI Resp Reports as per HPI GI Reports as per HPI Reports as per HPI Musc Reports as per HPI Neuro Reports no additional complaints Psych Reports as per HPI Endo Reports as per HPI Physical Exam Const General: cooperative, healthy appearing, comfortable, no acute distress, well developed, alert and awake Orientation/consciousness: patient oriented x3 Limitations: no limitations HEENT Head: Yes normal to inspection, Yes normocephalic and Yes atraumatic Ears: hearing grossly normal bilaterally Eyes General: appearance normal, both eyes and all related structures Neck Neck: Yes normal visual inspection and Yes trachea midline Chest Chest palpation & inspection: normal inspection of the chest Resp Effort & Inspection: normal respiratory effort and able to speak in complete sentences Cardio Rate: regular rate GI Inspection: Yes normal to inspection General: Yes no CVA tenderness External Female Exam: normal external appearance and normal appearance of the urethra (Mild erythema and atrophy; as per HPI) Speculum Exam - Vagina: normal appearance of the vagina Back/Spine/Pelvis Back: no CVA tenderness Skin General skin exam: no rashes or lesions noted Neuro General: patient oriented x3 Extrem General: Yes normal to inspection Psych Appearance: grossly normal and well kempt Mental Status: mental status grossly normal Speech and movement: Normal speech and movement present and Clear speech present Affect: normal affect Attitude: cooperative Thought process: Normal thought process present Thought content: Normal thought content present Insight: Fair insight present (Psych) Judgement: Fair judgement present (Psych) Office Procedures Post Void Residual Post Residual Void Post Void Residual (PVR): 0 [id number] Void Residual by ultrasound Results AMB Urinalysis, Automated UA Leukoctes 0 Nadine/uL Last Edit by RUPALI Downs on 12/27/23 11:55 UA Nitrite Negative Last Edit by Magda Evans [facility] on 12/27/23 11:55 UA Urobilinogen 0.2 mg/dL Last Edit by Magda Evans [facility] on 12/27/23 11:5 5 UA Protein 0 mg/dL Last Edit by Magda Evans [facility] on 12/27/23 11:55 UA pH 7.0 Last Edit by Magda Evans [facility] on 12/27/23 11:55 UA Blood 0 Tim/uL Last Edit by Magda Evans [facility] on 12/27/23 11:55 UA Specific [place] 1.010 Last Edit by Magda Evans [facility] on 12/27/23 11: 55 UA Ketone Negative Last Edit by Magda Evans [facility] on 12/27/23 11:55 UA Bilirubin 0 mg/dL Last Edit by Magda Evans [facility] on 12/27/23 11:55 UA Glucose 0 mg/dL Last Edit by Magda Evans [facility] on 12/27/23 11:55 Results Reviewed Results Reviewed: Laboratory Last Values Urine pH (Auto) 7.0 12/27/23 11:53 Specific [place] (Auto) 1.010 12/27/23 11:53 Urine Protein (Auto) 0 mg/dL 12/27/23 11:53 Glucose (UA)(Auto) 0 mg/dL 12/27/23 11:53 Urine Ketones (Auto) Negative 12/27/23 11:53 Urine Blood (Auto) 0 Tim/uL 12/27/23 11:53 Urine Nitrite (Auto) Negative 12/27/23 11:53 Urine Bilirubin (Auto) 0 mg/dL 12/27/23 11:53 Urine Urobilinogen (Auto) 0.2 mg/dL 12/27/23 11:53 Leukocyte Esterase (Auto) 0 Nadine/uL 12/27/23 11:53 Assessment & Plan Assessment & Plan (1) History of urinary hesitancy: Code(s): Z87.898 - Personal history of other specified conditions Category: Medical (2) Urinary leakage: Code(s): R32 - Unspecified urinary incontinence Category: Medical (3) Nephrolithiasis: Code(s): N20.0 - Calculus of kidney Category: Medical Plan In office urinalysis results reviewed with the patient today; as noted above. PVR 0 mL. Recent retroperitoneal ultrasound results reviewed with the patient today; as noted above. Continue Gemtesa 75mg daily. Continue Estrace cream as discussed and prescribed Information provided regarding pelvic floor exercises; discussed pelvic floor therapy. Will continue with surveillance monitoring of nephrolithiasis. Discussed at length potential causes of urinary leakage as well as urinary hesitancy patient is experiencing. Discussed bladder triggers/irritants. Discussed, educated, and stressed the importance of drinking plenty of water daily. Follow-up in 6 months with PVR; or sooner with any issues, concerns, and or questions. Orders: Orders AMB Urinalysis Automated Today Z13.9 - Encounter for screening, unspecified Patient Instructions: The patient had an opportunity to ask questions regarding the treatment plan. All questions were answered. Physical exam, labs, and imaging were discussed and reviewed in detail. As well as risks, benefits, and discussion of treatment choices. No major barriers to understanding were identified. The patient expressed understanding and agreement with the above treatment plan. The patient was made aware they should contact our office by phone for worsening of their current condition, the appearance of new symptoms, or with any questions or concerns. Compliance is encouraged with any medications and follow up testing that is ordered. It is a privilege to be allowed the opportunity to participate in? your urological care.? Again, if you have any questions or concerns If you have any questions or concerns please do not hesitate to contact me. The office is [phone]. This note is constructed using voice recognition software. While every effort has been made to ensure accuracy nozzle and sleeve worker errors may have been included. Yours sincerely, MALISSA Gillespie Coding Level of Care Code Est Pt Level 3 (74536) Complex EM visit Add On G2211 Diagnoses History of urinary hesitancy Z87.898 Urinary leakage R32 Nephrolithiasis N20.0 CPT Codes Post Residual Void - PVR CPT Code: 21821-Baya Void Residual by ultrasound ([id number])
== END 2023-12-27 12:21 | disposition home or self-care (01) ==
PROVIDERS: PCP Family Medicine; Visit Provider Nurse Practitioner Family
DX: Z87.898 Personal history of other specified conditions (principal); R32 Unspecified urinary incontinence; N20.0 Calculus of kidney; Z13.9 Encounter for screening, unspecified
CPT/HCPCS: 99213; G2211

== ENCOUNTER → 2023-12-27 11:35 | Outpatient (BNVA) | payer MEDICARE, MEDICAID, SELFPAY | PROVIDERS: PCP Family Medicine; Visit Provider Nurse Practitioner Family | DX: N20.0 Calculus of kidney (principal); R32 Unspecified urinary incontinence; Z87.898 Personal history of other specified conditions | CPT/HCPCS: 51798; 81003; 99212 ==

== ENCOUNTER 2024-01-18 10:35 | Outpatient (AMB) | payer MEDICARE, MEDICAID, SELFPAY ==
[2024-01-18 10:48] VITALS: BP 120/82; PULSE 84; BMI 30.8
--- NOTE | 2024-01-18 10:48 | A.OFFVIS_ITS ---
Vital Signs 01/18/24 10:48 Height 5 ft 5 in Weight 185 lb 3.013 oz BMI 30.8 BP 120/82 Blood Pressure Location Lt brachial Position Sitting Pulse 84 Intake Visit Reasons: 1 yr f/up Lighting Specialist Required: No Accompanied by: Self / Same As Patient Allergies nickel Allergy (Severe, Verified 12/27/23 13:07) Anaphylaxis nitrofurantoin [From Macrodantin] Allergy (Severe, Verified 12/27/23 13:07) Anaphylaxis Sulfa (Sulfonamide Antibiotics) Allergy (Severe, Verified 12/27/23 13:07) Hives, Swelling clindamycin Allergy (Mild, Verified 12/27/23 13:07) Diarrhea fesoterodine [From Toviaz] Allergy (Unknown, Verified 12/27/23 13:07) [place] Medication List - Last Reconciled 01/18/24 by Stephen Jensen MD bupropion HCl SR 150 mg PO DAILY diazepam 2.5 - 5 mg (0.5 - 1 x 5 mg) PO DAILY PRN duloxetine 120 mg (2 x 60 mg) PO DAILY famotidine 20 mg PO DAILY 30 days levothyroxine 25 mcg PO DAILY 90 days metoprolol succinate ER 12.5 mg (1/2 x 25 mg) PO DAILY multivitamin 1 tab PO DAILY pregabalin 150 mg PO BID 30 days topiramate 100 mg PO BEDTIME vibegron (Gemtesa) 75 mg PO DAILY 30 days HPI Comments Details: Jacqueline returns for follow-up. In the past, seen regarding palpitations. Per patient, she had heart rates as much as the 150s and went to [place] emergency room. At that point apparently it broke spontaneously and hence could not be captured. Subsequently, seen by Dr. Billings. It seems that ECHO was unremarkable at that time and 7 day monitor did not show any abnormalities apart from sinus tachycardia. Then put on low-dose beta-blockers. She states that as long she takes the beta-blockers she feels fine. Otherwise, for the most part no specific complaints like angina or or anything else. No known coronary disease myocardial infarction or cardiomyopathy. Otherwise, it seems that she has undergone sleeve gastrectomy and has lost lot of weight. [facility] Medical History Osteoarthritis Fibromyalgia Hypothyroid Panic disorder [episodic paroxysmal anxiety] 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 Generalized anxiety disorder COVID Cholelithiasis Neuropathy Nephrolithiasis GERD (gastroesophageal reflux disease) Anxiety and depression Overactive bladder Tachycardia Sleep apnea Obesity due to excess calories Bettye's disease Hypothyroidism Spondylosis of lumbar spine Degeneration, intervertebral disc, lumbosacral Disc degeneration, lumbar Surgical History Hx of colonoscopy History of esophagogastroduodenoscopy (EGD) Hx of cholecystectomy S/P laparoscopic sleeve gastrectomy History of eyelid surgery History of lumbar laminectomy History of cystoscopy History of endometrial ablation History of dental surgery Hx of dilation and curettage Hx of tubal ligation History of lumpectomy of both breasts History of bladder surgery Family History Mother Diabetes Uterine cancer Father Diabetes Sister Breast cancer Sister No problems noted. Brother No problems noted. Daughter No problems noted. Social History Household Members: Other Household Members Other:: 2 dogs and one cat Housing: Other Housing Other:: Mobile Home Are you a primary behavioral health care coordinator to a significant other at home: No Do you presently have visiting nurse or other home services: No Alcohol intake: current Alcohol intake frequency: a few times a month Comment: Legs weak at times Patient Tobacco Use Status: Former Tobacco user Tobacco use type: Cigarette Cigarette Packs Per Day: 2.5 Cigarettes Per Day: 50.0 Years Smoked: 24 e-Cigarette/Vaping Use: Never Used Second Hand Smoke Exposure: No Substance Use Type: Marijuana Advance Directives Date on File: 08/26/21 service: No Current occupational status: disabled Current occupational exposures/hazards: No Cognitive needs: No Hearing needs: No Vision needs: No Review of Systems Const Denies chills, Denies fatigue, Denies fever(s), Denies weight gain and Denies weight loss ENT Denies dizziness Card Denies chest pain, Denies leg edema, Denies lightheadedness, Denies palpitations, Denies dyspnea on exertion, Denies orthopnea and Denies other Resp Denies cough and Denies dyspnea on exertion GI Denies hematochezia and Denies change in stool character Musc Denies abnormal gait, Denies muscle weakness, Denies numbness, Denies radiating pain into limb and Denies tingling Neuro Denies abnormal gait, Denies dizziness, Denies numbness and Denies tingling Endo Denies fatigue and Denies palpitations Physical Exam Vital Signs: Last Vital Signs Pulse 84 01/18/24 10:48 BP 120/82 01/18/24 10:48 BMI result Body Mass Index 30.8 Const General: comfortable and no acute distress Orientation/consciousness: patient oriented x3 HEENT Other: Unremarkable Head: Yes normal to inspection Neck Neck: Yes normal visual inspection Chest Chest palpation & inspection: normal inspection of the chest Resp Auscultation: clear to auscultation bilaterally Cardio Palpation: normal PMI Heart sounds: S1 normal heart sound present, S2 normal heart sound present, no gallops, no murmurs and no rubs GI Palpation (GI): Soft to palpation Back/Spine/Pelvis Other: unremarkable Skin General skin exam: no rashes or lesions noted Neuro General: patient oriented x3 Extrem General: Yes normal to inspection Psych Mental Status: mental status grossly normal Office Procedures EKG Details: EKG with underlying sinus rhythm at 84/Min; slight nonspecific ST-T changes in the inferior and anterolateral [place]. [id number], Complete Assessment & Plan Assessment & Plan (1) Palpitations: Code(s): R00.2 - Palpitations Category: Medical Plan Baseline EKG shows slight nonspecific ST-T changes. Echocardiogram with preserved LVEF at 55-60% and no valvular abnormalities. Borderline dilated ascending aortic size at 3.8 cm. In the Holter monitor, underlying rhythm is sinus with sinus tachycardia but otherwise unremarkable. As she feels comfortable beta-blockers, continue that. With regard to the mild ascending aortic dilatation, we can recheck that before next appointment. Orders: Orders CA echo transthoracic complete 1 Year I77.89 - Other specified disorders of arteries and arterioles Coding Level of Care Code Est Pt Level 3 (29293) Diagnoses Palpitations R00.2 CPT Codes EKG - CPT: 55238-[id number], Complete ([id number])
== END 2024-01-18 11:11 | disposition home or self-care (01) ==
PROVIDERS: PCP Family Medicine; Visit Provider Internal Medicine
DX: R00.2 Palpitations (principal)
CPT/HCPCS: 93010; 99213

== ENCOUNTER → 2024-01-18 10:35 | Outpatient (BNVA) | payer MEDICARE, MEDICAID, SELFPAY | PROVIDERS: PCP Family Medicine; Visit Provider Internal Medicine | DX: F33.9 Major depressive disorder, recurrent, unspecified (principal); F41.1 Generalized anxiety disorder; F41.0 Panic disorder [episodic paroxysmal anxiety]; R00.2 Palpitations; I77.89 Other specified disorders of arteries and arterioles; Z87.891 Personal history of nicotine dependence | CPT/HCPCS: 93005; 99212 ==

== ENCOUNTER 2024-01-18 12:11 | Outpatient (AMB) | payer MEDICARE, MEDICAID, SELFPAY ==
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
== END 2024-01-18 13:09 | disposition home or self-care (01) ==
LOC: HO.HOP 12:11
PROVIDERS: PCP Family Medicine; Visit Provider Psychiatry & Neurology Psychiatry
DX: F33.9 Major depressive disorder, recurrent, unspecified (principal); F41.1 Generalized anxiety disorder; F41.0 Panic disorder [episodic paroxysmal anxiety]
CPT/HCPCS: 90833; 99213

== ENCOUNTER 2024-01-30 14:18 | Outpatient (AMB) | payer MEDICARE, MEDICAID, SELFPAY ==
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
== END 2024-01-30 15:12 | disposition home or self-care (01) ==
LOC: HO.HOP 14:18
PROVIDERS: PCP Family Medicine; Visit Provider Psychiatry & Neurology Psychiatry
DX: F33.41 Major depressive disorder, recurrent, in partial remission (principal); F41.1 Generalized anxiety disorder; F41.0 Panic disorder [episodic paroxysmal anxiety]
CPT/HCPCS: 90833; 99213

== ENCOUNTER → 2024-01-30 14:18 | Outpatient (BNVA) | payer MEDICARE, MEDICAID, SELFPAY | PROVIDERS: PCP Family Medicine; Visit Provider Psychiatry & Neurology Psychiatry | DX: F33.41 Major depressive disorder, recurrent, in partial remission (principal); F41.1 Generalized anxiety disorder; F41.0 Panic disorder [episodic paroxysmal anxiety]; Z79.899 Other long term (current) drug therapy | CPT/HCPCS: 99212 ==

== ENCOUNTER 2024-02-27 13:32 | Outpatient (AMB) | payer MEDICARE, MEDICAID, SELFPAY ==
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
== END 2024-02-27 14:09 | disposition home or self-care (01) ==
LOC: HO.HOP 13:32
PROVIDERS: PCP Family Medicine; Visit Provider Psychiatry & Neurology Psychiatry
DX: F41.1 Generalized anxiety disorder (principal); F41.0 Panic disorder [episodic paroxysmal anxiety]; F33.41 Major depressive disorder, recurrent, in partial remission
CPT/HCPCS: 90833; 99213

== ENCOUNTER → 2024-02-27 13:32 | Outpatient (BNVA) | payer MEDICARE, MEDICAID, SELFPAY | PROVIDERS: PCP Family Medicine; Visit Provider Psychiatry & Neurology Psychiatry | DX: F41.1 Generalized anxiety disorder (principal); F41.0 Panic disorder [episodic paroxysmal anxiety]; F33.41 Major depressive disorder, recurrent, in partial remission | CPT/HCPCS: 99212 ==

== ENCOUNTER 2024-03-13 11:38 | Outpatient (AMB) | payer MEDICARE, MEDICAID, SELFPAY ==
--- NOTE | 2024-03-13 12:26 | A.OFFPC_ITS ---
Vital Signs 03/13/24 12:28 Height 5 ft 5 in Weight 182 lb BMI 30.3 BP 108/54 L Blood Pressure Location Lt brachial Position Sitting Respiration 16 Pulse 68 Pulse Source Pulse Oximeter Temp 98.1 F Temp Source Temporal Artery Scan Pulse Oximetry (%) 98 Oxygen Delivery Method Room Air Intake Visit Reasons: f/u chronic conditions Intake Note: f/u for ?fibromyalgia pt has been have dizzy spells due to metoprolol medication Allergies nickel Allergy (Severe, Verified 03/13/24 12:27) Anaphylaxis nitrofurantoin [From Macrodantin] Allergy (Severe, Verified 03/13/24 12:27) Anaphylaxis Sulfa (Sulfonamide Antibiotics) Allergy (Severe, Verified 03/13/24 12:27) Hives, Swelling clindamycin Allergy (Mild, Verified 03/13/24 12:27) Diarrhea fesoterodine [From Toviaz] Allergy (Unknown, Verified 03/13/24 12:27) Flushing Medication List - Last Reconciled 03/13/24 by Jaylen Rizvi MD bupropion HCl SR 150 mg PO DAILY buspirone 15 mg PO BID diazepam 2.5 - 5 mg (0.5 - 1 x 5 mg) PO DAILY PRN duloxetine 120 mg (2 x 60 mg) PO DAILY famotidine 20 mg PO DAILY 30 days levothyroxine 25 mcg PO DAILY 90 days metoprolol succinate ER 12.5 mg (1/2 x 25 mg) PO DAILY multivitamin 1 tab PO DAILY pregabalin 150 mg PO BID 30 days topiramate 100 mg PO BEDTIME vibegron (Gemtesa) 75 mg PO DAILY 30 days Tobacco use date assessed: 08/30/23 Dental Screening Dental Screen Date: 08/30/23 HPI f/u chronic conditions HPI Details 58 y/o female presents to f/u chronic co nditions such as anxiety/depression and fibromyalgia. Had been following up with psychiatry Jonathon Crowe. Was prescribed buspirone 15mg b.i.d. Also on diazepam, duloxetine, bupropion 150mg daily. She notes she is working on making herself more active/involved. PHQ-9 5, VINEET-7 2 today. Has concerns about a breast lump and a lump in her L axilla. She states she had a mammogram/ultrasound which included L axilla in the spring. I do not have these results. HPI Comments History of Present Illness Details Documentation assistance for Jaylen Rizvi MD, was provided by Deangelo Escoto, Last Sorter on 03/13/2024 at 12:46 PM EST. I, Dr. Rizvi, have read, observed, and verified documentation. [facility] Medical History (Updated 03/13/24 @ 13:04 by Deangelo Escoto) Osteoarthritis Fibromyalgia Hypothyroid Panic disorder [episodic paroxysmal anxiety] 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 Generalized anxiety disorder COVID Cholelithiasis Neuropathy Nephrolithiasis GERD (gastroesophageal reflux disease) Anxiety and depression Overactive bladder Tachycardia Sleep apnea Obesity due to excess calories Bettye's disease Hypothyroidism Spondylosis of lumbar spine Degeneration, intervertebral disc, lumbosacral Disc degeneration, lumbar Surgical History Hx of colonoscopy History of esophagogastroduodenoscopy (EGD) Hx of cholecystectomy S/P laparoscopic sleeve gastrectomy History of eyelid surgery History of lumbar laminectomy History of cystoscopy History of endometrial ablation History of dental surgery Hx of dilation and curettage Hx of tubal ligation History of lumpectomy of both breasts History of bladder surgery Family History Mother Diabetes Uterine cancer Father Diabetes Sister Breast cancer Sister No problems noted. Brother No problems noted. Daughter No problems noted. Social History Household Members: Other Household Members Other:: 2 dogs and one cat Housing: Other Housing Other:: Mobile Home Are you a primary neonatal intensive care nurse to a significant other at home: No Do you presently have visiting nurse or other home services: No Alcohol intake: current Alcohol intake frequency: a few times a month Comment: Legs weak at times Patient Tobacco Use Status: Former Tobacco user Tobacco use type: Cigarette Cigarette Packs Per Day: 2.5 Cigarettes Per Day: 50.0 Years Smoked: 24 e-Cigarette/Vaping Use: Never Used Second Hand Smoke Exposure: No Substance Use Type: Marijuana Advance Directives Date on File: 08/26/21 service: No Current occupational status: disabled Current occupational exposures/hazards: No Cognitive needs: No Hearing needs: No Vision needs: No Questionnaire PHQ-9 Over the last 2 weeks, how often have you been bothered by any of the following problems? 1. Little interest or pleasure in doing things: several days 2. Feeling down, depressed, or hopeless: several days 3. Trouble falling or staying asleep, or sleeping too much: not at all 4. Feeling tired or having little energy: several days 5. Poor appetite or overeating: several days 6. Feeling bad about yourself - or that you are a failure or have let yourself or your family down: not at all 7. Trouble concentrating on things, such as reading the newspaper or watching television: not at all 8. Moving or speaking so slowly that other people could have noticed. Or the opposite - being so fidgety or restless that you have been moving around a lot more than usual: several days 9. Thoughts that you would be better off or of hurting yourself in some way: not at all Total score: 5 Depression Screening Interpretation: Negative Depression Screening Done: Yes 77075 - PHQ-9 Billing: Yes Source: Developed by Drs. Rosalino Huang, Johanna Tyler, José Ambriz and colleagues, with an educational yolis from [employer]. Thrive Questionnaire Date Thrive assessed: 08/30/23 I am a: Patient What is your living situation today?: I have a steady place to live Within the past 12 months, did the food you bought not last and you didn't have the money to get more?: Never true Within the past 12 months, did you worry whether your food would run out before you got money to buy more?: Never true Do you have trouble paying for medicines?: No Do you have trouble getting transportation to medical appointments?: No Do you have trouble paying your heating and electricity bill?: No Do you have trouble taking care of your child, family member or friend?: No Do you have trouble with day-to-day activities such as bathing, preparing meals, shopping, managing finances, etc.?: No Are you currently unemployed and looking for a job?: No Are you interested in more education?: No Please select the resources that you would like help with: None Currently or been in a relationship where the following occur: I choose not to answer THRIVE Score: 0 AUDIT C Alcohol Use Questionnaire (AUDIT-C) 1. How often do you have a drink containing alcohol?: 2-3 times a week 2. How many drinks containing alcohol do you have on a typical day when you are drinking?: 1 or 2 Total Score: 3 VINEET-7 AMB Questionnaire VINEET-7 Date VINEET - 7 assessed: 08/30/23 Feeling nervous, anxious, or on edge: 0 = Not at all Not being able to stop or control worryin = Not at all Worrying too much about different things: 0 = Not at all Trouble relaxin = Not at all Being so restless that it is hard to sit still: 0 = Not at all Becoming easily annoyed or irritable: 2 = More than half the days Feeling afraid as if something awful might happen: 0 = Not at all Total VINEET-7 score (0-4 normal; 5-9 mild; 10-14 moderate; 15-21 severe): 2 Source: Developed by Drs. Rosalino Huang, Johanna Tyler, José Ambriz and colleagues, with an educational yolis from [employer]. VINEET-7 Assessment Billing VINEET-7 Assessment Tool: VINEET-7 Assessment 50532 Review of Systems Const Denies chills, Denies fatigue, Denies fever(s), Denies headache(s) and Denies weakness ENT Denies dizziness and Denies headache(s) Card Denies dyspnea Resp Denies cough, Denies dyspnea, Denies wheezing and Denies other (shortness of breath) Musc Denies numbness and Denies tingling Neuro Denies dizziness, Denies headache(s), Denies numbness, Denies tingling and Denies weakness Psych Reports anxiety and Reports depression Endo Denies fatigue Aller/Immun Denies wheezing Physical exam (Primary Care) Vital Signs: Last Vital Signs Temp 98.1 F 03/13/24 12:28 Pulse 68 03/13/24 12:28 Resp 16 03/13/24 12:28 BP 108/54 L 03/13/24 12:28 Pulse Ox 98 03/13/24 12:28 Oxygen Delivery Method Room Air 03/13/24 12:28 BMI result Body Mass Index 30.3 Tobacco/Smoking Status: Tobacco use Status Tobacco use date assessed 08/30/23 03/13/24 12:32 Patient Tobacco Use Status Former Tobacco user 03/13/24 12:32 Tobacco use type Cigarette 03/13/24 12:32 e-Cigarette/Vaping Use Never Used 03/13/24 12:32 PHQ-9: PHQ-9 Score PHQ-9: Total score 5 03/13/24 12:46 Depression Screening Interpretation: Negative Thrive Assessment: Date of Thrive Assessment Date Thrive assessed 08/30/23 03/13/24 12:32 Currently or been in a relationship where the following occur: I choose not to answer Const General: well developed; No acute distress Nutritional Appearance: well nourished Orientation/consciousness: patient oriented x3 HENMT Head: Yes normocephalic and Yes atraumatic Eyes General: appearance normal, both eyes and all related structures Pupils: Equal, round and reactive pupils present EOM: EOMs intact bilaterally Resp Effort & Inspection: normal respiratory effort Auscultation: clear to auscultation bilaterally Cardio Rate: regular rate Rhythm: regular rhythm Heart sounds: S1 normal heart sound present, S2 normal heart sound present, no gallops, no murmurs and no rubs Neuro General: patient oriented x3 and gait normal Cranial nerves: Yes Equal, round and reactive pupils present Psych Affect: normal affect Coding Level of Care Code Est Pt Level 4 (74033) Diagnoses Depression with anxiety F41.8 Fibromyalgia M79.7 Lump of skin R22.9 Additional Codes VINEET-7 Assessment Billing - VINEET-7 Assessment Tool: VINEET-7 Assessment 67241 ([id number]) Assessment & Plan Assessment & Plan (1) Depression with anxiety: Code(s): F41.8 - Other specified anxiety disorders Category: Medical Plan: Improved?since?my ?last?visit?with?her?and?she?has?been?followed?closely?by?, psychiatry Continue?current?medication?regimen She?is?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 Encouraged?increased?exercise.??She?should?work?on?this?gradually Follow-up?with?Psychiatry?as?recommended. No?change?to?her?medication?regimen (2) Fibromyalgia: Code(s): M79.7 - Fibromyalgia Category: Medical Plan: As?above,?encouraged?gradual?increase?in?activity/exercise Continue?current?medication?regimen (3) Lump of skin: Code(s): R22.9 - Localized swelling, mass and lump, unspecified Category: Medical Plan: Patient?has?rather?superficial?lump?in?left?axi lla?which?feels?more?like?a?hidradenitis She?says?she?had?a?mammogram?and?ultrasound?which?included?the?left?axilla, in?the?spring?of?2023.??I?do?not?have?these?results. Will?request?these?results?and?we?will?follow- up?by?telemedicine?in?about?a?month?to?ensure?no?further?workup?is?needed.??Othe rwise?will?continue?investigation Medications: Refilled oxybutynin chloride ER 10 mg PO DAILY 90 days 90 tabs 2RF Discontinued vibegron (Gemtesa) Discontinued Reason: Doctor's Order 75 mg PO DAILY 30 days 30 tabs 5RF N32.81 - Overactive bladder
[2024-03-13 12:28] VITALS: BP 108/54; PULSE 68; RESP 16; TEMP 36.7; O2SAT 98; BMI 30.3
== END 2024-03-13 13:11 | disposition home or self-care (01) ==
PROVIDERS: PCP Family Medicine; Visit Provider Family Medicine
DX: F41.8 Other specified anxiety disorders (principal); M79.7 Fibromyalgia; R22.9 Localized swelling, mass and lump, unspecified

== ENCOUNTER → 2024-03-13 11:38 | Outpatient (BNVA) | payer MEDICARE, MEDICAID, SELFPAY | PROVIDERS: PCP Family Medicine; Visit Provider Family Medicine | DX: F41.8 Other specified anxiety disorders (principal); M79.7 Fibromyalgia; R22.9 Localized swelling, mass and lump, unspecified | CPT/HCPCS: 96127; 99212 ==

== ENCOUNTER 2024-04-10 14:26 | Outpatient (AMB) | payer MEDICARE, MEDICAID, SELFPAY ==
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
== END 2024-04-10 15:18 | disposition home or self-care (01) ==
LOC: HO.HOP 14:26
PROVIDERS: PCP Family Medicine; Visit Provider Psychiatry & Neurology Psychiatry
DX: F41.8 Other specified anxiety disorders (principal); F41.1 Generalized anxiety disorder; F41.0 Panic disorder [episodic paroxysmal anxiety]
CPT/HCPCS: 90833; 99213

== ENCOUNTER → 2024-04-10 14:26 | Outpatient (BNVA) | payer MEDICARE, MEDICAID, SELFPAY | PROVIDERS: PCP Family Medicine; Visit Provider Psychiatry & Neurology Psychiatry | DX: F41.8 Other specified anxiety disorders (principal); F41.1 Generalized anxiety disorder; F41.0 Panic disorder [episodic paroxysmal anxiety]; Z71.89 Other specified counseling | CPT/HCPCS: 99212 ==

== ENCOUNTER → 2024-04-16 15:10 | Outpatient (AMB) | payer MEDICARE, MEDICAID, SELFPAY ==
--- NOTE | 2024-04-16 15:08 | A.OFFPC_ITS ---
Intake Visit Reasons: f/u lump via telemedicine Intake Note: f/u ct Allergies nickel Allergy (Severe, Verified 04/16/24 15:08) Anaphylaxis nitrofurantoin [From Macrodantin] Allergy (Severe, Verified 04/16/24 15:08) Anaphylaxis Sulfa (Sulfonamide Antibiotics) Allergy (Severe, Verified 04/16/24 15:08) Hives, Swelling clindamycin Allergy (Mild, Verified 04/16/24 15:08) Diarrhea fesoterodine [From Toviaz] Allergy (Unknown, Verified 04/16/24 15:08) [place] Tobacco use date assessed: 08/30/23 Dental Screening Dental Screen Date: 08/30/23 HPI f/u lump via telemedicine HPI Details 58 y/o female presents to review most re cent mammogram and additional pictures with ultrasound. She had a rather superficial lump at L axilla. Mammogram done 08/01/23. No mammographic or sonographic evidence of malignancy. She notes breast lump is unchanged. HPI Comments History of Present Illness Details Documentation assistance for Jaylen Rizvi MD, was provided by Deangelo Escoto,? Nutrition Intern on 04/16/2024 at 3:30 PM EST. I, Dr. Rizvi, have read, observed, and verified documentation. [facility] Medical History (Updated 03/13/24 @ 13:04 by Deangelo Escoto) Osteoarthritis Fibromyalgia Hypothyroid Panic disorder [episodic paroxysmal anxiety] 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 Generalized anxiety disorder COVID Cholelithiasis Neuropathy Nephrolithiasis GERD (gastroesophageal reflux disease) Anxiety and depression Overactive bladder Tachycardia Sleep apnea Obesity due to excess calories Bettye's disease Hypothyroidism Spondylosis of lumbar spine Degeneration, intervertebral disc, lumbosacral Disc degeneration, lumbar Surgical History Hx of colonoscopy History of esophagogastroduodenoscopy (EGD) Hx of cholecystectomy S/P laparoscopic sleeve gastrectomy History of eyelid surgery History of lumbar laminectomy History of cystoscopy History of endometrial ablation History of dental surgery Hx of dilation and curettage Hx of tubal ligation History of lumpectomy of both breasts History of bladder surgery Family History Mother Diabetes Uterine cancer Father Diabetes Sister Breast cancer Sister No problems noted. Brother No problems noted. Daughter No problems noted. Social History Household Members: Other Household Members Other:: 2 dogs and one cat Housing: Other Housing Other:: Mobile Home Are you a primary early breastfeeding care specialist to a significant other at home: No Do you presently have visiting nurse or other home services: No Alcohol intake: current Alcohol intake frequency: a few times a month Comment: Legs weak at times Patient Tobacco Use Status: Former Tobacco user Tobacco use type: Cigarette Cigarette Packs Per Day: 2.5 Cigarettes Per Day: 50.0 Years Smoked: 24 Packs Per Year: 60 Packs per year/per ci.00 e-Cigarette/Vaping Use: Never Used Second Hand Smoke Exposure: No Substance Use Type: Marijuana Advance Directives Date on File: 08/26/21 service: No Current occupational status: disabled Current occupational exposures/hazards: No Cognitive needs: No Hearing needs: No Vision needs: No Questionnaire Thrive Questionnaire Date Thrive assessed: 03/13/24 I am a: Patient What is your living situation today?: I have a steady place to live Within the past 12 months, did the food you bought not last and you didn't have the money to get more?: Never true Within the past 12 months, did you worry whether your food would run out before you got money to buy more?: Never true Do you have trouble paying for medicines?: No Do you have trouble getting transportation to medical appointments?: No Do you have trouble paying your heating and electricity bill?: No Do you have trouble taking care of your child, family member or friend?: No Do you have trouble with day-to-day activities such as bathing, preparing meals, shopping, managing finances, etc.?: No Are you currently unemployed and looking for a job?: No Are you interested in more education?: No Please select the resources that you would like help with: None Currently or been in a relationship where the following occur: I choose not to answer THRIVE Score: 0 VINEET-7 AMB Questionnaire VINEET-7 Date VINEET - 7 assessed: 08/30/23 Source: Developed by Drs. Rosalino Huang, Johanna B.W. José Tyler and colleagues, with an educational yolis from [employer]. Review of Systems Const Denies chills, Denies fatigue, Denies fever(s), Denies headache(s) and Denies weakness ENT Denies dizziness and Denies headache(s) Card Denies dyspnea Resp Denies cough, Denies dyspnea, Denies wheezing and Denies other (shortness of breath) Musc Denies numbness and Denies tingling Neuro Denies dizziness, Denies headache(s), Denies numbness, Denies tingling and Denies weakness Psych Denies anxiety and Denies depression Endo Denies fatigue Aller/Immun Denies wheezing Physical exam (Primary Care) Tobacco/Smoking Status: Tobacco use Status Tobacco use date assessed 08/30/23 04/16/24 15:21 Patient Tobacco Use Status Former Tobacco user 04/16/24 15:21 Tobacco use type Cigarette 04/16/24 15:21 e-Cigarette/Vaping Use Never Used 04/16/24 15:21 Thrive Assessment: Date of Thrive Assessment Date Thrive assessed 03/13/24 04/16/24 15:21 Currently or been in a relationship where the following occur: I choose not to answer Telehealth Telehealth Telehealth Platform: Telephone Location of provider rendering services: practice address Location of patient: address on file Patient Identification confirmed using: Name, : Yes Telehealth method: voice only Patient verbally consented to treatment: Yes Patient verbally consented to billing insurance company: Yes Patient informed of any privacy concerns related to visit: Yes Minutes spent on Phone/Video with Pt.: 5 Coding Level of Care Code Tele Est Pt Level 2 (56065) Diagnoses Breast lump N63.0 Assessment & Plan Assessment & Plan (1) Breast lump: Code(s): N63.0 - Unspecified lump in unspecified breast Category: Medical Plan: Lump?in?axilla.??Mammogram?and?ultrasound?previously?acquired?negative?for?mahsa wynn?and?recommended?annual?screening Will?follow- up?with?her?again?at?her?visit?and?if?there?is?any?change?week?investigate?furth er
== END ==
LOC: HO.HMCFM 15:10
PROVIDERS: PCP Family Medicine; Visit Provider Family Medicine
DX: N63.20 Unspecified lump in the left breast, unspecified quadrant (principal)

== ENCOUNTER 2024-05-20 11:46 | Outpatient (AMB) | payer MEDICARE, MEDICAID, SELFPAY ==
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
== END 2024-05-20 12:45 | disposition home or self-care (01) ==
LOC: HO.HOP 11:46
PROVIDERS: PCP Family Medicine; Visit Provider Psychiatry & Neurology Psychiatry
DX: F41.1 Generalized anxiety disorder (principal); F41.0 Panic disorder [episodic paroxysmal anxiety]
CPT/HCPCS: 99214

== ENCOUNTER → 2024-05-20 11:46 | Outpatient (BNVA) | payer MEDICARE, MEDICAID, SELFPAY | PROVIDERS: PCP Family Medicine; Visit Provider Psychiatry & Neurology Psychiatry | DX: F41.1 Generalized anxiety disorder (principal); F41.0 Panic disorder [episodic paroxysmal anxiety] | CPT/HCPCS: 99212 ==

== ENCOUNTER 2024-07-16 10:33 | Outpatient (AMB) | payer MEDICARE, MEDICAID, SELFPAY ==
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
== END 2024-07-16 11:43 | disposition home or self-care (01) ==
LOC: HO.HOP 10:34
PROVIDERS: PCP Family Medicine; Visit Provider Psychiatry & Neurology Psychiatry
DX: F33.41 Major depressive disorder, recurrent, in partial remission (principal); F41.1 Generalized anxiety disorder; F41.0 Panic disorder [episodic paroxysmal anxiety]
CPT/HCPCS: 99214

== ENCOUNTER → 2024-07-16 10:33 | Outpatient (BNVA) | payer MEDICARE, MEDICAID, SELFPAY | PROVIDERS: PCP Family Medicine; Visit Provider Psychiatry & Neurology Psychiatry | DX: F33.41 Major depressive disorder, recurrent, in partial remission (principal); F41.1 Generalized anxiety disorder; F41.0 Panic disorder [episodic paroxysmal anxiety]; Z71.89 Other specified counseling | CPT/HCPCS: 99212 ==

== ENCOUNTER 2024-08-06 11:13 | Outpatient (AMB) | payer MEDICARE, MEDICAID, SELFPAY ==
--- NOTE | 2024-08-06 11:20 | A.OFFVIS_ITS ---
VS Expanded 08/06/24 11:33 BP 117/59 L Blood Pressure Location Rt brachial Blood Pressure Position Sitting Pulse 70 Pulse Source Pulse Oximeter Temp 98.6 F Temperature Source Temporal Artery Scan Pulse Oximetry 98 Oxygen Delivery Method Room Air Height 5 ft 5 in Weight 181 lb 3.2 oz BMI 30.1 Body Fat % 39.8 Body Fat Mass 72.0 Fat Free Mass 109.0 Visceral Fat Rating 10.0 Body Water % 42.6 Body Water Mass 77.2 Muscle Mass/Score 103.4 Basal Metabolic Rate/Score 1,493 Intake Visit Reasons: (OV) PO LSG 11/24/21 Allergies nickel Allergy (Severe, Verified 08/06/24 11:31) Anaphylaxis nitrofurantoin [From Macrodantin] Allergy (Severe, Verified 08/06/24 11:31) Anaphylaxis Sulfa (Sulfonamide Antibiotics) Allergy (Severe, Verified 08/06/24 11:31) Hives, Swelling clindamycin Allergy (Mild, Verified 08/06/24 11:31) Diarrhea fesoterodine [From Toviaz] Allergy (Unknown, Verified 08/06/24 11:31) [place] Medication List - Last Reconciled 08/06/24 by EDISON Clancy bupropion HCl XL 300 mg PO QAM buspirone 15 mg PO BID diazepam 2.5 - 5 mg (0.5 - 1 x 5 mg) PO DAILY PRN duloxetine 120 mg (2 x 60 mg) PO DAILY famotidine 20 mg PO DAILY 30 days levothyroxine 25 mcg PO DAILY 90 days metoprolol succinate ER 12.5 mg (1/2 x 25 mg) PO DAILY multivitamin 1 tab PO DAILY oxybutynin chloride ER 10 mg PO DAILY 90 days pregabalin 150 mg PO BID 30 days topiramate (Topamax) 50 mg PO BEDTIME HPI Comments Details: This?is a?58?yo female who is s/p LSG 08/26/2021. Presents for 3 year month post op visit. Weight at last visit on 08/15/2023 was 178.8 pounds with a BMI of 29.8, weight today is 181.2 pounds, representing a 3.4 pound weight gain with a BMI today of 30.2.? No complaints of nausea, emesis, abdominal pain or reflux, or constipation. Pt reports worsening depression a few months ago. Was up to 186lbs, trying to eat healthy with her daughter with twice weekly check-ins. She thinks she has kidney stones, were noted on imaging in 2021. Sees urology. Stopped seeing her therapist, he wasn't what I need. Notes excess skin of abdomen- has started developing rashes in skin folds. Tries to apply Vaseline but sometimes the areas open up and are very painful. Has to wear a high waisted waistband/pants to help hold excess skin in place and prevent from moving around. Excess skin is heavy and worsens her chronic pain. Present meal plan includes: Breakfast: shake - Fairlife chocolate milk or Pure shakes snack- lunch: shake dinner: meat and veg trying to avoid starches takes MVI Exercise routine includes: walking dogs Have you been diagnosed with reflux (GERD)? yes Score 0-5: 0=no symptoms, 1=noticeable but not bothersome (slight or occasional), 2=noticeable, bothersome but not daily, 3=bothersome and daily, 4=affects daily activities, 5=incapacitating, unable to do daily activities How bad is the heartburn: 1 Heartburn when lying down: 0 Heartburn when standing up: 0 Heartburn after meals: 0 Does heartburn change your diet: 0 Does heartburn wake you up from sleep: 0 Do you have difficulty swallowin Do you have pain with swallowin If you take medication for reflux, does this affect your daily life: 1 Total score: 2 [facility] Medical History (Updated 03/13/24 @ 13:04 by Deangelo Escoto) Osteoarthritis Fibromyalgia Hypothyroid Panic disorder [episodic paroxysmal anxiety] 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 Generalized anxiety disorder COVID Cholelithiasis Neuropathy Nephrolithiasis GERD (gastroesophageal reflux disease) Anxiety and depression Overactive bladder Tachycardia Sleep apnea Obesity due to excess calories Bettye's disease Hypothyroidism Spondylosis of lumbar spine Degeneration, intervertebral disc, lumbosacral Disc degeneration, lumbar Surgical History Hx of colonoscopy History of esophagogastroduodenoscopy (EGD) Hx of cholecystectomy S/P laparoscopic sleeve gastrectomy History of eyelid surgery History of lumbar laminectomy History of cystoscopy History of endometrial ablation History of dental surgery Hx of dilation and curettage Hx of tubal ligation History of lumpectomy of both breasts History of bladder surgery Family History Mother Diabetes Uterine cancer Father Diabetes Sister Breast cancer Sister No problems noted. Brother No problems noted. Daughter No problems noted. Social History (Updated 08/06/24 @ 11:32 by Sara Young CMA) Household Members: Other Household Members Other:: 2 dogs and one cat Housing: Other Housing Other:: Mobile Home Are you a primary palliative care specialist to a significant other at home: No Do you presently have visiting nurse or other home services: No Alcohol intake: current Alcohol intake frequency: holidays/special occasions only Comment: Legs weak at times Patient Tobacco Use Status: Former Tobacco user Tobacco use type: Cigarette Cigarette Packs Per Day: 2.5 Cigarettes Per Day: 50.0 Years Smoked: 24 e-Cigarette/Vaping Use: Never Used Second Hand Smoke Exposure: No Substance Use Type: Marijuana Advance Directives Date on File: 08/26/21 service: No Current occupational status: disabled Current occupational exposures/hazards: No Cognitive needs: No Hearing needs: No Vision needs: No Physical Exam Vital Signs: Last Vital Signs Temp 98.6 F 08/06/24 11:33 Pulse 70 08/06/24 11:33 BP 117/59 L 08/06/24 11:33 Pulse Ox 98 08/06/24 11:33 Oxygen Delivery Method Room Air 08/06/24 11:33 BMI result Body Mass Index 30.1 Assessment & Plan Assessment & Plan (1) Obesity (BMI 30.0-34.9): Code(s): E66.9 - Obesity, unspecified Category: Medical (2) S/P laparoscopic sleeve gastrectomy: Comment: 08/26/21 Code(s): Z98.84 - Bariatric surgery status Category: Surgical Plan Pt doing better on new meal plan with 2 shakes, 1 meal, 1 high protein snack per day. Nystatin powder ordered per pt request for rashes of excess skin folds. Goal weight of 162lbs prior to skin removal surgery. Pt will download [employer] amy and use a plan she creates. RTC 2 months. Orders: Orders Insulin Today Z98.84 - Bariatric surgery status Complete Blood Count Auto Diff Today Z98.84 - Bariatric surgery status IRON PROFILE Today Z98.84 - Bariatric surgery status Comprehensive Met. Panel Today Z98.84 - Bariatric surgery status Zinc Today Z98.84 - Bariatric surgery status C Reactive Protein Today Z98.84 - Bariatric surgery status Vitamin D 25-OH Total Today Z98.84 - Bariatric surgery status Hemoglobin A1c Today Z98.84 - Bariatric surgery status Lipid Panel Today Z98.84 - Bariatric surgery status Vitamin B12 and Folate Today Z98.84 - Bariatric surgery status Vitamin B1 Today Z98.84 - Bariatric surgery status Vitamin A Today Z98.84 - Bariatric surgery status TSH reflex Free T4 Today Z98.84 - Bariatric surgery status Ferritin Today Z98.84 - Bariatric surgery status Medications: New nystatin 1 appl topical QID 60 grams 3RF
[2024-08-06 11:33] VITALS: BP 117/59; PULSE 70; TEMP 37; O2SAT 98; BMI 30.1
== END 2024-08-06 12:10 | disposition home or self-care (01) ==
LOC: HO.HBS 11:14
PROVIDERS: PCP Family Medicine; Visit Provider Physician Assistant Surgical
DX: E66.811 Obesity, class 1 (principal); Z68.30 Body mass index [BMI] 30.0-30.9, adult; Z90.3 Acquired absence of stomach [part of]; Z98.84 Bariatric surgery status
CPT/HCPCS: 99214; G2211

== ENCOUNTER → 2024-08-06 11:13 | Outpatient (BNVA) | payer MEDICARE, MEDICAID, SELFPAY | PROVIDERS: PCP Family Medicine; Visit Provider Physician Assistant Surgical | DX: E66.9 Obesity, unspecified (principal); Z98.84 Bariatric surgery status; Z68.30 Body mass index [BMI] 30.0-30.9, adult | CPT/HCPCS: 99212 ==

== ENCOUNTER 2024-08-07 15:34 | Outpatient (AMB) | payer MEDICARE, MEDICAID, SELFPAY ==
--- NOTE | 2024-08-07 16:03 | A.OFFPC_ITS ---
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 Blood pressure today 110/60, 75p. She is on metoprolol 12.5mg daily. Mammogram 04/10/24 showed no evidence of malignancy. Notes ongoing complaints of fibromyalgia. She does note her current medication regimen do help with the pain. Has been following up with weight management for her weight. [facility] Medical History (Updated 03/13/24 @ 13:04 by Deangelo Escoto) Osteoarthritis Fibromyalgia Hypothyroid Panic disorder [episodic paroxysmal anxiety] 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 Generalized anxiety disorder COVID Cholelithiasis Neuropathy Nephrolithiasis GERD (gastroesophageal reflux disease) Anxiety and depression Overactive bladder Tachycardia Sleep apnea Obesity due to excess calories Bettye's disease Hypothyroidism Spondylosis of lumbar spine Degeneration, intervertebral disc, lumbosacral Disc degeneration, lumbar Surgical History Hx of colonoscopy History of esophagogastroduodenoscopy (EGD) Hx of cholecystectomy S/P laparoscopic sleeve gastrectomy History of eyelid surgery History of lumbar laminectomy History of cystoscopy History of endometrial ablation History of dental surgery Hx of dilation and curettage Hx of tubal ligation History of lumpectomy of both breasts History of bladder surgery Family History Mother Diabetes Uterine cancer Father Diabetes Sister Breast cancer Sister No problems noted. Brother No problems noted. Daughter No problems noted. Social History (Updated 08/06/24 @ 11:32 by Sara Young CMA) Household Members: Other Household Members Other:: 2 dogs and one cat Housing: Other Housing Other:: Mobile Home Are you a primary managed care manager to a significant other at home: No Do you presently have visiting nurse or other home services: No Alcohol intake: current Alcohol intake frequency: holidays/special occasions only Comment: Legs weak at times Patient Tobacco Use Status: Former Tobacco user Tobacco use type: Cigarette Cigarette Packs Per Day: 2.5 Cigarettes Per Day: 50.0 Years Smoked: 24 e-Cigarette/Vaping Use: Never Used Second Hand Smoke Exposure: No Substance Use Type: Marijuana Advance Directives Date on File: 08/26/21 service: No Current occupational status: disabled Current occupational exposures/hazards: No Cognitive needs: No Hearing needs: No Vision needs: No Questionnaire PHQ-9 Over the last 2 weeks, how often have you been bothered by any of the following problems? 1. Little interest or pleasure in doing things: several days 2. Feeling down, depressed, or hopeless: more than half the days 3. Trouble falling or staying asleep, or sleeping too much: several days 4. Feeling tired or having little energy: more than half the days 5. Poor appetite or overeating: not at all 6. Feeling bad about yourself - or that you are a failure or have let yourself or your family down: not at all 7. Trouble concentrating on things, such as reading the newspaper or watching television: more than half the days 8. Moving or speaking so slowly that other people could have noticed. Or the opposite - being so fidgety or restless that you have been moving around a lot more than usual: several days 9. Thoughts that you would be better off or of hurting yourself in some way: not at all Total score: 9 Source: Developed by Drs. Rosalino Huang, Johanna Tyler, José Ambriz and colleagues, with an educational yolis from [employer] [facility] [employer]. Thrive Questionnaire Date Thrive assessed: 03/13/24 I am a: Patient What is your living situation today?: I have a steady place to live Within the past 12 months, did the food you bought not last and you didn't have the money to get more?: Never true Within the past 12 months, did you worry whether your food would run out before you got money to buy more?: Never true Do you have trouble paying for medicines?: No Do you have trouble getting transportation to medical appointments?: No Do you have trouble paying your heating and electricity bill?: No Do you have trouble taking care of your child, family member or friend?: No Do you have trouble with day-to-day activities such as bathing, preparing meals, shopping, managing finances, etc.?: No Are you currently unemployed and looking for a job?: No Are you interested in more education?: No Please select the resources that you would like help with: None Currently or been in a relationship where the following occur: No concerns reported THRIVE Score: 0 VINEET-7 AMB Questionnaire VINEET-7 Date VINEET - 7 assessed: 08/30/23 Source: Developed by Drs. Rosalino Huang, Johanna Tyler, José Ambriz and colleagues, with an educational yolis from [employer]. Review of Systems Const Denies chills, Denies fatigue, Denies fever(s), Denies headache(s) and Denies weakness ENT Denies dizziness and Denies headache(s) Card Denies chest pain, Denies lightheadedness, Denies dyspnea and Denies other (Palpitations) Resp Denies cough, Denies dyspnea, Denies wheezing and Denies other ( shortness of breath) Musc Denies numbness and Denies tingling Neuro Denies dizziness, Denies headache(s), Denies numbness, Denies tingling, Denies paresthesias and Denies weakness Psych Denies anxiety and Denies depression Endo Denies fatigue Aller/Immun Denies wheezing Physical exam (Primary Care) Vital Signs: Last Vital Signs Temp 98.2 F 08/07/24 16:11 Pulse 75 08/07/24 16:11 Resp 14 08/07/24 16:11 BP 110/60 08/07/24 16:11 Pulse Ox 98 08/07/24 16:11 Oxygen Delivery Method Room Air 08/07/24 16:11 BMI result Body Mass Index 30.1 Tobacco/Smoking Status: Tobacco use Status Tobacco use date assessed 08/30/23 08/07/24 16:04 Patient Tobacco Use Status Former Tobacco user 08/07/24 16:04 Tobacco use type Cigarette 08/07/24 16:04 e-Cigarette/Vaping Use Never Used 08/07/24 16:04 PHQ-9: PHQ-9 Score PHQ-9: Total score 9 08/07/24 16:40 Thrive Assessment: Date of Thrive Assessment Date Thrive assessed 03/13/24 08/07/24 16:04 Currently or been in a relationship where the following occur: No concerns reported Const General: no acute distress and well developed Nutritional Appearance: well nourished Orientation/consciousness: patient oriented x3 HENMT Head: Yes normocephalic and Yes atraumatic Eyes General: appearance normal, both eyes and all related structures Pupils: Equal, round and reactive pupils present EOM: EOMs intact bilaterally Resp Effort & Inspection: normal respiratory effort Auscultation: clear to auscultation bilaterally Cardio Rate: regular rate Rhythm: regular rhythm Heart sounds: S1 normal heart sound present, S2 normal heart sound present, no gallops, no murmurs and no rubs Neuro General: patient oriented x3 and gait normal Cranial nerves: Yes Equal, round and reactive pupils present Psych Affect: normal affect Coding Level of Care Code Est Pt Level 4 (12687) Diagnoses Obesity (BMI 30.0-34.9) E66.9 Screening for breast cancer Z12.39 Depression with anxiety F41.8 Fibromyalgia M79.7 Assessment & Plan Assessment & Plan (1) Obesity (BMI 30.0-34.9): Code(s): E66.9 - Obesity, unspecified Category: Medical Plan: S/p?bariatric?procedure?and?followed[facility]by [facility] Lab?work?is?ordered?for?this.??Reminded?her?to?get?this?done?fasting Continue?working?on?weight?loss (2) Screening for breast cancer: Code(s): Z12.39 - Encounter for other screening for malignant neoplasm of breast Category: Medical Plan: Up-to-date?with?mammogram No?evidence?of?malignancy (3) Depression with anxiety: Code(s): F41.8 - Other specified anxiety disorders Category: Medical Plan: Ongoing?depression?and?anxiety.??She?is?now?on?duloxetine?or?her?fibromyalgia. She?says?that ?her?mood?and?depression?were?more?if?worse?until?she?was?taken?off?amitriptylin e. Stable Continue?current?medication?regimen (4) Fibromyalgia: Code(s): M79.7 - Fibromyalgia Category: Medical Plan: She?is?on?duloxetine?and?pregabalin.??This?is?helping?somewhat. Had?been?exercising?until?the?cold?is?principally?winter. Patient?plans?to?resume?exercising?soon.??Advised?her?to?resume?exercising?lets? start?off?gradually. Follow-up?with?Dr. Oconnor
[2024-08-07 16:11] VITALS: BP 110/60; PULSE 75; RESP 14; TEMP 36.8; O2SAT 98; BMI 30.1
== END 2024-08-07 16:53 | disposition home or self-care (01) ==
LOC: HO.HMCFM 15:35
PROVIDERS: PCP Family Medicine; Visit Provider Family Medicine
DX: M79.7 Fibromyalgia (principal); F41.8 Other specified anxiety disorders; E66.9 Obesity, unspecified; Z68.30 Body mass index [BMI] 30.0-30.9, adult; Z12.39 Encounter for other screening for malignant neoplasm of breast

== ENCOUNTER → 2024-08-07 15:34 | Outpatient (BNVA) | payer MEDICARE, MEDICAID, SELFPAY | PROVIDERS: PCP Family Medicine; Visit Provider Family Medicine | DX: E66.9 Obesity, unspecified (principal); F41.8 Other specified anxiety disorders; M79.7 Fibromyalgia | CPT/HCPCS: 99212 ==

== ENCOUNTER 2024-08-15 09:05 | Outpatient (AMB) | payer MEDICARE, MEDICAID, SELFPAY ==
--- NOTE | 2024-08-15 09:08 | MHC.PC.OV ---
Vital Signs 08/15/24 09:13 Height 5 ft 5 in Weight 181 lb BMI 30.1 BP 101/57 L Blood Pressure Location Rt brachial Position Sitting Respiration 16 Pulse 72 Pulse Source Pulse Oximeter Temp 97.8 F Temp Source Oral Pulse Oximetry (%) 99 Oxygen Delivery Method Room Air Intake Visit Reasons: sciatic nerve in leg/ painful muscle Intake Note: patient here c/o sciatic nerve in leg and painful muscle Human Resources Intern Required: No Is last menstrual period known: No Post menopausal: No Patient : No Allergies nickel Allergy (Severe, Verified 08/15/24 09:36) Anaphylaxis nitrofurantoin [From Macrodantin] Allergy (Severe, Verified 08/15/24 09:36) Anaphylaxis Sulfa (Sulfonamide Antibiotics) Allergy (Severe, Verified 08/15/24 09:36) Hives, Swelling clindamycin Allergy (Mild, Verified 08/15/24 09:36) Diarrhea fesoterodine [From Toviaz] Allergy (Unknown, Verified 08/15/24 09:36) Flushing Medication List - Last Reconciled 08/15/24 by Nae Leblanc CNP bupropion HCl XL 300 mg PO QAM buspirone 15 mg PO BID diazepam 2.5 - 5 mg (0.5 - 1 x 5 mg) PO DAILY PRN duloxetine 120 mg (2 x 60 mg) PO DAILY famotidine 20 mg PO DAILY 30 days levothyroxine 25 mcg PO DAILY 90 days metoprolol succinate ER 12.5 mg (1/2 x 25 mg) PO DAILY multivitamin 1 tab PO DAILY nystatin 1 appl topical QID oxybutynin chloride ER 10 mg PO DAILY 90 days pregabalin 150 mg PO BID 30 days topiramate (Topamax) 50 - 100 mg (0.5 - 1 x 100 mg) PO BEDTIME 90 days Tobacco use date assessed: 08/15/24 Dental Screening Dental Screen Date: 08/15/24 Did you have a dental visit in the last 12 months?: Yes Did you have a dental problem in the last 6 months where you did not have access to dental care?: No Was dental information given to patient?: Patient has dentist HPI HPI Comments History of Present Illness Details 58-year-old female presents with complaints of left-sided lower back pain which radiates to her entire left lower leg. She notes that the pain is persistent and describes it as achy. Her symptoms have been ongoing for the past 4-5 days. She has associated tingling and numbness to her left toes. She has been using lidocaine patch and taking Ibuprofen 800mg twice daily without relief. No fall, injury, or trauma. No loss of sensation. She notes similar symptoms about 25 years ago and ortho deemed it as a pinched nerve. She had laminectomy of her lumbar spine in 2003. [facility] Medical History (Updated 08/15/24 @ 09:59 by Nae Leblanc CNP) Osteoarthritis Fibromyalgia Hypothyroid Panic disorder [episodic paroxysmal anxiety] 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 Generalized anxiety disorder COVID Cholelithiasis Neuropathy Nephrolithiasis GERD (gastroesophageal reflux disease) Anxiety and depression Overactive bladder Tachycardia Sleep apnea Obesity due to excess calories Bettye's disease Hypothyroidism Spondylosis of lumbar spine Degeneration, intervertebral disc, lumbosacral Disc degeneration, lumbar Surgical History Hx of colonoscopy History of esophagogastroduodenoscopy (EGD) Hx of cholecystectomy S/P laparoscopic sleeve gastrectomy History of eyelid surgery History of lumbar laminectomy History of cystoscopy History of endometrial ablation History of dental surgery Hx of dilation and curettage Hx of tubal ligation History of lumpectomy of both breasts History of bladder surgery Family History Mother Diabetes Uterine cancer Father Diabetes Sister Breast cancer Sister No problems noted. Brother No problems noted. Daughter No problems noted. Social History (Updated 08/06/24 @ 11:32 by Sara Young CMA) Household Members: Other Household Members Other:: 2 dogs and one cat Housing: Other Housing Other:: Mobile Home Are you a primary care transitions manager to a significant other at home: No Do you presently have visiting nurse or other home services: No Alcohol intake: current Alcohol intake frequency: holidays/special occasions only Comment: Legs weak at times Patient Tobacco Use Status: Former Tobacco user Tobacco use type: Cigarette Cigarette Packs Per Day: 2.5 Cigarettes Per Day: 50.0 Years Smoked: 24 e-Cigarette/Vaping Use: Never Used Second Hand Smoke Exposure: No Substance Use Type: Marijuana Advance Directives Date on File: 08/26/21 service: No Current occupational status: disabled Current occupational exposures/hazards: No Cognitive needs: No Hearing needs: No Vision needs: No Questionnaire Thrive Questionnaire Date Thrive assessed: 06/11/24 I am a: Patient What is your living situation today?: I have a steady place to live Within the past 12 months, did the food you bought not last and you didn't have the money to get more?: Never true Within the past 12 months, did you worry whether your food would run out before you got money to buy more?: Never true Do you have trouble paying for medicines?: No Do you have trouble getting transportation to medical appointments?: No Do you have trouble paying your heating and electricity bill?: No Do you have trouble taking care of your child, family member or friend?: No Do you have trouble with day-to-day activities such as bathing, preparing meals, shopping, managing finances, etc.?: No Are you currently unemployed and looking for a job?: No Are you interested in more education?: No Please select the resources that you would like help with: None Currently or been in a relationship where the following occur: No concerns reported THRIVE Score: 0 VINEET-7 AMB Questionnaire VINEET-7 Date VINEET - 7 assessed: 08/30/23 Source: Developed by Drs. Rosalino Huang, Johanna Tyler, José Ambriz and colleagues, with an educational yolis from [employer]. Review of Systems Const Details: Const Denies chills, Denies fatigue, Denies fever(s), Denies headache(s) and Denies weakness ENT Denies dizziness and Denies headache(s) Card Denies chest pain, Denies lightheadedness, Denies dyspnea and Denies other (Palpitations) Resp Denies cough, Denies dyspnea, Denies wheezing and Denies other ( shortness of breath) GI Denies abdominal pain, Denies melena, Denies hematochezia, Denies change in bowel habits, Denies dyspepsia and Denies nausea Denies hematuria and Denies dysuria Musc Reports as per HPI Skin/Breast Denies rash, Denies unusual bruising and Denies wounds Neuro Denies abnormal gait, Denies dizziness, Denies headache(s), Denies memory loss, Reports numbness, Denies Sensory deficit (Neuro), Reports tingling and Denies weakness Psych Denies anxiety, Denies depression, Denies memory loss Endo Denies cold intolerance, Denies fatigue, Denies heat intolerance, Denies polydipsia and Denies polyuria Aller/Immun Denies wheezing Physical exam (Primary Care) Vital Signs: Last Vital Signs Temp 97.8 F 08/15/24 09:13 Pulse 72 08/15/24 09:13 Resp 16 08/15/24 09:13 BP 101/57 L 08/15/24 09:13 Pulse Ox 99 08/15/24 09:13 Oxygen Delivery Method Room Air 08/15/24 09:13 BMI result Body Mass Index 30.1 Tobacco/Smoking Status: Tobacco use Status Tobacco use date assessed 08/15/24 08/15/24 09:15 Patient Tobacco Use Status Former Tobacco user 08/15/24 09:11 Tobacco use type Cigarette 08/15/24 09:11 e-Cigarette/Vaping Use Never Used 08/15/24 09:11 Thrive Assessment: Date of Thrive Assessment Date Thrive assessed 06/11/24 08/15/24 09:11 Currently or been in a relationship where the following occur: No concerns reported Const Other: General: no acute distress and well developed Nutritional Appearance: well nourished Orientation/consciousness: patient oriented x3 HENMT Head: Yes normocephalic and Yes atraumatic Eyes General: appearance normal, both eyes and all related structures Pupils: Equal, round and reactive pupils present EOM: EOMs intact bilaterally Resp Effort & Inspection: normal respiratory effort Auscultation: clear to auscultation bilaterally Cardio Rate: regular rate Rhythm: regular rhythm Heart sounds: S1 normal heart sound present, S2 normal heart sound present, no gallops, no murmurs and no rubs GI Palpation (GI): No Abdominal aortic bruit present, Soft to palpation, nontender, No hepatosplenomegaly present and No Rebound tenderness present Auscultation: normal bowel sounds General: Yes no CVA tenderness Back/Spine/Pelvis Back: no CVA tenderness Cervical Spine: cervical ROM normal and No Cervical spine tenderness Thoracic/Lumbar Spine: thoraco-lumbar ROM normal, No pain with thoraco-lumbar ROM, No thoracic spinal tenderness and No lumbar spinal tenderness Extrem General: Yes normal to inspection, No edema and No calf tenderness. Normal range of motion to the left lower extremity. No erythema, edema, or overt injury or trauma Skin General: warm and dry. Normal skin color. Normal skin turgor Neuro General: patient oriented x3, gait normal and no focal neuro deficit Cranial nerves: Yes Equal, round and reactive pupils present Cognition (Neuro): normal cognition Gait exam (Neuro): Normal gait present Sensory Exam: No Sensory deficit (Neuro) Psych Appearance: grossly normal Affect: normal affect Attitude: cooperative Thought process: Normal thought process present Coding Level of Care Code Est Pt Level 3 (04488) Diagnoses Low back pain radiating to left lower extremity M54.50; M79.605 Assessment & Plan Assessment & Plan (1) Low back pain radiating to left lower extremity: Code(s): M54.50 - Low back pain, unspecified; M79.605 - Pain in left leg Category: Medical Plan: Patient presents with 4-5 days of achy pain to her left lower back which radiates to her entire lower leg. She experiences the pain with prolonged sitting. No fall, injury, or trauma. Normal range of motion to the left lower extremity. No erythema, edema, or overt injury or trauma. Cyclobenzaprine 10 mg 3 times daily as needed ordered; advised to take as prescribed. Continue to take pregabalin and duloxetine as prescribed. May take ibuprofen 600-800 mg every 6-8 hours as needed for pain or discomfort; advised to take with food. Warm/cool compresses encouraged. Follow-up with PCP with worsening or new symptoms. Verbalized understanding and agreed with treatment plan. Orders: Orders XR lumbar spine 2-3V Today M54.50 - Low back pain, unspecified, M79.605 - Pain in left leg XR hip LT w PEL1V Today M54.50 - Low back pain, unspecified, M79.605 - Pain in left leg Medications: New cyclobenzaprine 10 mg PO BID PRN 30 tabs 0RF muscle spasm
[2024-08-15 09:13] VITALS: BP 101/57; PULSE 72; RESP 16; TEMP 36.6; O2SAT 99; BMI 30.1
== END 2024-08-15 11:15 | disposition home or self-care (01) ==
LOC: HO.HMCFM 09:06
PROVIDERS: PCP Family Medicine; Visit Provider Nurse Practitioner Family
DX: M54.50 Low back pain, unspecified (principal); M79.605 Pain in left leg

== ENCOUNTER 2024-08-15 09:05 | Outpatient (REF) | payer MEDICARE, MEDICAID, SELFPAY ==
--- NOTE | ~2024-08-15 | XR_ITS ---
CLINICAL HISTORY: M54.50 - Low back pain, unspecified 3 views lumbar spine Comparison: None Findings: Normal alignment. No acute fractures or dislocation. Degenerative disc changes L5-S1. Multiple level degenerative facet changes. IMPRESSION: No acute findings. This document has been electronically signed by: Hugo Wallace MD on 08/16/2024 08:20:03
--- NOTE | ~2024-08-15 | XR_ITS ---
CLINICAL HISTORY: M54.50 - Low back pain, unspecified 2 view left hip Comparison: None Findings: The bones are intact. No significant arthritic change. The soft tissues are unremarkable. IMPRESSION: No acute findings. This document has been electronically signed by: Hugo Wallace MD on 08/16/2024 08:12:32
== END 2024-08-15 09:06 | disposition home or self-care (01) ==
LOC: HO.XRAY 09:05
PROVIDERS: PCP Family Medicine; Visit Provider Nurse Practitioner Family
DX: M54.50 Low back pain, unspecified (principal); M79.605 Pain in left leg
CPT/HCPCS: 72100; 73502; 99212

== ENCOUNTER → 2024-08-15 10:22 | Outpatient (BNV) | payer MEDICARE, MEDICAID, SELFPAY | PROVIDERS: PCP Family Medicine; Visit Provider Specialist | DX: M54.50 Low back pain, unspecified (principal); M25.552 Pain in left hip | CPT/HCPCS: 72100; 73502 ==

== ENCOUNTER 2024-08-29 15:50 | Outpatient (AMB) | payer MEDICARE, MEDICAID, SELFPAY ==
--- NOTE | 2024-08-29 12:49 | A.OFFVIS_ITS ---
Intake Visit Reasons: Kidney Stones/leakage/Fu Intake Note: Patient presents to office today for a follow up/Leakage/Kidney stones Urology Medications:Oxybytnin Blood Thinner: None Allergies to antibiotics: Nitrofurantoin, Sulfa, Clyndamycin PVR:0ml School Principal Required: No Accompanied by: Self / Same As Patient Allergies nickel Allergy (Severe, Verified 08/29/24 15:54) Anaphylaxis nitrofurantoin [From Macrodantin] Allergy (Severe, Verified 08/29/24 15:54) Anaphylaxis Sulfa (Sulfonamide Antibiotics) Allergy (Severe, Verified 08/29/24 15:54) Hives, Swelling clindamycin Allergy (Mild, Verified 08/29/24 15:54) Diarrhea fesoterodine [From Toviaz] Allergy (Unknown, Verified 08/29/24 15:54) Flushing HPI Comments Details: 08/29/24-- 12/27/23--Jacqueline is a pleasant 58-year-old female patient of Dr. Rizvi. She has a past medical history of neuropathy, nephrolithiasis, GERD, anxiety, depression, overactive bladder, Bettye's disease, and lumbar disc degeneration. She presents to the office today for follow-up of her urinary leakage. Of note, patient has undergone in office urodynamics that noted Interpretation: During the filling phase there was normal sensation, sensory urgency was noted, Findings consistent with detrusor overactivity. EMG- Appropriate changes in the waveforms were noted through out the study. There was a decrease in the EMG activity during the voiding c/w normal function of the pelvic floor. In discussion with the patient today she reports feeling Gemtesa 75mg daily has been more helpful in her lower urinary tract symptoms than previous urological medications such as Toviaz, oxybutynin, tolterodine and Myrbetriq. She reports she does continue with episodes of urinary frequency, urinary urgency, and urinary leakage however she feels they are manageable and less frequent than she had been previously experiencing. She has a history at the age of [age] years old having a dilation of her urethra as well as having a [place] sl[place] [address] Oconnor. She reports utilizing 1-2 pads per day. She otherwise denies hematuria, nocturia, dysuria, foul-smelling urine, flank pain, fever, and or chills. In office urinalysis results reviewed with the patient today. PVR 0 mL. Discussed at length potential causes for lower urinary tract symptoms patient is experiencing. Previous workup has included Recent retroperitoneal ultrasound results reviewed with the patient today. Bilateral kidneys with no lesions and or hydronephrosis noted. Bilateral nonobstructing renal calculi noted. Right side with two 4 mm nonobstructing stones in the lower pole. Left kidney with 3 mm nonobstructing mid pole stone. Patient unable to fill bladder completely. Bladder is partially distended. Bilateral ureteral jets are demonstrated. She otherwise offers no other issues or concerns at this time. [facility] Medical History Osteoarthritis Fibromyalgia Hypothyroid Panic disorder [episodic paroxysmal anxiety] 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 Generalized anxiety disorder COVID Cholelithiasis Neuropathy Nephrolithiasis GERD (gastroesophageal reflux disease) Anxiety and depression Overactive bladder Tachycardia Sleep apnea Obesity due to excess calories Bettye's disease Hypothyroidism Spondylosis of lumbar spine Degeneration, intervertebral disc, lumbosacral Disc degeneration, lumbar Surgical History Hx of colonoscopy History of esophagogastroduodenoscopy (EGD) Hx of cholecystectomy S/P laparoscopic sleeve gastrectomy History of eyelid surgery History of lumbar laminectomy History of cystoscopy History of endometrial ablation History of dental surgery Hx of dilation and curettage Hx of tubal ligation History of lumpectomy of both breasts History of bladder surgery Family History Mother Diabetes Uterine cancer Father Diabetes Sister Breast cancer Sister No problems noted. Brother No problems noted. Daughter No problems noted. Social History Household Members: Other Household Members Other:: 2 dogs and one cat Housing: Other Housing Other:: Mobile Home Are you a primary medicare sales representative to a significant other at home: No Do you presently have visiting nurse or other home services: No Alcohol intake: current Alcohol intake frequency: holidays/special occasions only Comment: Legs weak at times Patient Tobacco Use Status: Former Tobacco user Tobacco use type: Cigarette Cigarette Packs Per Day: 2.5 Cigarettes Per Day: 50.0 Years Smoked: 24 e-Cigarette/Vaping Use: Never Used Second Hand Smoke Exposure: No Substance Use Type: Marijuana Advance Directives Date on File: 08/26/21 service: No Current occupational status: disabled Current occupational exposures/hazards: No Cognitive needs: No Hearing needs: No Vision needs: No Office Procedures Post Void Residual Post Residual Void Post Void Residual (PVR): 0 [id number] Void Residual by ultrasound Results Reviewed Results Reviewed: Date of Service: 10/18/23 EXAMINATION: US RETROPERITONEAL COMPLETE (RENAL) FINDINGS: RIGHT KIDNEY: 12.0 x 4.2 x 5.7 cm (SAG x AP x TRV). The kidney is normal in size, contour, and echogenicity. Renal cortical thickness is normal. To stones measuring 4 mm and 4 x 7 mm in the lower pole. No focal parenchymal lesions or hydronephrosis. LEFT KIDNEY: 11.2 x 5.1 x 5.1 cm (SAG x AP x TRV). The kidney is normal in size, contour, and echogenicity. Renal cortical thickness is normal. Small stone measuring 3 mm in the midpole No focal parenchymal lesions or hydronephrosis. BLADDER: Patient unable to fill bladder. Partially distended. Bilateral ureteral jets are demonstrated. Prevoid bladder volume is 114 mL. Postvoid bladder volume was not obtained. IMPRESSION: Bilateral nonobstructing renal stones. Patient unable to fill bladder and bladder not optimally evaluated. Coding CPT Codes Post Residual Void - PVR CPT Code: 37926-Cqgh Void Residual by ultrasound ([id number])
== END 2024-08-29 16:40 ==
LOC: HO.HUSH 15:51
PROVIDERS: PCP Family Medicine; Visit Provider Urology
DX: Z13.9 Encounter for screening, unspecified (principal)

== ENCOUNTER → 2024-08-29 15:50 | Outpatient (BNVA) | payer MEDICARE, MEDICAID, SELFPAY | PROVIDERS: PCP Family Medicine; Visit Provider Urology | DX: N32.81 Overactive bladder (principal); N39.44 Nocturnal enuresis; N20.0 Calculus of kidney; Z87.442 Personal history of urinary calculi | CPT/HCPCS: 51798; 81003; 99212 ==

== ENCOUNTER 2024-09-03 09:45 | Outpatient (REF) | payer MEDICARE, MEDICAID, SELFPAY ==
[2024-09-03 11:14] LABS: MANUAL DIFF FLAG NO
[2024-09-03 11:20] LABS: Basophils Percent Auto 0.9 % (0-2); Eosinophils Absolute Auto 0.3 X10*3/uL (0.0-0.4); Eosinophils Percent Auto 5.5 % (0-4); Hematocrit 40.9 % (37.0-47.0); Hemoglobin 13.6 g/dl (12.0-16.0); Imm Gran Abs Auto 0.01 X10*3/uL (0.00-0.03); Imm Gran Pct Auto 0.2 % (0.0-0.4); Lymphocytes Absolute Auto 1.5 X10*3/uL (1.2-4.9); Lymphocytes Percent Auto 32.3 % (20-40); Mean Corpuscular HGB Conc 33.3 g/dl (31.0-35.0); Mean Corpuscular Hemoglobin 29.7 pg (27.0-33.0); Mean Corpuscular Volume 89.3 fL (80.0-98.0); Mean Platelet Volume 10.2 fL (9.4-12.3); Monocytes Absolute Auto 0.4 X10*3/uL (0.1-1.2); Monocytes Percent Auto 9.1 % (2-11); Neutrophils Absolute Auto 2.4 x10*3/uL (2.0-8.3); Platelet Count 225 X10*3/uL (160-400); Red Blood Count 4.58 X10*6/uL (4.20-5.50); Red Cell Distribution Width 12.7 % (11.0-16.0); White Blood Count 4.5 X10*3/uL (4.8-10.8)
[2024-09-03 11:26] LABS: Estimated Average Glucose 97 mg/dL; Hemoglobin A1C 112.2369 umol/L; Total Hemoglobin (HGBA1C) 3619.3302 umol/L
[2024-09-03 12:45] LABS: Folate 14.2 ng/mL (> or = 4.0); Vitamin B12 435 pg/mL (200-900)
[2024-09-03 12:46] LABS: Alanine Aminotransferase 15 U/L (0-31); Albumin Level 4.1 g/dL (3.5-5.0); Alkaline Phosphatase 79 U/L (39-117); Anion Gap 9 (12-20); Aspartate Amino Transferase 19 U/L (5-31); Bilirubin Total 0.5 mg/dL (0.0-1.0); Blood Urea Nitrogen 20 mg/dL (9-16); C Reactive Protein < 0.10 mg/dL (< or = 0.50); Calcium 9.3 mg/dL (8.4-10.2); Carbon Dioxide 27 mmol/L (22-29); Chloride 107 mmol/L (96-108); Cholesterol 186 mg/dL (<200); Estimated Glomerular Filt Rate > 60; Glucose Random 71 mg/dL (60-115); HDL Cholesterol 57 mg/dL (>40); Iron 62 mcg/dL (30-160); LDL Cholesterol Calculated 109 mg/dL (<100); Percent Iron Saturation 26 % (15-50); Potassium 3.8 mmol/L (3.3-5.1); Sodium 139 mmol/L (135-145); Total Iron Binding Capacity 241 mcg/dL (228-428); Total Protein 6.7 g/dL (6.5-8.0); Triglycerides 100 mg/dL (<150); Unsaturated Iron Binding 179 ug/dL
[2024-09-03 13:02] LABS: CT PCR NOT DETECTED (Not Detect.); NG PCR NOT DETECTED (Not Detect.)
[2024-09-03 13:07] LABS: Ferritin 75 ng/mL (10-250); TSH reflex Free T4 0.76 uIU/mL (0.32-4.0); Vitamin D 25-OH Total 47.7 ng/mL (>30)
[2024-09-03 13:23] LABS: Insulin 5 uU/mL (2-29)
[2024-09-04 04:22] LABS: Syphilis Screen Nonreactive (Nonreactive)
[2024-09-04 05:17] LABS: HBS Num1 0.35 mIU/mL (0-7.99); HBc Num1 0.05 S/CO (0.00-0.79); HBsAGNum1 0.23 S/CO (0.00-0.99); HIV AB/AG Nonreactive (Nonreactive); HIV Num 1 0.07 S/CO (0.00-0.99); Hepatitis B Core Antibody Nonreactive (Nonreactive); Hepatitis B Surface Antigen Negative (Negative); ~Hepatitis B Surface Antibody NONREACTIVE (Nonreactive); ~Hepatitis C Antibody Nonreactive (Nonreactive)
[2024-09-06 14:03] LABS: Vitamin A 52 mcg/dL (38-98)
[2024-09-13 23:44] LABS: Vitamin B1 20 nmol/L (8-30)
== END 2024-09-03 09:46 | disposition home or self-care (01) ==
LOC: HO.WFDLDS 09:45
PROVIDERS: Referring Provider Physician Assistant Surgical; Visit Provider Family Medicine
DX: Z98.84 Bariatric surgery status (principal); Z13.1 Encounter for screening for diabetes mellitus; Z13.6 Encounter for screening for cardiovascular disorders
CPT/HCPCS: 36415; 80053; 80061; 82306; 82607; 82728; 82746; 83036; 83525; 83540; 84425; 84443; 84590; 85025; 86140; 86704; 86706; 86780; 86803; 87340; 87389; 87491; 87591

== ENCOUNTER 2024-09-12 11:09 | Outpatient (REF) | payer MEDICARE, MEDICAID, SELFPAY ==
[2024-09-12 12:48] LABS: Parathyroid Hormone Intact 52.9 pg/mL (8.7-77.1)
[2024-09-16 03:39] LABS: Zinc 64 mcg/dL (60-130)
== END 2024-09-12 11:10 | disposition home or self-care (01) ==
LOC: HO.LAB 11:09
PROVIDERS: PCP Family Medicine; Visit Provider Physician Assistant Surgical
DX: F32.A Depression, unspecified (principal); Z98.84 Bariatric surgery status
CPT/HCPCS: 36415; 83970; 84630; 99212

== ENCOUNTER 2024-09-12 11:29 | Outpatient (AMB) | payer MEDICARE, MEDICAID, SELFPAY ==
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
== END 2024-09-12 12:13 | disposition home or self-care (01) ==
LOC: HO.HOP 11:29
PROVIDERS: PCP Family Medicine; Visit Provider Psychiatry & Neurology Psychiatry
DX: F33.41 Major depressive disorder, recurrent, in partial remission (principal); F41.1 Generalized anxiety disorder; F41.0 Panic disorder [episodic paroxysmal anxiety]
CPT/HCPCS: 90833; 99213

== ENCOUNTER 2024-10-03 14:41 | Outpatient (REF) | payer MEDICARE, MEDICAID, SELFPAY ==
--- NOTE | ~2024-10-03 | US_ITS ---
EXAMINATION: US KIDNEY BILATERAL HISTORY: R32 - Unspecified urinary incontinence TECHNIQUE: Real-time grayscale ultrasound imaging of the kidneys was performed and images were reviewed. COMPARISON: Comparison is made with the prior examination dated 10/18/2023. FINDINGS: Right kidney: The right kidney measures 10.9 x 4.8 x 5.2 cm. Renal parenchymal echotexture and thickness are normal. There are no masses. There are multiple nonobstructing calculi including a 6 x 4 x 4 mm calculus in the interpolar region and lower pole calculi measuring 8 x 5 x 6 mm and 9 x 5 x 4 mm. There is no hydronephrosis. Left Kidney: The left kidney measures 11.7 x 5.6 x 4.0 cm. Renal parenchymal echotexture and thickness are normal. There are no masses. There are faint linear echogenic foci in the mid to lower pole region which could represent calcified vessels or tiny calculi. There is no hydronephrosis. US/US renal BI IMPRESSION: Right nephrolithiasis as described. Possible left nephrolithiasis. Electronically signed by: Rosalino Montoya MD 10/03/2024 03:18 PM EDT
== END 2024-10-03 14:42 | disposition home or self-care (01) ==
LOC: HO.US 14:41
PROVIDERS: PCP Family Medicine; Visit Provider Urology
DX: N20.0 Calculus of kidney (principal); R32 Unspecified urinary incontinence; R30.0 Dysuria; R35.0 Frequency of micturition
CPT/HCPCS: 76775

== ENCOUNTER → 2024-10-03 14:44 | Outpatient (BNV) | payer MEDICARE, MEDICAID, SELFPAY | PROVIDERS: PCP Family Medicine; Visit Provider Radiology Diagnostic Radiology | DX: N20.0 Calculus of kidney (principal) | CPT/HCPCS: 76775 ==

== ENCOUNTER 2024-10-07 10:37 | Outpatient (AMB) | payer MEDICARE, MEDICAID, SELFPAY ==
--- NOTE | 2024-10-07 10:43 | MHC.OFFVISWM ---
VS Expanded 10/07/24 10:54 BP 128/58 L Blood Pressure Location Rt brachial Blood Pressure Position Sitting Pulse 64 Pulse Source Pulse Oximeter Temp 97.6 F Temperature Source Temporal Artery Scan Pulse Oximetry 96 Oxygen Delivery Method Room Air Height 5 ft 5 in Weight 175 lb BMI 29.1 Body Fat % 37.3 Body Fat Mass 65.2 Fat Free Mass 109.6 Visceral Fat Rating 9.0 Body Water % 44.3 Body Water Mass 77.4 Muscle Mass/Score 104.0 Basal Metabolic Rate/Score 1,489 Intake Visit Reasons: (OV) PO LSG 11/24/21 Allergies nickel Allergy (Severe, Verified 10/07/24 10:50) Anaphylaxis nitrofurantoin [From Macrodantin] Allergy (Severe, Verified 10/07/24 10:50) Anaphylaxis Sulfa (Sulfonamide Antibiotics) Allergy (Severe, Verified 10/07/24 10:50) Hives, Swelling clindamycin Allergy (Mild, Verified 10/07/24 10:50) Diarrhea fesoterodine [From Toviaz] Allergy (Unknown, Verified 10/07/24 10:50) Flushing Medication List - Last Reconciled 10/07/24 by EDISON Clancy bupropion HCl XL 300 mg PO QAM buspirone 15 mg PO BID cyclobenzaprine 10 mg PO BID PRN diazepam 2.5 - 5 mg (0.5 - 1 x 5 mg) PO DAILY PRN duloxetine 120 mg (2 x 60 mg) PO DAILY famotidine 20 mg PO DAILY 30 days levothyroxine 25 mcg PO DAILY 90 days metoprolol succinate ER 12.5 mg (1/2 x 25 mg) PO DAILY multivitamin 1 tab PO DAILY nystatin 1 appl topical QID oxybutynin chloride ER 10 mg PO DAILY 90 days pregabalin 150 mg PO BID 30 days topiramate (Topamax) 50 - 100 mg (0.5 - 1 x 100 mg) PO BEDTIME 90 days HPI Comments Details: This?is a?59?yo F who is s/p LSG 08/26/2021. Weight loss of 6.2lbs since last OV 2mo ago.? No complaints of nausea, emesis, abdominal pain or reflux, or constipation. Notes excess skin of abdomen- has started developing rashes in skin folds. Tries to apply Vaseline but sometimes the areas open up and are very painful. Has to wear a high waisted waistband/pants to help hold excess skin in place and prevent from moving around. Excess skin is heavy and worsens her chronic pain. Right now she does not think she wants to pursue skin removal surgery. Present meal plan includes: Breakfast: shake - Fairlife chocolate milk or Pure shakes snack lunch: shake dinner: meat and veg trying to avoid starches takes MVI Exercise routine includes: walking dogs [facility] Medical History Osteoarthritis Fibromyalgia Hypothyroid Panic disorder [episodic paroxysmal anxiety] 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 Generalized anxiety disorder COVID Cholelithiasis Neuropathy Nephrolithiasis GERD (gastroesophageal reflux disease) Anxiety and depression Overactive bladder Tachycardia Sleep apnea Obesity due to excess calories Bettye's disease Hypothyroidism Spondylosis of lumbar spine Degeneration, intervertebral disc, lumbosacral Disc degeneration, lumbar Surgical History Hx of colonoscopy History of esophagogastroduodenoscopy (EGD) Hx of cholecystectomy S/P laparoscopic sleeve gastrectomy History of eyelid surgery History of lumbar laminectomy History of cystoscopy History of endometrial ablation History of dental surgery Hx of dilation and curettage Hx of tubal ligation History of lumpectomy of both breasts History of bladder surgery Family History Mother Diabetes Uterine cancer Father Diabetes Sister Breast cancer Sister No problems noted. Brother No problems noted. Daughter No problems noted. Social History Household Members: Other Household Members Other:: 2 dogs and one cat Housing: Other Housing Other:: Mobile Home Are you a primary veterinarian laboratory animal care to a significant other at home: No Do you presently have visiting nurse or other home services: No Alcohol intake: current Alcohol intake frequency: holidays/special occasions only Comment: Legs weak at times Patient Tobacco Use Status: Former Tobacco user Tobacco use type: Cigarette Cigarette Packs Per Day: 2.5 Cigarettes Per Day: 50.0 Years Smoked: 24 e-Cigarette/Vaping Use: Never Used Second Hand Smoke Exposure: No Substance Use Type: Marijuana Advance Directives Date on File: 08/26/21 service: No Current occupational status: disabled Current occupational exposures/hazards: No Cognitive needs: No Hearing needs: No Vision needs: No Physical Exam Vital Signs: Last Vital Signs Temp 97.6 F 10/07/24 10:54 Pulse 64 10/07/24 10:54 BP 128/58 L 10/07/24 10:54 Pulse Ox 96 10/07/24 10:54 Oxygen Delivery Method Room Air 10/07/24 10:54 BMI result Body Mass Index 29.1 Assessment & Plan Assessment & Plan (1) S/P laparoscopic sleeve gastrectomy: Comment: 08/26/21 Code(s): Z98.84 - Bariatric surgery status Category: Surgical (2) Overweight: Code(s): E66.3 - Overweight Category: Medical Plan Pt doing well on current meal plan, finds it sustainable. Labs reviewed. Pt interested in meeting with a packing and stamping machine operator, gave [employer] contact. RTC 4mo per pt preference.
[2024-10-07 10:54] VITALS: BP 128/58; PULSE 64; TEMP 36.4; O2SAT 96; BMI 29.1
== END 2024-10-07 11:35 | disposition home or self-care (01) ==
LOC: HO.HBS 10:38
PROVIDERS: PCP Family Medicine; Visit Provider Physician Assistant Surgical
DX: E66.3 Overweight (principal); Z68.29 Body mass index [BMI] 29.0-29.9, adult; Z98.84 Bariatric surgery status
CPT/HCPCS: 99214; G2211

== ENCOUNTER → 2024-10-07 10:37 | Outpatient (BNVA) | payer MEDICARE, MEDICAID, SELFPAY | PROVIDERS: PCP Family Medicine; Visit Provider Physician Assistant Surgical | DX: E66.9 Obesity, unspecified (principal); Z98.84 Bariatric surgery status; Z68.29 Body mass index [BMI] 29.0-29.9, adult | CPT/HCPCS: 99212 ==

== ENCOUNTER 2024-10-31 13:07 | Outpatient (AMB) | payer MEDICARE, MEDICAID, SELFPAY ==
--- NOTE | 2024-10-31 13:54 | MHC.OFFVIS ---
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 Accompanied by: Self / Same As Patient Allergies nickel Allergy (Severe, Verified 10/31/24 13:55) Anaphylaxis nitrofurantoin [From Macrodantin] Allergy (Severe, Verified 10/31/24 13:55) Anaphylaxis Sulfa (Sulfonamide Antibiotics) Allergy (Severe, Verified 10/31/24 13:55) Hives, Swelling clindamycin Allergy (Mild, Verified 10/31/24 13:55) Diarrhea fesoterodine [From Toviaz] Allergy (Unknown, Verified 10/31/24 13:55) Flushing Medication List - Last Reconciled 10/31/24 by Mc Hung MD bupropion HCl XL 300 mg PO QAM buspirone 15 mg PO BID cyclobenzaprine 10 mg PO BID PRN diazepam 2.5 - 5 mg (0.5 - 1 x 5 mg) PO DAILY PRN duloxetine 120 mg (2 x 60 mg) PO DAILY famotidine 20 mg PO DAILY 30 days levothyroxine 25 mcg PO DAILY 90 days metoprolol succinate ER 12.5 mg (1/2 x 25 mg) PO DAILY multivitamin 1 tab PO DAILY nystatin 1 appl topical QID oxybutynin chloride ER 15 mg PO DAILY pregabalin 150 mg PO BID 30 days topiramate (Topamax) 50 - 100 mg (0.5 - 1 x 100 mg) PO BEDTIME 90 days HPI Comments Details: 10/31/24--here for cystoscopy. Overactive bladder was sent Toviaz currently on oxybutynin 10 mg she feels that works better Urinary symptoms not completely controlled on 10 mg will increase dose to 15 mg Cystoscopy findings bladder wall thickening no other abnormalities Pelvic exam of bladder neck as well supported the patient does not have significant stress incontinence symptoms I did discuss that she likely has bladder spasms contributing to her urinary symptoms I reviewed renal ultrasound which notes right nephrolithiasis on follow-up we will discuss further shockwave lithotripsy as an option 08/29/24-- 12/27/23--Jacqueline is a pleasant 58-year-old female patient of Dr. Rizvi. She has a past medical history of neuropathy, nephrolithiasis, GERD, anxiety, depression, overactive bladder, Bettye's disease, and lumbar disc degeneration. She presents to the office today for follow-up of her urinary leakage. Of note, patient has undergone in office urodynamics that noted Interpretation: During the filling phase there was normal sensation, sensory urgency was noted, Findings consistent with detrusor overactivity. EMG- Appropriate changes in the waveforms were noted through out the study. There was a decrease in the EMG activity during the voiding c/w normal function of the pelvic floor. In discussion with the patient today she reports feeling Gemtesa 75mg daily has been more helpful in her lower urinary tract symptoms than previous urological medications such as Toviaz, oxybutynin, tolterodine and Myrbetriq. She reports she does continue with episodes of urinary frequency, urinary urgency, and urinary leakage however she feels they are manageable and less frequent than she had been previously experiencing. She has a history at the age of [age] years old having a dilation of her urethra as well as having a [place] sling [place] [address] Oconnor. She reports utilizing 1-2 pads per day. She otherwise denies hematuria, nocturia, dysuria, foul-smelling urine, flank pain, fever, and or chills. In office urinalysis results reviewed with the patient today. PVR 0 mL. Discussed at length potential causes for lower urinary tract symptoms patient is experiencing. Previous workup has included Recent retroperitoneal ultrasound results reviewed with the patient today. Bilateral kidneys with no lesions and or hydronephrosis noted. Bilateral nonobstructing renal calculi noted. Right side with two 4 mm nonobstructing stones in the lower pole. Left kidney with 3 mm nonobstructing mid pole stone. Patient unable to fill bladder completely. Bladder is partially distended. Bilateral ureteral jets are demonstrated. She otherwise offers no other issues or concerns at this time. 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 Generalized anxiety disorder COVID Cholelithiasis Neuropathy Nephrolithiasis GERD (gastroesophageal reflux disease) Anxiety and depression Overactive bladder Tachycardia Sleep apnea Obesity due to excess calories Bettye's disease Hypothyroidism Spondylosis of lumbar spine Degeneration, intervertebral disc, lumbosacral Disc degeneration, lumbar Surgical History Hx of colonoscopy History of esophagogastroduodenoscopy (EGD) Hx of cholecystectomy S/P laparoscopic sleeve gastrectomy History of eyelid surgery History of lumbar laminectomy History of cystoscopy History of endometrial ablation History of dental surgery Hx of dilation and curettage Hx of tubal ligation History of lumpectomy of both breasts History of bladder surgery Family History Mother Diabetes Uterine cancer Father Diabetes Sister Breast cancer Sister No problems noted. Brother No problems noted. Daughter No problems noted. Social History Household Members: Other Household Members Other:: 2 dogs and one cat Housing: Other Housing Other:: Mobile Home Are you a primary palliative care physician to a significant other at home: No Do you presently have visiting nurse or other home services: No Alcohol intake: current Alcohol intake frequency: holidays/special occasions only Comment: Legs weak at times Patient Tobacco Use Status: Former Tobacco user Tobacco use type: Cigarette Cigarette Packs Per Day: 2.5 Cigarettes Per Day: 50.0 Years Smoked: 24 e-Cigarette/Vaping Use: Never Used Second Hand Smoke Exposure: No Substance Use Type: Marijuana Advance Directives Date on File: 08/26/21 service: No Current occupational status: disabled Current occupational exposures/hazards: No Cognitive needs: No Hearing needs: No Vision needs: No Office Procedures Cystoscopy Consent Discussed risk and benefit or proposed procedure with the patient. Information consent for procedure given to the patient. Discussed technical aspects, risks, benefits and alternatives in full. Addressed all of the patient's questions and concerns regarding the procedure. The patient demonstrated knowledge and understanding. They wish to proceed with this procedure. Preparation The patient was prepped in the usual manner. A employer relations representative was present and in the room. Genitalia was prepped with betadine solution in a sterile manner. Lidocaine Jelly 2% was placed into the urethra and 16Fr flexible Olympus cystoscope was inserted into the meatus after adequate lubrication. Results AMB Urinalysis, Automated UA Leukoctes 0 Nadine/uL Last Edit by Sarah Peng on 10/31/24 16:41 UA Nitrite Negative Last Edit by Crystal Peng on 10/31/24 16:41 UA Urobilinogen 3.5 mg/dL Last Edit by Crystal Peng on 10/31/24 16:41 UA Protein 1 mg/dL Last Edit by Crystal Peng on 10/31/24 16:41 UA pH 6.0 Last Edit by Crystal Peng on 10/31/24 16:41 UA Blood 0 Tim/uL Last Edit by Crystal Peng on 10/31/24 16:41 UA Specific [place] 1.015 Last Edit by Crystal Peng on 10/31/24 16:41 UA Ketone Negative Last Edit by Crystal Peng on 10/31/24 16:41 UA Bilirubin 0 mg/dL Last Edit by Crystal Peng on 10/31/24 16:41 UA Glucose 0 mg/dL Last Edit by Crystal Peng on 10/31/24 16:41 Results Reviewed Results Reviewed: Date of Service: 10/03/24 Procedure(s): US renal BI Accession Number(s): [id number] cc: Mc Hung MD; Jaylen Rivzi MD~ EXAMINATION: US KIDNEY BILATERAL HISTORY: R32 - Unspecified urinary incontinence TECHNIQUE: Real-time grayscale ultrasound imaging of the kidneys was performed and images were reviewed. COMPARISON: Comparison is made with the prior examination dated 10/18/2023. FINDINGS: Right kidney: The right kidney measures 10.9 x 4.8 x 5.2 cm. Renal parenchymal echotexture and thickness are normal. There are no masses. There are multiple nonobstructing calculi including a 6 x 4 x 4 mm calculus in the interpolar region and lower pole calculi measuring 8 x 5 x 6 mm and 9 x 5 x 4 mm. There is no hydronephrosis. Left Kidney: The left kidney measures 11.7 x 5.6 x 4.0 cm. Renal parenchymal echotexture and thickness are normal. There are no masses. There are faint linear echogenic foci in the mid to lower pole region which could represent calcified vessels or tiny calculi. There is no hydronephrosis. US/US renal BI IMPRESSION: Right nephrolithiasis as described. Possible left nephrolithiasis. Date of Service: 10/18/23 EXAMINATION: US RETROPERITONEAL COMPLETE (RENAL) FINDINGS: RIGHT KIDNEY: 12.0 x 4.2 x 5.7 cm (SAG x AP x TRV). The kidney is normal in size, contour, and echogenicity. Renal cortical thickness is normal. To stones measuring 4 mm and 4 x 7 mm in the lower pole. No focal parenchymal lesions or hydronephrosis. LEFT KIDNEY: 11.2 x 5.1 x 5.1 cm (SAG x AP x TRV). The kidney is normal in size, contour, and echogenicity. Renal cortical thickness is normal. Small stone measuring 3 mm in the midpole No focal parenchymal lesions or hydronephrosis. BLADDER: Patient unable to fill bladder. Partially distended. Bilateral ureteral jets are demonstrated. Prevoid bladder volume is 114 mL. Postvoid bladder volume was not obtained. IMPRESSION: Bilateral nonobstructing renal stones. Patient unable to fill bladder and bladder not optimally evaluated. Assessment & Plan Assessment & Plan Orders: Orders AMB Cystoscopy Today R32 - Unspecified urinary incontinence, R35.0 - Frequency of micturition AMB Urinalysis Automated Today N32.81 - Overactive bladder, R30.0 - Dysuria, R32 - Unspecified urinary incontinence, Z87.898 - Personal history of other specified conditions Medications: New phenazopyridine 200 mg PO ONCE 1 tab 0RF R32 - Unspecified urinary incontinence, R35.0 - Frequency of micturition lidocaine HCl 2% 10 mL intra-urethral ONCE 20 mL 0RF R32 - Unspecified urinary incontinence, R35.0 - Frequency of micturition ciprofloxacin HCl 500 mg PO ONCE 1 tab 0RF R32 - Unspecified urinary incontinence, R35.0 - Frequency of micturition oxybutynin chloride ER 15 mg PO DAILY 30 tabs 3RF Discontinued oxybutynin chloride ER Discontinued Reason: Doctor's Order 10 mg PO DAILY 90 days 90 tabs 2RF Coding
== END 2024-10-31 14:46 | disposition home or self-care (01) ==
LOC: HO.HUSH 13:07
PROVIDERS: PCP Family Medicine; Visit Provider Urology
DX: R32 Unspecified urinary incontinence (principal); Z87.898 Personal history of other specified conditions; N32.81 Overactive bladder; R30.0 Dysuria

== ENCOUNTER → 2024-10-31 13:07 | Outpatient (BNVA) | payer MEDICARE, MEDICAID, SELFPAY | PROVIDERS: PCP Family Medicine; Visit Provider Urology | DX: N32.81 Overactive bladder (principal); R32 Unspecified urinary incontinence; R35.0 Frequency of micturition; R30.0 Dysuria; Z87.898 Personal history of other specified conditions | CPT/HCPCS: 52000; 81003 ==

== ENCOUNTER 2024-12-24 10:38 | Outpatient (AMB) | payer MEDICARE, MEDICAID, SELFPAY ==
--- OUTSIDE RECORDS SUMMARY | 2024-12-19 23:59 | XMS_ITS | Continuity of Care Document ---
[facility] Address [address] [place] [address]- Care Team Providers Care Herpetology Teacher Name Role Phone Rosalino Oconnor MD Primary Care Physician Encounter [facility] Date(s): 11/19/24 - 12/19/[address] [address] Attending Physician: Jane Wolf Admitting Physician: Jane Wolf Referring Physician: Jane Wolf Encounter Type: Triage Allergies, Adverse Reactions, Alerts Substance Criticality Severity Reaction Reaction Severity Status sulfamethoxazole Act mike Macrodantin Active Medications buPROPion 200 mg/12 hours (SR) oral tablet, extended release 1 tablet = 200 mg, By Mouth, 2 times a day, 0 Refills, Maintenance, 04/24/18 8:03:15 AM EST Start Date: 04/24/18 Status: Ordered Repeat number: 1 busPIRone 15 mg oral tablet 1 tablet = 15 mg, By Mouth, 2 times a day, 0 Refills, Maintenance, 04/24/18 8:02:58 AM EST Start Date: 04/24/18 Status: Ordered Repeat number: 1 duloxetine 60 mg oral enteric coated capsule 2 capsule = 120 mg, By Mouth, Daily, do not crush or chew, # 60 capsule, 0 Refills, Maintenance, 12/02/24 11:15:00 AM EDT, CR Capsule, Partial fill upon patient request if the prescription is for a schedule II opioid drug. Start Date: 12/02/24 Status: Ordered Quantity: 60.0 Unit: capsule Repeat number: 1 Famotidine = 10 mg, 0 Refills, Maintenance, 12/02/24 11:15:00 AM EDT, Partial fill upon patient request if the prescription is for a schedule II opioid drug. Start Date: 12/02/24 Status: Ordered Repeat number: 1 levothyroxine 0.025 mg oral tablet 1 tablet = 25 mcg, By Mouth, Daily, 0 Refills, Maintenance, 04/24/18 8:02:34 AM EST Start Date: 04/24/18 Status: Ordered Repeat number: 1 metoprolol 25 mg oral tablet 12.5 mg, 0.5, tablet, By Mouth, 2 times a day, # 180 tablet, Refills 0, Maintenance, 11/13/19 8:33:00 PM EDT Start Date: 11/13/19 Status: Ordered Quantity: 180.0 Unit: tablet Repeat number: 1 Multi Vitamin+ 0 Refills, Maintenance, 04/24/18 8:03:21 AM EST Start Date: 04/24/18 Status: Ordered Repeat number: 1 Oxybutynin 0 Refills, Maintenance, 04/24/18 8:02:13 AM EST Start Date: 04/24/18 Status: Ordered Repeat number: 1 PARoxetine 40 mg oral tablet 40 mg, 1, tablet, By Mouth, Daily, # 30 tablet, Refills 0, Maintenance, 04/24/18 8:02:04 AM EST Start Date: 04/24/18 Status: Ordered Quantity: 30.0 Unit: tablet Repeat number: 1 pregabalin 150 mg oral capsule 1 capsule = 150 mg, By Mouth, 2 times a day, # 180 capsule, 0 Refills, Maintenance, 11/13/19 8:33:00PM EDT, Capsule Start Date: 11/13/19 Status: Ordered Quantity: 180.0 Unit: capsule Repeat number: 1 Topiramate By Mouth, 0 Refills, Maintenance, 04/24/18 8:02:41 AM EST Start Date: 04/24/18 Status: Ordered Repeat number: 1 Valium 10 mg oral tablet 10 mg, 1, tablet, By Mouth, 3 times a day, PRN, Refills 0, Maintenance, as needed for anxiety, 04/24/18 8:03:44 AM EST Start Date: 04/24/18 Status: Ordered Repeat number: 1 Problem List Condition Confirmation Course Effective Dates Status Health St atus Informant Obese class I Confirmed Active Social History Social History Type Response Smoking Status Former smoker, quit more than 30 days ago entered on: 11/13/19 Sex Sex Representation Female (finding) Patient Care team information Care Team Personnel Name: Rosalino Oconnor MD Position: [facility] CLINICAL NURSE MANAGER MD Member Role: PCP Address: [address] [place] [address] [facility] [place], [place] [address] Telecom: Care Team Related Persons Name: ROS AMARIA MATHIS Name: CHELI MARR Insurance Providers Guarantor name: CAMELIA MARR Health Plan Information #: 1 Payer: MEDICARE B Payer Identifier: LUCERO Member Number: [id number] Group Number: Subscriber Identifier: [id number] Relationship to Subscriber: self Coverage Type: NA Coverage Verification Date: NA Telecom: NA Address: NA Health Plan Information #: 2 Payer: [employer]ER [employer] Payer Identifier: LUCERO Member Number: [id number] Group Number: Subscriber Identifier: [id number] Relationship to Subscriber: self Coverage Type: MEDICAID Coverage Verification Date: NA Telecom: NA Address:
--- NOTE | 2024-12-24 11:05 | MHC.PC.OV ---
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: No Allergies nickel Allergy (Severe, Verified 10/31/24 13:55) Anaphylaxis nitrofurantoin (From Macrodantin) Allergy (Severe, Verified 10/31/24 13:55) Anaphylaxis Sulfa (Sulfonamide Antibiotics) Allergy (Severe, Verified 10/31/24 13:55) Hives, Swelling clindamycin Allergy (Mild, Verified 10/31/24 13:55) Diarrhea fesoterodine (From Toviaz) Allergy (Unknown, Verified 10/31/24 13:55) Flushing Medication List - Last Reconciled 12/24/24 by Jaylen Rizvi MD bupropion HCl XL 300 mg PO QAM buspirone 15 mg PO BID cyclobenzaprine 10 mg PO BID PRN diazepam 2.5 - 5 mg (0.5 - 1 x 5 mg) PO DAILY PRN duloxetine 120 mg (2 x 60 mg) PO DAILY famotidine 20 mg PO DAILY 30 days levothyroxine 25 mcg PO DAILY 90 days metoprolol succinate ER 12.5 mg (1/2 x 25 mg) PO DAILY multivitamin 1 tab PO DAILY nystatin 1 appl topical QID oxybutynin chloride ER 15 mg PO DAILY pregabalin 150 mg PO BID 30 days topiramate (Topamax) 50 - 100 mg (0.5 - 1 x 100 mg) PO BEDTIME 90 days Tobacco use date assessed: 08/15/24 Dental Screening Dental Screen Date: 08/15/24 HPI uti/kidney stones HPI Details 59 y/o female presents today with ? UTI. Reports she was dehydrated last week. Reports dysuria, urinary frequency. 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 Generalized anxiety disorder COVID Cholelithiasis Neuropathy Nephrolithiasis GERD (gastroesophageal reflux disease) Anxiety and depression Overactive bladder Tachycardia Sleep apnea Obesity due to excess calories Bettye's disease Hypothyroidism Spondylosis of lumbar spine Degeneration, intervertebral disc, lumbosacral Disc degeneration, lumbar Surgical History Hx of colonoscopy History of esophagogastroduodenoscopy (EGD) Hx of cholecystectomy S/P laparoscopic sleeve gastrectomy History of eyelid surgery History of lumbar laminectomy History of cystoscopy History of endometrial ablation History of dental surgery Hx of dilation and curettage Hx of tubal ligation History of lumpectomy of both breasts History of bladder surgery Family History Mother Diabetes Uterine cancer Father Diabetes Sister Breast cancer Sister No problems noted. Brother No problems noted. Daughter No problems noted. Social History Household Members: Other Household Members Other:: 2 dogs and one cat Housing: Other Housing Other:: Mobile Home Are you a primary animal care service worker to a significant other at home: No Do you presently have visiting nurse or other home services: No Alcohol intake: current Alcohol intake frequency: holidays/special occasions only Comment: Legs weak at times Patient Tobacco Use Status: Former Tobacco user Tobacco use type: Cigarette Cigarette Packs Per Day: 2.5 Cigarettes Per Day: 50.0 Years Smoked: 24 Packs Per Year: 60 Packs per year/per ci.00 e-Cigarette/Vaping Use: Never Used Second Hand Smoke Exposure: No Substance Use Type: Marijuana Advance Directives Date on File: 08/26/21 service: No Current occupational status: disabled Current occupational exposures/hazards: No Cognitive needs: No Hearing needs: No Vision needs: No Questionnaire Thrive Questionnaire Date Thrive assessed: 06/11/24 I am a: Patient What is your living situation today?: I have a steady place to live Within the past 12 months, did the food you bought not last and you didn't have the money to get more?: Never true Within the past 12 months, did you worry whether your food would run out before you got money to buy more?: Never true Do you have trouble paying for medicines?: No Do you have trouble getting transportation to medical appointments?: No Do you have trouble paying your heating and electricity bill?: No Do you have trouble taking care of your child, family member or friend?: No Do you have trouble with day-to-day activities such as bathing, preparing meals, shopping, managing finances, etc.?: No Are you currently unemployed and looking for a job?: No Are you interested in more education?: No Please select the resources that you would like help with: None Currently or been in a relationship where the following occur: No concerns reported THRIVE Score: 0 VINEET-7 AMB Questionnaire VINEET-7 Date VINEET - 7 assessed: 08/30/23 Source: Developed by Drs. Rosalino Huang, Johanna Tyler, José Ambriz and colleagues, with an educational yolis from [employer] ([employer]). Review of Systems Const Denies chills, Denies fatigue, Denies fever(s), Denies headache(s) and Denies weakness ENT Denies dizziness and Denies headache(s) Card Denies dyspnea Resp Denies cough, Denies dyspnea, Denies wheezing and Denies other (shortness of breath) Details: Dysuria Musc Denies numbness and Denies tingling Neuro Denies dizziness, Denies headache(s), Denies numbness, Denies tingling and Denies weakness Psych Denies anxiety and Denies depression Endo Denies fatigue Aller/Immun Denies wheezing Physical exam (Primary Care) Tobacco/Smoking Status: Tobacco use Status Tobacco use date assessed 08/15/24 12/24/24 11:07 Patient Tobacco Use Status Former Tobacco user 12/24/24 11:07 Tobacco use type Cigarette 12/24/24 11:07 e-Cigarette/Vaping Use Never Used 12/24/24 11:07 Thrive Assessment: Date of Thrive Assessment Date Thrive assessed 06/11/24 12/24/24 11:07 Currently or been in a relationship where the following occur: No concerns reported Const General: well developed; No acute distress Nutritional Appearance: well nourished Orientation/consciousness: patient oriented x3 [facility] Head: Yes normocephalic and Yes atraumatic Eyes General: appearance normal, both eyes and all related structures Pupils: Equal, round and reactive pupils present EOM: EOMs intact bilaterally Resp Effort & Inspection: normal respiratory effort Neuro General: patient oriented x3 and gait normal Cranial nerves: Yes Equal, round and reactive pupils present Psych Affect: normal affect Results AMB Urinalysis, Automated UA Leukoctes 70 Nadine/uL Last Edit by RUPALI Bueno on 12/24/24 11:17 UA Nitrite Negative Last Edit by RUPALI Bueno on 12/24/24 11:17 UA Urobilinogen 3.5 mg/dL Last Edit by RUPALI Bueno on 12/24/24 11:17 UA Protein 0.3 mg/dL Last Edit by RUPALI Bueno on 12/24/24 11:17 UA pH 7.5 Last Edit by RUPALI Bueno on 12/24/24 11:17 UA Blood 80 Tim/uL Last Edit by RUPALI Bueno on 12/24/24 11:17 UA Specific [place] 1.010 Last Edit by RUPALI Bueno on 12/24/24 11:17 UA Ketone Negative Last Edit by RUPALI Bueno on 12/24/24 11:17 UA Bilirubin 0 mg/dL Last Edit by RUPALI Bueno on 12/24/24 11:17 UA Glucose 0 mg/dL Last Edit by RUPALI Bueno on 12/24/24 11:17 Results Reviewed Results Reviewed: Laboratory Last Values Urine pH (Auto) 7.5 12/24/24 11:13 Specific [place] (Auto) 1.010 12/24/24 11:13 Urine Protein (Auto) 0.3 mg/dL 12/24/24 11:13 Glucose (UA)(Auto) 0 mg/dL 12/24/24 11:13 Urine Ketones (Auto) Negative 12/24/24 11:13 Urine Blood (Auto) 80 Tim/uL 12/24/24 11:13 Urine Nitrite (Auto) Negative 12/24/24 11:13 Urine Bilirubin (Auto) 0 mg/dL 12/24/24 11:13 Urine Urobilinogen (Auto) 3.5 mg/dL 12/24/24 11:13 Leukocyte Esterase (Auto) 70 Nadine/uL 12/24/24 11:13 Coding Level of Care Code Est Pt Level 3 (65417) Diagnoses UTI (urinary tract infection) N39.0 Assessment & Plan Assessment & Plan (1) UTI (urinary tract infection): Code(s): N39.0 - Urinary tract infection, site not specified Category: Medical Plan: Dysuria with frequency, urgency and urine dip shows leukocyte esterase and RBC. Likely UTI Start Cipro-patient has numerous allergies to antibiotics. Has tolerated Cipro with good affect in the past. Hydrate well Will send urine for culture and sensitivities as well. Orders: Orders AMB Urinalysis Automated Today N39.0 - Urinary tract infection, site not specified Comprehensive [place]. Panel Fast Today Z00.00 - Encounter for general adult medical examination without abnormal findings Complete Blood Count Auto Diff Today Z00.00 - Encounter for general adult medical examination without abnormal findings Microalbumin, Random (w Creat) Today I10 - Essential (primary) hypertension Urine Culture Today R30.0 - Dysuria UA and rflx microscopic Today R30.0 - Dysuria TSH reflex Free T4 Today Z00.00 - Encounter for general adult medical examination without abnormal findings Lipid Panel Today Z00.00 - Encounter for general adult medical examination without abnormal findings Medications: New ciprofloxacin HCl 500 mg PO Q12H 10 tabs 0RF 5 days
== END 2024-12-24 13:47 | disposition home or self-care (01) ==
LOC: HO.HMCFM 10:38
PROVIDERS: Visit Provider Family Medicine
DX: N39.0 Urinary tract infection, site not specified (principal)

== ENCOUNTER 2024-12-24 10:38 | Outpatient (REF) | payer MEDICARE, MEDICAID, SELFPAY ==
[2024-12-24 17:58] LABS: Appearance Urine Clear; Glucose Urine UA Negative (Negative); PH 7.5 (5.0-9.0); Specific Gravity - Urine 1.010 (1.005-1.025); UMIC TRIGGER UA YES
[2024-12-24 18:20] LABS: Microalbum/Creatinine Ratio Ur 564.4 ug/mg cr (<30)
== END 2024-12-24 10:39 | disposition home or self-care (01) ==
LOC: HO.LNP 10:38
PROVIDERS: Visit Provider Family Medicine
DX: N39.0 Urinary tract infection, site not specified (principal)
CPT/HCPCS: 81001; 82043; 82570; 87086; 99212

== ENCOUNTER 2024-12-30 13:51 | Outpatient (AMB) | payer MEDICARE, MEDICAID, SELFPAY ==
--- NOTE | 2024-12-30 13:52 | A.OFFVIS_ITS ---
Intake Visit Reasons: 2m follow up Intake Note: Patient presents to office today via telehealth for a 2m follow up Urology Medications:Oxybytnin Blood Thinner: None Allergies to antibiotics: Nitrofurantoin, Sulfa, Clyndamycin Equipment Operat0R Required: No Accompanied by: Self / Same As Patient Allergies nickel Allergy (Severe, Verified 01/16/25 13:13) Anaphylaxis nitrofurantoin (From Macrodantin) Allergy (Severe, Verified 01/16/25 13:13) Anaphylaxis Sulfa (Sulfonamide Antibiotics) Allergy (Severe, Verified 01/16/25 13:13) Hives, Swelling clindamycin Allergy (Mild, Verified 01/16/25 13:13) Diarrhea fesoterodine (From Toviaz) Allergy (Unknown, Verified 01/16/25 13:13) Flushing Medication List - Last Reconciled 12/30/24 by Mc Hung MD bupropion HCl XL 300 mg PO QAM buspirone 15 mg PO BID cyclobenzaprine 10 mg PO BID PRN diazepam 2.5 - 5 mg (0.5 - 1 x 5 mg) PO DAILY PRN duloxetine 120 mg (2 x 60 mg) PO DAILY famotidine 20 mg PO DAILY 30 days levothyroxine 25 mcg PO DAILY 90 days metoprolol succinate ER 12.5 mg (1/2 x 25 mg) PO DAILY multivitamin 1 tab PO DAILY nystatin 1 appl topical QID oxybutynin chloride ER 15 mg PO DAILY pregabalin 150 mg PO BID 30 days topiramate (Topamax) 50 - 100 mg (0.5 - 1 x 100 mg) PO BEDTIME 90 days HPI Comments Details: 12/30/24--jacqueline is a 59-year-old female who is followed for urinary incontinence urodynamics in the past were consistent with detrusor overactivity. She was seen last for on 10/31/2024 office cystoscopy noted bladder wall thickening likely contributing to the bladder spasms. Oxybutynin was increased from 5 mg to 15 mg. She states that the increase in the dosage has helped especially at nighttime. We will have her follow-up in 6 months. History of Present Illness - The patient is a 59-year-old female presenting with urinary incontinence. - The patient has a history of urinary incontinence, with past urodynamics indicating detrusor overactivity. - She was last seen on 10/31/24, where office cystoscopy revealed bladder wall thickening, likely contributing to bladder spasms. - The patient experienced a urinary tract infection last week, which she associates with dehydration from the previous week. - Oxybutynin dosage was increased from 5 mg to 15 mg, resulting in improved symptoms, particularly at night. Plan - Continue current dosage of Oxybutynin at 15 mg due to improvement in symptoms, especially at night. - Schedule a follow-up appointment in six months to reassess symptoms and medication efficacy. - Adequate hydration encouraged to prevent dehydration-related complications. 10/31/24--here for cystoscopy. Overactive bladder was on Toviaz currently on oxybutynin 10 mg she feels that works better Urinary symptoms not completely controlled on 10 mg will increase dose to 15 mg Cystoscopy findings bladder wall thickening no other abnormalities Pelvic exam of bladder neck as well supported the patient does not have significant stress incontinence symptoms I did discuss that she likely has bladder spasms contributing to her urinary symptoms I reviewed renal ultrasound which notes right nephrolithiasis on follow-up we will discuss further shockwave lithotripsy as an option 08/29/24--08/29/24--The patient is a 59-year-old female presenting with urinary urgency and incontinence associated with her diagnosis of overactive bladder. Her symptoms have exacerbated, particularly during nighttime hours, leading to frequent nocturnal enuresis. Previous attempts to mitigate symptoms with anticholinergic medications were unsuccessful due to adverse effects and inefficacy. Coinciding with her genitourinary symptoms, she reports worsening eyesight and chronic back pain following lumbar surgery many years prior. There was noted perineal numbness developing with prolonged sitting. Her past medical history includes a diagnosis of kidney stones, with renal ultrasonography conducted a year prior revealing calculi. 12/27/23--Jacqueline is a pleasant 58-year-old female patient of Dr. Sage barajas. She has a past medical history of neuropathy, nephrolithiasis, GERD, anxiety, depression, overactive bladder, Bettye's disease, and lumbar disc degeneration. She presents to the office today for follow-up of her urinary leakage. Of note, patient has undergone in office urodynamics 08/25/23-- that noted detrusor overactivity. [facility] Medical History Osteoarthritis Fibromyalgia Hypothyroid Panic disorder [episodic paroxysmal anxiety] 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 Generalized anxiety disorder COVID Cholelithiasis Neuropathy Nephrolithiasis GERD (gastroesophageal reflux disease) Anxiety and depression Overactive bladder Tachycardia Sleep apnea Obesity due to excess calories Bettye's disease Hypothyroidism Spondylosis of lumbar spine Degeneration, intervertebral disc, lumbosacral Disc degeneration, lumbar Surgical History Hx of colonoscopy History of esophagogastroduodenoscopy (EGD) Hx of cholecystectomy S/P laparoscopic sleeve gastrectomy History of eyelid surgery History of lumbar laminectomy History of cystoscopy History of endometrial ablation History of dental surgery Hx of dilation and curettage Hx of tubal ligation History of lumpectomy of both breasts History of bladder surgery Family History Mother Diabetes Uterine cancer Father Diabetes Sister Breast cancer Sister No problems noted. Brother No problems noted. Daughter No problems noted. Social History Household Members: Other Household Members Other:: 2 dogs and one cat Housing: Other Housing Other:: Mobile Home Are you a primary complex care nurse to a significant other at home: No Do you presently have visiting nurse or other home services: No Alcohol intake: current Alcohol intake frequency: holidays/special occasions only Comment: Legs weak at times Patient Tobacco Use Status: Former Tobacco user Tobacco use type: Cigarette Cigarette Packs Per Day: 2.5 Cigarettes Per Day: 50.0 Years Smoked: 24 e-Cigarette/Vaping Use: Never Used Second Hand Smoke Exposure: No Substance Use Type: Marijuana Advance Directives Date on File: 08/26/21 service: No Current occupational status: disabled Current occupational exposures/hazards: No Cognitive needs: No Hearing needs: No Vision needs: No Review of Systems Const All systems reviewed & are unremarkable except as noted in HPI and below Reports no additional complaints Eyes Reports no additional complaints ENT Reports no additional complaints Card Reports no additional complaints Resp Reports no additional complaints GI Reports no additional complaints Reports as per HPI Musc Reports no additional complaints Skin/Breast Reports system reviewed and no additional complaints, except as documented Neuro Reports no additional complaints Psych Reports no additional complaints Endo Reports no additional complaints Mario/Lymph Reports no additional complaints Aller/Immun Reports no additional complaints Telehealth Telehealth Telehealth Platform: [employer] Location of provider rendering services: practice address Location of patient: address on file Patient Identification confirmed using: Name, : Yes Telehealth method: voice only Patient verbally consented to treatment: Yes Patient verbally consented to billing insurance company: Yes Patient informed of any privacy concerns related to visit: Yes Minutes spent on Phone/Video with Pt.: 13 Assessment & Plan Assessment & Plan (1) Overactive bladder: Code(s): N32.81 - Overactive bladder Category: Medical Plan Plan - Continue current dosage of Oxybutynin at 15 mg due to improvement in symptoms, especially at night. - Schedule a follow-up appointment in six months to reassess symptoms and medication efficacy. - Adequate hydration encouraged to prevent dehydration-related complications. Patient Instructions: The patient had an opportunity to ask questions regarding treatment plan. The patient expressed understanding and agreement with the above treatment plan. The patient is aware they should contact our office by phone for worsening of their current condition or the appearance of new symptoms. Compliance is encouraged with any medications and followup testing that is ordered. It is a privilege to be allowed the opportunity to participate in the urologic care of your patient. If you have any questions or concerns regarding treatment for the above conditions please do not hesitate to contact me. The office telephone contact is [phone]. This note is constructed in part using voice recognition software. While every effort has been made to ensure accuracy anatomy professor errors may have been included. Yours sincerely, Mc Hung MD Scribe Plan - Not visible on output: Patient was informed and verbally consented to the use of an ambient scribe for clinic note documentation during this visit. Coding Level of Care Code Tele Est Pt Level 3 (73278) Diagnoses Overactive bladder N32.81
== END 2024-12-30 16:30 | disposition home or self-care (01) ==
LOC: HO.HUSH 13:52
PROVIDERS: Visit Provider Urology
DX: N32.81 Overactive bladder (principal)
CPT/HCPCS: 99213

== ENCOUNTER 2024-12-31 13:55 | Outpatient (AMB) | payer MEDICARE, MEDICAID, SELFPAY ==
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
== END 2024-12-31 15:20 | disposition home or self-care (01) ==
LOC: HO.HOP 13:55
PROVIDERS: Visit Provider Psychiatry & Neurology Psychiatry
DX: F33.41 Major depressive disorder, recurrent, in partial remission (principal); F41.1 Generalized anxiety disorder; F41.0 Panic disorder [episodic paroxysmal anxiety]; E06.3 Autoimmune thyroiditis
CPT/HCPCS: 90833; 99213

== ENCOUNTER → 2024-12-31 13:55 | Outpatient (BNVA) | payer MEDICARE, MEDICAID, SELFPAY | PROVIDERS: Visit Provider Psychiatry & Neurology Psychiatry | DX: F33.41 Major depressive disorder, recurrent, in partial remission (principal); F41.1 Generalized anxiety disorder; F41.0 Panic disorder [episodic paroxysmal anxiety]; E06.3 Autoimmune thyroiditis | CPT/HCPCS: 99212 ==

== ENCOUNTER → 2025-01-13 12:49 | Outpatient (REF) | payer MEDICARE, MEDICAID, SELFPAY ==
--- NOTE | 2025-01-13 13:01 | CA_ITS ---
Transthoracic Echocardiogram Patient (Last, First, Middle): Jacqueline Mandel E Gender: Female Date of : 1965 Age: 59 Procedure Date: 01/13/2025 Procedure Type: Transthoracic Echocardiogram Location: OP Height: 165.1 cm Weight: 81.65 kg BSA: 1.89 m2 Heart Rate: bpm BP: 110 / 60 mmHg Electronics Specialist: TO Referring MD: Stephen Jensen MD Health Sciences Program Coordinator: Elmer Nation MD Symptoms: I77.89 - Other specified disorders of arteries and arterioles Study Quality: Fair/Contrast ECG Rhythm: Sinus Conclusions: - 1. Normal LV ejection fraction 55-60% 2. Normal cardiac valvular Dopplers 3. Mildly dilated ascending aorta at 3.7 cm 4. No gross pericardial effusion Findings Procedure Information Contrast agent, definity, is being given per protocol without apparent complications. Left Ventricle Normal left ventricular size, thickness, and systolic function. The visually estimated ejection fraction is between 55-60%. Spectral Doppler is indicative of a normal filling pattern. Right Ventricle Normal right ventricular cavity size and systolic function. Atria The left atrium is likely dilated. There is lipomatous hypertrophy of the interatrial septum. There is no evidence of interatrial shunt. The right atrium is normal in size. Aortic Valve Normal aortic valve structure and function. There is no aortic valve stenosis. There is no aortic valve regurgitation. Mitral Valve Normal mitral valve structure and function. There is trace mitral valve regurgitation. There is no mitral valve stenosis. Pulmonic Valve The pulmonic valve is likely normal. Tricuspid Valve Normal tricuspid valve structure. There is trace tricuspid valve regurgitation. Tricuspid regurgitation envelope is inadequate for calculation of right ventricular systolic pressure. Normal right atrial pressure. Great Vessels The pulmonary artery was not well visualized. There is mild dilatation of the ascending aorta measuring 3.70 cm. There is no evidence of plaque in the aorta. Venous The inferior vena cava is normal in size and collapses greater than 50% with inspiration. Pericardium/Pleural There is no evidence of pericardial effusion. Prior Study Comparison No significant change compared to prior study dated: 12/12/2022. Measurements 2D Linear Measurements IVSd: 0.88 0.6-0.9/0.6-1.0 cm LVIDd: 4.95 3.9-5.3/4.2-5.9 cm LVIDd Index: 2.62 2.4-3.2/2.2-3.1 cm/m2 LVIDs: 3.91 2.0-3.6 cm LVPWd: 0.77 0.7-1.1 cm LA Diam: 3.40 2.7-3.8/3.0-4.0 cm LAIDs Index: 1.80 1.5-2.3 cm/m2 LV Mass: 172.31 67-162/88-224 g LV Mass Index: 91.17 43-95/49-115 g/m2 LVOT Diam: 2.10 3.0+(-)1.3 cm 2D Systolic Function EF 4C: 53.00 >55% EF 2C: 62.00 >55% EF BiP: 57.60 >55% Mitral Valve MV Pk E: 0.66 MV PK A: 0.43 MV Decel Time: 195.00 E/A: 1.50 E'Lateral: 9.36 E'Medial: 6.09 E/E' Med: 10.90 E/E' Lat: 7.10 PHT: 57.00 MVA PHT: 3.86 Decel Anderson: 3.40 Aortic Valve AoV Pk Moses: 1.15 AoV Mn Moses: 0.80 AoV VTI: 0.26 AoV Pk Grad: 5.00 Aov Mn Grad: 3.00 NEVA Cont.VTI: 3.00 LVOT LVOT Pk Moses: 1.08 LVOT Mn Moses: 0.62 LVOT VTI: 0.22 LVOT Pk Grad: 5.00 LVOT Mn Grad: 2.00 LVOT Diam: 2.10 LVOT Area: 3.46 Diastolic Function MV Pk E: 0.66 MV Pk A: 0.43 E/A: 1.50 E'Medial: 6.09 E/E' Med: 10.90 E' Laterial: 9.36 E/E' Lat: 7.10 Right Ventricle TAPSE (mm): 21.20 TVS' Moses: 10.10 Tricuspid Valve RA Press: 3.00 Great Vessels Aorta Sinus of Valsalva: 3.52 2.0-3.5 cm Ao Asc: 3.70 2.1-3.4 cm Ao Arch: 2.70 Pulmonary Veins Pulm Vein S/D 1.60 Updated in Other Vendor System with Status of Final Elmer Nation MD electronically signed on 01/14/2025 11:59:49 AM with status of Final
== END ==
LOC: HO.CARD 12:49
PROVIDERS: Visit Provider Internal Medicine
DX: I77.89 Other specified disorders of arteries and arterioles (principal)
CPT/HCPCS: 93306; Q9957

== ENCOUNTER → 2025-01-13 13:01 | Outpatient (BNV) | payer MEDICARE, MEDICAID, SELFPAY | PROVIDERS: Visit Provider Internal Medicine Cardiovascular Disease | DX: I77.810 Thoracic aortic ectasia (principal); I51.89 Other ill-defined heart diseases | CPT/HCPCS: 93306 ==

== ENCOUNTER 2025-01-16 12:52 | Outpatient (AMB) | payer MEDICARE, MEDICAID, SELFPAY ==
[2025-01-16 13:10] VITALS: BP 80/62; PULSE 79; BMI 30.4
--- NOTE | 2025-01-16 13:10 | A.OFFVIS_ITS ---
Vital Signs 01/16/25 13:10 Height 5 ft 5 in Weight 182 lb 8.684 oz BMI 30.4 BP 80/62 L Blood Pressure Location Lt brachial Position Sitting Pulse 79 Pulse Source Monitor Intake Visit Reasons: 1 yr follow up per HS Cd Mixer Required: No Allergies nickel Allergy (Severe, Verified 01/16/25 13:13) Anaphylaxis nitrofurantoin (From Macrodantin) Allergy (Severe, Verified 01/16/25 13:13) Anaphylaxis Sulfa (Sulfonamide Antibiotics) Allergy (Severe, Verified 01/16/25 13:13) Hives, Swelling clindamycin Allergy (Mild, Verified 01/16/25 13:13) Diarrhea fesoterodine (From Toviaz) Allergy (Unknown, Verified 01/16/25 13:13) Flushing Medication List - Last Reconciled 01/16/25 by Jacqueline Pablo NON DESTRUCTIVE TESTER-C bupropion HCl XL 300 mg PO QAM buspirone 15 mg PO BID cyclobenzaprine 10 mg PO BID PRN diazepam 2.5 - 5 mg (0.5 - 1 x 5 mg) PO DAILY PRN duloxetine 120 mg (2 x 60 mg) PO DAILY famotidine 20 mg PO DAILY 30 days levothyroxine 25 mcg PO DAILY metoprolol succinate ER 12.5 mg (1/2 x 25 mg) PO DAILY multivitamin 1 tab PO DAILY nystatin 1 appl topical QID oxybutynin chloride ER 15 mg PO DAILY pregabalin 100 mg PO BID 30 days topiramate (Topamax) 50 - 100 mg (0.5 - 1 x 100 mg) PO BEDTIME 90 days HPI HPI 1 yr follow up per HS: Details: Melissa is a 59-year-old female with past medical history of prior obesity with diagnosis of sleep apnea, heart palpitations, tachycardia who presents for follow-up. Today she reports she has done well in the last year with no recurrent episodes of rapid heart palpitations. She is suspected to have ST/SVT episodes which are controlled with low-dose metoprolol. She will get occasional flutter feeling in her chest which she feels may be anxiety and relieves when she drinks water. She denies any chest discomfort at rest or with activity. She has no shortness of breath, PND, orthopnea. She will get some lightheadedness working outside in her garden and bending over. No presyncope, syncope, falls. Tries to maintain good hydration. She says she does not believe she has still has sleep apnea since her weight loss. Her BMI had previously been 40 and is now 30. She is on disability due to chronic back pain. She tries to walk her dog routinely. [facility] Medical History Osteoarthritis Fibromyalgia Hypothyroid Panic disorder [episodic paroxysmal anxiety] 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 Generalized anxiety disorder COVID Cholelithiasis Neuropathy Nephrolithiasis GERD (gastroesophageal reflux disease) Anxiety and depression Overactive bladder Tachycardia Sleep apnea Obesity due to excess calories Bettye's disease Hypothyroidism Spondylosis of lumbar spine Degeneration, intervertebral disc, lumbosacral Disc degeneration, lumbar Surgical History Hx of colonoscopy History of esophagogastroduodenoscopy (EGD) Hx of cholecystectomy S/P laparoscopic sleeve gastrectomy History of eyelid surgery History of lumbar laminectomy History of cystoscopy History of endometrial ablation History of dental surgery Hx of dilation and curettage Hx of tubal ligation History of lumpectomy of both breasts History of bladder surgery Family History Mother Diabetes Uterine cancer Father Diabetes Sister Breast cancer Sister No problems noted. Brother No problems noted. Daughter No problems noted. Social History Household Members: Other Household Members Other:: 2 dogs and one cat Housing: Other Housing Other:: Mobile Home Are you a primary career advisor to a significant other at home: No Do you presently have visiting nurse or other home services: No Alcohol intake: current Alcohol intake frequency: holidays/special occasions only Comment: Legs weak at times Patient Tobacco Use Status: Former Tobacco user Tobacco use type: Cigarette Cigarette Packs Per Day: 2.5 Cigarettes Per Day: 50.0 Years Smoked: 24 e-Cigarette/Vaping Use: Never Used Second Hand Smoke Exposure: No Substance Use Type: Marijuana Advance Directives Date on File: 08/26/21 service: No Current occupational status: disabled Current occupational exposures/hazards: No Cognitive needs: No Hearing needs: No Vision needs: No Review of Systems Const All systems reviewed & are unremarkable except as noted in HPI and below ENT Denies dizziness Card Denies chest pain, Denies chest pain at rest, Denies chest pain with activity, Denies rapid heart rate, Denies pedal edema, Denies edema, Denies leg edema, Denies lightheadedness, Denies palpitations, Denies dyspnea, Denies dyspnea on exertion and Denies orthopnea Resp Denies cough, Denies dyspnea and Denies dyspnea on exertion GI Denies hematochezia and Denies change in stool character Musc Denies abnormal gait, Denies limited range of motion, Denies muscle cramps, Denies muscle weakness, Denies numbness, Denies radiating pain into limb, Denies stiffness and Denies tingling Neuro Denies abnormal gait, Denies dizziness, Denies numbness and Denies tingling Endo Denies palpitations Physical Exam Vital Signs: BMI result Body Mass Index 30.4 Const General: cooperative, healthy appearing, comfortable and no acute distress Orientation/consciousness: patient oriented x3 Neck Neck: Yes normal visual inspection and Yes no JVD Resp Effort & Inspection: normal respiratory effort Auscultation: clear to auscultation bilaterally, no rales, no rhonchi and no wheezes Cardio Rate: regular rate Rhythm: regular rhythm Heart sounds: S1 normal heart sound present, S2 normal heart sound present, no gallops, no murmurs and no rubs Neuro General: patient oriented x3 Extrem General: Yes normal to inspection Psych Appearance: grossly normal Mental Status: mental status grossly normal Speech and movement: Normal speech and movement present Office Procedures EKG Details: Today, read by me, normal sinus rhythm, rate 79, QTC 415 milliseconds [id number], Complete Assessment & Plan Assessment & Plan (1) Palpitations: Code(s): R00.2 - Palpitations Category: Medical Plan: Prior reports of heart palpitations related to sinus tach or possible SVT. Last Holter monitor done 12/12/2022 showed sinus rhythm with average heart rate 75 beats per minute, rare supraventricular and ventricular ectopy. Echocardiogram done 01/13/2025 shows EF 55-60%, no valve abnormalities, ascending aorta 3.7 cm. No recent heart palpitations. Continue low-dose metoprolol. Maintain good hydration and limit caffeine use. Cardiology follow-up 1 year, sooner if needed. (2) Tachycardia: Comment: Pt states neg cardiac work up ~ 2 yrs ago Code(s): R00.0 - Tachycardia, unspecified Category: Medical Plan: Tachycardia as above. She does report fluttering at times in the chest, which could be related to anxiety, goes away with drinking water. Instructed to call if symptoms persist or episodes are lasting longer. Then a Holter monitor will be ordered. (3) Sleep apnea: Comment: Denies sleep apnea no CPAP Code(s): G47.30 - Sleep apnea, unspecified Category: Medical Plan: Prior reported diagnosis of sleep apnea. She has lost significant weight since then. She does feel an occasional flutter in her chest. Suggested repeat sleep study to evaluate for active sleep apnea. She declines at this time. (4) Orthostatic hypotension: Code(s): I95.1 - Orthostatic hypotension Category: Medical Plan: Some lightheadedness with bending over in the hot weather. Blood pressure low today, currently asymptomatic. Reviewed need for good hydration and avoid doing gardening in the hot weather. Continue low-dose metoprolol. Plan I discussed with the patient the importance of continuing metoprolol for managing sinus tachycardia/ supraventricular tachycardia, as it has been effective in controlling her symptoms. We talked about the option of a home sleep study to reassess her sleep apnea, considering her weight loss and current sleep issues. I advised her to stay hydrated and avoid excessive heat to help manage her palpitations. We also discussed maintaining regular physical activity, particularly walking and gardening, while being mindful of her back issues. Medications: Changed From levothyroxine 25 mcg PO DAILY 90 days 90 tabs 2RF E03.8 - Other specified hypothyroidism, E06.3 - Autoimmune thyroiditis To levothyroxine 25 mcg PO DAILY E03.8 - Other specified hypothyroidism, E06.3 - Autoimmune thyroiditis Patient Instructions: - Continue taking metoprolol as prescribed. - Consider a home sleep study for sleep apnea reassessment. - Stay hydrated and avoid excessive heat. - Engage in regular physical activity, focusing on walking and gardening. Patient was informed and verbally consented to the use of an ambient scribe for clinic note documentation during this visit. Visit time spent on chart review, interview, assessment, orders, documentation. Coding Level of Care Code Est Pt Level 3 (81948) Complex EM visit Add On G2211 Diagnoses Palpitations R00.2 Tachycardia R00.0 Sleep apnea G47.30 Orthostatic hypotension I95.1 CPT Codes EKG - CPT: 13354-[id number], Complete ([id number]) Time Spent (min) 24
== END 2025-01-16 13:38 | disposition home or self-care (01) ==
LOC: HO.HCS 12:53
PROVIDERS: PCP Family Medicine; Visit Provider Nurse Practitioner Family
DX: R00.2 Palpitations (principal); R00.0 Tachycardia, unspecified; G47.30 Sleep apnea, unspecified; I95.1 Orthostatic hypotension
CPT/HCPCS: 93010; 99213; G2211

== ENCOUNTER → 2025-01-16 12:52 | Outpatient (BNVA) | payer MEDICARE, MEDICAID, SELFPAY | PROVIDERS: PCP Family Medicine; Visit Provider Nurse Practitioner Family | DX: R00.2 Palpitations (principal); R00.0 Tachycardia, unspecified; G47.30 Sleep apnea, unspecified; I95.1 Orthostatic hypotension; Z79.890 Hormone replacement therapy | CPT/HCPCS: 93005; 99212 ==

== ENCOUNTER 2025-03-04 09:04 | Outpatient (AMB) | payer MEDICARE, MEDICAID, SELFPAY ==
--- NOTE | 2025-03-04 09:24 | MHC.PC.OV ---
Vital Signs 03/04/25 09:25 Height 5 ft 5 in Weight 184 lb 6 oz BMI 30.7 Intake Visit Reasons: CPE Allergies nickel Allergy (Severe, Verified 01/16/25 13:13) Anaphylaxis nitrofurantoin (From Macrodantin) Allergy (Severe, Verified 01/16/25 13:13) Anaphylaxis Sulfa (Sulfonamide Antibiotics) Allergy (Severe, Verified 01/16/25 13:13) Hives, Swelling clindamycin Allergy (Mild, Verified 01/16/25 13:13) Diarrhea fesoterodine (From Toviaz) Allergy (Unknown, Verified 01/16/25 13:13) Flushing Tobacco use date assessed: 08/15/24 Dental Screening Dental Screen Date: 08/15/24 [facility] Medical History Osteoarthritis Fibromyalgia Hypothyroid Panic disorder [episodic paroxysmal anxiety] 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 Generalized anxiety disorder COVID Cholelithiasis Neuropathy Nephrolithiasis GERD (gastroesophageal reflux disease) Anxiety and depression Overactive bladder Tachycardia Sleep apnea Obesity due to excess calories Bettye's disease Hypothyroidism Spondylosis of lumbar spine Degeneration, intervertebral disc, lumbosacral Disc degeneration, lumbar Surgical History Hx of colonoscopy History of esophagogastroduodenoscopy (EGD) Hx of cholecystectomy S/P laparoscopic sleeve gastrectomy History of eyelid surgery History of lumbar laminectomy History of cystoscopy History of endometrial ablation History of dental surgery Hx of dilation and curettage Hx of tubal ligation History of lumpectomy of both breasts History of bladder surgery Family History Mother Diabetes Uterine cancer Father Diabetes Sister Breast cancer Sister No problems noted. Brother No problems noted. Daughter No problems noted. Social History Household Members: Other Household Members Other:: 2 dogs and one cat Housing: Other Housing Other:: Mobile Home Are you a primary manager intensive care unit to a significant other at home: No Do you presently have visiting nurse or other home services: No Alcohol intake: current Alcohol intake frequency: holidays/special occasions only Comment: Legs weak at times Patient Tobacco Use Status: Former Tobacco user Tobacco use type: Cigarette Cigarette Packs Per Day: 2.5 Cigarettes Per Day: 50.0 Years Smoked: 24 e-Cigarette/Vaping Use: Never Used Second Hand Smoke Exposure: No Substance Use Type: Marijuana Advance Directives Date on File: 08/26/21 service: No Current occupational status: disabled Current occupational exposures/hazards: No Cognitive needs: No Hearing needs: No Vision needs: No Questionnaire Thrive Questionnaire Date Thrive assessed: 06/11/24 I am a: Patient What is your living situation today?: I have a steady place to live Within the past 12 months, did the food you bought not last and you didn't have the money to get more?: Never true Within the past 12 months, did you worry whether your food would run out before you got money to buy more?: Never true Do you have trouble paying for medicines?: No Do you have trouble getting transportation to medical appointments?: No Do you have trouble paying your heating and electricity bill?: No Do you have trouble taking care of your child, family member or friend?: No Do you have trouble with day-to-day activities such as bathing, preparing meals, shopping, managing finances, etc.?: No Are you currently unemployed and looking for a job?: No Are you interested in more education?: No Please select the resources that you would like help with: None Currently or been in a relationship where the following occur: No concerns reported THRIVE Score: 0 VINEET-7 AMB Questionnaire VINEET-7 Date VINEET - 7 assessed: 08/30/23 Source: Developed by Drs. Rosalino Huang, Johanna Tyler, José Ambriz and colleagues, with an educational yolis from [employer]. Physical exam (Primary Care) Tobacco/Smoking Status: Tobacco use Status Tobacco use date assessed 08/15/24 12/24/24 11:07 Patient Tobacco Use Status Former Tobacco user 12/24/24 11:07 Tobacco use type Cigarette 12/24/24 11:07 e-Cigarette/Vaping Use Never Used 12/24/24 11:07 Thrive Assessment: Date of Thrive Assessment Date Thrive assessed 06/11/24 01/15/25 18:17 Currently or been in a relationship where the following occur: No concerns reported Coding
[2025-03-04 09:30] VITALS: BP 92/72; PULSE 74; RESP 14; TEMP 36.8; O2SAT 98
--- NOTE | 2025-03-04 09:31 | AM.OFFVISMDC ---
Intake Vital Signs 03/04/25 09:30 Weight 184 lb BP 92/72 Blood Pressure Location Lt brachial Position Sitting Respiration 14 Pulse 74 Pulse Source Pulse Oximeter Temp 98.3 F Temp Source Oral Pulse Oximetry (%) 98 Oxygen Delivery Method Room Air Intake Visit Reasons: CPE Allergies nickel Allergy (Severe, Verified 03/04/25 09:27) Anaphylaxis nitrofurantoin (From Macrodantin) Allergy (Severe, Verified 03/04/25 09:27) Anaphylaxis Sulfa (Sulfonamide Antibiotics) Allergy (Severe, Verified 03/04/25 09:27) Hives, Swelling clindamycin Allergy (Mild, Verified 03/04/25 09:27) Diarrhea fesoterodine (From Toviaz) Allergy (Unknown, Verified 03/04/25 09:27) Fl[place] HPI HPI Comments History of Present Illness Details Here today for AWV. The Medicare Annual Wellness Visit (AWV) is a yearly appointment with a health professional to identify health risks and help reduce them and to create or update a personalized prevention plan. During a Medicare AWV, health professionals should also review any current opioid prescriptions, detect any cognitive impairment, and establish or update medical and family history. 59 y/o F with hypothyroid, VINEET, GERD, neuropathy, PHILIP, DJD, fibromyalgia, obesity, family hx breast ca (sister), fhx uterine ca (mom), basal cell ca of skin SurgHx: Y FHx: Y SocHx: Y Health Maintenance: See scanned preventative medicine assessment with personalized health plan and screening schedule. Colon: 2022, repeat 3 years Mammo 07/2024 DEXA managed by [facility] [facility] PAP active w/ [employer] Vaccines: tdap 2023, Flu 03/03/2025 AAA screen EKG: declined, states she had one w/ Cards. [place] of Care: as documented in chart Visual Acuity: wears glasses, last exam Spring 2024 Hearing Screening: No concerns ACP: Does not have HCP or ACP. I provided blank HCP and MOLST today along w/ education Dietary/Nutrition/Exercise Edu provided: Y During the course of the visit the patient was educated and counseled about appropriate screening and preventative services. Patient instructions were provided to the patient in written or electronic format. I have reviewed and verified the above information. History of Present Illness The patient is a 59-year-old female presenting with an annual Medicare wellness visit and evaluation of rectal bulge. Hypothyroidism: - Managed with levothyroxine. - Gluten-free diet followed. - Normal lab results; regular monitoring. Fibromyalgia: - Manifests as chronic pain, described as electrical in nature. - Managed by lowering pregabalin, yet indicates difficulties in discontinuing completely. Generalized Anxiety Disorder: - Continues on buspirone, bupropion, and duloxetine. Chronic Gastroesophageal Reflux Disease (GERD): - Managed with famotidine; no new concerns. Urinary Incontinence: - Managed with oxybutynin. Chronic pain (associated with Fibromyalgia): - Persistent pain reported in multiple body parts affecting daily life. #problem: Notices a bulge after moving bowels doesnt think its hemorrhoids Had appt w/ GI but appt was cancelled;she does not wish to fu with [facility]. Active w/ [facility] [facility] last visit a few months ago but this issue was not present at that time I recommend her to schedule an appt w/ [employer] [facility]. I have placed a referral to [facility]. Concern for pelvic organ prolapse. Health Maintenance - Colonoscopy performed in 2022. - Recent mammogram conducted in July. - Recent flu shot administered the day before the visit. - Eye exam in the spring. - Blood work reviewed; thyroid and renal function normal. 08/2024 Review of Systems - Gastrointestinal: Reports rectal bulge during bowel movements; Denies rectal bleeding. - Skin: Reports rash under the belly. - Musculoskeletal: Reports chronic pain in arms, face, armpit. - Neurological: Reports tingling in fingertips and toes. - General: Reports recent flu-like symptoms post-flu shot. - Endocrine: Denies any new thyroid symptoms. Physical Exam General: Well developed, well nourished, in no acute distress. Appears stated age. Head: Normocephalic, atraumatic. Eyes: Pupils are equal, round and reactive to light and accommodation. Conjunctivae are clear. Scleras nonicteric bilat. Vision grossly normal. Last eye exam in spring. Ears: TMs clear AU, EACS WNL. No problems with hearing. Nose: Patent, without discharge. Neck: No carotid bruit bilat. Supple, no adenopathy or thyromegaly. Thyroid ultrasound not needed; TSH and T4 routinely monitored. Breast: Edu on SBE. Mammogram in July. Lungs: Clear to auscultation bilaterally. No rales, rhonchi or wheeze noted. Good air flow in all proctor. Heart: Regular rate and rhythm. No murmurs, click, rubs or gallops are noted. Abdomen: Bowel sounds present in all quadrants. The abdomen is soft, nontender, with no masses or organomegaly noted. No hernias are noted. : Deferred. Reviewed recommendations for routine [employer]. Referral to CATERING SALES MANAGER for evaluation of possible pelvic organ prolapse. Pulses: Peripheral pulses are equal and palpable bilaterally. Extremities: No clubbing, cyanosis nor edema is noted. Complaints of pain in fingertips and toes, possibly related to fibromyalgia. Neurologic: Gait and station normal. Cranial Nerves 2-12 intact. Motor strength grossly symmetrical and intact. No sensory loss. Balance normal. Skin: No rashes, ulcers, or lesions noted. Turgor is good. Skin color is good. Hair and nails are without abnormalities. History of skin cancer, under digital product manager care. Psych: Normal eye contact, affect and mood appropriate, and normal interactions. Patient is alert and appropriate to context. History of anxiety disorder, managed with medications. Results - Labs: Thyroid and renal panels show normal results. - Procedures: Recent colonoscopy within normal limits. Discussion Notes I discussed with the patient the need for further evaluation for the suspected pelvic organ prolapse. I recommended referral to a new melangeur operator at [facility] for further gastrointestinal evaluation, and advised the patient to consider a follow-up with CATERING SALES MANAGER to explore potential pelvic organ involvement. I reassured the patient about the management of hypothyroidism with regular monitoring, and encouraged continuing the gluten-free diet. I reviewed the current management for fibromyalgia including analgesic approach and discussed with the patient the efficacy of pregabalin in relation to her current symptoms. I also emphasized the importance of regular health maintenance with updates on her vaccinations and upcoming appointments. Patient was given time to ask questions. All questions were answered to their satisfaction. Assessment and Plan 1. Hypothyroidism - Maintain levothyroxine; stable labs. 2. Fibromyalgia - Continue pregabalin; monitor symptoms. 3. Generalized Anxiety Disorder - Continue current meds; stable. 4. Chronic GERD - Continue famotidine; review if needed. GI referral 5. Urinary Incontinence - Maintain oxybutynin; stable. 6. Possible Prolapse - Gastro referral; CATERING SALES MANAGER evaluation. 7. Chronic Pain - Support psychiatric management; symptom monitoring. 8. Cont all meds and care per team. Complete HCP/MOLST and RTO Patient Instructions - Follow up with the new melangeur operator as discussed. - Schedule and attend an CATERING SALES MANAGER evaluation for pelvic symptoms. - Continue medication as prescribed for hypothyroidism, GERD, fibromyalgia, anxiety disorder, and urinary incontinence. - Maintain a gluten-free diet. - Call my office if any new symptoms arise or if symptoms worsen. - RTO in 4-5 mo w/ PCP, labs to be done 1 week before. Consent Patient was informed and verbally consented to the use of an ambient scribe for clinic note documentation during this visit. An additional 30 minutes was spent addressing the problem(s) noted at todays visit. This includes time spent before the visit reviewing the chart, time spent during the visit, and time spent after the visit on documentation reviewing laboratory results, diagnostic imaging, medications, performing a medically necessary evaluation, counseling on diagnoses, care coordination, ordering appropriate tests, ordering appropriate medications, review of tests performed by other providers, reporting test results with the patient, communication with other healthcare providers. 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 Panic disorder [episodic paroxysmal anxiety] Sleep apnea Spondylosis of lumbar spine Tachycardia Surgical History (Updated 03/04/25 @ 10:09 by Emely Enriquez, RIN-BC) History of bladder surgery History of cystoscopy History of dental surgery History of endometrial ablation History of esophagogastroduodenoscopy (EGD) History of eyelid surgery History of lumbar laminectomy History of lumpectomy of both breasts Hx of cholecystectomy Hx of colonoscopy (~2022) Hx of dilation and curettage Hx of tubal ligation S/P laparoscopic sleeve gastrectomy Family History Mother Diabetes Uterine cancer Father Diabetes Sister Breast cancer Sister No problems noted. Brother No problems noted. Daughter No problems noted. Social History Household Members: Other Household Members Other:: 2 dogs and one cat Housing: Other Housing Other:: Mobile Home Are you a primary professional healthcare representative to a significant other at home: No Do you presently have visiting nurse or other home services: No Alcohol intake: current Alcohol intake frequency: holidays/special occasions only Comment: Legs weak at times Patient Tobacco Use Status: Former Tobacco user Tobacco use type: Cigarette Cigarette Packs Per Day: 2.5 Cigarettes Per Day: 50.0 Years Smoked: 24 e-Cigarette/Vaping Use: Never Used Second Hand Smoke Exposure: No Substance Use Type: Marijuana Advance Directives Date on File: 08/26/21 service: No Current occupational status: disabled Current occupational exposures/hazards: No Cognitive needs: No Hearing needs: No Vision needs: No Questionnaire Medicare Wellness Checkup What gender do you identify with?: female During the past 4 weeks, how much have you been bothered by emotional problems such as feeling anxious, depressed, irritable, sad or downhearted, and blue?: see PHQ-9 During the past 4 weeks, has your physical & emotional health limited your social activities with family, friends, neighbors, or groups?: not at all During the past 4 weeks, how much bodily pain have you generally had?: moderate pain During the past 4 weeks, was someone available to help you if you needed & wanted help?: yes, as much as I wanted During the past 4 weeks, what was the hardest physical activity you could do for at least 2 minutes?: light Can you get to places out of walking distance without help? (For eg., can you travel alone on buses, taxis or drive your car?): Yes Can you go shopping for groceries or clothes without someone's help?: Yes Can you prepare your own meals?: Yes Can you do your housework without help?: Yes Because of any health problems, do you need the help of another person with your personal care needs such as eating, bathing, dressing or getting around the house?: No Can you handle your own money without help?: Yes During the past 4 weeks, how would you rate your health in general?: good During the past 4 weeks how have things been going for you?: pretty well Are you having difficulties driving your car?: no Do you always fasten your seat belt when you are in a car?: yes, usually During past 4 weeks, have you been bothered by the following: never: Falling or dizzy when standing up, Sexual problems?, Trouble eating well?, Teeth or denture problems?, Problems using the telephone? and Tiredness or fatigue? Have you fallen 2 or more times in the past year?: No Are you afraid of falling?: No Are you a smoker?: no During the past 4 weeks, how many drinks of wine, beer, or other alcoholic beverages did you have?: no alcohol at all Do you exercise for about 20 minutes 3 or more times a week?: yes, some of the time Have you been given information to help with the following?: no: Hazards in your house that might hurt you? and no: Keeping track of your medications? How often do you have trouble taking medicines the way you have been told to take them?: I always take medicine as prescribed How confident are you that you can control & manage most of your health problems?: very confident What is your race?: White Activity of Daily Living Bathing - sponge bath, tub bath or shower: receives no assistance (gets in/out by self, if usual bathing means Dressing - getting clothes from closets & drawers, including inner/outer garments & fasteners.: gets clothes & gets completely dressed without help Toileting - going to the 'toilet room' for urine/bowel elimination & cleaning self/arranging clothes: goes to toilet room, cleans self, arranges clothes without help Transfer: moves in & out of bed and chair without help (may use support object) Continence: controls urination/bowel movements completely by self Feeding: feeds self without help Total Score: 0 Information obtained from: patient Using telephone: independent Traveling: independent Shopping: independent Preparing meals: independent Housework: independent Taking medicine: independent Managing money: independent PHQ-9 Over the last 2 weeks, how often have you been bothered by any of the following problems? 1. Little interest or pleasure in doing things: several days 2. Feeling down, depressed, or hopeless: more than half the days 3. Trouble falling or staying asleep, or sleeping too much: several days 4. Feeling tired or having little energy: more than half the days 5. Poor appetite or overeating: not at all 6. Feeling bad about yourself - or that you are a failure or have let yourself or your family down: not at all 7. Trouble concentrating on things, such as reading the newspaper or watching television: more than half the days 8. Moving or speaking so slowly that other people could have noticed. Or the opposite - being so fidgety or restless that you have been moving around a lot more than usual: several days 9. Thoughts that you would be better off or of hurting yourself in some way: not at all Total score: 9 Depression Screening Interpretation: Positive Depression Screening Follow-up: Existing condition and In treatment Depression Screening Done: Yes 03651 - PHQ-9 Billing: Yes Source: Developed by Drs. Rosalino Huang, Johanna Tyler, José Ambriz and colleagues, with an educational yolis from [employer]. Physical Exam Vital Signs: Last Vital Signs Temp 98.3 F 03/04/25 09:30 Pulse 74 03/04/25 09:30 Resp 14 03/04/25 09:30 BP 92/72 03/04/25 09:30 Pulse Ox 98 03/04/25 09:30 Oxygen Delivery Method Room Air 03/04/25 09:30 Assessment & Plan Assessment & Plan (1) Encounter for subsequent annual wellness visit (AWV) in Medicare patient: Onset Date: ~03/04/25 Code(s): Z00.00 - Encounter for general adult medical examination without abnormal findings (2) Rectal abnormality: Code(s): K62.9 - Disease of anus and rectum, unspecified (3) ACP (advance care planning): Code(s): Z71.89 - Other specified counseling (4) Family history of breast cancer: Comment: sister Code(s): Z80.3 - Family history of malignant neoplasm of breast (5) Basal cell carcinoma of skin: Comment: active w derm Code(s): C44.91 - Basal cell carcinoma of skin, unspecified Qualifiers: Basal cell carcinoma face location: eyelid including canthus Basal cell carcinoma location: face Eyelid: upper Laterality: right Qualified Code(s): C44.1121 - Basal cell carcinoma of skin of right upper eyelid, including canthus (6) Family history of uterine cancer: Comment: mom Code(s): Z80.49 - Family history of malignant neoplasm of other genital organs (7) Hypothyroidism: Code(s): E03.9 - Hypothyroidism, unspecified Qualifiers: Hypothyroidism type: due to Bettye's thyroiditis Qualified Code(s): E03.8 - Other specified hypothyroidism; E06.3 - Autoimmune thyroiditis (8) Obesity (BMI 30.0-34.9): Code(s): E66.9 - Obesity, unspecified (9) GERD (gastroesophageal reflux disease): Code(s): K21.9 - Gastro-esophageal reflux disease without esophagitis Qualifiers: Esophagitis presence: without esophagitis Qualified Code(s): K21.9 - Gastro-esophageal reflux disease without esophagitis Plan . Orders: Referrals Gastroenterology Referral K62.9 - Disease of anus and rectum, unspecified Patient Instructions: Put cold or warm wet cloths on your eye a few times a day if the eye hurts. Do not wear contact lenses or eye makeup until the pink eye is gone. Throw away any eye makeup you were using when you got pink eye. Clean your contacts and storage case. Wash bed linen after 24 hours of antibiotic eye drop use. Do not share eye drops. Use a clean towel to wash your face each day until symptoms are gone. This will help prevent recurrence. What is pink eye? [place] eye is a term people use to describe an infection or irritation of the eye. The medical term for pink eye is conjunctivitis. If you have pink eye, your eye (or eyes) might: ?Turn pink or red ?Weep or ooze a gooey liquid ?Become itchy or burn ?Get stuck shut, especially when you first wake up [place] eye can be caused by an infection, allergies, or an unknown irritation. Can you catch pink eye from someone else? Yes. When pink eye is caused by an infection, it can spread easily. Usually, people catch it from touching something that has been in contact with an infected person's eye. It can also be spread when an infected person touches someone else, and then that person touches their eye. If someone you know has pink eye, avoid touching their pillowcases, towels, or other personal items. When should I see a doctor or nurse? See your doctor or nurse if your eye hurts, or if you still have trouble seeing clearly after blinking. If you do not have these problems, but think you might have pink eye, your doctor or nurse might be able to give you advice over the phone. Can pink eye be treated? Most cases of pink eye go away on their own without treatment. But some types of pink eye can be treated. When pink eye is caused by infection, it is usually caused by a virus, so antibiotics will not help. Still, pink eye caused by a virus can last several days. ?[place] eye caused by an infection with bacteria can be treated with antibiotic eye drops, gel, or ointment. ?[place] eye caused by other problems can be treated with eye drops normally used to treat allergies. These drops will not cure the pink eye, but they can help with itchiness and irritation. When using eye drops for infection, do not touch your healthy eye after touching your infected eye. Also, do not touch the bottle or dropper directly onto 1 eye and then use it in the other. These things can cause the infection to spread from 1 eye to the other. If your eyelids feel swollen, it might also help to hold a cool wet cloth on the area. What if I wear contact lenses? If you wear contact lenses and you have symptoms of pink eye, it is really important to have a doctor look at your eyes. In people who wear contacts, the symptoms of pink eye can be caused by corneal abrasion. Corneal abrasion is a scratch on the eye and can be a serious problem. During treatment for eye infections, you might need to stop wearing your contacts for a short time. If your contacts are disposable, throw them away and use new ones. If your contacts are not disposable, you need to carefully clean them. You should also throw away your contact lens case and get a new one. When can I go back to work or school? If you have pink eye caused by an infection, remember that it can spread very easily. The best way to avoid spreading it is to stay away from other people until you no longer have symptoms. If this is not possible, wash your hands often (figure 1). It's also important to avoid touching your eyes and sharing items that could spread the infection. Schools and day cares usually have rules about when a child with pink eye can return. If a child has a bacterial infection, they will probably need to stay home until they have gotten antibiotic eye drops or ointment for 24 hours. Can pink eye be prevented? To keep from getting or spreading pink eye caused by an infection: ?Wash your hands often with soap and water. ?Try not to touch your eyes. ?Avoid sharing towels, bedding, or other personal items with a person who has pink eye. If your pink eye is caused by allergies, it might help to stay inside with the windows shut as much as possible during peak allergy seasons. What problems should I watch for? Call your doctor or nurse if: ?You have trouble seeing clearly after blinking. ?Your eye is still red or has drainage after 3 days. ?You have eye pain that is getting worse. Quality Reporting (2019) Adult ([facility] 138//) Smoking risk assessment performed?: Yes Patient Tobacco Use Status: Former Tobacco user Depression screening performed: Yes Screen Results: Yes Positive screen (in treatment) Recommended changes not done: EKG (done previously ) Systolic BP not done?: No Diastolic BP not done?: No BMI screening not done: No BMI High - Follow Up: Yes High-plan (lifestyle ) Sexual Activity Screening ([facility] 153) Sexually active?: Yes Immunizations ([facility] 147, 117) Annual Influenza Vaccine: Yes Measles Antibody Test: No Mumps Antibody Test: No Rubella Antibody Test: No Varicella Antibody Test: No Anti Hepatitis A IgG Antigen test: No Anti Hepatitis B Virus Surface Ab test: No Fall Risk Screening ([facility] 139) Last assessed Fall Risk: 03/04/25 Fall risk assessment: No Falls in past year Dementia Assessment ([facility] 149) Cognitive assessment recorded: Yes Assessment of cognition with standardized tool: Yes (0/28 6 cit ) Depression/Bipolar (159/160/161/177) PHQ-9: Total score: 9 Ophthalmol:Cataracts Visual Acuity (133) Visual acuity exam performed: Yes (exam spring 2024 wears glasses) Coding Level of Care Code Medicare Subsequent (G0439) Est Pt Level 4 (01507) Diagnoses Encounter for subsequent annual wellness visit (AWV) in Medicare patient Z00.00 Rectal abnormality K62.9 ACP (advance care planning) Z71.89 Family history of breast cancer Z80.3 Basal cell carcinoma (BCC) of skin of right upper eyelid including canthus C44.1121 Basal cell carcinoma face location: eyelid including canthus Basal cell carcinoma location: face Eyelid: upper Laterality: right Family history of uterine cancer Z80.49 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
== END 2025-03-04 10:05 | disposition home or self-care (01) ==
LOC: HO.HMCFM 09:05
PROVIDERS: PCP Family Medicine; Visit Provider Nurse Practitioner Family
DX: Z00.00 Encounter for general adult medical examination without abnormal findings (principal); K62.9 Disease of anus and rectum, unspecified; E03.8 Other specified hypothyroidism; E06.3 Autoimmune thyroiditis; K21.9 Gastro-esophageal reflux disease without esophagitis; Z80.3 Family history of malignant neoplasm of breast; Z80.49 Family history of malignant neoplasm of other genital organs; C44.1121 Basal cell carcinoma of skin of right upper eyelid, including canthus; E66.9 Obesity, unspecified

== ENCOUNTER → 2025-03-04 09:04 | Outpatient (BNVA) | payer MEDICARE, MEDICAID, SELFPAY | PROVIDERS: PCP Family Medicine; Visit Provider Nurse Practitioner Family | DX: Z00.00 Encounter for general adult medical examination without abnormal findings (principal); F41.1 Generalized anxiety disorder; E03.9 Hypothyroidism, unspecified; K21.9 Gastro-esophageal reflux disease without esophagitis; G62.9 Polyneuropathy, unspecified; G47.33 Obstructive sleep apnea (adult) (pediatric); M79.7 Fibromyalgia; E66.9 Obesity, unspecified; R32 Unspecified urinary incontinence; K62.9 Disease of anus and rectum, unspecified; C44.1121 Basal cell carcinoma of skin of right upper eyelid, including canthus; E03.8 Other specified hypothyroidism; E06.3 Autoimmune thyroiditis; Z80.3 Family history of malignant neoplasm of breast; Z80.49 Family history of malignant neoplasm of other genital organs; Z71.89 Other specified counseling | CPT/HCPCS: 96127; 99212; 99497 ==

== ENCOUNTER 2025-03-21 11:19 | Outpatient (AMB) | payer MEDICARE, MEDICAID, SELFPAY ==
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
[2025-03-21 12:03] VITALS: BP 124/79; PULSE 68
== END 2025-03-21 16:08 | disposition home or self-care (01) ==
LOC: HO.HOP 11:19
PROVIDERS: PCP Family Medicine; Visit Provider Psychiatry & Neurology Psychiatry
DX: F41.8 Other specified anxiety disorders (principal); F41.1 Generalized anxiety disorder; F41.0 Panic disorder [episodic paroxysmal anxiety]; F50.819 Binge eating disorder, unspecified
CPT/HCPCS: 90833; 99213

== ENCOUNTER → 2025-03-21 11:19 | Outpatient (BNVA) | payer MEDICARE, MEDICAID, SELFPAY | PROVIDERS: PCP Family Medicine; Visit Provider Psychiatry & Neurology Psychiatry | DX: F41.8 Other specified anxiety disorders (principal); F41.1 Generalized anxiety disorder; F41.0 Panic disorder [episodic paroxysmal anxiety]; F50.811 Binge eating disorder, moderate | CPT/HCPCS: 99212 ==

== ENCOUNTER 2025-04-21 13:30 | Outpatient (AMB) | payer MEDICARE, MEDICAID, SELFPAY ==
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
== END 2025-04-21 14:12 | disposition home or self-care (01) ==
LOC: HO.HOP 13:30
PROVIDERS: PCP Family Medicine; Visit Provider Psychiatry & Neurology Psychiatry
DX: F41.8 Other specified anxiety disorders (principal); F41.0 Panic disorder [episodic paroxysmal anxiety]; F50.819 Binge eating disorder, unspecified
CPT/HCPCS: 99214

== ENCOUNTER → 2025-04-21 13:30 | Outpatient (BNVA) | payer MEDICARE, MEDICAID, SELFPAY | PROVIDERS: PCP Family Medicine; Visit Provider Psychiatry & Neurology Psychiatry | DX: F41.8 Other specified anxiety disorders (principal); F41.0 Panic disorder [episodic paroxysmal anxiety]; Z79.899 Other long term (current) drug therapy | CPT/HCPCS: 99212 ==

== ENCOUNTER 2025-05-07 12:10 | Outpatient (AMB) | payer MEDICARE, MEDICAID, SELFPAY ==
[2025-05-07 12:34] VITALS: BP 131/74; PULSE 69; TEMP 36.5; O2SAT 98
--- NOTE | 2025-05-07 12:34 | A.OFFVIS_ITS ---
VS Expanded 05/07/25 12:34 BP 131/74 Blood Pressure Location Lt brachial Blood Pressure Position Sitting Pulse 69 Pulse Source Pulse Oximeter Temp 97.7 F Pulse Oximetry 98 Height 5 ft 5 in Weight 180 lb BMI 30.0 Body Fat % 38 Body Fat Mass 68.4 Fat Free Mass 111.6 Visceral Fat Rating 10 Body Water % 43.9 Body Water Mass 79 Muscle Mass/Score 105.8 Basal Metabolic Rate/Score 1,518 Intake Visit Reasons: (OV) PO LSG 63 Allergies nickel Allergy (Severe, Verified 05/07/25 12:38) Anaphylaxis nitrofurantoin (From Macrodantin) Allergy (Severe, Verified 05/07/25 12:38) Anaphylaxis Sulfa (Sulfonamide Antibiotics) Allergy (Severe, Verified 05/07/25 12:38) Hives, Swelling clindamycin Allergy (Mild, Verified 05/07/25 12:38) Diarrhea fesoterodine (From Toviaz) Allergy (Unknown, Verified 05/07/25 12:38) [place] Medication List - Last Reconciled 05/07/25 by Eugene Felix, RN bupropion HCl XL 300 mg PO QAM buspirone 22.5 mg (1.5 x 15 mg) PO BID 90 days cyclobenzaprine 10 mg PO BID PRN diazepam 2.5 - 5 mg (0.5 - 1 x 5 mg) PO DAILY PRN duloxetine 120 mg (2 x 60 mg) PO DAILY famotidine 20 mg PO DAILY 30 days levothyroxine 25 mcg PO DAILY lisdexamfetamine (Vyvanse) 20 mg PO DAILY metoprolol succinate ER 12.5 mg (1/2 x 25 mg) PO DAILY multivitamin 1 tab PO DAILY nystatin 1 appl topical QID oxybutynin chloride ER 15 mg PO DAILY pregabalin 100 mg PO BID 30 days HPI Comments Details: This is a 59 yo F who is s/p LSG 08/26/2021. Weight gain of 5lbs since last OV 6mo ago. However she reports she had gotten up to 187lb between last visit and now. She is struggling with food noise and binge eating. Following with her psychiatrist and discussing this. This also worsened her depression. Her medications were adjusted. She did not follow up with a dietitian. No complaints of nausea, emesis, abdominal pain or reflux, or constipation. Notes excess skin of abdomen- has started developing rashes in skin folds. Tries to apply Vaseline but sometimes the areas open up and are very painful. She tried a different medication for these rashes- ketoconazole. Has to wear a high waisted waistband/pants to help hold excess skin in place and prevent from moving around. Excess skin is heavy and worsens her chronic pain. Right now she does not think she wants to pursue skin removal surgery. Present meal plan includes: Breakfast: Pure Protein bar snack- shake (atkins or pure protein) lunch: dinner leftovers dinner: meat and veg/salad with some cheese trying to avoid starches takes MVI Exercise routine includes: walking dogs [facility] Medical History (Updated 03/23/25 @ 22:33 by Jonathon Crowe MD) Osteoarthritis Fibromyalgia Hypothyroid Panic disorder [episodic paroxysmal anxiety] 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 Generalized anxiety disorder COVID Cholelithiasis Neuropathy Nephrolithiasis GERD (gastroesophageal reflux disease) Anxiety and depression Overactive bladder Tachycardia Sleep apnea Obesity due to excess calories Bettye's disease Hypothyroidism Spondylosis of lumbar spine Degeneration, intervertebral disc, lumbosacral Disc degeneration, lumbar Surgical History (Updated 03/04/25 @ 10:09 by Emely Enriquez [facility]) Hx of colonoscopy (~2022) History of esophagogastroduodenoscopy (EGD) Hx of cholecystectomy S/P laparoscopic sleeve gastrectomy History of eyelid surgery History of lumbar laminectomy History of cystoscopy History of endometrial ablation History of dental surgery Hx of dilation and curettage Hx of tubal ligation History of lumpectomy of both breasts History of bladder surgery Family History Mother Diabetes Uterine cancer Father Diabetes Sister Breast cancer Sister No problems noted. Brother No problems noted. Daughter No problems noted. Social History Household Members: Other Household Members Other:: 2 dogs and one cat Housing: Other Housing Other:: Mobile Home Are you a primary caretaker grounds to a significant other at home: No Do you presently have visiting nurse or other home services: No Alcohol intake: current Alcohol intake frequency: holidays/special occasions only Comment: Legs weak at times Patient Tobacco Use Status: Former Tobacco user Tobacco use type: Cigarette Cigarette Packs Per Day: 2.5 Cigarettes Per Day: 50.0 Years Smoked: 24 e-Cigarette/Vaping Use: Never Used Second Hand Smoke Exposure: No Substance Use Type: Marijuana Advance Directives Date on File: 08/26/21 service: No Current occupational status: disabled Current occupational exposures/hazards: No Cognitive needs: No Hearing needs: No Vision needs: No Quality Reporting (2019) Adult ([facility] 138/07/20/68) Smoking risk assessment performed?: Yes Patient Tobacco Use Status: Former Tobacco user Assessment & Plan Assessment & Plan (1) S/P laparoscopic sleeve gastrectomy: Comment: 08/26/21 Code(s): Z98.84 - Bariatric surgery status Category: Surgical (2) Overweight: Code(s): E66.3 - Overweight Category: Medical Plan Patient struggles with food noise and is continuing to follow with her psychiatrist. She has made progress losing weight after gaining some. We discuss ed protein goal of 70g per day. Continue topical rx treatments for excess skin. RTC 6mo per pt preference. Due for labs at next visit.
== END 2025-05-07 13:07 | disposition home or self-care (01) ==
LOC: HO.HBS 12:11
PROVIDERS: PCP Family Medicine; Visit Provider Physician Assistant Surgical
DX: E66.3 Overweight (principal); Z68.30 Body mass index [BMI] 30.0-30.9, adult; Z90.3 Acquired absence of stomach [part of]; Z98.84 Bariatric surgery status
CPT/HCPCS: 99213; G2211

== ENCOUNTER → 2025-05-07 12:10 | Outpatient (BNVA) | payer MEDICARE, MEDICAID, SELFPAY | PROVIDERS: PCP Family Medicine; Visit Provider Physician Assistant Surgical | DX: Z98.84 Bariatric surgery status (principal); E66.3 Overweight; L98.7 Excessive and redundant skin and subcutaneous tissue | CPT/HCPCS: 99212 ==